=== PATIENT | female | born 1955 | race Caucasian/White ===

== ENCOUNTER → 2020-08-28 13:46 | Outpatient (BNVA) | payer MEDICARE, SELFPAY | PROVIDERS: PCP Internal Medicine; Referring Provider Internal Medicine; Visit Provider Internal Medicine | DX: I35.0 Nonrheumatic aortic (valve) stenosis (principal); I25.10 Atherosclerotic heart disease of native coronary artery without angina pectoris; E11.9 Type 2 diabetes mellitus without complications; E78.5 Hyperlipidemia, unspecified; J44.9 Chronic obstructive pulmonary disease, unspecified; I10 Essential (primary) hypertension; F17.200 Nicotine dependence, unspecified, uncomplicated | CPT/HCPCS: 99214 ==

== ENCOUNTER 2020-09-01 10:14 | Outpatient (REF) | payer MEDICARE, SELFPAY ==
[2020-09-01 14:46] LABS: Glucose Urine UA NEG (NEG); Leukocyte Esterase Urine NEG (NEG); Nitrite Urine NEG (NEG); Urine Blood NEG (NEG); Urine Ketones NEG (NEG); Urine Protein NEG (NEG-TRACE)
[2020-09-01 14:48] LABS: Appearance Urine CLEAR; Color Urine YELLOW
[2020-09-01 14:56] LABS: Mucus Urine 1+ /LPF; RBC Urine 0 /HPF (0); Squamous Epithelial Cell Urine 1+ /LPF; WBC Urine 0 /HPF (0-4)
[2020-09-01 15:07] LABS: T4 Thyroxine 5.8 ug/dL (4.5-12.0); Thyroid Stimulating Hormone 8.55 mIU/mL (0.32-4.0)
== END 2020-09-01 10:15 | disposition home or self-care (01) ==
LOC: HO.HMGCLDS 10:14
PROVIDERS: PCP Internal Medicine; Visit Provider Internal Medicine
DX: J44.9 Chronic obstructive pulmonary disease, unspecified (principal); K22.70 Barrett's esophagus without dysplasia; M50.30 Other cervical disc degeneration, unspecified cervical region; E03.9 Hypothyroidism, unspecified; E78.00 Pure hypercholesterolemia, unspecified; M51.36 Other intervertebral disc degeneration, lumbar region; E66.9 Obesity, unspecified; E11.65 Type 2 diabetes mellitus with hyperglycemia; I35.0 Nonrheumatic aortic (valve) stenosis; I25.10 Atherosclerotic heart disease of native coronary artery without angina pectoris; I10 Essential (primary) hypertension; E55.9 Vitamin D deficiency, unspecified; F41.8 Other specified anxiety disorders; R31.9 Hematuria, unspecified; Z72.0 Tobacco use
CPT/HCPCS: 81001; 84436; 84443; 88112

== ENCOUNTER 2020-11-14 01:35 | Emergency (ER) | payer MEDICARE, SELFPAY ==
[2020-11-14 02:12] VITALS: BP 148/67; PULSE 67; RESP 18; O2SAT 94; BMI 35.4
[2020-11-14 02:30] LABS: Glucose Urine UA 250 MG/DL (NEG); Leukocyte Esterase Urine 2+ (NEG); Nitrite Urine POS (NEG); Specific Gravity - Urine 1.025 (1.005-1.025); Urine Blood 3+ (NEG); Urine Ketones 5 MG/DL (NEG); Urine Protein 3+ MG/DL (NEG-TRACE)
[2020-11-14 02:31] LABS: Appearance Urine CLOUDY; Color Urine ORANGE
[2020-11-14 02:38] LABS: Bacteria Urine 1+ /LPF; RBC Urine TNTC /HPF (0); Squamous Epithelial Cell Urine 3+ /LPF; WBC Urine TNTC /HPF (0-4)
--- NOTE | 2020-11-14 02:45 | ED.FEMALEGU ---
HPI - Female Genitourinary General Chief complaint: Urogenital-Female Stated complaint: ?UTI Time Seen by Provider: 11/14/20 02:45 Source: patient Mode of arrival: ambulatory Limitations: no limitations History of Present Illness HPI Narrative: Patient diabetic with history of frequent UTI complaining of dysuria and frequency for last few hours no nausea no vomiting no fever no chills no flank pain or hematuria no vaginal discharge MD elicited complaint: dysuria and UTI Onset (ago): hour(s) Severity: mild Related Data Home Medications Medication Instructions Recorded Confirmed aspirin 81 mg tablet,delayed 81 mg PO DAILY 08/28/20 11/09/20 release glimepiride 2 mg tablet 2 mg PO DAILY 08/28/20 11/09/20 lisinopril 40 mg tablet 40 mg PO DAILY 08/28/20 11/09/20 metformin 1,000 mg tablet 1,000 mg PO BID 08/28/20 11/09/20 metoprolol tartrate 50 mg tablet mg PO BID tab 08/28/20 11/09/20 omeprazole 40 mg capsule,delayed 40 mg PO BID 08/28/20 11/09/20 release rosuvastatin 5 mg tablet 5 mg PO DAILY 08/28/20 11/09/20 sertraline 50 mg tablet 50 mg PO DAILY 08/28/20 11/09/20 Previous Rx's Medication Instructions Recorded diltiazem HCl 240 mg 240 mg PO QAM #90 cap 08/24/20 capsule,extended release 24 hr blood sugar diagnostic 1 strip MISCELLANEOUS BID 30 Days 09/11/20 #100 strip oxycodone-acetaminophen 5 mg-325 1 tab PO .QD PRN 30 Days #30 tab 10/30/20 mg tablet cefpodoxime 200 mg PO BID #20 tab 11/14/20 phenazopyridine [Pyridium] 200 mg PO TID #6 tab 11/14/20 Allergies Allergy/AdvReac Type Severity Reaction Status Date / Time levofloxacin [From LEVAQUIN] Allergy Mild NAUSEA, Verified 09/07/20 09:04 dizziness,Nausea cyclobenzaprine Allergy Unknown NAUSEA & Verified 09/07/20 09:04 [From FLEXERIL] VOMITING levothyroxine Allergy Unknown Unknown Verified 09/07/20 09:04 simvastatin Allergy Unknown Muscle Pain Verified 09/07/20 09:04 Sulfa (Sulfonamide Allergy Unknown VOMITING Verified 09/07/20 09:04 Antibiotics) [SULFA (SULFONAMIDE ANTIBIOTICS)] atorvastatin [ATORVASTATIN] AdvReac Severe MUSCLE PAIN Verified 09/07/20 09:04 pravastatin AdvReac Unknown Muscle Pain Verified 09/07/20 09:04 Review of Systems Review of Systems: Yes all other systems are reviewed and are negative [facility] Past Medical History Medical History Anxiety and depression Atherosclerotic cardiovascular disease Barretts esophagus COPD (chronic obstructive pulmonary disease) Degenerative disc disease, cervical HTN (hypertension) Hyperlipidemia, unspecified Hypertension Lumbar degenerative disc disease Non-rheumatic aortic stenosis Obesity Osteopenia Restless leg syndrome Thrombocytopenia Tobacco abuse Tubular adenoma of colon Type 2 diabetes mellitus with hyperglycemia Vitamin D deficiency Surgical History History of appendectomy History of cardiac catheterization History of cataract surgery History of cholecystectomy History of discectomy History of hip replacement History of tonsillectomy Family History Family History Father No problems noted. Mother Cardiovascular disease Social History Social History Alcohol intake: never Smoking Status: Current every day smoker Cigarettes Per Day: 10 Smoked in Last 30 Days: No Use of substances other than those prescribed or required for medical reasons: No Advance Directives: No Advance Directives Information Provided: No Physical Exam Vital Signs: Vital Signs: Last Vital Signs Pulse 67 11/14/20 02:12 Resp 18 11/14/20 02:12 BP 148/67 H 11/14/20 02:12 Pulse Ox 94 11/14/20 02:12 Body Mass Index 35.4 Appearance: Alert. Oriented X3. No acute distress. Eyes: Pupils equal, round and reactive to light. ENT: Pharynx normal. Neck: Normal inspection. Neck supple. CVS: Normal heart rate and rhythm. Pulses normal. Respiratory: No respiratory distress. Breath sounds normal. Abdomen: Soft and nontender. Bowel sounds are present, no mass palpable, no CVA tenderness Skin: Skin warm and dry. Normal skin color. Normal skin turgor. Extremities: No lower extremity edema. Neuro: Oriented X 3. No motor deficit. No sensory deficit. Course Course Course Narrative: Patient with the UTI with nitrite positive. Patient is allergic to Levaquin will give her Ceftin no signs/symptoms of pyelonephritis and discharge patient on cefpodoxime MDM - Female Genitourinary Lab Data Labs: Lab Results 11/14/20 Range/Units 02:24 Urine Color ORANGE Urine Appearance CLOUDY Urine pH 5.0 (5.0-8.0) Ur Specific [place] 1.025 (1.005-1.025) Urine Protein 3+ H (NEG-TRACE) MG/DL Urine Glucose (UA) 250 H (NEG) MG/DL Urine Ketones 5 (NEG) MG/DL Urine Blood 3+ H (NEG) Urine Nitrite POS H (NEG) Ur Leukocyte Esterase 2+ H (NEG) Urine RBC TNTC H (0) /HPF Urine WBC TNTC H (0-4) /HPF Ur Squamous Epith Cells 3+ /LPF Urine Bacteria 1+ /LPF Discharge Plan Discharge Clinical Impression: Urinary tract infection Patient Disposition: Home, Self-Care Instructions: Urinary Tract Infection in Women (ED) Additional Instructions: Drink plenty of fluid take antibiotic as advised. Report to the ER/PCP fever/ vomiting/flank pain Prescriptions: New cefpodoxime 200 mg tablet 200 mg PO BID Qty: 20 RF: 0 phenazopyridine [Pyridium] 200 mg tablet 200 mg PO TID Qty: 6 RF: 0 No Action diltiazem HCl 240 mg capsule,extended release 24hr 240 mg PO QAM Qty: 90 RF: 1 blood sugar diagnostic [OneTouch Verio test strips] Strip 1 strip miscellaneous BID 30 Days Qty: 100 RF: 12 oxycodone-acetaminophen [Percocet] 5-325 mg tablet 1 tab PO .QD PRN (Reason: pain) 30 Days Qty: 30 RF: 0 rosuvastatin 5 mg tablet 5 mg PO DAILY RF: 0 lisinopril 40 mg tablet 40 mg PO DAILY RF: 0 metoprolol tartrate 50 mg tablet PO BID RF: 0 glimepiride 2 mg tablet 2 mg PO DAILY RF: 0 omeprazole 40 mg capsule,delayed release(DR/EC) 40 mg PO BID RF: 0 sertraline 50 mg tablet 50 mg PO DAILY RF: 0 metformin 1,000 mg tablet 1,000 mg PO BID RF: 0 aspirin [Adult Low Dose Aspirin] 81 mg tablet,delayed release (DR/EC) 81 mg PO DAILY RF: 0
[2020-11-14] MEDS: Phenazopyridine HCL 200 MG TABLET PO (02:56)
== END 2020-11-14 03:14 | disposition home or self-care (01) ==
PROVIDERS: Emergency Provider Internal Medicine; PCP Internal Medicine
DX: N39.0 Urinary tract infection, site not specified (principal); R30.0 Dysuria; Z79.899 Other long term (current) drug therapy; F17.200 Nicotine dependence, unspecified, uncomplicated; Z71.6 Tobacco abuse counseling
CPT/HCPCS: 81001; 87086; 99283; 99284

== ENCOUNTER 2021-02-08 08:51 | Outpatient (REF) | payer MEDICARE, SELFPAY ==
[2021-02-08 11:12] LABS: MANUAL DIFF FLAG NO
[2021-02-08 11:24] LABS: Basophils Absolute Auto 0.1 X10*3/uL (0.0-0.2); Basophils Percent Auto 0.7 % (0-2); Eosinophils Absolute Auto 0.2 X10*3/uL (0.0-0.4); Eosinophils Percent Auto 2.3 % (0-4); Hematocrit 40.1 % (37-47); Hemoglobin 12.2 g/dl (12.0-16.0); Imm Gran Abs Auto 0.03 X10*3/uL (0.00-0.03); Imm Gran Pct Auto 0.4 % (0.0-0.4); Lymphocytes Absolute Auto 1.3 X10*3/uL (1.2-4.9); Lymphocytes Percent Auto 18.7 % (20-40); Mean Corpuscular HGB Conc 30.4 g/dl (31.0-35.0); Mean Corpuscular Hemoglobin 26.1 pg (27.0-33.0); Mean Corpuscular Volume 85.7 fL (80-98); Mean Platelet Volume 10.6 fL (9.4-12.3); Monocytes Absolute Auto 0.4 X10*3/uL (0.1-1.2); Monocytes Percent Auto 5.8 % (2-11); Neutrophils Percent Auto 72.1 % (45-73); Red Blood Count 4.68 X10*6/uL (4.20-5.50); Red Cell Distribution Width 16.4 % (11.0-16.0); White Blood Count 6.9 X10*3/uL (4.8-10.8)
[2021-02-08 11:26] LABS: Platelet Count 62 X10*3/uL (160-400)
[2021-02-08 11:44] LABS: Estimated Average Glucose 180 mg/dL; Hemoglobin A1c % 7.9 %
[2021-02-08 12:00] LABS: Alanine Aminotransferase 19 U/L (0-31); Albumin Level 3.9 g/dL (3.5-5.0); Alkaline Phosphatase 119 U/L (39-117); Anion Gap 13 (12-20); Aspartate Amino Transferase 34 U/L (5-31); Bilirubin Total 0.6 mg/dL (0.0-1.0); Blood Urea Nitrogen 14 mg/dL (9-16); Calcium 8.8 mg/dL (8.4-10.2); Carbon Dioxide 28 mmol/L (22-29); Chloride 101 mmol/L (96-108); Cholesterol 126 mg/dL; Estimated Glomerular Filt Rate > 60; Glucose Random 146 mg/dL (60-115); HDL Cholesterol 37 mg/dL; LDL Cholesterol Calculated 68 mg/dl; Potassium 4.3 mmol/L (3.3-5.1); Sodium 138 mmol/L (135-145); Total Protein 7.1 g/dL (6.5-8.0); Triglycerides 109 mg/dL
[2021-02-08 12:04] LABS: Free T4 (Free Thyroxine) 0.81 ng/dL (0.71-1.85); Thyroid Stimulating Hormone 10.06 uIU/mL (0.32-4.0); Vitamin D 25-OH Total 11.8 ng/mL (>30)
[2021-02-08 12:19] LABS: Creatinine Urine 100.64 mg/dL; Microalbum/Creatinine Ratio Ur 29.8 ug/mg cr
[2021-02-08 12:53] LABS: Folate 4.5 ng/mL (> or = 4.0); Vitamin B12 272 pg/mL (200-900)
== END 2021-02-08 08:52 | disposition home or self-care (01) ==
LOC: HO.HMGCLDS 08:51
PROVIDERS: PCP Internal Medicine; Visit Provider Internal Medicine
DX: I25.10 Atherosclerotic heart disease of native coronary artery without angina pectoris (principal); E11.65 Type 2 diabetes mellitus with hyperglycemia; E78.00 Pure hypercholesterolemia, unspecified; I10 Essential (primary) hypertension
CPT/HCPCS: 36415; 80053; 80061; 82043; 82306; 82607; 82746; 83036; 84439; 84443; 85025

== ENCOUNTER → 2021-03-29 09:22 | Outpatient (REF) | payer MEDICARE, SELFPAY ==
--- NOTE | 2021-03-29 09:24 | CA_ITS ---
Transthoracic Echocardiogram Patient (Last, First, Middle): Magy Santiago, Gender: Female Date of : 1955 Age: 65 Procedure Date: 03/29/2021 Procedure Type: Transthoracic Echocardiogram Location: OP Height: 160.02 cm Weight: 90.72 kg BSA: 1.93 m2 Heart Rate: bpm BP: 140 / 60 mmHg Mill Platform Supervisor: CHRISTINE Referring MD: Dutch Campbell MD Symptoms: I35.0 - Nonrheumatic aortic (valve) stenosis Study Quality: Technically Difficult ECG Rhythm: Sinus Conclusions: - The left ventricular systolic function is normal. The visually estimated ejection fraction is between 60-65%. - There is moderate to severe aortic valve stenosis. Findings Left Ventricle Normal left ventricular cavity size. There is moderately increased left ventricular wall thickness. The left ventricular systolic function is normal. The visually estimated ejection fraction is between 60-65%. There is no evidence of regional wall motion abnormalities. E/E prime ratio is >15, consistent with elevated filling pressures. Evidence suggests grade II (moderate) diastolic dysfunction. Right Ventricle Normal right ventricular cavity size and systolic function. Atria Both atria are normal in size. Aortic Valve There is severe calcification of the aortic valve. There is moderate to severe aortic valve stenosis. The peak aortic velocity is 3.22 m/s with a calculated peak gradient of 41 mmHg. The mean gradient is 27 mmHg. The aortic valve area is 0.85 cm2. There is no aortic valve regurgitation. Dimensionless index 0.36. Stroke volume index 32 cc. Mitral Valve The mitral valve appears normal. There is mild mitral valve regurgitation. There is no mitral valve stenosis. Pulmonic Valve The pulmonic valve was not well visualized. Tricuspid Valve Normal tricuspid valve structure. There is trace tricuspid valve regurgitation. The pulmonary artery systolic pressure is normal. Great Vessels The aortic annulus, sinuses of valsalva, and asc aorta are normal in size. Venous The inferior vena cava is normal in size and collapses greater than 50% with inspiration. Pericardium/Pleural There is no evidence of pericardial effusion. Prior Study Comparison No significant change compared to prior study dated: 08/21/2020. Measurements M-Mode Liner Measurements Normals - Women/Men AOV Cusps: 1.60 1.5-2.6 cm/m2 2D Linear Measurements IVSd: 1.40 0.6-0.9/0.6-1.0 cm LVIDd: 4.76 3.9-5.3/4.2-5.9 cm LVIDd Index: 2.47 2.4-3.2/2.2-3.1 cm/m2 LVIDs: 3.30 2.0-3.6 cm LVPWd: 1.30 0.7-1.1 cm Ao Root: 2.40 2.1-3.5 cm LA Diam: 4.20 2.7-3.8/3.0-4.0 cm LAIDs Index: 2.18 1.5-2.3 cm/m2 LV Mass: 319.60 67-162/88-224 g LV Mass Index: 165.60 43-95/49-115 g/m2 LVOT Diam: 1.80 3.0+(-)1.3 cm 2D Systolic Function EF 4C: 65.70 >55% EF 2C: 65.20 >55% EF BiP: 66.10 >55% Mitral Valve MV Pk E: 1.05 MV PK A: 1.00 MV Decel Time: 239.00 E/A: 1.10 E'Lateral: 3.65 E'Medial: 3.49 E/E' Med: 30.10 E/E' Lat: 28.80 PHT: 70.00 MVA PHT: 3.14 Decel [place]: 4.40 Aortic Valve AoV Pk Neftali: 3.22 AoV Mn Neftali: 2.42 AoV VTI: 0.74 AoV Pk Grad: 41.00 Aov Mn Grad: 27.00 JERED Cont.VTI: 0.85 LVOT LVOT Pk Neftali: 1.10 LVOT Mn Neftali: 0.84 LVOT VTI: 0.25 LVOT Pk Grad: 5.00 LVOT Mn Grad: 3.00 LVOT Diam: 1.80 LVOT Area: 2.54 Diastolic Function MV Pk E: 1.05 MV Pk A: 1.00 E/A: 1.10 E'Medial: 3.49 E/E' Med: 30.10 E' Laterial: 3.65 E/E' Lat: 28.80 Tricuspid Valve RA Press: 3.00 Great Vessels Aorta Ao Root-2D: 2.40 2.0-3.7 cm Ao Asc: 3.40 2.1-3.4 cm Pulmonary Valve PV Pk Neftali: 1.26 Peak PV Grad: 6.00 Updated in Other Vendor System with Status of Final Dutch Campbell MD electronically signed on 03/31/2021 2:25:56 PM with status of Final
== END ==
LOC: HO.CARD 09:22
PROVIDERS: PCP Internal Medicine; Visit Provider Internal Medicine
DX: I35.0 Nonrheumatic aortic (valve) stenosis (principal)
CPT/HCPCS: 93306

== ENCOUNTER → 2021-04-04 09:18 | Outpatient (BNVA) | payer MEDICARE, SELFPAY | PROVIDERS: PCP Internal Medicine; Referring Provider Internal Medicine; Visit Provider Internal Medicine | DX: I35.0 Nonrheumatic aortic (valve) stenosis (principal); I25.10 Atherosclerotic heart disease of native coronary artery without angina pectoris; E11.8 Type 2 diabetes mellitus with unspecified complications; E78.00 Pure hypercholesterolemia, unspecified; I10 Essential (primary) hypertension; F17.200 Nicotine dependence, unspecified, uncomplicated; J43.9 Emphysema, unspecified | CPT/HCPCS: 93005; 99212 ==

== ENCOUNTER 2021-10-08 10:19 | Outpatient (REF) | payer MEDICARE, SELFPAY ==
[2021-10-08 11:46] LABS: Appearance Urine CLEAR; Color Urine YELLOW; Glucose Urine UA 500 MG/DL (NEG); Leukocyte Esterase Urine NEG (NEG); Nitrite Urine POS (NEG); UACC Culture Trigger YES; Urine Blood NEG (NEG); Urine Ketones NEG (NEG); Urine Protein NEG (NEG-TRACE)
[2021-10-08 12:15] LABS: Mucus Urine 1+ /LPF; RBC Urine 0 /HPF (0); Squamous Epithelial Cell Urine 2+ /LPF; UACC CULT YES
[2021-10-08 12:16] LABS: Bacteria Urine 2+ /LPF
[2021-10-08 12:29] LABS: Free T4 (Free Thyroxine) 0.79 ng/dL (0.71-1.85); Thyroid Stimulating Hormone 7.02 uIU/mL (0.32-4.0)
== END 2021-10-08 10:20 | disposition home or self-care (01) ==
LOC: HO.HMGCLDS 10:19
PROVIDERS: PCP Internal Medicine; Visit Provider Internal Medicine
DX: E11.65 Type 2 diabetes mellitus with hyperglycemia (principal); E03.9 Hypothyroidism, unspecified
CPT/HCPCS: 36415; 81001; 81003; 84439; 84443; 87086; 87088; 87186

== ENCOUNTER 2021-10-10 09:42 | Outpatient (REF) | payer MEDICARE, OTHER, SELFPAY ==
--- NOTE | 2021-10-10 09:57 | EMG_ITS ---
This is a 66-year-old woman with a 1-year history of predominantly right hand pain and numbness with nocturnal symptoms and more recently similar, but much milder symptoms on the left. PHYSICAL EXAMINATION: On examination, she has partial atrophy of the right thenar eminence. Weakness in the abductor pollicis brevis and decreased sensation and median nerve distribution. IMPRESSION: Carpal tunnel syndrome. Nerve conduction EMG study: Severe carpal tunnel syndrome on the right. Moderate carpal tunnel syndrome on the left. EMG of the right C5-T1 innervated muscles show active denervation of the abductor pollicis brevis muscle consistent with severe right median neuropathy. MD VELMA Parra/MAR / [id number]
== END 2021-10-10 09:43 | disposition home or self-care (01) ==
LOC: HO.NEURO 09:42
PROVIDERS: PCP Internal Medicine; Visit Provider Internal Medicine
DX: R20.0 Anesthesia of skin (principal)
CPT/HCPCS: 95885; 95913

== ENCOUNTER 2021-11-13 08:31 | Outpatient (REF) | payer MEDICARE, SELFPAY | END 2021-11-13 08:32 | disposition home or self-care (01) | LOC: HO.HMGCLDS 08:31 | PROVIDERS: PCP Internal Medicine; Visit Provider Internal Medicine | DX: Z20.822 Contact with and (suspected) exposure to COVID-19 (principal) | CPT/HCPCS: C9803; U0003; U0005 ==

== ENCOUNTER 2021-11-15 11:51 | Outpatient (REF) | payer MEDICARE, SELFPAY ==
[2021-11-15 13:48] LABS: Appearance Urine CLEAR; Color Urine YELLOW; Glucose Urine UA 100 MG/DL (NEG); Leukocyte Esterase Urine 1+ (NEG); Nitrite Urine NEG (NEG); Specific Gravity - Urine <= 1.005 (1.005-1.025); UACC Culture Trigger YES; Urine Blood NEG (NEG); Urine Ketones NEG (NEG); Urine Protein NEG (NEG-TRACE)
[2021-11-15 14:04] LABS: RBC Urine 0 /HPF (0); Squamous Epithelial Cell Urine 2+ /LPF
[2021-11-15 14:35] LABS: Free T4 (Free Thyroxine) 0.84 ng/dL (0.71-1.85); Thyroid Stimulating Hormone 5.41 uIU/mL (0.32-4.0)
== END 2021-11-15 11:52 | disposition home or self-care (01) ==
LOC: HO.HMGCLDS 11:51
PROVIDERS: PCP Internal Medicine; Visit Provider Internal Medicine
DX: E03.9 Hypothyroidism, unspecified (principal); R30.0 Dysuria
CPT/HCPCS: 36415; 81001; 84439; 84443; 87086

== ENCOUNTER → 2022-01-07 08:33 | Outpatient (REF) | payer MEDICARE, SELFPAY ==
--- NOTE | 2022-01-07 08:36 | CA_ITS ---
Transthoracic Echocardiogram Patient (Last, First, Middle): Magy Santiago, Gender: Female Date of : 1955 Age: 66 Procedure Date: 01/07/2022 Procedure Type: Transthoracic Echocardiogram Location: OP Height: 160.02 cm Weight: 90.72 kg BSA: 1.93 m2 Heart Rate: bpm BP: 136 / 70 mmHg Die Casting Machine Operator: IRAIS Bhatia MD: Dutch Campbell MD Plastic Block Boiler Reliner: Dariel Yun MD Symptoms: I35.0 - Nonrheumatic aortic (valve) stenosis Study Quality: Fair ECG Rhythm: Sinus Conclusions: - 1. Normal LV systolic function with grade 2 diastolic dysfunction 2. Moderate to severe aortic stenosis 3. Mild left atrial enlargement 4. Normal RV systolic pressure 5. No gross pericardial effusion Findings Left Ventricle Normal left ventricular size, thickness, and systolic function. The visually estimated ejection fraction is between 60-65%. Spectral Doppler is indicative of a pseudonormal filling pattern. E/E prime ratio is >15, consistent with elevated filling pressures. Evidence suggests grade II (moderate) diastolic dysfunction. Right Ventricle Normal right ventricular cavity size and systolic function. Atria The left atrium is mildly dilated. There is lipomatous hypertrophy of the interatrial septum. There is no evidence of interatrial shunt. The right atrium is normal in size. Aortic Valve There is moderate calcification of the aortic valve. There is moderate thickening of the aortic valve. There is moderate to severe aortic valve stenosis. The peak aortic gradient is 53 mmHg.The mean gradient is 31 mmHg. The aortic valve area is 1.07 cm2. There is trace (trivial) aortic valve regurgitation. Mitral Valve There is mild anterior and moderate posterior mitral leaflet thickening. There is mild mitral annular calcification. There is mild mitral valve regurgitation. There is no mitral valve stenosis. Pulmonic Valve The pulmonic valve was not well visualized. Tricuspid Valve Likely normal tricuspid valve structure and function. The right ventricular systolic pressure is normal. Great Vessels All visible segments of the aorta are normal in size. The pulmonary artery was not well visualized. Venous The inferior vena cava is normal in size and collapses greater than 50% with inspiration. Pericardium/Pleural There is no evidence of pericardial effusion. Prior Study Comparison No significant change compared to prior study dated: 03/29/2021. Measurements 2D Linear Measurements IVSd: 1.15 0.6-0.9/0.6-1.0 cm LVIDd: 4.84 3.9-5.3/4.2-5.9 cm LVIDd Index: 2.51 2.4-3.2/2.2-3.1 cm/m2 LVIDs: 3.27 2.0-3.6 cm LVPWd: 1.12 0.7-1.1 cm Ao Root: 2.70 2.1-3.5 cm LV Mass: 255.89 67-162/88-224 g LV Mass Index: 132.58 43-95/49-115 g/m2 LVOT Diam: 2.00 3.0+(-)1.3 cm 2D Systolic Function EF 4C: 56.40 >55% EF 2C: 75.10 >55% EF BiP: 65.60 >55% Mitral Valve MV Pk E: 1.22 MV PK A: 0.80 MV Decel Time: 189.00 E/A: 1.50 E'Lateral: 5.11 E'Medial: 4.57 E/E' Med: 26.70 E/E' Lat: 23.90 PHT: 55.00 MVA PHT: 4.00 Decel [place]: 6.46 Aortic Valve AoV Pk Neftali: 3.65 AoV Mn Neftali: 2.60 AoV VTI: 0.85 AoV Pk Grad: 53.00 Aov Mn Grad: 31.00 JERED Cont.VTI: 1.07 LVOT LVOT Pk Neftali: 1.16 LVOT Mn Neftali: 0.88 LVOT VTI: 0.29 LVOT Pk Grad: 5.00 LVOT Mn Grad: 3.00 LVOT Diam: 2.00 LVOT Area: 3.14 Diastolic Function MV Pk E: 1.22 MV Pk A: 0.80 E/A: 1.50 E'Medial: 4.57 E/E' Med: 26.70 E' Laterial: 5.11 E/E' Lat: 23.90 Right Ventricle TAPSE (mm): 23.00 TVS' Neftali: 12.10 Tricuspid Valve TR Pk Neftali: 1.18 TR Pk Grad: 6.00 RA Press: 3.00 RVSP: 9.00 Great Vessels Aorta Ao Root-2D: 2.70 2.0-3.7 cm Ao Asc: 3.30 2.1-3.4 cm Updated in Other Vendor System with Status of Final Dariel Yun MD electronically signed on 01/07/2022 2:31:10 PM with status of Final
== END ==
LOC: HO.CARD 08:33
PROVIDERS: PCP Internal Medicine; Visit Provider Internal Medicine
DX: I35.0 Nonrheumatic aortic (valve) stenosis (principal)
CPT/HCPCS: 93306

== ENCOUNTER 2022-01-09 13:05 | Outpatient (REF) | payer MEDICARE, SELFPAY ==
[2022-01-09 14:10] LABS: Appearance Urine HAZY; Color Urine YELLOW; Glucose Urine UA NEG (NEG); Leukocyte Esterase Urine 2+ (NEG); Nitrite Urine NEG (NEG); Specific Gravity - Urine 1.015 (1.005-1.025); UACC Culture Trigger YES; Urine Blood TRACE (NEG); Urine Ketones NEG (NEG); Urine Protein NEG (NEG-TRACE)
[2022-01-09 14:33] LABS: WBC Urine TNTC /HPF (0-4)
[2022-01-09 14:34] LABS: Bacteria Urine 1+ /LPF; Squamous Epithelial Cell Urine 2+ /LPF
== END 2022-01-09 13:06 | disposition home or self-care (01) ==
LOC: HO.HMGCLDS 13:05
PROVIDERS: PCP Internal Medicine; Visit Provider Internal Medicine
DX: R30.0 Dysuria (principal)
CPT/HCPCS: 81001; 81003; 87086; 87088; 87186

== ENCOUNTER 2022-01-28 10:22 | Outpatient (REF) | payer MEDICARE, SELFPAY ==
[2022-01-28 11:40] LABS: Basophils Absolute Auto 0.1 X10*3/uL (0.0-0.2); Basophils Percent Auto 0.7 % (0-2); Eosinophils Absolute Auto 0.2 X10*3/uL (0.0-0.4); Eosinophils Percent Auto 2.2 % (0-4); Hematocrit 36.5 % (37.0-47.0); Hemoglobin 11.5 g/dl (12.0-16.0); Imm Gran Abs Auto 0.04 X10*3/uL (0.00-0.03); Imm Gran Pct Auto 0.6 % (0.0-0.4); Lymphocytes Absolute Auto 1.5 X10*3/uL (1.2-4.9); Lymphocytes Percent Auto 21.7 % (20-40); MANUAL DIFF FLAG SCAN; Mean Corpuscular HGB Conc 31.5 g/dl (31.0-35.0); Mean Corpuscular Hemoglobin 26.2 pg (27.0-33.0); Mean Corpuscular Volume 83.1 fL (80.0-98.0); Monocytes Absolute Auto 0.3 X10*3/uL (0.1-1.2); Monocytes Percent Auto 4.9 % (2-11); Neutrophils Absolute Auto 4.7 x10*3/uL (2.0-8.3); Neutrophils Percent Auto 69.9 % (45-73); PLT CLUMP 1; Red Blood Count 4.39 X10*6/uL (4.20-5.50); Red Cell Distribution Width 15.9 % (11.0-16.0); SCAN SMEAR FLAG 1
[2022-01-28 11:41] LABS: White Blood Count 6.8 X10*3/uL (4.8-10.8)
[2022-01-28 11:54] LABS: B Type Natriuretic Peptide 188 pg/mL (<100)
[2022-01-28 12:08] LABS: SLIDE REVIEW VERIFIED
[2022-01-28 12:17] LABS: Alanine Aminotransferase 10 U/L (0-31); Albumin Level 3.7 g/dL (3.5-5.0); Alkaline Phosphatase 99 U/L (39-117); Anion Gap 14 (12-20); Aspartate Amino Transferase 18 U/L (5-31); Bilirubin Total 0.4 mg/dL (0.0-1.0); Blood Urea Nitrogen 12 mg/dL (9-16); Calcium 9.2 mg/dL (8.4-10.2); Carbon Dioxide 24 mmol/L (22-29); Chloride 101 mmol/L (96-108); Cholesterol 121 mg/dL; Estimated Average Glucose 174 mg/dL; Estimated Glomerular Filt Rate 50; Glucose Random 338 mg/dL (60-115); HDL Cholesterol 36 mg/dL; Hemoglobin A1c % 7.7 %; LDL Cholesterol Calculated 59 mg/dl; Potassium 4.4 mmol/L (3.3-5.1); Sodium 135 mmol/L (135-145); Total Protein 6.8 g/dL (6.5-8.0); Triglycerides 131 mg/dL
[2022-01-28 12:25] LABS: Free T4 (Free Thyroxine) 0.89 ng/dL (0.71-1.85); Thyroid Stimulating Hormone 4.44 uIU/mL (0.32-4.0)
[2022-01-28 12:57] LABS: Folate 3.5 ng/mL (> or = 4.0); Vitamin B12 283 pg/mL (200-900)
== END 2022-01-28 10:23 | disposition home or self-care (01) ==
LOC: HO.HMGCLDS 10:22
PROVIDERS: PCP Internal Medicine; Visit Provider Internal Medicine
DX: E78.00 Pure hypercholesterolemia, unspecified (principal); E11.65 Type 2 diabetes mellitus with hyperglycemia; E03.9 Hypothyroidism, unspecified; E78.5 Hyperlipidemia, unspecified; R30.0 Dysuria
CPT/HCPCS: 36415; 80053; 80061; 82306; 82607; 82746; 83036; 83880; 84439; 84443; 85025; 87086

== ENCOUNTER 2022-02-10 16:24 | Emergency (ER) | payer MEDICARE, SELFPAY ==
--- NOTE | ~2022-02-10 | XR_ITS ---
EXAMINATION: XR SHOULDER, RIGHT CLINICAL INFORMATION: Fall. Pain COMPARISON: None TECHNIQUE: AP external rotation, Grashey, scapular Y, and axillary views of the right shoulder. FINDINGS: The bones and soft tissues are normal. No fracture. Glenohumeral and acromioclavicular alignment is anatomic with normal joint space. No abnormal soft tissue calcifications. Orthopedic plate and screw at lower cervical spine. XR/XR shoulder RT min 2V IMPRESSION: Normal right shoulder.
--- NOTE | ~2022-02-10 | XR_ITS ---
EXAMINATION: RIGHT HAND AND WRIST CLINICAL INFORMATION: Fall. Pain COMPARISON: None TECHNIQUE: 4 views FINDINGS: No fracture. No dislocation. Bone and joint are normal. There is no soft tissue abnormality. XR/XR hand wrist RT IMPRESSION: Normal right hand and wrist.
[2022-02-10 17:14] VITALS: BP 135/64; PULSE 58; RESP 18; TEMP 36.4; O2SAT 94; BMI 35.4
--- NOTE | 2022-02-10 18:04 | ED_ITS ---
HPI - Fall General Chief Complaint: Fall Stated Complaint: fell arm,shoulder and hand pain Time Seen by Provider: 02/10/22 17:37 Source: patient Mode of arrival: ambulatory Limitations: no limitations Related Data Home Medications Medication Instructions Recorded Confirmed aspirin 81 mg tablet,delayed 81 mg PO DAILY 08/28/20 07/23/21 release (Adult Low Dose Aspirin) Previous Rx's Medication Instructions Recorded blood sugar diagnostic (OneTouch 1 strip MISCELLANEOUS BID 30 Days 09/11/20 Verio test strips) #100 strip lisinopril 40 mg tablet 40 mg PO DAILY #90 tab 03/19/21 sertraline 50 mg tablet 50 mg PO DAILY #90 tab 03/19/21 metoprolol tartrate 50 mg tablet See Rx Instructions PO BID 90 Days 04/24/21 #270 tab rosuvastatin 5 mg tablet 5 mg PO DAILY #90 tab 04/24/21 valacyclovir 1 gram tablet 1,000 mg PO Q8H 7 Days #21 tab 07/23/21 glimepiride 4 mg tablet 4 mg PO DAILY 90 Days #90 tab 08/03/21 diltiazem HCl 240 mg 240 mg PO QAM #90 cap 09/20/21 capsule,extended release 24 hr metformin 1,000 mg tablet 1,000 mg PO BID #180 tab 12/03/21 omeprazole 40 mg capsule,delayed 40 mg PO BID 90 Days #180 cap 12/03/21 release oxycodone-acetaminophen 5 mg-325 1 tab PO TID PRN #30 tab 01/25/22 mg tablet (Percocet) folic acid 1 mg tablet 1 mg PO DAILY 30 Days #30 tab 01/28/22 levothyroxine 88 mcg tablet 88 mcg PO DAILY 30 Days #30 tab 01/28/22 nitrofurantoin 100 mg PO Q12H 7 Days #14 cap 01/29/22 monohydrate/macrocrystals 100 mg capsule (Macrobid) ondansetron HCl 4 mg tablet 4 mg PO Q8H #30 tab 01/29/22 Allergies Allergy/AdvReac Type Severity Reaction Status Date / Time levofloxacin [From LEVAQUIN] Allergy Mild NAUSEA, Verified 02/10/22 17:13 dizziness,Nausea cyclobenzaprine Allergy Unknown NAUSEA & Verified 02/10/22 17:13 [From FLEXERIL] VOMITING levothyroxine Allergy Unknown Unknown Verified 02/10/22 17:13 simvastatin Allergy Unknown Muscle Pain Verified 02/10/22 17:13 Sulfa (Sulfonamide Allergy Unknown VOMITING Verified 02/10/22 17:13 Antibiotics) [SULFA (SULFONAMIDE ANTIBIOTICS)] atorvastatin [ATORVASTATIN] AdvReac Severe MUSCLE PAIN Verified 02/10/22 17:13 pravastatin AdvReac Unknown Muscle Pain Verified 02/10/22 17:13 [facility] Past Medical History Medical History Anxiety and depression Atherosclerotic cardiovascular disease Barretts esophagus COPD (chronic obstructive pulmonary disease) Degenerative disc disease, cervical Essential hypertension Hyperlipidemia, unspecified Lumbar degenerative disc disease Non-rheumatic aortic stenosis Obesity Osteopenia Restless leg syndrome Thrombocytopenia Tobacco abuse Tubular adenoma of colon Type 2 diabetes mellitus with hyperglycemia Vitamin D deficiency Surgical History History of appendectomy History of cardiac catheterization History of cataract surgery History of cholecystectomy History of discectomy History of hip replacement History of tonsillectomy Family History Family History Father No problems noted. Mother Cardiovascular disease Social History Social History Housing: Apartment Alcohol intake: never Patient Tobacco Use Status: Current everyday Tobacco user Tobacco use type: Cigarette Cigarettes Per Day: 20 e-Cigarette/Vaping Use: Never Used Second Hand Smoke Exposure: No service: No Current occupational status: retired Physical Exam Vital Signs: Vital Signs: Last Vital Signs Temp 97.6 F 02/10/22 17:14 Pulse 58 02/10/22 17:14 Resp 18 02/10/22 17:14 BP 135/64 02/10/22 17:14 Pulse Ox 94 02/10/22 17:14 BMI result Body Mass Index 35.4 Discharge Plan Discharge Prescriptions: No Action blood sugar diagnostic [OneTouch Verio test strips] Strip 1 strip miscellaneous BID 30 Days Qty: 100 12RF sertraline 50 mg tablet 50 mg PO DAILY Qty: 90 2RF lisinopril 40 mg tablet 40 mg PO DAILY Qty: 90 3RF metoprolol tartrate 50 mg tablet See Rx Instructions PO BID 90 Days Qty: 270 3RF Rx Instructions: Takes 2 tabs am and 1 tab pm rosuvastatin 5 mg tablet 5 mg PO DAILY Qty: 90 2RF diltiazem HCl 240 mg capsule,extended release 24hr 240 mg PO QAM Qty: 90 2RF metformin 1,000 mg tablet 1,000 mg PO BID Qty: 180 3RF omeprazole 40 mg capsule,delayed release(DR/EC) 40 mg PO BID 90 Days Qty: 180 1RF oxycodone-acetaminophen [Percocet] 5-325 mg tablet 1 tab PO TID PRN (Reason: pain) Qty: 30 0RF folic acid 1 mg tablet 1 mg PO DAILY 30 Days Qty: 30 2RF levothyroxine 88 mcg tablet 88 mcg PO DAILY 30 Days Qty: 30 3RF ondansetron HCl 4 mg tablet 4 mg PO Q8H Qty: 30 0RF nitrofurantoin monohyd/m-cryst [Macrobid] 100 mg capsule 100 mg PO Q12H 7 Days Qty: 14 0RF Rx Instructions: must administer with a meal/food glimepiride 4 mg tablet 4 mg PO DAILY 90 Days Qty: 90 2RF valacyclovir 1 gram tablet 1,000 mg PO Q8H 7 Days Qty: 21 0RF aspirin [Adult Low Dose Aspirin] 81 mg tablet,delayed release (DR/EC) 81 mg PO DAILY 0RF
--- NOTE | 2022-02-10 18:32 | ED.FALL ---
HPI - Fall General Chief Complaint: Fall Stated Complaint: fell arm,shoulder and hand pain Time Seen by Provider: 02/10/22 17:37 Source: patient Mode of arrival: ambulatory Limitations: no limitations History of Present Illness HPI Narrative: 66 y/o female presents to the ER c/o right shoulder and right hand pain after she tripped and fell in her kitchen this afternoon while carrying a basket full of laundry. She fell down onto the palm of her right hand and then onto the right shoulder. She denies hitting her head or losing consciousness. She is not on anticoagulation. She denies any weakness, numbness or tingling in the right upper extremity. She reports pain in the top of her right shoulder extending to the right side of her neck. No headache or midline neck pain. MD complaint: fall Onset (ago): hour(s) Fall from: standing Fall witnessed: yes, by family Place fall occurred: home Loss of consciousness: none Prolonged down time: no Symptoms prior to fall: none Context: tripped/slipped Location of injury - extremities: right: shoulder and hand Severity: moderate Severity scale (1-10): 5 Quality: aching Associated symptoms (after fall): denies Related Data Home Medications Medication Instructions Recorded Confirmed aspirin 81 mg tablet,delayed 81 mg PO DAILY 08/28/20 07/23/21 release (Adult Low Dose Aspirin) Previous Rx's Medication Instructions Recorded blood sugar diagnostic (OneTouch 1 strip MISCELLANEOUS BID 30 Days 09/11/20 Verio test strips) #100 strip lisinopril 40 mg tablet 40 mg PO DAILY #90 tab 03/19/21 sertraline 50 mg tablet 50 mg PO DAILY #90 tab 03/19/21 metoprolol tartrate 50 mg tablet See Rx Instructions PO BID 90 Days 04/24/21 #270 tab rosuvastatin 5 mg tablet 5 mg PO DAILY #90 tab 04/24/21 valacyclovir 1 gram tablet 1,000 mg PO Q8H 7 Days #21 tab 07/23/21 glimepiride 4 mg tablet 4 mg PO DAILY 90 Days #90 tab 08/03/21 diltiazem HCl 240 mg 240 mg PO QAM #90 cap 09/20/21 capsule,extended release 24 hr metformin 1,000 mg tablet 1,000 mg PO BID #180 tab 12/03/21 omeprazole 40 mg capsule,delayed 40 mg PO BID 90 Days #180 cap 12/03/21 release oxycodone-acetaminophen 5 mg-325 1 tab PO TID PRN #30 tab 01/25/22 mg tablet (Percocet) folic acid 1 mg tablet 1 mg PO DAILY 30 Days #30 tab 01/28/22 levothyroxine 88 mcg tablet 88 mcg PO DAILY 30 Days #30 tab 01/28/22 nitrofurantoin 100 mg PO Q12H 7 Days #14 cap 01/29/22 monohydrate/macrocrystals 100 mg capsule (Macrobid) ondansetron HCl 4 mg tablet 4 mg PO Q8H #30 tab 01/29/22 methocarbamol 500 mg tablet 500 mg PO Q8H PRN #14 tab 02/10/22 naproxen 500 mg tablet 500 mg PO BID PRN #20 tab 02/10/22 Allergies Allergy/AdvReac Type Severity Reaction Status Date / Time levofloxacin [From LEVAQUIN] Allergy Mild NAUSEA, Verified 02/10/22 17:13 dizziness,Nausea cyclobenzaprine Allergy Unknown NAUSEA & Verified 02/10/22 17:13 [From FLEXERIL] VOMITING levothyroxine Allergy Unknown Unknown Verified 02/10/22 17:13 simvastatin Allergy Unknown Muscle Pain Verified 02/10/22 17:13 Sulfa (Sulfonamide Allergy Unknown VOMITING Verified 02/10/22 17:13 Antibiotics) [SULFA (SULFONAMIDE ANTIBIOTICS)] atorvastatin [ATORVASTATIN] AdvReac Severe MUSCLE PAIN Verified 02/10/22 17:13 pravastatin AdvReac Unknown Muscle Pain Verified 02/10/22 17:13 Review of Systems Review of Systems: Constitutional: No Fever, No Chills Cardiovascular: No Chest Pain, No SOB Gastrointestinal: No Nausea, No Vomiting, No abdominal Pain Musculoskeletal: +joint pain, + Myalgias Skin: No Skin Lesions, No rash Neuro: No Weakness, No Numbness, No Dizziness, No Headache Psych: + Anxiety/Panic Heme/Lymph: No Bruising PMFSH Past Medical History Medical History Anxiety and depression Atherosclerotic cardiovascular disease Barretts esophagus COPD (chronic obstructive pulmonary disease) Degenerative disc disease, cervical Essential hypertension Hyperlipidemia, unspecified Lumbar degenerative disc disease Non-rheumatic aortic stenosis Obesity Osteopenia Restless leg syndrome Thrombocytopenia Tobacco abuse Tubular adenoma of colon Type 2 diabetes mellitus with hyperglycemia Vitamin D deficiency Surgical History History of appendectomy History of cardiac catheterization History of cataract surgery History of cholecystectomy History of discectomy History of hip replacement History of tonsillectomy Family History Family History Father No problems noted. Mother Cardiovascular disease Social History Social History Housing: Apartment Alcohol intake: never Patient Tobacco Use Status: Current everyday Tobacco user Tobacco use type: Cigarette Cigarettes Per Day: 20 e-Cigarette/Vaping Use: Never Used Second Hand Smoke Exposure: No Advance Directives: No Advance Directives Information Provided: Yes service: No Current occupational status: retired Physical Exam Vital Signs: Vital Signs: Last Vital Signs Temp 97.6 F 02/10/22 17:14 Pulse 58 02/10/22 17:14 Resp 18 02/10/22 17:14 BP 135/64 02/10/22 17:14 Pulse Ox 94 02/10/22 17:14 BMI result Body Mass Index 35.4 Appearance: Alert. Oriented X3. No acute distress. HEENT: normal inspection Neck: normal inspection, normal ROM. mild soft tissue tenderness and spasm on the lateral aspect of the right side of the neck CVS: Normal heart rate and rhythm. Pulses normal. Respiratory: No respiratory distress. Skin: Skin warm and dry. Normal skin color. Normal skin turgor. No rashes. Extremities: normal inspection of the right upper extremity. normal active and passive ROM of the right shoulder. tenderness of the superior aspect of the shoulder over trapezius muscle with palpable spasm. nontender right elbow with normal ROM. normal right wrist, nontender with normal ROM. right hand with no swelling, tenderness of the thenar eminence. normal palpation of metacarpals. normal ROM of the fingers, thumb. NV intact distally. Neuro: Oriented X 3. No motor deficit. No sensory deficit. Course Course Course Narrative: 66 y/o female presenting with right shoulder and right hand pain s/p mechanical fall earlier today. Exam consistnet with soft tissue injury, doubt acute fracture. Normal ROM of the shoulder and neck. Thenar eminence with some mild tenderness but normal ROM of the thumb, wrist and digits. Xrs are pending. Reevaluation(s) Reevaluation #1: XRs are normal. Will treat for muscle strain. 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 Discharge Plan Discharge Clinical Impression: Contusion of hand, Right shoulder strain Patient Disposition: Home, Self-Care Instructions: Muscle Strain (DC), Contusion in Adults (ED) Additional Instructions: Your x-rays today were normal. Your pain is most likely due to muscle strains and contusions (bruises) Recommend rest and applying ice to affected areas several times per day Take the prescribed medications as needed for pain and muscle spasms Follow up with your doctor this week If you develop new or worsening symptoms call 911 or come back to the ER for further evaluation. Prescriptions: New methocarbamol 500 mg tablet 500 mg PO Q8H PRN (Reason: muscle spasm) Qty: 14 0RF naproxen 500 mg tablet 500 mg PO BID PRN (Reason: pain) Qty: 20 0RF No Action blood sugar diagnostic [OneTouch Verio test strips] Strip 1 strip miscellaneous BID 30 Days Qty: 100 12RF sertraline 50 mg tablet 50 mg PO DAILY Qty: 90 2RF lisinopril 40 mg tablet 40 mg PO DAILY Qty: 90 3RF metoprolol tartrate 50 mg tablet See Rx Instructions PO BID 90 Days Qty: 270 3RF Rx Instructions: Takes 2 tabs am and 1 tab pm rosuvastatin 5 mg tablet 5 mg PO DAILY Qty: 90 2RF diltiazem HCl 240 mg capsule,extended release 24hr 240 mg PO QAM Qty: 90 2RF metformin 1,000 mg tablet 1,000 mg PO BID Qty: 180 3RF omeprazole 40 mg capsule,delayed release(DR/EC) 40 mg PO BID 90 Days Qty: 180 1RF oxycodone-acetaminophen [Percocet] 5-325 mg tablet 1 tab PO TID PRN (Reason: pain) Qty: 30 0RF folic acid 1 mg tablet 1 mg PO DAILY 30 Days Qty: 30 2RF levothyroxine 88 mcg tablet 88 mcg PO DAILY 30 Days Qty: 30 3RF ondansetron HCl 4 mg tablet 4 mg PO Q8H Qty: 30 0RF nitrofurantoin monohyd/m-cryst [Macrobid] 100 mg capsule 100 mg PO Q12H 7 Days Qty: 14 0RF Rx Instructions: must administer with a meal/food glimepiride 4 mg tablet 4 mg PO DAILY 90 Days Qty: 90 2RF valacyclovir 1 gram tablet 1,000 mg PO Q8H 7 Days Qty: 21 0RF aspirin [Adult Low Dose Aspirin] 81 mg tablet,delayed release (DR/EC) 81 mg PO DAILY 0RF Referrals: Po,Marycruz Hurst MD [Primary Care Provider] - 1 week
[2022-02-10] MEDS: HYDROcodone Bit/Acetam 5/325 TABLET 1 TAB PO (18:44)
== END 2022-02-10 18:51 | disposition home or self-care (01) ==
PROVIDERS: Emergency Provider Emergency Medicine; PCP Internal Medicine
DX: S60.221A Contusion of right hand, initial encounter (principal); S46.911A Strain of unspecified muscle, fascia and tendon at shoulder and upper arm level, right arm, initial encounter; M79.601 Pain in right arm; W10.9XXA Fall (on) (from) unspecified stairs and steps, initial encounter; Y93.9 Activity, unspecified; Y92.009 Unspecified place in unspecified non-institutional (private) residence as the place of occurrence of the external cause; Y99.9 Unspecified external cause status; Z79.899 Other long term (current) drug therapy; Z79.82 Long term (current) use of aspirin; F17.210 Nicotine dependence, cigarettes, uncomplicated; Z71.6 Tobacco abuse counseling
CPT/HCPCS: 73030; 73110; 73130; 99283

== ENCOUNTER → 2022-02-25 09:30 | Outpatient (BNVA) | payer MEDICARE, SELFPAY | PROVIDERS: PCP Internal Medicine; Referring Provider Internal Medicine; Visit Provider Internal Medicine | DX: I35.0 Nonrheumatic aortic (valve) stenosis (principal); I25.10 Atherosclerotic heart disease of native coronary artery without angina pectoris; E11.8 Type 2 diabetes mellitus with unspecified complications; E78.00 Pure hypercholesterolemia, unspecified; I10 Essential (primary) hypertension; J43.9 Emphysema, unspecified; F17.210 Nicotine dependence, cigarettes, uncomplicated | CPT/HCPCS: 99212 ==

== ENCOUNTER 2022-03-11 12:02 | Outpatient (REF) | payer MEDICARE, SELFPAY ==
[2022-03-11 13:52] LABS: Appearance Urine CLEAR; Color Urine YELLOW; Glucose Urine UA NEG (NEG); Leukocyte Esterase Urine NEG (NEG); Nitrite Urine NEG (NEG); Urine Blood NEG (NEG); Urine Ketones NEG (NEG); Urine Protein NEG (NEG-TRACE)
== END 2022-03-11 12:03 | disposition home or self-care (01) ==
LOC: HO.HMGCLDS 12:02
PROVIDERS: Visit Provider Internal Medicine
DX: R30.0 Dysuria (principal)
CPT/HCPCS: 81003

== ENCOUNTER 2022-06-18 08:50 | Outpatient (REF) | payer MEDICARE, SELFPAY | END 2022-06-18 08:51 | disposition home or self-care (01) | LOC: HO.HOSX 08:50 | PROVIDERS: Visit Provider Physician Assistant | DX: Z13.89 Encounter for screening for other disorder (principal) ==

== ENCOUNTER 2022-06-20 08:14 | Outpatient (REF) | payer MEDICARE, SELFPAY ==
--- NOTE | ~2022-06-20 | XR_ITS ---
EXAMINATION: XR SHOULDER, RIGHT CLINICAL INFORMATION: Shoulder pain COMPARISON: Radiographs right shoulder 02/10/2022 TECHNIQUE: Right shoulder is imaged in 3 views. FINDINGS: The lesser tuberosity humeral head appears irregular on the axial view, suspicious for fracture. The other 2 views show no fracture or dislocation. The acromioclavicular alignment is normal. There are no visible rotator cuff calcifications. XR/XR shoulder RT min 2V IMPRESSION: Axial view suspicious for fracture lesser tuberosity.
== END 2022-06-20 08:15 | disposition home or self-care (01) ==
LOC: HO.HOSX 08:14
PROVIDERS: Visit Provider Physician Assistant
DX: S42.251A Displaced fracture of greater tuberosity of right humerus, initial encounter for closed fracture (principal)
CPT/HCPCS: 73030; 99202

== ENCOUNTER 2022-07-05 13:42 | Outpatient (REF) | payer MEDICARE, SELFPAY ==
[2022-07-05 16:37] LABS: Appearance Urine HAZY; Color Urine YELLOW; Glucose Urine UA NEG (NEG); Leukocyte Esterase Urine NEG (NEG); Nitrite Urine NEG (NEG); Specific Gravity - Urine <= 1.005 (1.005-1.025); Urine Blood NEG (NEG); Urine Ketones NEG (NEG); Urine Protein NEG (NEG-TRACE)
== END 2022-07-05 13:43 | disposition home or self-care (01) ==
LOC: HO.HMGCLDS 13:42
PROVIDERS: PCP Internal Medicine; Visit Provider Internal Medicine
DX: R30.0 Dysuria (principal); N39.0 Urinary tract infection, site not specified
CPT/HCPCS: 81003

== ENCOUNTER 2022-07-19 13:03 | Outpatient (REF) | payer MEDICARE, SELFPAY ==
--- NOTE | ~2022-07-19 | XR_ITS ---
EXAMINATION: XR SHOULDER, RIGHT CLINICAL INFORMATION: Pain COMPARISON: Previous x-ray 06/20/2022 TECHNIQUE: AP and scapular Y view of the right shoulder. FINDINGS: On the 2 provided x-rays,, is ill-defined lucency in the lateral aspect of the humeral head/tuberosity region. This could be related to the lesser tuberosity fracture suspected on the prior radiograph. There are no axillary view obtained in today's today for direct comparison. Anatomic glenohumeral joint alignment. Mild to moderate acromioclavicular arthritis. XR/XR shoulder RT min 2V IMPRESSION: Prior x-ray demonstrated concern for a lesser tuberosity fracture. The findings seen in the lateral aspect of the humeral head on the provided views, could be related to this. Additional axillary view for further evaluation could be considered, as clinically warranted. Mild to moderate acromioclavicular arthritis
== END 2022-07-19 13:04 | disposition home or self-care (01) ==
LOC: HO.HOSX 13:03
PROVIDERS: Visit Provider Physician Assistant
DX: S42.251A Displaced fracture of greater tuberosity of right humerus, initial encounter for closed fracture (principal)
CPT/HCPCS: 73030; 99212

== ENCOUNTER → 2022-08-07 08:20 | Outpatient (REF) | payer MEDICARE, OTHER, SELFPAY ==
--- NOTE | 2022-08-07 08:22 | CA_ITS ---
Transthoracic Echocardiogram Patient (Last, First, Middle): Magy Santiago, Gender: Female Date of : 1955 Age: 67 Procedure Date: 08/07/2022 Procedure Type: Transthoracic Echocardiogram Location: OP Height: 160.02 cm Weight: 99.79 kg BSA: 2.01 m2 Heart Rate: bpm BP: 118 / 75 mmHg Register Repairer: TO Referring MD: Dutch Campbell MD Senior Merchandiser: Dariel Yun MD Symptoms: I35.0 - Nonrheumatic aortic (valve) stenosis Study Quality: Fair ECG Rhythm: Sinus Conclusions: - 1. Normal LV systolic function with mild LVH with grade 2 diastolic dysfunction next 2. Moderate to severe aortic stenosis 3. Mild mitral regurgitation 4. No gross pericardial effusion 5. Mild left atrial enlargement Findings Left Ventricle Normal left ventricular size and systolic function. There is mildly increased left ventricular wall thickness. The visually estimated ejection fraction is between 65-70%. Spectral Doppler is indicative of a pseudonormal filling pattern. E/E prime ratio is >15, consistent with elevated filling pressures. Evidence suggests grade II (moderate) diastolic dysfunction. Right Ventricle Normal right ventricular cavity size and systolic function. Atria The left atrium is mildly dilated. There is no evidence of interatrial shunt. The right atrium is normal in size. Aortic Valve The aortic valve was not well visualized. There is mild calcification of the aortic valve. There is moderate to severe aortic valve stenosis. The mean gradient is 28 mmHg. The aortic valve area is 0.88 cm2. There is no aortic valve regurgitation. calculated dimensionless index is 0.28, suggesting that this is more moderately severe aortic stenosis. Mitral Valve There is mild anterior and posterior mitral leaflet thickening. There is mild mitral annular calcification. There is mild mitral valve regurgitation. There is no mitral valve stenosis. Pulmonic Valve The pulmonic valve was not well visualized. Tricuspid Valve Likely normal tricuspid valve structure and function. Tricuspid regurgitation envelope is inadequate for calculation of right ventricular systolic pressure. Normal right atrial pressure. Great Vessels All visible segments of the aorta are normal in size. The pulmonary artery was not well visualized. Venous The inferior vena cava is normal in size and collapses greater than 50% with inspiration. Pericardium/Pleural There is no evidence of pericardial effusion. Prior Study Comparison No significant change compared to prior study dated: 01/07/2022. Measurements 2D Linear Measurements IVSd: 1.35 0.6-0.9/0.6-1.0 cm LVIDd: 4.76 3.9-5.3/4.2-5.9 cm LVIDd Index: 2.37 2.4-3.2/2.2-3.1 cm/m2 LVIDs: 2.50 2.0-3.6 cm LVPWd: 1.07 0.7-1.1 cm LA Diam: 5.00 2.7-3.8/3.0-4.0 cm LAIDs Index: 2.49 1.5-2.3 cm/m2 LV Mass: 272.79 67-162/88-224 g LV Mass Index: 135.72 43-95/49-115 g/m2 LVOT Diam: 2.00 3.0+(-)1.3 cm 2D Systolic Function EF 4C: 70.80 >55% EF 2C: 64.10 >55% EF BiP: 67.40 >55% Mitral Valve MV Pk E: 1.26 MV PK A: 0.94 MV Decel Time: 203.00 E/A: 1.30 E'Lateral: 3.81 E'Medial: 4.46 E/E' Med: 28.30 E/E' Lat: 33.10 PHT: 59.00 MVA PHT: 3.73 Decel [place]: 6.19 Aortic Valve AoV Pk Neftali: 3.51 AoV Mn Neftali: 2.49 AoV VTI: 0.83 AoV Pk Grad: 49.00 Aov Mn Grad: 28.00 JERED Cont.VTI: 0.88 LVOT LVOT Pk Neftali: 0.99 LVOT Mn Neftali: 0.66 LVOT VTI: 0.23 LVOT Pk Grad: 4.00 LVOT Mn Grad: 2.00 LVOT Diam: 2.00 LVOT Area: 3.14 Diastolic Function MV Pk E: 1.26 MV Pk A: 0.94 E/A: 1.30 E'Medial: 4.46 E/E' Med: 28.30 E' Laterial: 3.81 E/E' Lat: 33.10 Right Ventricle TAPSE (mm): 22.30 TVS' Neftali: 10.60 Tricuspid Valve RA Press: 3.00 Great Vessels Aorta Sinus of Valsalva: 2.83 2.0-3.5 cm Ao Asc: 3.40 2.1-3.4 cm Updated in Other Vendor System with Status of Final Dariel Yun MD electronically signed on 08/08/2022 12:00:31 PM with status of Final
== END ==
LOC: HO.CARD 08:20
PROVIDERS: PCP Internal Medicine; Visit Provider Internal Medicine
DX: I35.0 Nonrheumatic aortic (valve) stenosis (principal)
CPT/HCPCS: 93306

== ENCOUNTER → 2022-08-26 09:39 | Outpatient (BNVA) | payer MEDICARE, SELFPAY | PROVIDERS: PCP Internal Medicine; Referring Provider Internal Medicine; Visit Provider Internal Medicine | DX: I35.0 Nonrheumatic aortic (valve) stenosis (principal); I25.10 Atherosclerotic heart disease of native coronary artery without angina pectoris; E11.8 Type 2 diabetes mellitus with unspecified complications; E78.00 Pure hypercholesterolemia, unspecified; I10 Essential (primary) hypertension; F17.210 Nicotine dependence, cigarettes, uncomplicated; Z79.82 Long term (current) use of aspirin; Z79.84 Long term (current) use of oral hypoglycemic drugs; Z79.899 Other long term (current) drug therapy | CPT/HCPCS: 93005; 99212 ==

== ENCOUNTER 2022-08-30 | Outpatient (REF) | payer MEDICARE, SELFPAY | END 2022-08-30 00:01 | disposition home or self-care (01) | LOC: HO.HOSX | PROVIDERS: Visit Provider Physician Assistant | DX: Z13.89 Encounter for screening for other disorder (principal) ==

== ENCOUNTER 2023-02-19 16:04 | Outpatient (REF) | payer MEDICARE, OTHER, SELFPAY ==
--- NOTE | ~2023-02-19 | XR_ITS ---
EXAMINATION: XR CHEST CLINICAL INFORMATION: Cough. COMPARISON: None available. TECHNIQUE: PA and lateral views of the chest. XR/XR chest 2V FINDINGS/IMPRESSION: Heart upper normal in size to mildly enlarged. Mildly atherosclerotic aorta. Question mild prominence of the pulmonary veins in the nondependent portions, raising the possibility of mild pulmonary venous hypertension. No acute infiltrate or effusion is seen. No adenopathy is evident. Lower cervical anterior fixation plate and screws.
== END 2023-02-19 16:05 | disposition home or self-care (01) ==
LOC: HO.HMGCX 16:04
PROVIDERS: Visit Provider Internal Medicine
DX: R05.9 Cough, unspecified (principal)
CPT/HCPCS: 71046

== ENCOUNTER → 2023-03-05 10:25 | Outpatient (BNVA) | payer MEDICARE, SELFPAY | PROVIDERS: PCP Internal Medicine; Referring Provider Internal Medicine; Visit Provider Internal Medicine | DX: I35.0 Nonrheumatic aortic (valve) stenosis (principal); I48.91 Unspecified atrial fibrillation; I25.10 Atherosclerotic heart disease of native coronary artery without angina pectoris; I10 Essential (primary) hypertension; E78.00 Pure hypercholesterolemia, unspecified; E11.8 Type 2 diabetes mellitus with unspecified complications; F17.210 Nicotine dependence, cigarettes, uncomplicated; Z79.82 Long term (current) use of aspirin; Z79.84 Long term (current) use of oral hypoglycemic drugs | CPT/HCPCS: 93005; 99212 ==

== ENCOUNTER → 2023-03-17 09:36 | Outpatient (REF) | payer MEDICARE, SELFPAY ==
--- NOTE | 2023-03-17 09:39 | HM_ITS ---
* Total monitoring time 3 days. * Underlying rhythm is atrial fibrillation. Average ventricular rate 71/Min. Range 35 to 150/Min. * About 2% of the time, ventricular rate > 100/Min. * Frequent PVCs. [place]elle of 2.6%. Mostly isolated beats. Some couplets. 2 runs noted. Longest 11 beats. * No significant pauses or AV blocks. * No patient markers or events in diary. MTDD
== END ==
LOC: HO.CARD 09:36
PROVIDERS: PCP Internal Medicine; Visit Provider Internal Medicine
DX: I48.91 Unspecified atrial fibrillation (principal)
CPT/HCPCS: 93242

== ENCOUNTER → 2023-03-18 09:59 | Outpatient (REF) | payer MEDICARE, OTHER, SELFPAY ==
--- NOTE | 2023-03-18 10:02 | CA_ITS ---
Transthoracic Echocardiogram Patient (Last, First, Middle): Magy Santiago, Gender: Female Date of : 1955 Age: 67 Procedure Date: 03/18/2023 Procedure Type: Transthoracic Echocardiogram Location: OP Height: 160.02 cm Weight: 90.72 kg BSA: 1.93 m2 Heart Rate: bpm BP: 136 / 88 mmHg Bottom Finisher: REBEKA Referring MD: Dutch Campbell MD Symptoms: I35.0 - Nonrheumatic aortic (valve) stenosis Study Quality: Fair ECG Rhythm: Atrial Fibrillation Conclusions: - The left ventricular systolic function is normal. The calculated ejection fraction is 66% by biplane method. - There is moderate to severe aortic valve stenosis. - Mild to moderate pulmonary hypertension is present. Findings Left Ventricle Normal left ventricular cavity size. There is mildly increased left ventricular wall thickness. The left ventricular systolic function is normal. The calculated ejection fraction is 66% by biplane method. There is no evidence of regional wall motion abnormalities. Diastolic function is indeterminate on the basis of available data. Right Ventricle Normal right ventricular cavity size. There is mildly decreased right ventricular systolic function. Atria The left atrium is moderately dilated. The right atrium is normal in size. Aortic Valve There is moderate calcification of the aortic valve. There is moderate to severe aortic valve stenosis. The peak aortic velocity is 3.68 m/s with a calculated peak gradient of 54 mmHg. The mean gradient is 31 mmHg. The aortic valve area is 0.76 cm2. There is trace (trivial) aortic valve regurgitation. Dimensionless index 0.29. Mitral Valve There is moderate mitral annular calcification. There is mild mitral valve regurgitation. There is no mitral valve stenosis. Pulmonic Valve The pulmonic valve is likely normal. Tricuspid Valve There is trace tricuspid valve regurgitation. Mild to moderate pulmonary hypertension is present. Great Vessels The asc aorta is normal in size. Venous The inferior vena cava is dilated and collapses less than 50% with inspiration. Pericardium/Pleural There is no evidence of pericardial effusion. Prior Study Comparison No significant change compared to prior study dated: 08/07/2022. Measurements 2D Linear Measurements IVSd: 1.16 0.6-0.9/0.6-1.0 cm LVIDd: 4.66 3.9-5.3/4.2-5.9 cm LVIDd Index: 2.41 2.4-3.2/2.2-3.1 cm/m2 LVIDs: 2.90 2.0-3.6 cm LVPWd: 1.16 0.7-1.1 cm LA Diam: 4.10 2.7-3.8/3.0-4.0 cm LAIDs Index: 2.12 1.5-2.3 cm/m2 LV Mass: 248.43 67-162/88-224 g LV Mass Index: 128.72 43-95/49-115 g/m2 LVOT Diam: 1.90 3.0+(-)1.3 cm 2D Systolic Function EF 4C: 66.50 >55% EF 2C: 68.40 >55% EF BiP: 66.10 >55% Mitral Valve MV Pk E: 1.47 MV Decel Time: 157.00 E'Lateral: 5.85 E'Medial: 4.65 E/E' Med: 31.60 E/E' Lat: 25.10 PHT: 46.00 MVA PHT: 4.78 Decel [place]: 9.44 Aortic Valve AoV Pk Neftali: 3.68 AoV Mn Neftali: 2.61 AoV VTI: 0.85 AoV Pk Grad: 54.00 Aov Mn Grad: 31.00 JERED Cont.VTI: 0.76 LVOT LVOT Pk Neftali: 1.05 LVOT Mn Neftali: 0.74 LVOT VTI: 0.23 LVOT Pk Grad: 4.00 LVOT Mn Grad: 2.00 LVOT Diam: 1.90 LVOT Area: 2.84 Diastolic Function MV Pk E: 1.47 E'Medial: 4.65 E/E' Med: 31.60 E' Laterial: 5.85 E/E' Lat: 25.10 Right Ventricle TAPSE (mm): 15.90 TVS' Neftali: 9.16 Tricuspid Valve TR Pk Neftali: 3.11 TR Pk Grad: 39.00 RA Press: 15.00 RVSP: 54.00 Great Vessels Aorta Sinus of Valsalva: 2.78 2.0-3.5 cm Ao Asc: 3.30 2.1-3.4 cm Updated in Other Vendor System with Status of Final Dutch Campbell MD electronically signed on 03/19/2023 9:55:46 AM with status of Final
== END ==
LOC: HO.CARD 09:59
PROVIDERS: PCP Internal Medicine; Visit Provider Internal Medicine
DX: I35.0 Nonrheumatic aortic (valve) stenosis (principal)
CPT/HCPCS: 93306

== ENCOUNTER 2023-03-24 13:54 | Outpatient (REF) | payer MEDICARE, OTHER, SELFPAY ==
--- NOTE | ~2023-03-24 | US_ITS ---
EXAMINATION: US VENOUS ULTRASOUND WITH DOPPLER LOWER EXTREMITY, RIGHT CLINICAL INFORMATION: Right leg swelling COMPARISON: Previous left lower extremity venous study 09/12/2019 TECHNIQUE: Ultrasound of the deep veins is performed from the hip to the calf with compression sonography and color and pulse Doppler assessment. Spectral analysis with color-flow imaging is performed. FINDINGS: There is normal venous compression and respiratory variation and augmented flow. The visualized common femoral vein, superficial femoral vein, profunda femoral vein, popliteal vein, and the trifurcation region shows no evidence of deep venous thrombosis. There is small Joy's cyst measuring 7.3 x 2.5 x 3.7 cm. If the patient's symptoms persist, followup ultrasound in 5 days 7 days might be of value to exclude proximal propagation from a non-visualized calf vein. US/US venous duplex LE RT IMPRESSION: No DVT demonstrated in the right lower extremity.
[2023-03-24 14:12] LABS: Hematocrit 36.2 % (37.0-47.0); Hemoglobin 11.1 g/dl (12.0-16.0); INTERNATIONAL NORM RATIO 1.1 (0.9-1.1); Mean Corpuscular HGB Conc 30.7 g/dl (31.0-35.0); Mean Corpuscular Hemoglobin 26.4 pg (27.0-33.0); Mean Corpuscular Volume 86.2 fL (80.0-98.0); PLT CLUMP 1; Prothrombin Time 12.1 SEC (10.0-13.1); Red Cell Distribution Width 18.1 % (11.0-16.0)
[2023-03-24 14:13] LABS: White Blood Count 7.9 X10*3/uL (4.8-10.8)
[2023-03-24 14:23] LABS: Anion Gap 15 (12-20); Blood Urea Nitrogen 19 mg/dL (9-16); Calcium 9.5 mg/dL (8.4-10.2); Carbon Dioxide 24 mmol/L (22-29); Chloride 101 mmol/L (96-108); Estimated Glomerular Filt Rate 27; Glucose Random 144 mg/dL (60-115); Potassium 4.1 mmol/L (3.3-5.1); Sodium 136 mmol/L (135-145)
== END 2023-03-24 13:55 | disposition home or self-care (01) ==
LOC: HO.HMGCX 13:54
PROVIDERS: PCP Internal Medicine; Visit Provider Internal Medicine
DX: I48.91 Unspecified atrial fibrillation (principal); R60.0 Localized edema; M79.604 Pain in right leg
CPT/HCPCS: 36415; 80048; 85027; 85610; 93971

== ENCOUNTER 2023-03-25 11:35 | Outpatient (REF) | payer MEDICARE, SELFPAY ==
[2023-03-25 12:01] LABS: MANUAL DIFF FLAG NO
[2023-03-25 12:18] LABS: Basophils Absolute Auto 0.1 X10*3/uL (0.0-0.2); Basophils Percent Auto 0.9 % (0-2); Eosinophils Absolute Auto 0.1 X10*3/uL (0.0-0.4); Eosinophils Percent Auto 1.5 % (0-4); Hematocrit 35.7 % (37.0-47.0); Hemoglobin 11.1 g/dl (12.0-16.0); Imm Gran Abs Auto 0.02 X10*3/uL (0.00-0.03); Imm Gran Pct Auto 0.3 % (0.0-0.4); Lymphocytes Percent Auto 26.2 % (20-40); Mean Corpuscular HGB Conc 31.1 g/dl (31.0-35.0); Mean Corpuscular Hemoglobin 26.5 pg (27.0-33.0); Mean Corpuscular Volume 85.2 fL (80.0-98.0); Mean Platelet Volume 10.1 fL (9.4-12.3); Monocytes Absolute Auto 0.5 X10*3/uL (0.1-1.2); Neutrophils Absolute Auto 4.9 x10*3/uL (2.0-8.3); Neutrophils Percent Auto 65.1 % (45-73); Platelet Count 186 X10*3/uL (160-400); Red Blood Count 4.19 X10*6/uL (4.20-5.50); Red Cell Distribution Width 18.1 % (11.0-16.0); White Blood Count 7.5 X10*3/uL (4.8-10.8)
[2023-03-25 13:07] LABS: Free T4 (Free Thyroxine) 0.85 ng/dL (0.71-1.85); Thyroid Stimulating Hormone 5.95 uIU/mL (0.32-4.0)
== END 2023-03-25 11:36 | disposition home or self-care (01) ==
LOC: HO.LAB 11:35
PROVIDERS: PCP Internal Medicine; Visit Provider Internal Medicine
DX: E03.9 Hypothyroidism, unspecified (principal); I48.91 Unspecified atrial fibrillation; Z79.01 Long term (current) use of anticoagulants
CPT/HCPCS: 36415; 84439; 84443; 85025

== ENCOUNTER → 2023-04-09 14:35 | Outpatient (BNVA) | payer MEDICARE, SELFPAY | PROVIDERS: PCP Internal Medicine; Referring Provider Internal Medicine; Visit Provider Internal Medicine | DX: I25.10 Atherosclerotic heart disease of native coronary artery without angina pectoris (principal); I48.91 Unspecified atrial fibrillation; I11.0 Hypertensive heart disease with heart failure; I50.33 Acute on chronic diastolic (congestive) heart failure; I35.0 Nonrheumatic aortic (valve) stenosis; E78.5 Hyperlipidemia, unspecified; E11.8 Type 2 diabetes mellitus with unspecified complications; F17.210 Nicotine dependence, cigarettes, uncomplicated; Z79.82 Long term (current) use of aspirin; Z79.84 Long term (current) use of oral hypoglycemic drugs; Z79.899 Other long term (current) drug therapy | CPT/HCPCS: 99212 ==

== ENCOUNTER 2023-05-16 12:17 | Day surgery (SDC) | payer MEDICARE, SELFPAY ==
--- NOTE | 2023-05-15 08:31 | HO.ANESPROP2 ---
Documented by User: Willow Michaud NP 05/15/23 08:34 HPI - Anesthesia Eval Consult details Narrative: 68yo F for Cardioversion *Multiple med allergies* PMFSH Active Problems Active Problems: All Active Problems (Updated 05/09/23 @ 15:36 by Marycruz Zapata MD) Atrial fibrillation (Acute) Acute on chronic diastolic congestive heart failure (Acute) Atrial fibrillation with controlled ventricular rate (Acute) Cough (Acute) Recurrent UTI (Acute) Fracture of greater tuberosity of right humerus (Acute) Impacted cerumen of left ear (Acute) Annual physical exam (Acute) Right humeral fracture (Acute) Recurrent falls (Acute) Folic acid deficiency (Acute) Screening for osteoporosis (Acute) Breast cancer screening by mammogram (Acute) Osteopenia (Acute) Carpal tunnel syndrome on both sides (Acute) Finger numbness (Acute) Aortic stenosis (Acute) Rash (Acute) Essential hypertension (Acute) Osteoarthritis of left hip (Acute) Hypothyroid (Acute) Dysuria (Acute) Type 2 diabetes mellitus with hyperglycemia (Acute) Lumbar degenerative disc disease (Acute) Obesity (Acute) Tobacco abuse (Acute) Anxiety and depression (Acute) Barretts esophagus (Acute) COPD (chronic obstructive pulmonary disease) (Acute) Hyperlipidemia, unspecified (Acute) Atherosclerotic cardiovascular disease (Acute) Non-rheumatic aortic stenosis (Acute) Past Medical History Medical History Anxiety and depression Atherosclerotic cardiovascular disease Barretts esophagus COPD (chronic obstructive pulmonary disease) Degenerative disc disease, cervical Essential hypertension Hyperlipidemia, unspecified Lumbar degenerative disc disease Non-rheumatic aortic stenosis Obesity Osteopenia Restless leg syndrome Thrombocytopenia Tobacco abuse Tubular adenoma of colon Type 2 diabetes mellitus with hyperglycemia Vitamin D deficiency Family History Family History (Updated 05/09/23 @ 14:44 by Radha Painting CMA) Father No problems noted. Mother Cardiovascular disease Surgical History Surgical History History of appendectomy History of cardiac catheterization History of carpal tunnel release History of cataract surgery History of cholecystectomy History of discectomy History of hip replacement History of tonsillectomy Social History Social History Housing: Apartment Alcohol intake: never Patient Tobacco Use Status: Current everyday Tobacco user Tobacco use type: Cigarette Cigarettes Per Day: 3 e-Cigarette/Vaping Use: Never Used Second Hand Smoke Exposure: No Use of substances other than those prescribed or required for medical reasons: No Are you DNR?: No Advance Directives: No Advance Directives Information Provided: Yes service: No Current occupational status: retired Cognitive needs: No Hearing needs: No Vision needs: No Meds Allergies Allergy/AdvReac Type Severity Reaction Status Date / Time furosemide Allergy Intermediate Nausea and Verified 05/16/23 12:24 Vomiting levofloxacin [From LEVAQUIN] Allergy Mild NAUSEA, Verified 05/16/23 12:24 dizziness,Nausea cyclobenzaprine Allergy Unknown NAUSEA & Verified 05/16/23 12:24 [From FLEXERIL] VOMITING simvastatin Allergy Unknown Muscle Pain Verified 05/16/23 12:24 Sulfa (Sulfonamide Allergy Unknown VOMITING Verified 05/16/23 12:24 Antibiotics) [SULFA (SULFONAMIDE ANTIBIOTICS)] atorvastatin [ATORVASTATIN] AdvReac Severe MUSCLE PAIN Verified 05/16/23 12:24 azithromycin AdvReac Intermediate Palpitation Verified 05/16/23 12:24 s pravastatin AdvReac Unknown Muscle Pain Verified 05/16/23 12:24 apixaban [From Eliquis] AdvReac Nausea Verified 05/16/23 12:24 Bumex AdvReac Severe Nausea, Uncoded 05/09/23 14:44 dizziness, near syncope Home Medications Medication Instructions Recorded Confirmed Last Taken Type aspirin 81 mg tablet,delayed 81 mg PO DAILY 08/28/20 05/16/23 Unknown History release (Adult Low Dose Aspirin) Oxygen Home Use 05/09/23 05/16/23 Unknown History Exam Exam Date and Time: May 15, 2023 0831 Pertinent Lab Results Pertinent Lab Results: Laboratory Tests 03/24/23 03/25/23 11:05 12:00 WBC 7.5 Hgb 11.1 L Hct 35.7 L Plt Count 186 Sodium 136 Potassium 4.1 Chloride 101 Carbon Dioxide 24 BUN 19 H Creatinine 1.84 H Narrative Narrative: EKG 02/2023 atrial fibrillation at 67/Min; left anterior fascicular block; nonspecific T-wave changes in lateral leads ECHO 02/2023 Conclusions: - The left ventricular systolic function is normal.? The ? calculated ejection fraction is 66% by biplane method. ? - There is moderate to severe aortic valve stenosis. ? - Mild to moderate pulmonary hypertension is present.? ? ? Holter 02/2023 Assessment and Plan Assessment Anesthesia Assessment: Chart Reviewed Documented by User: Darell Chen MD 05/16/23 12:42 [facility] Past Medical History Medical History Anxiety and depression Atherosclerotic cardiovascular disease Barretts esophagus COPD (chronic obstructive pulmonary disease) Degenerative disc disease, cervical Essential hypertension Hyperlipidemia, unspecified Lumbar degenerative disc disease Non-rheumatic aortic stenosis Obesity Osteopenia Restless leg syndrome Thrombocytopenia Tobacco abuse Tubular adenoma of colon Type 2 diabetes mellitus with hyperglycemia Vitamin D deficiency Family History Family History (Updated 05/09/23 @ 14:44 by Radha Painting [facility]) Father No problems noted. Mother Cardiovascular disease Surgical History Surgical History History of appendectomy History of cardiac catheterization History of carpal tunnel release History of cataract surgery History of cholecystectomy History of discectomy History of hip replacement History of tonsillectomy Social History Social History Housing: Apartment Alcohol intake: never Patient Tobacco Use Status: Current everyday Tobacco user Tobacco use type: Cigarette Cigarettes Per Day: 3 e-Cigarette/Vaping Use: Never Used Second Hand Smoke Exposure: No Use of substances other than those prescribed or required for medical reasons: No Are you DNR?: No Advance Directives: No Advance Directives Information Provided: Yes service: No Current occupational status: retired Cognitive needs: No Hearing needs: No Vision needs: No Meds Allergies Allergy/AdvReac Type Severity Reaction Status Date / Time furosemide Allergy Intermediate Nausea and Verified 05/16/23 12:24 Vomiting levofloxacin [From LEVAQUIN] Allergy Mild NAUSEA, Verified 05/16/23 12:24 dizziness,Nausea cyclobenzaprine Allergy Unknown NAUSEA & Verified 05/16/23 12:24 [From FLEXERIL] VOMITING simvastatin Allergy Unknown Muscle Pain Verified 05/16/23 12:24 Sulfa (Sulfonamide Allergy Unknown VOMITING Verified 05/16/23 12:24 Antibiotics) [SULFA (SULFONAMIDE ANTIBIOTICS)] atorvastatin [ATORVASTATIN] AdvReac Severe MUSCLE PAIN Verified 05/16/23 12:24 azithromycin AdvReac Intermediate Palpitation Verified 05/16/23 12:24 s pravastatin AdvReac Unknown Muscle Pain Verified 05/16/23 12:24 apixaban [From Eliquis] AdvReac Nausea Verified 05/16/23 12:24 Bumex AdvReac Severe Nausea, Uncoded 05/09/23 14:44 dizziness, near syncope Home Medications Medication Instructions Recorded Confirmed Last Taken Type aspirin 81 mg tablet,delayed 81 mg PO DAILY 08/28/20 05/16/23 Unknown History release (Adult Low Dose Aspirin) Oxygen Home Use 05/09/23 05/16/23 Unknown History Exam Airway Mallampati Class: II TM Dist: >3cm Neck ROM: Full Denture: Upper and Lower Documented by User: Cheryl Palomares MD 05/16/23 12:51 [facility] Past Medical History Medical History Anxiety and depression Atherosclerotic cardiovascular disease Barretts esophagus COPD (chronic obstructive pulmonary disease) Degenerative disc disease, cervical Essential hypertension Hyperlipidemia, unspecified Lumbar degenerative disc disease Non-rheumatic aortic stenosis Obesity Osteopenia Restless leg syndrome Thrombocytopenia Tobacco abuse Tubular adenoma of colon Type 2 diabetes mellitus with hyperglycemia Vitamin D deficiency Family History Family History (Updated 05/09/23 @ 14:44 by Radha Painting CMA) Father No problems noted. Mother Cardiovascular disease Family history of problems with anesthesia: No Surgical History Surgical History History of appendectomy History of cardiac catheterization History of carpal tunnel release History of cataract surgery History of cholecystectomy History of discectomy History of hip replacement History of tonsillectomy History of Problems with Anesthesia: No Social History Social History Housing: Apartment Alcohol intake: never Patient Tobacco Use Status: Current everyday Tobacco user Tobacco use type: Cigarette Cigarettes Per Day: 3 e-Cigarette/Vaping Use: Never Used Second Hand Smoke Exposure: No Use of substances other than those prescribed or required for medical reasons: No Are you DNR?: No Advance Directives: No Advance Directives Information Provided: Yes service: No Current occupational status: retired Cognitive needs: No Hearing needs: No Vision needs: No Meds Allergies Allergy/AdvReac Type Severity Reaction Status Date / Time furosemide Allergy Intermediate Nausea and Verified 05/16/23 12:24 Vomiting levofloxacin [From LEVAQUIN] Allergy Mild NAUSEA, Verified 05/16/23 12:24 dizziness,Nausea cyclobenzaprine Allergy Unknown NAUSEA & Verified 05/16/23 12:24 [From FLEXERIL] VOMITING simvastatin Allergy Unknown Muscle Pain Verified 05/16/23 12:24 Sulfa (Sulfonamide Allergy Unknown VOMITING Verified 05/16/23 12:24 Antibiotics) [SULFA (SULFONAMIDE ANTIBIOTICS)] atorvastatin [ATORVASTATIN] AdvReac Severe MUSCLE PAIN Verified 05/16/23 12:24 azithromycin AdvReac Intermediate Palpitation Verified 05/16/23 12:24 s pravastatin AdvReac Unknown Muscle Pain Verified 05/16/23 12:24 apixaban [From Eliquis] AdvReac Nausea Verified 05/16/23 12:24 Bumex AdvReac Severe Nausea, Uncoded 05/09/23 14:44 dizziness, near syncope Home Medications Medication Instructions Recorded Confirmed Last Taken Type aspirin 81 mg tablet,delayed 81 mg PO DAILY 08/28/20 05/16/23 Unknown History release (Adult Low Dose Aspirin) Oxygen Home Use 05/09/23 05/16/23 Unknown History Exam Airway Heart: rrr Lungs: expiratory wheeze rt>lft Assessment and Plan Assessment Anesthesia Assessment: Anesthesia Plan Discussed Final Anesthetic Review Family History of Problems with Anesthesia: No History of Problems with Anesthesia: No NPO: Yes ASA Class: III Final Preanesthetic Review: No Changes in Pt Med Stat, Meds/Allgs Chart Reviewed and Consent Obtained/Reviewed Patient Risk: Intermediate Procedure Risk: Intermediate Anesthetic Plan Anesthetic Plan: MAC: Disposition: Standard PACU
[2023-05-16 12:30] VITALS: BMI 42.5
[2023-05-16 12:37] VITALS: BP 176/79; PULSE 114; RESP 20; TEMP 36.2; O2SAT 89
[2023-05-16] MEDS: Albuterol Sulfate (0.083%) 2.5 MG/3 ML VIAL.NEB INHALE (12:54)
[2023-05-16 12:55] VITALS: PULSE 93; RESP 18; O2SAT 89
[2023-05-16] MEDS: Lactated Ringers 1,000 ML 50 ML IVCONT (13:00)
--- NOTE | 2023-05-16 13:13 | MHC.SHP ---
Pre-Procedural Eval Section A Date of Service: 05/16/23 The patient is an INPATIENT: No The History & Physical has been completed within 30 days and I have reviewed it.: No Section B Chief Complaint: afib Details of Present Illness: atrial fibrillation, CHF, aortic stenosis, symptomatic; hence planned for cardioversion Relevant Family History (Specify if Yes): Yes Relevant Social History: Tobacco Use Present Medications: see Short Stay Collaborative assessment Medical History: Significant History (reviewed) History of Previous Operations: No relevant previous surgery Allergies: Allergies Allergy/AdvReac Type Severity Reaction Status Date / Time furosemide Allergy Intermediate Nausea and Verified 05/16/23 12:24 Vomiting levofloxacin [From LEVAQUIN] Allergy Mild NAUSEA, Verified 05/16/23 12:24 dizziness,Nausea cyclobenzaprine Allergy Unknown NAUSEA & Verified 05/16/23 12:24 [From FLEXERIL] VOMITING simvastatin Allergy Unknown Muscle Pain Verified 05/16/23 12:24 Sulfa (Sulfonamide Allergy Unknown VOMITING Verified 05/16/23 12:24 Antibiotics) [SULFA (SULFONAMIDE ANTIBIOTICS)] atorvastatin [ATORVASTATIN] AdvReac Severe MUSCLE PAIN Verified 05/16/23 12:24 azithromycin AdvReac Intermediate Palpitation Verified 05/16/23 12:24 s pravastatin AdvReac Unknown Muscle Pain Verified 05/16/23 12:24 apixaban [From Eliquis] AdvReac Nausea Verified 05/16/23 12:24 Bumex AdvReac Severe Nausea, Uncoded 05/09/23 14:44 dizziness, near syncope Review of Systems Review of Systems Comment: ROS done and no new findings. Exam Exam Comment: General- unremarkable Neck- normal Cardiac- S1S2+; 2/6 JEWEL+, no rub Resp- decreased breath sounds Abd- soft BUSINESS DEVELOPER- intact Ext- unremarkable Skin- normal Plan I have reviewed the history and physical and performed a pertinent physical examination on my patient. No changes have occurred unless specified. Time Spent With Patient Time: Total time managing care of this patient today ____ minutes.
--- NOTE | 2023-05-16 13:16 | HO.CARDIVERS ---
Cardioversion Procedure Note Cardioversion Date of Procedure: 05/16/2023 Ordering Provider: Dr. Campbell Performing Provider: Dr. Campbell Indication for Procedure: Atrial fibrillation with rapid rate, congestive heart failure Pre-Op Diagnosis: Atrial fibrillation rapid rate Post-Op Diagnosis: Sinus rhythm ISABELLE findings (if ISABELLE Performed): Not performed History: See office note Consent: Informed consent obtained. Procedure: After informed consent was obtained, patient was taken to the PACU. The patient was then positioned appropriately. The cardioversion pads were placed in anteroposterior position. Once under anesthesia, 150 joules of synchronized shock was administered. The rhythm converted from atrial fibrillation to sinus rhythm. Patient remained in sinus rhythm after the end of procedure. Complications: None Impression: Successful cardioversion from atrial fibrillation to sinus. Recommendations: Start amiodarone. Follow-up in clinic.
[2023-05-16 13:23] LABS: Glucose, Whole Blood 59 mg/dL (60-115)
--- NOTE | 2023-05-16 13:26 | ECG_ITS ---
Test Reason : post cardioversion Blood Pressure : / mmHG Vent. Rate : 102 BPM Atrial Rate : 102 BPM P-R Int : 234 ms QRS Dur : 084 ms QT Int : 332 ms P-R-T Axes : 074 -51 101 degrees QTc Int : 432 ms Sinus tachycardia with 1st degree A-V block Left anterior fascicular block T wave abnormality, consider lateral ischemia Abnormal ECG When compared with ECG of 10-OCT-2019 17:49, AL interval has increased Referred By: Tania Corcoran Electronically Signed By:TANIA CORCORAN
[2023-05-16] MEDS: Amiodarone HCL 200 MG TABLET 400 MG PO (13:47)
[2023-05-16 13:48] VITALS: BP 169/75; PULSE 103; RESP 20; O2SAT 94
[2023-05-16 13:50] VITALS: BP 168/92; PULSE 102; RESP 14; TEMP 36.4; O2SAT 94
[2023-05-16 14:05] LABS: Glucose, Whole Blood 92 mg/dL (60-115)
== END 2023-05-16 14:30 | disposition home or self-care (01) ==
PROVIDERS: PCP Internal Medicine; Visit Provider Internal Medicine
PROC: 5A2204Z Restoration of Cardiac Rhythm, Single (ICD-10-PCS; principal; 2023-05-16 13:00)
DX: I48.91 Unspecified atrial fibrillation (principal); I11.0 Hypertensive heart disease with heart failure; I50.33 Acute on chronic diastolic (congestive) heart failure; I35.0 Nonrheumatic aortic (valve) stenosis; I25.10 Atherosclerotic heart disease of native coronary artery without angina pectoris; E78.5 Hyperlipidemia, unspecified; E66.9 Obesity, unspecified; Z68.41 Body mass index [BMI] 40.0-44.9, adult; J44.9 Chronic obstructive pulmonary disease, unspecified; E11.9 Type 2 diabetes mellitus without complications; Z79.01 Long term (current) use of anticoagulants; Z79.82 Long term (current) use of aspirin; Z79.84 Long term (current) use of oral hypoglycemic drugs; Z79.899 Other long term (current) drug therapy; Z88.1 Allergy status to other antibiotic agents; Z88.2 Allergy status to sulfonamides; Z88.8 Allergy status to other drugs, medicaments and biological substances; F17.210 Nicotine dependence, cigarettes, uncomplicated
CPT/HCPCS: 82947; 92960; 93005; 94640

== ENCOUNTER → 2023-05-22 10:15 | Outpatient (BNVA) | payer MEDICARE, SELFPAY | PROVIDERS: PCP Internal Medicine; Referring Provider Internal Medicine; Visit Provider Internal Medicine | DX: I48.0 Paroxysmal atrial fibrillation (principal); I11.0 Hypertensive heart disease with heart failure; I50.32 Chronic diastolic (congestive) heart failure; I35.0 Nonrheumatic aortic (valve) stenosis; I25.10 Atherosclerotic heart disease of native coronary artery without angina pectoris; E78.00 Pure hypercholesterolemia, unspecified; F17.210 Nicotine dependence, cigarettes, uncomplicated | CPT/HCPCS: 93005; 99212 ==

== ENCOUNTER 2023-06-30 09:41 | Outpatient (REF) | payer MEDICARE, SELFPAY ==
[2023-06-30 11:55] LABS: Basophils Absolute Auto 0.1 X10*3/uL (0.0-0.2); Basophils Percent Auto 1.1 % (0-2); Eosinophils Absolute Auto 0.2 X10*3/uL (0.0-0.4); Eosinophils Percent Auto 3.1 % (0-4); Hematocrit 39.9 % (37.0-47.0); Hemoglobin 12.3 g/dl (12.0-16.0); Imm Gran Abs Auto 0.02 X10*3/uL (0.00-0.03); Imm Gran Pct Auto 0.4 % (0.0-0.4); Lymphocytes Absolute Auto 0.9 X10*3/uL (1.2-4.9); Lymphocytes Percent Auto 16.5 % (20-40); MANUAL DIFF FLAG SCAN; Mean Corpuscular HGB Conc 30.8 g/dl (31.0-35.0); Mean Corpuscular Hemoglobin 24.8 pg (27.0-33.0); Mean Corpuscular Volume 80.4 fL (80.0-98.0); Monocytes Absolute Auto 0.3 X10*3/uL (0.1-1.2); Monocytes Percent Auto 5.6 % (2-11); Neutrophils Absolute Auto 4.1 x10*3/uL (2.0-8.3); Neutrophils Percent Auto 73.3 % (45-73); PLT CLUMP 1; Red Blood Count 4.96 X10*6/uL (4.20-5.50); Red Cell Distribution Width 17.3 % (11.0-16.0); SCAN SMEAR FLAG 1
[2023-06-30 12:12] LABS: B Type Natriuretic Peptide 134 pg/mL (<100)
[2023-06-30 12:35] LABS: Alanine Aminotransferase 17 U/L (0-31); Albumin Level 3.6 g/dL (3.5-5.0); Alkaline Phosphatase 111 U/L (39-117); Anion Gap 17 (12-20); Aspartate Amino Transferase 19 U/L (5-31); Bilirubin Total 0.3 mg/dL (0.0-1.0); Blood Urea Nitrogen 14 mg/dL (9-16); Calcium 9.3 mg/dL (8.4-10.2); Carbon Dioxide 22 mmol/L (22-29); Chloride 105 mmol/L (96-108); Cholesterol 148 mg/dL; Estimated Glomerular Filt Rate 44; Glucose Random 195 mg/dL (60-115); HDL Cholesterol 47 mg/dL; LDL Cholesterol Calculated 76 mg/dl; Magnesium 1.7 mg/dL (1.6-2.6); Phosphorus 2.8 mg/dL (2.7-4.5); Potassium 4.8 mmol/L (3.3-5.1); Sodium 139 mmol/L (135-145); Total Protein 7.4 g/dL (6.5-8.0); Triglycerides 125 mg/dL
[2023-06-30 12:38] LABS: White Blood Count 5.6 X10*3/uL (4.8-10.8)
[2023-06-30 12:39] LABS: SLIDE REVIEW VERIFIED
[2023-06-30 12:43] LABS: Free T4 (Free Thyroxine) 0.88 ng/dL (0.71-1.85); Thyroid Stimulating Hormone 3.06 uIU/mL (0.32-4.0)
[2023-06-30 12:48] LABS: Folate 3.7 ng/mL (> or = 4.0); Vitamin B12 278 pg/mL (200-900)
== END 2023-06-30 09:42 | disposition home or self-care (01) ==
LOC: HO.HMGCLDS 09:41
PROVIDERS: PCP Internal Medicine; Visit Provider Internal Medicine
DX: E03.9 Hypothyroidism, unspecified (principal); I48.91 Unspecified atrial fibrillation; E78.00 Pure hypercholesterolemia, unspecified; I50.33 Acute on chronic diastolic (congestive) heart failure
CPT/HCPCS: 36415; 80053; 80061; 82607; 82746; 83735; 83880; 84100; 84439; 84443; 85025

== ENCOUNTER 2023-07-12 10:21 | Outpatient (REF) | payer MEDICARE, SELFPAY ==
[2023-07-12 11:44] LABS: Appearance Urine Clear; Color Urine Yellow; Glucose Urine UA Negative (Negative); Leukocyte Esterase Urine Moderate (2+) (Negative); Nitrite Urine Negative (Negative); Specific Gravity - Urine 1.015 (1.005-1.025); UMIC TRIGGER UACC YES; Urine Blood Negative (Negative); Urine Ketones Negative (Negative); Urine Protein 30 (1+) mg/dL (Neg-Trace)
[2023-07-12 11:47] LABS: Bacteria Urine 1+ (None Seen); Hyaline Casts Urine 0-2 /LPF (0-2); Squamous Epithelial Cell Urine >20 /HPF (0-2); UACC Culture Trigger YES; WBC Urine >50 /HPF (0-5)
[2023-07-12 12:22] LABS: Free T4 (Free Thyroxine) 0.96 ng/dL (0.71-1.85)
== END 2023-07-12 10:22 | disposition home or self-care (01) ==
LOC: HO.HMGCLDS 10:21
PROVIDERS: PCP Internal Medicine; Visit Provider Internal Medicine
DX: I48.91 Unspecified atrial fibrillation (principal); R30.0 Dysuria
CPT/HCPCS: 36415; 81001; 84439; 87086; 87088; 87186

== ENCOUNTER 2023-08-12 12:50 | Outpatient (AMB) | payer MEDICARE, SELFPAY ==
[2023-08-12 12:51] VITALS: BP 130/76; PULSE 85; O2SAT 95; BMI 38.3
--- NOTE | 2023-08-12 12:51 | A.OFFPC_ITS ---
Vital Signs 08/12/23 12:51 Height 5 ft 3 in Weight 216 lb BMI 38.3 BP 130/76 Blood Pressure Location Lt brachial Position Sitting Pulse 85 Pulse Source Pulse Oximeter Temp Source Skin Pulse Oximetry (%) 95 Oxygen Delivery Method Room Air Intake Visit Reasons: [facility] cardiac Intake Note: Patient is here for hospital discharge follow up. Patient was discharged from [facility] 07-13-23 for Bradycardia and Hypoglycemia. Operations And Maintenance Technican Required: No Allergies furosemide Allergy (Intermediate, Verified 08/12/23 13:36) Nausea and Vomiting levofloxacin [From LEVAQUIN] Allergy (Mild, Verified 08/12/23 13:36) NAUSEA, dizziness,Nausea cyclobenzaprine [From FLEXERIL] Allergy (Unknown, Verified 08/12/23 13:36) NAUSEA & VOMITING simvastatin Allergy (Unknown, Verified 08/12/23 13:36) Muscle Pain Sulfa (Sulfonamide Antibiotics) [SULFA (SULFONAMIDE ANTIBIOTICS)] Allergy (Unknown, Verified 08/12/23 13:36) VOMITING atorvastatin [ATORVASTATIN] Adverse Reaction (Severe, Verified 08/12/23 13:36) MUSCLE PAIN azithromycin Adverse Reaction (Intermediate, Verified 08/12/23 13:36) Palpitations pravastatin Adverse Reaction (Unknown, Verified 08/12/23 13:36) Muscle Pain apixaban [From Eliquis] Adverse Reaction (Verified 08/12/23 13:36) Nausea Bumex Adverse Reaction (Severe, Uncoded 08/12/23 13:36) Nausea, dizziness, near syncope Medication List - Last Reconciled 08/12/23 by MARY Ribera albuterol sulfate 90 mcg/actuation (Ventolin HFA) 2 puffs inhalation Q6H PRN amlodipine 5 mg PO DAILY aspirin (Adult Low Dose Aspirin) 81 mg PO DAILY blood sugar diagnostic (OneTouch Verio test strips) 1 strip miscellaneous BID 30 days bumetanide 1 mg PO BID folic acid 1 mg PO DAILY [glucometer One touch Verio As directed] levothyroxine (Synthroid) 100 mcg PO DAILY lisinopril 40 mg PO DAILY metformin 1,000 mg PO BID nystatin 1 appl topical TID omeprazole 40 mg PO BID 90 days ondansetron 4 mg PO Q8H PRN oxycodone-acetaminophen 5-325 mg (Percocet) 1 tab PO TID PRN Oxygen Home Use As directed rivaroxaban (Xarelto) 15 mg PO DAILY rosuvastatin 5 mg PO DAILY sertraline 50 mg PO DAILY Tobacco use date assessed: 08/12/23 Fall risk assessment: No Falls in past year Last assessed Fall Risk: 08/12/23 Dental Screening Dental Screen Date: 08/12/23 Did you have a dental visit in the last 12 months?: Yes Did you have a dental problem in the last 6 months where you did not have access to dental care?: No Was dental information given to patient?: Patient has dentist HPI [facility] cardiac HPI Details Patient is a 68-year-old female who presents today to follow-up after [facility] discharge. Admission date 07/13/2023, discharge date 07/15/2023. Discharge diagnosis: Bradycardia, atrial fibrillation, hypothyroidism, hypertension, CKD stage 3, diabetes. Patient with Dr. Zapata. Per discharge summary: Patient with past medical history significant for AFib on Xarelto, severe aortic stenosis, congestive heart failure, CAD, diabetes, hypertension, CKD stage 3, COPD/asthma, presented for evaluation of fitness fall in the afternoon on 07/13/2023. Patient reports that she slipped and fell about 8 steps and landed on her back. Reports that heating the back of her head, denies loss of consciousness. After the fall she developed dizziness and vision problem which resolved. Patient complained of headache and neck pain. CT brain without contrast showed no evidence of intracranial hemorrhage, midline shift or calvarial fracture. Chronic small vessel ischemia and volume loss. CT cervical spine showed no evidence of fracture or subluxation. CT abdomen pelvis without contrast showed no visceral or bony injury to the abdomen or pelvis. Hepatitis cirrhosis, no fractures. Sinus bradycardia: In ED patient was noted to be hypertensive and hyperglycemic and bradycardic. She was initiated on dopamine infusion. She was seen by Cardiology who felt her bradycardia was likely due to use of due to diltiazem, amiodarone and metoprolol outpatient. She was weaned off dopamine infusion and underwent echocardiogram which showed dilated left atrium with concentric hypertrophic left ventricle, normal regional wall motion with ejection fraction 65-70%, moderate to mildly severe aortic stenosis and trace mitral insufficiency. Troponins within normal limits. EKG showed sinus bradycardia with first-degree heart block with occasional Wenckeback, ultimately cardiology recommended discontinuation of all rate-controlling medications including metoprolol, diltiazem and amiodarone. They recommend 7-14 day monitor outpatient by her primary electrical prospecting engineer and reported no indication for pacemaker currently. Patient was also instructed to follow up with PCP. Atrial fibrillation with secondary hypercoagulable state: Follow-up with cardiology as outpatient for Holter monitor/close reinitiation of rate control medications if recommended by her primary electrical prospecting engineer. Continue Xarelto for CVA prophylaxis. Hypothyroidism: TSH was elevated at 6.67, free T4 normal. Continue levothyroxine History of hypertension, presented hypotensive: Amiodarone, diltiazem, and metoprolol were discontinued due to bradycardia. Her lisinopril and Bumex are on hold in the setting of CONOR. This was replaced with amlodipine 5 mg daily and recommended to take if systolic blood pressure is greater than 130. CONOR on CKD: Creatinine on arrival to the ED was noted to be 1.88, her creatini ne up trended to 2.69 on 07/14 which suspected related to significant hypotension and she had day prior with systolic blood pressure in the 80s to 90s. Her creatinine is improving to 2.39 on 07/15. Patient was given IV fluids. Given her current renal function was recommended to hold lisinopril and Bumex at this time. Repeat a BMP in 3 days with results to be forwarded to the patient's PCP. Resuming lisinopril and Bumex outpatient will be deferred to her primary care provider. Diabetes with hyperglycemia: History of diabetes, previously maintained all glimepiride 4 mg twice daily in addition to her metformin. Her most recent A1c from my of this year was 7.7. Upon arrival to the emergency department her POC was noted to be 62. She has had intermittent hypoglycemia. Glimepiride was discontinued and patient was continued with metformin 1000 mg twice daily. Patient is to follow up with PCP. UTI: Patient was treated with IV ceftriaxone, she was discharged home with cefpodoxime for 6 days. Today, patient reports that she has finished antibiotics. Patient did have abdominal CT scan in the hospital that showed liver irregular and nodular contour, likely related to cirrhosis - patient denies history of cirrhosis-will refer to GI specialist for an evaluation. Patient reports that she is compliant with medications. Blood pressure 130/76 today. Patient denies shortness of breath or chest pain. She has an upcoming appointment with [facility] 08/2023. Patient reports that she will be having echocardiogram 08/15/2023. [facility] Medical History Oxygen dependent Essential hypertension Type 2 diabetes mellitus with hyperglycemia Lumbar degenerative disc disease Obesity Restless leg syndrome Vitamin D deficiency Tobacco abuse Thrombocytopenia Degenerative disc disease, cervical Anxiety and depression Osteopenia Barretts esophagus Tubular adenoma of colon COPD (chronic obstructive pulmonary disease) Hyperlipidemia, unspecified Atherosclerotic cardiovascular disease Non-rheumatic aortic stenosis Surgical History History of carpal tunnel release History of discectomy History of cataract surgery History of hip replacement History of tonsillectomy History of appendectomy History of cholecystectomy History of cardiac catheterization Family History Father No problems noted. Mother Cardiovascular disease Social History Housing: Apartment Alcohol intake: never Patient Tobacco Use Status: Current everyday Tobacco user Tobacco use type: Cigarette Cigarettes Per Day: 3 e-Cigarette/Vaping Use: Never Used Second Hand Smoke Exposure: No service: No Current occupational status: retired Cognitive needs: No Hearing needs: No Vision needs: No Questionnaire Thrive Questionnaire Date Thrive assessed: 05/09/23 AUDIT C Alcohol Use Questionnaire (AUDIT-C) 1. How often do you have a drink containing alcohol?: Never 2. How many drinks containing alcohol do you have on a typical day when you are drinking?: 1 or 2 (0) 3. How often do you have six or more drinks on one occasion?: Never Total Score: 0 Score Reviewed/Action Taken: No SAHD-7 AMB Questionnaire SHAD-7 Date SHAD - 7 assessed: 05/09/23 Source: Developed by Drs. Dong Jackson, Yumi Curry, Andrew Ojeda and colleagues, with an educational noble from [employer]. Review of Systems Const Denies body aches, Denies chills, Denies fever(s) and Denies headache(s) ENT Denies dizziness, Denies otalgia, Denies headache(s), Denies nasal discharge, Denies sinus pain and Denies sore throat Card Denies chest pain, Denies edema, Denies lightheadedness and Denies dyspnea Resp Denies cough, Denies dyspnea and Denies wheezing GI Denies abdominal pain Denies dysuria Musc Denies myalgias Skin/Breast Denies rash Neuro Denies dizziness and Denies headache(s) Aller/Immun Denies wheezing Physical exam (Primary Care) Vital Signs: Last Vital Signs Pulse 85 08/12/23 12:51 BP 130/76 08/12/23 12:51 Pulse Ox 95 08/12/23 12:51 Oxygen Delivery Method Room Air 08/12/23 12:51 BMI result Body Mass Index 38.3 Tobacco/Smoking Status: Tobacco use Status Tobacco use date assessed 08/12/23 08/12/23 12:52 Patient Tobacco Use Status Current everyday Tobacco 08/12/23 12:52 Tobacco use type Cigarette 08/12/23 12:52 e-Cigarette/Vaping Use Never Used 08/12/23 12:52 Thrive Assessment: Date of Thrive Assessment Date Thrive assessed 05/09/23 08/12/23 12:52 Const General: cooperative and no acute distress Orientation/consciousness: patient oriented x3 HENMT Head: Yes normocephalic and Yes atraumatic Ears: TM's normal bilaterally Mouth: oropharynx normal and moist mucous membranes Throat: Yes posterior oropharynx normal Eyes General: appearance normal, both eyes and all related structures Neck Neck: Yes normal visual inspection and Yes full ROM Resp Effort & Inspection: normal respiratory effort and able to speak in complete sentences Auscultation: clear to auscultation bilaterally, no crackles, no rales, no rhonchi and no wheezes Cardio Rate: regular rate Rhythm: regular rhythm Heart sounds: S1 normal heart sound present and S2 normal heart sound present GI Auscultation: normal bowel sounds Skin General skin exam: no rashes or lesions noted Neuro General: patient oriented x3 Gait exam (Neuro): Normal gait present Extrem Other: Trace edema to bilateral lower extremity noted General: Yes full ROM Results AMB Hemoglobin A1c AMB Hemoglobin A1c 7.8 % Last Edit by CRORINA Back on 08/12/23 13:24 Results Reviewed Results Reviewed: Laboratory Last Values Hgb A1c (Clinic) 7.8 % (4.0-6.0) H 08/12/23 12:39 Assessment and Plan Assessment & Plan (1) Hepatic cirrhosis: Code(s): K74.60 - Unspecified cirrhosis of liver Plan: GI referral for an evaluation and treatment See HPI for details (2) PAF (paroxysmal atrial fibrillation): Code(s): I48.0 - Paroxysmal atrial fibrillation Plan: Continue Xarelto See HPI for details Continue to follow-up with [facility] Holter monitor ordered (3) Hypothyroid: Code(s): E03.9 - Hypothyroidism, unspecified Plan: Continue levothyroxine 100 mcg daily Will recheck TSH (4) Type 2 diabetes mellitus with hyperglycemia: Code(s): E11.65 - Type 2 diabetes mellitus with hyperglycemia Qualifiers: Diabetes mellitus custodial insulin use: without long filler cigar roller machine use Q ualified Code(s): E11.65 - Type 2 diabetes mellitus with hyperglycemia Plan: A1c 7.8 today Patient is to continue metformin 1000 mg b.i.d. Low-carbohydrate diet (5) Hospital discharge follow-up: Code(s): Z09 - Encounter for follow-up examination after completed treatment for conditions other than malignant neoplasm (6) Acute kidney injury superimposed on CKD: Code(s): N17.9 - Acute kidney failure, unspecified; N18.9 - Chronic kidney disease, unspecified Plan: Creatinine 2.39 07/15/23 Will recheck CMP (7) Essential hypertension: Code(s): I10 - Essential (primary) hypertension Plan: Continue amlodipine 5 mg daily Lisinopril and Bumex on hold until improvement in creatinine (8) Chronic diastolic (congestive) heart failure: Code(s): I50.32 - Chronic diastolic (congestive) heart failure Plan: Same as above Continue to follow-up with [facility] Plan Keep appointment with PCP as scheduled or follow-up sooner as needed Orders: Orders AMB Hemoglobin A1c 08/12/23 E11.65 - Type 2 diabetes mellitus with hyperglycemia TSH reflex Free T4 Today E03.9 - Hypothyroidism, unspecified Comprehensive Met. Panel Today I48.0 - Paroxysmal atrial fibrillation, I50.32 - Chronic diastolic (congestive) heart failure ECG 7 day holter monitor Today I48.0 - Paroxysmal atrial fibrillation Referrals Gastroenterology Referral K74.60 - Unspecified cirrhosis of liver Medications: Refilled rivaroxaban (Xarelto) must administer with evening meal 15 mg PO DAILY 30 tabs 5RF albuterol sulfate 90 mcg/actuation (Ventolin HFA) 2 puffs inhalation Q6H PRN 8.5 grams 0RF shortness of breath or wheezing J43.9 - Emphysema, unspecified sertraline 50 mg PO DAILY 90 tabs 2RF F32.9 - Major depressive disorder, single episode, unspecified, F41.9 - Anxiety disorder, unspecified Coding Level of Care Code Est Pt Level 4 (95441) Diagnoses Hepatic cirrhosis K74.60 PAF (paroxysmal atrial fibrillation) I48.0 Hypothyroid E03.9 Type 2 diabetes mellitus with hyperglycemia, without long-term current use of insulin E11.65 Diabetes mellitus long filler cigar roller machine insulin use: without long filler cigar roller machine use Hospital discharge follow-up Z09 Acute kidney injury superimposed on CKD N17.9; N18.9 Essential hypertension I10 Chronic diastolic (congestive) heart failure I50.32
== END 2023-08-12 14:07 | disposition home or self-care (01) ==
PROVIDERS: PCP Internal Medicine; Visit Provider Nurse Practitioner Family
DX: E11.65 Type 2 diabetes mellitus with hyperglycemia (principal)
CPT/HCPCS: 83036; 99214

== ENCOUNTER → 2023-08-15 14:32 | Outpatient (REF) | payer MEDICARE, SELFPAY | LOC: HO.CARD 14:32 | PROVIDERS: PCP Internal Medicine; Visit Provider Internal Medicine | DX: Z13.89 Encounter for screening for other disorder (principal) ==

== ENCOUNTER → 2023-08-15 14:34 | Outpatient (REF) | payer MEDICARE, OTHER, SELFPAY ==
--- NOTE | 2023-08-15 14:41 | CA_ITS ---
Transthoracic Echocardiogram Patient (Last, First, Middle): Magy Santiago, Gender: Female Date of : 1955 Age: 68 Procedure Date: 08/15/2023 Procedure Type: Transthoracic Echocardiogram Location: OP Height: 160.02 cm Weight: 97.98 kg BSA: 2.00 m2 Heart Rate: 89 bpm BP: 165 / 60 mmHg Keno Writer / Runner: HORACIO Referring MD: Dutch Campbell MD Symptoms: I35.0 - Nonrheumatic aortic (valve) stenosis Study Quality: Fair ECG Rhythm: Sinus Conclusions: - Normal left ventricular cavity size. There is severely increased left ventricular wall thickness. The left ventricular systolic function is hyperdynamic. The visually estimated ejection fraction is >70%. - E/E prime ratio is >15, consistent with elevated filling pressures. - Normal right ventricular cavity size and systolic function. - There is moderate to severe aortic valve stenosis. The peak aortic velocity is 3.54 m/s. The mean gradient is 28 mmHg. The aortic valve area is 0.79 cm2. Dimensionless index 0.26. - There is mild dilatation of the ascending aorta measuring 3.50 cm. Findings Left Ventricle Normal left ventricular cavity size. There is severely increased left ventricular wall thickness. The left ventricular systolic function is hyperdynamic. The visually estimated ejection fraction is >70%. There is no evidence of regional wall motion abnormalities. Abnormal diastolic function is noted. Spectral Doppler is indicative of an impaired relaxation filling pattern. E/E prime ratio is >15, consistent with elevated filling pressures. Right Ventricle Normal right ventricular cavity size and systolic function. Atria The left atrium is mildly dilated. The right atrium is normal in size. Aortic Valve The aortic valve was not well visualized. There is moderate to severe aortic valve stenosis. The peak aortic velocity is 3.54 m/s. The mean gradient is 28 mmHg. The aortic valve area is 0.79 cm2. There is trace (trivial) aortic valve regurgitation. Mitral Valve The mitral valve appears normal. There is trace mitral valve regurgitation. There is no mitral valve stenosis. Pulmonic Valve The pulmonic valve is likely normal. Tricuspid Valve Normal tricuspid valve structure and function. There is trace tricuspid valve regurgitation. Tricuspid regurgitation envelope is inadequate for calculation of right ventricular systolic pressure. Normal right atrial pressure. Great Vessels There is mild dilatation of the ascending aorta measuring 3.50 cm. Venous The inferior vena cava is normal in size and collapses greater than 50% with inspiration. Pericardium/Pleural Prominent epicardial adipose tissue noted. There is no evidence of pericardial effusion. Prior Study Comparison No significant change compared to prior study dated: 03/18/2023. Measurements 2D Linear Measurements IVSd: 1.63 0.6-0.9/0.6-1.0 cm LVIDd: 4.04 3.9-5.3/4.2-5.9 cm LVIDd Index: 2.02 2.4-3.2/2.2-3.1 cm/m2 LVIDs: 2.54 2.0-3.6 cm LVPWd: 1.47 0.7-1.1 cm LA Diam: 3.90 2.7-3.8/3.0-4.0 cm LAIDs Index: 1.95 1.5-2.3 cm/m2 LV Mass: 309.98 67-162/88-224 g LV Mass Index: 154.99 43-95/49-115 g/m2 LVOT Diam: 1.80 3.0+(-)1.3 cm 2D Systolic Function EF 4C: 70.50 >55% EF 2C: 65.50 >55% EF BiP: 68.60 >55% Mitral Valve MV Pk E: 0.91 MV PK A: 1.17 MV Decel Time: 194.00 E/A: 0.80 E'Lateral: 3.59 E'Medial: 3.92 E/E' Med: 23.30 E/E' Lat: 25.40 PHT: 57.00 MVA PHT: 3.86 Decel Willacy: 4.71 Aortic Valve AoV Pk Neftali: 3.54 AoV Mn Neftali: 2.46 AoV VTI: 0.65 AoV Pk Grad: 50.00 Aov Mn Grad: 28.00 JERED Cont.VTI: 0.79 LVOT LVOT Pk Neftali: 0.97 LVOT Mn Neftali: 0.69 LVOT VTI: 0.20 LVOT Pk Grad: 4.00 LVOT Mn Grad: 2.00 LVOT Diam: 1.80 LVOT Area: 2.54 Diastolic Function MV Pk E: 0.91 MV Pk A: 1.17 E/A: 0.80 E'Medial: 3.92 E/E' Med: 23.30 E' Laterial: 3.59 E/E' Lat: 25.40 Right Ventricle TAPSE (mm): 17.90 TVS' Neftali: 14.50 Tricuspid Valve RA Press: 3.00 Great Vessels Aorta Sinus of Valsalva: 3.00 2.0-3.5 cm Ao Asc: 3.50 2.1-3.4 cm Pulmonary Valve PV Pk Neftali: 1.29 Peak PV Grad: 7.00 Updated in Other Vendor System with Status of Final Lance Londono MD electronically signed on 08/17/2023 9:47:52 PM with status of Final
== END ==
LOC: HO.CARD 14:34
PROVIDERS: PCP Internal Medicine; Visit Provider Internal Medicine
DX: I35.0 Nonrheumatic aortic (valve) stenosis (principal)
CPT/HCPCS: 93306

== ENCOUNTER → 2023-08-15 14:41 | Outpatient (BNV) | payer MEDICARE, SELFPAY | PROVIDERS: PCP Internal Medicine; Visit Provider Internal Medicine Cardiovascular Disease | DX: I35.0 Nonrheumatic aortic (valve) stenosis (principal) | CPT/HCPCS: 93306 ==

== ENCOUNTER → 2023-08-19 10:35 | Outpatient (REF) | payer MEDICARE, SELFPAY ==
--- NOTE | ~2023-08-19 | XR_ITS ---
EXAMINATION: XR SHOULDER, RIGHT CLINICAL INFORMATION: Pain in unspecified shoulder COMPARISON: None available. TECHNIQUE: AP external rotation, Grashey, scapular Y views of the right shoulder. FINDINGS: The bones are intact. No fracture. Glenohumeral and acromioclavicular alignment is anatomic with normal glenohumeral joint space. Subchondral cystic changes seen in the glenoid. There is mild degenerative change of the acromioclavicular joint. Small calcific densities adjacent to the humeral head are consistent with calcific tendinitis. Also noted is diffuse increased interstitial markings within the lungs. Plate and screws are seen within the lower cervical spine. XR/XR shoulder RT min 2V IMPRESSION: 1. Calcific tendinitis. 2. Mild degenerative change of the acromioclavicular joint. 3. Diffuse increased interstitial markings within the lungs.
[2023-08-19 11:39] LABS: Appearance Urine Clear; Color Urine Yellow; Glucose Urine UA >=1000 mg/dL (Negative); Leukocyte Esterase Urine Negative (Negative); Nitrite Urine Negative (Negative); PH 5.5 (5.0-9.0); Specific Gravity - Urine >= 1.030 (1.005-1.025); UMIC TRIGGER UACC YES; Urine Blood Negative (Negative); Urine Ketones Negative (Negative); Urine Protein 30 (1+) mg/dL (Neg-Trace)
[2023-08-19 11:44] LABS: Bacteria Urine Trace (None Seen); Hyaline Casts Urine 0-2 /LPF (0-2); RBC Urine 0-2 /HPF (0-2); Squamous Epithelial Cell Urine 0-2 /HPF (0-2); WBC Urine 0-5 /HPF (0-5)
[2023-08-19 13:19] LABS: TSH reflex Free T4 2.17 uIU/mL (0.32-4.0)
[2023-08-19 13:42] LABS: Alanine Aminotransferase 16 U/L (0-31); Alkaline Phosphatase 155 U/L (39-117); Anion Gap 17 (12-20); Aspartate Amino Transferase 19 U/L (5-31); Bilirubin Total 0.3 mg/dL (0.0-1.0); Blood Urea Nitrogen 31 mg/dL (9-16); Calcium 10.4 mg/dL (8.4-10.2); Carbon Dioxide 20 mmol/L (22-29); Chloride 100 mmol/L (96-108); Estimated Glomerular Filt Rate 37; Potassium 4.7 mmol/L (3.3-5.1); Sodium 132 mmol/L (135-145); Total Protein 8.3 g/dL (6.5-8.0)
[2023-08-19 14:00] LABS: Glucose Random 474 mg/dL (60-115)
== END ==
LOC: HO.CARD 10:35
PROVIDERS: Internal Medicine; Absent Provider Physician Assistant; PCP Internal Medicine; Visit Provider Nurse Practitioner Family
DX: I48.0 Paroxysmal atrial fibrillation (principal); I50.33 Acute on chronic diastolic (congestive) heart failure; E03.9 Hypothyroidism, unspecified; M25.511 Pain in right shoulder
CPT/HCPCS: 36415; 73030; 80048; 80053; 81001; 84443; 93242

== ENCOUNTER → 2023-08-19 11:37 | Outpatient (BNV) | payer MEDICARE, SELFPAY | PROVIDERS: Absent Provider Physician Assistant; PCP Internal Medicine; Visit Provider Internal Medicine | DX: I44.1 Atrioventricular block, second degree (principal); I48.0 Paroxysmal atrial fibrillation | CPT/HCPCS: 93244 ==

== ENCOUNTER 2023-08-19 14:38 | Outpatient (AMB) | payer MEDICARE, SELFPAY ==
[2023-08-19 14:39] VITALS: BP 126/64; PULSE 90; O2SAT 95; BMI 38.3
--- NOTE | 2023-08-19 14:39 | A.OFFPC_ITS ---
Vital Signs 08/19/23 14:39 Height 5 ft 3 in Weight 216 lb BMI 38.3 BP 126/64 Blood Pressure Location Lt brachial Position Sitting Pulse 90 Pulse Source Pulse Oximeter Pulse Oximetry (%) 95 Oxygen Delivery Method Room Air Intake Visit Reasons: MRI - Lower back pain/Sciatic Senior Project Controls Specialist: Not Required per policy Accompanied by: Self / Same As Patient Allergies furosemide Allergy (Intermediate, Verified 08/12/23 13:36) Nausea and Vomiting levofloxacin [From LEVAQUIN] Allergy (Mild, Verified 08/12/23 13:36) NAUSEA, dizziness,Nausea cyclobenzaprine [From FLEXERIL] Allergy (Unknown, Verified 08/12/23 13:36) NAUSEA & VOMITING simvastatin Allergy (Unknown, Verified 08/12/23 13:36) Muscle Pain Sulfa (Sulfonamide Antibiotics) [SULFA (SULFONAMIDE ANTIBIOTICS)] Allergy (Unknown, Verified 08/12/23 13:36) VOMITING atorvastatin [ATORVASTATIN] Adverse Reaction (Severe, Verified 08/12/23 13:36) MUSCLE PAIN azithromycin Adverse Reaction (Intermediate, Verified 08/12/23 13:36) Palpitations pravastatin Adverse Reaction (Unknown, Verified 08/12/23 13:36) Muscle Pain apixaban [From Eliquis] Adverse Reaction (Verified 08/12/23 13:36) Nausea Bumex Adverse Reaction (Severe, Uncoded 08/12/23 13:36) Nausea, dizziness, near syncope Medication List - Last Reconciled 08/19/23 by Marycruz Zapata MD albuterol sulfate 90 mcg/actuation (Ventolin HFA) 2 puffs inhalation Q6H PRN amlodipine 5 mg PO DAILY aspirin (Adult Low Dose Aspirin) 81 mg PO DAILY blood sugar diagnostic (OneTouch Verio test strips) 1 strip miscellaneous BID 30 days folic acid 1 mg PO DAILY [glucometer One touch Verio As directed] levothyroxine (Synthroid) 100 mcg PO DAILY metformin 1,000 mg PO BID nystatin 1 appl topical TID omeprazole 40 mg PO BID 90 days ondansetron 4 mg PO Q8H PRN oxycodone-acetaminophen 5-325 mg (Percocet) 1 tab PO TID PRN Oxygen Home Use As directed rivaroxaban (Xarelto) 15 mg PO DAILY rosuvastatin 5 mg PO DAILY semaglutide (Ozempic) 0.25 mg (0.368 mL) subcut QWEEK sertraline 50 mg PO DAILY Tobacco use date assessed: 08/12/23 Fall risk assessment: 1 Fall in past year Last assessed Fall Risk: 08/19/23 Dental Screening Dental Screen Date: 08/19/23 Did you have a dental visit in the last 12 months?: No Did you have a dental problem in the last 6 months where you did not have access to dental care?: No Was dental information given to patient?: Patient has dentist HPI MRI - Lower back pain/Sciatic HPI Details 68-year-old obese female smoker with bill betes mellitus uncontrolled congestive heart failure atrial fibrillation aortic stenosis hypertension hypothyroidism Umaña's esophagus COPD hypercholesterolemia and coronary artery disease last seen in April 2023. Patient complains of low back pain and is here for follow-up. Echocardiogram done July 2023- Normal left ventricular cavity size. There is severely increased left ventricular wall thickness. The left ventricular systolic function is hyperdynamic. The visually estimated ejection fraction is >70%. - E/E prime ratio is >15, consistent wit h elevated filling pressures. - Normal right ventricular cavity size a nd systolic function. - There is moderate to severe aortic abhishek ve stenosis. The peak aortic velocity is 3.54 m/s. The mean gradient is 28 mmHg. The aortic valve area is 0.79 cm2. Dimensionless index 0.26. - There is mild dilatation of the ascend ing aorta measuring 3.50 cm. Patient was also seen by the nurse practitioner in July for [facility] follow-up discharged for bradycardia and hypoglycemia. Review of the notes was in the hospital 07/13/2023 for fall noted to be bradycardiac and hypotension patient had metoprolol 100 in the morning 15 the evening diltiazem 240 and amiodarone 200 mg once a day patient has been told to stop diltiazem but continued to take it. With the bradycardia diltiazem and metoprolol was advised to stop . 2 weeks ago- woke up then had pain on the R sacroiliac area , states fell today, no fevers, BM - controlled , no incontinence . states has not been taking BS med- depressed- cannot stop smoking. [facility] Medical History Oxygen dependent Essential hypertension Type 2 diabetes mellitus with hyperglycemia Lumbar degenerative disc disease Obesity Restless leg syndrome Vitamin D deficiency Tobacco abuse Thrombocytopenia Degenerative disc disease, cervical Anxiety and depression Osteopenia Barretts esophagus Tubular adenoma of colon COPD (chronic obstructive pulmonary disease) Hyperlipidemia, unspecified Atherosclerotic cardiovascular disease Non-rheumatic aortic stenosis Surgical History History of carpal tunnel release History of discectomy History of cataract surgery History of hip replacement History of tonsillectomy History of appendectomy History of cholecystectomy History of cardiac catheterization Family History Father No problems noted. Mother Cardiovascular disease Social History Housing: Apartment Alcohol intake: never Patient Tobacco Use Status: Current everyday Tobacco user Tobacco use type: Cigarette Cigarettes Per Day: 3 e-Cigarette/Vaping Use: Never Used Second Hand Smoke Exposure: No service: No Current occupational status: retired Cognitive needs: No Hearing needs: No Vision needs: No Questionnaire PHQ-9 Over the last 2 weeks, how often have you been bothered by any of the following problems? 1. Little interest or pleasure in doing things: not at all 2. Feeling down, depressed, or hopeless: not at all 3. Trouble falling or staying asleep, or sleeping too much: not at all 4. Feeling tired or having little energy: not at all 5. Poor appetite or overeating: not at all 6. Feeling bad about yourself - or that you are a failure or have let yourself or your family down: not at all 7. Trouble concentrating on things, such as reading the newspaper or watching television: not at all 8. Moving or speaking so slowly that other people could have noticed. Or the opposite - being so fidgety or restless that you have been moving around a lot more than usual: not at all 9. Thoughts that you would be better off or of hurting yourself in some way: not at all Total score: 0 Depression Screening Interpretation: Negative Source: Developed by Drs. Dong Jackson, Yumi Curry, Andrew Ojeda and colleagues, with an educational noble from [employer]. Thrive Questionnaire Date Thrive assessed: 05/09/23 AUDIT C Alcohol Use Questionnaire (AUDIT-C) 1. How often do you have a drink containing alcohol?: Never 2. How many drinks containing alcohol do you have on a typical day when you are drinking?: 1 or 2 (0) 3. How often do you have six or more drinks on one occasion?: Never Total Score: 0 Score Reviewed/Action Taken: No SHAD-7 AMB Questionnaire SHAD-7 Date SHAD - 7 assessed: 05/09/23 Source: Developed by Drs. Dong Jackson, Yumi Curry, Andrew Ojeda and colleagues, with an educational noble from [employer]. Physical exam (Primary Care) Vital Signs: Last Vital Signs Pulse 90 08/19/23 14:39 BP 126/64 08/19/23 14:39 Pulse Ox 95 08/19/23 14:39 Oxygen Delivery Method Room Air 08/19/23 14:39 BMI result Body Mass Index 38.3 Tobacco/Smoking Status: Tobacco use Status Tobacco use date assessed 08/12/23 08/19/23 14:40 Patient Tobacco Use Status Current everyday Tobacco 08/19/23 14:40 Tobacco use type Cigarette 08/19/23 14:40 e-Cigarette/Vaping Use Never Used 08/19/23 14:40 PHQ-9: PHQ-9 Score PHQ-9: Total score 0 08/19/23 14:40 Depression Screening Interpretation: Negative Thrive Assessment: Date of Thrive Assessment Date Thrive assessed 05/09/23 08/19/23 14:40 Const General: alert; No acute distress Eyes Conjunctivae: conjunctivae normal Resp Auscultation: clear to auscultation bilaterally Cardio Rate: regular rate Rhythm: regular rhythm GI Inspection: Yes normal to inspection Extrem General: Yes normal to inspection and No edema Assessment and Plan Assessment & Plan (1) PAF (paroxysmal atrial fibrillation): Code(s): I48.0 - Paroxysmal atrial fibrillation Plan: Patient presently on anticoagulation and amiodarone (2) Aortic stenosis: Comment: 03/2021 0.85 cm 2, January 2022 1.07 cm squared March 13 Code(s): I35.0 - Nonrheumatic aortic (valve) stenosis Plan: Patient being followed up by Cardiology severe aortic stenosis (3) Lumbar degenerative disc disease: Code(s): M51.36 - Other intervertebral disc degeneration, lumbar region (4) Obesity: Code(s): E66.9 - Obesity, unspecified Qualifiers: Obesity type: due to excess calories Obesity classification: adult class 3 (BMI >= 40) Serious obesity comorbidity presence: with serious comorbidity Body mass index: BMI 40.0-44.9 Qualified Code(s): E66.01 - Morbid (severe) obesity due to excess calories; Z68.41 - Body mass index [BMI]40.0- 44.9, adult Plan: Diet and exercise (5) Tobacco abuse: Comment: states 5- 6 cigarettes per day (12/2020) Code(s): Z72.0 - Tobacco use Plan: Patient strongly advised to stop smoking (6) Atherosclerotic cardiovascular disease: Code(s): I25.10 - Atherosclerotic heart disease of [place] coronary artery without angina pectoris Plan: Control the cholesterol, weight, blood pressure, diabetes (7) Low back pain: Code(s): M54.50 - Low back pain, unspecified (8) Hepatic cirrhosis: Code(s): K74.60 - Unspecified cirrhosis of liver Orders: Orders XR lumbar spine 2-3V Today M54.50 - Low back pain, unspecified XR sacroiliac joint min 3V Today M54.50 - Low back pain, unspecified Medications: New semaglutide (Ozempic) for 4 weeks 0.25 mg (0.368 mL) subcut QWEEK 3 mL 1RF E11.65 - Type 2 diabetes mellitus with hyperglycemia Refilled oxycodone-acetaminophen 5-325 mg (Percocet) 1 tab PO TID PRN 30 tabs 0RF pain M51.36 - Other intervertebral disc degeneration, lumbar region Discontinued lisinopril Discontinued Reason: Ancillary Entered New Order 40 mg PO DAILY 90 tabs 3RF Coding Level of Care Code Est Pt Level 4 (55292) Diagnoses PAF (paroxysmal atrial fibrillation) I48.0 Aortic stenosis I35.0 Lumbar degenerative disc disease M51.36 Class 3 severe obesity due to excess calories with serious comorbidity and body mass index (BMI) of 40.0 to 44.9 in adult E66.01; Z68.41 Obesity type: due to excess calories Obesity classification: adult class 3 (BMI >= 40) Serious obesity comorbidity presence: with serious comorbidity Body mass index: BMI 40.0-44.9 Tobacco abuse Z72.0 Atherosclerotic cardiovascular disease I25.10 Low back pain M54.50 Hepatic cirrhosis K74.60 Additional Codes PHQ-9 - 17609 - PHQ-9 Billing: ([id number])
== END 2023-08-19 16:07 | disposition home or self-care (01) ==
PROVIDERS: PCP Internal Medicine; Visit Provider Internal Medicine
DX: M51.36 Other intervertebral disc degeneration, lumbar region (principal); I48.0 Paroxysmal atrial fibrillation; I35.0 Nonrheumatic aortic (valve) stenosis; K74.60 Unspecified cirrhosis of liver
CPT/HCPCS: 99214

== ENCOUNTER 2023-09-10 14:52 | Outpatient (AMB) | payer MEDICARE, SELFPAY ==
--- NOTE | 2023-09-10 14:54 | A.OFFVIS_ITS ---
Intake Vital Signs 09/10/23 14:56 Height 5 ft 3 in Weight 209 lb 7.026 oz BMI 37.1 BP 126/64 Blood Pressure Location Lt brachial Position Sitting Pulse 92 Intake Visit Reasons: follow up after echo Intake Note: follow up Sed Special Education Teacher Required: No Accompanied by: Self / Same As Patient Allergies furosemide Allergy (Intermediate, Verified 09/10/23 14:56) Nausea and Vomiting levofloxacin [From LEVAQUIN] Allergy (Mild, Verified 09/10/23 14:56) NAUSEA, dizziness,Nausea cyclobenzaprine [From FLEXERIL] Allergy (Unknown, Verified 09/10/23 14:56) NAUSEA & VOMITING simvastatin Allergy (Unknown, Verified 09/10/23 14:56) Muscle Pain Sulfa (Sulfonamide Antibiotics) [SULFA (SULFONAMIDE ANTIBIOTICS)] Allergy (Unknown, Verified 09/10/23 14:56) VOMITING atorvastatin [ATORVASTATIN] Adverse Reaction (Severe, Verified 09/10/23 14:56) MUSCLE PAIN azithromycin Adverse Reaction (Intermediate, Verified 09/10/23 14:56) Palpitations pravastatin Adverse Reaction (Unknown, Verified 09/10/23 14:56) Muscle Pain apixaban [From Eliquis] Adverse Reaction (Verified 09/10/23 14:56) Nausea Bumex Adverse Reaction (Severe, Uncoded 09/10/23 14:56) Nausea, dizziness, near syncope Medication List - Last Reconciled 09/10/23 by Dutch Campbell MD albuterol sulfate 90 mcg/actuation (Ventolin HFA) 2 puffs inhalation Q6H PRN amlodipine 5 mg PO DAILY aspirin (Adult Low Dose Aspirin) 81 mg PO DAILY blood sugar diagnostic ([employer] Verio test strips) 1 strip miscellaneous BID 30 days blood sugar diagnostic (OneTouch Ultra Test strips) test once per day blood-glucose meter ([employer] Ultra2 Meter) test once per day [glucometer One touch Verio As directed] lancets ([employer] UltraSoft 2 Lancet) test once per day lancing device with lancets ([employer] Delica Plus Lancing Device kit) As directed check BS once a day levothyroxine (Synthroid) 100 mcg PO DAILY metformin 1,000 mg PO BID nystatin 1 appl topical TID omeprazole 40 mg PO BID 90 days Oxygen Home Use As directed rivaroxaban (Xarelto) 15 mg PO DAILY rosuvastatin 5 mg PO DAILY semaglutide (Ozempic) 0.25 mg (0.368 mL) subcut QWEEK sertraline 50 mg PO DAILY HPI HPI Comments History of Present Illness Details Magy returns for follow-up regarding coronary disease, aortic stenosis as well as atrial fibrillation. Multiple risk factors including diabetes, hypertension, dyslipidemia, obesity, smoking. During last visit, atrial fibrillation was identified. Then anticoagulation was started. She could not tolerate Eliquis and then switched to Xarelto. Subsequently, it seems that she had a heart failure hospitalization to [facility]. Then discharged. Was still having shortness of breath and heart failure type symptoms and hence she came for an elective cardioversion. Post cardioversion, she was on amiodarone. Then it seems that she had another hospitalization to [facility], this time with bradycardia. Per last office note, she was only on amiodarone, but for some reason, she was also taking diltiazem plus metoprolol. Any case, after the bradycardia admission to [facility], they stopped ev erything. It seems she was managed in the ICU with a dopamine drip and eventually discharged. Currently, she is not taking anything for the atrial fibrillation at all. Still feels short of breath with activity. Smoking has been cut back, but not quit completely. [facility] Medical History Oxygen dependent Essential hypertension Type 2 diabetes mellitus with hyperglycemia Lumbar degenerative disc disease Obesity Restless leg syndrome Vitamin D deficiency Tobacco abuse Thrombocytopenia Degenerative disc disease, cervical Anxiety and depression Osteopenia Barretts esophagus Tubular adenoma of colon COPD (chronic obstructive pulmonary disease) Hyperlipidemia, unspecified Atherosclerotic cardiovascular disease Non-rheumatic aortic stenosis Surgical History History of carpal tunnel release History of discectomy History of cataract surgery History of hip replacement History of tonsillectomy History of appendectomy History of cholecystectomy History of cardiac catheterization Family History Father No problems noted. Mother Cardiovascular disease Social History (Updated 09/10/23 @ 14:57 by Mirta Valentino) Housing: Apartment Alcohol intake: never Patient Tobacco Use Status: Current everyday Tobacco user Tobacco use type: Cigarette Cigarettes Per Day: 5 e-Cigarette/Vaping Use: Never Used Second Hand Smoke Exposure: No service: No Current occupational status: retired Cognitive needs: No Hearing needs: No Vision needs: No Review of Systems Const Denies weakness ENT Denies dizziness Card Denies chest pain, Denies chest pain with activity, Denies syncope, Denies rapid heart rate, Denies pedal edema, Denies edema, Denies leg edema, Denies lightheadedness, Denies palpitations, Denies dyspnea, Denies dyspnea on exertion and Denies orthopnea Resp Denies cough, Denies dyspnea and Denies dyspnea on exertion GI Denies hematochezia and Denies change in stool character Musc Denies abnormal gait, Denies muscle cramps, Denies muscle weakness, Denies numbness, Denies radiating pain into limb and Denies tingling Neuro Denies abnormal gait, Denies dizziness, Denies syncope, Denies numbness, Denies tingling and Denies weakness Endo Denies palpitations Physical Exam Vital Signs: Last Vital Signs Pulse 92 09/10/23 14:56 BP 126/64 09/10/23 14:56 BMI result Body Mass Index 37.1 Const General: comfortable and no acute distress Orientation/consciousness: patient oriented x3 HEENT Other: Unremarkable Head: Yes normal to inspection Neck Neck: Yes normal visual inspection Chest Chest palpation & inspection: normal inspection of the chest Resp Auscultation: clear to auscultation bilaterally Cardio Palpation: normal PMI Heart sounds: S1 normal heart sound present, S2 normal heart sound present, no gallops, Murmur heart sound present systolic III/ and at the right sternal border and no rubs GI Palpation (GI): Soft to palpation Back/Spine/Pelvis Other: unremarkable Skin General skin exam: no rashes or lesions noted Neuro General: patient oriented x3 Extrem General: Yes normal to inspection Psych Mental Status: mental status grossly normal Assessment & Plan Assessment & Plan (1) PAF (paroxysmal atrial fibrillation): Code(s): I48.0 - Paroxysmal atrial fibrillation Plan: Cardioversion done 04/2023. After review of the last office note, there is definitely confusion with medications. She was supposed to be only on amiodarone and not on any diltiazem/metoprolol but it seems that she was taking all of them. That led to bradycardia, ICU stay in [facility]. Currently, she is on nothing for atrial fibrillation and hence we need to at least keep on amiodarone as highly likely that she will go back into atrial fibrillation. In the long run, possibly Multaq. Otherwise, continue anticoagulation. I re-emphasized medications to family. (2) Bradycardia: Code(s): R00.1 - Bradycardia, unspecified Plan: As above, recent hospitalization to [facility] with bradycardia in the context of using amiodarone plus metoprolol plus diltiazem. In the Holter, underlying rhythm is sinus with slight MN prolongation; average ventricular rate 78/Min. There is possibly some areas where it is Mobitz type 1 Wenckebach but no high- grade heart block type appearance. If going for TAVR, then there is definitely increased risk of heart block/paced requirement. (3) Non-rheumatic aortic stenosis: Code(s): I35.0 - Nonrheumatic aortic (valve) stenosis Plan: In the recent echocardiogram, moderate to severe aortic stenosis. Mean gradient 28 mm Hg. Calculated valve area of 0.79 sq cm. Dimensionless index 0.26. Her shortness of breath is probably multifactorial. Aortic stenosis is one of the contributing factors but not the only issue. Emphasized this to patient and family. We can start with a diagnostic angiogram. Then evaluation for TAVR. May help her breathing partially. (4) Chronic diastolic (congestive) heart failure: Code(s): I50.32 - Chronic diastolic (congestive) heart failure Plan: No overt volume overload. She does not like to take Lasix as it is apparently making her sick. If necessary, we will use Torsemide or Bumex. (5) Atherosclerotic cardiovascular disease: Code(s): I25.10 - Atherosclerotic heart disease of [place] coronary artery without angina pectoris Plan: In the cardiac catheterization from 2020, there was 60% stenosis in the mid right coronary artery, but otherwise only mild disease. Continue aspirin and statins. Last LDL 59 mg/dL. (6) Smoking: Code(s): F17.200 - Nicotine dependence, unspecified, uncomplicated Plan: Unfortunately, still smokes a few cigarettes. Get PFTs to assess extent of COPD. Plan Discussed with son who came for appointment. Total time spent including review of data, counseling, documentation, coordination of care-55 minutes. Orders: Orders Cardiac Cath LT Diagnostic Today I25.10 - Atherosclerotic heart disease of [place] coronary artery without angina pectoris, I35.0 - Nonrheumatic aortic (valve) stenosis Complete Blood Count no Diff Today I35.0 - Nonrheumatic aortic (valve) stenosis Basic Metabolic Panel Today I35.0 - Nonrheumatic aortic (valve) stenosis Medications: New amiodarone 200 mg PO DAILY 90 tabs 3RF Coding Level of Care Code Est Pt Level 5 (23185) Diagnoses PAF (paroxysmal atrial fibrillation) I48.0 Bradycardia R00.1 Non-rheumatic aortic stenosis I35.0 Chronic diastolic (congestive) heart failure I50.32 Atherosclerotic cardiovascular disease I25.10 Smoking F17.200
[2023-09-10 14:56] VITALS: BP 126/64; PULSE 92; BMI 37.1
== END 2023-09-10 15:41 | disposition home or self-care (01) ==
PROVIDERS: PCP Internal Medicine; Visit Provider Internal Medicine
DX: I48.0 Paroxysmal atrial fibrillation (principal); I50.32 Chronic diastolic (congestive) heart failure; I35.0 Nonrheumatic aortic (valve) stenosis; I25.10 Atherosclerotic heart disease of native coronary artery without angina pectoris; F17.200 Nicotine dependence, unspecified, uncomplicated
CPT/HCPCS: 99215

== ENCOUNTER → 2023-09-10 14:52 | Outpatient (BNVA) | payer MEDICARE, SELFPAY | PROVIDERS: PCP Internal Medicine; Visit Provider Internal Medicine | DX: I48.0 Paroxysmal atrial fibrillation (principal); I35.0 Nonrheumatic aortic (valve) stenosis; I50.32 Chronic diastolic (congestive) heart failure; I25.10 Atherosclerotic heart disease of native coronary artery without angina pectoris; R00.1 Bradycardia, unspecified; F17.210 Nicotine dependence, cigarettes, uncomplicated | CPT/HCPCS: 99212 ==

== ENCOUNTER 2023-09-30 09:29 | Outpatient (REF) | payer MEDICARE, SELFPAY ==
[2023-09-30 09:57] LABS: Hematocrit 39.3 % (37.0-47.0); Hemoglobin 12.7 g/dl (12.0-16.0); Mean Corpuscular HGB Conc 32.3 g/dl (31.0-35.0); Mean Corpuscular Hemoglobin 28.2 pg (27.0-33.0); Mean Corpuscular Volume 87.3 fL (80.0-98.0); Mean Platelet Volume 10.3 fL (9.4-12.3); Platelet Count 156 X10*3/uL (160-400); Red Cell Distribution Width 16.3 % (11.0-16.0); White Blood Count 5.9 X10*3/uL (4.8-10.8)
[2023-09-30 10:04] LABS: INTERNATIONAL NORM RATIO 0.9 (0.9-1.1); Prothrombin Time 11.1 SEC (11.1-13.3)
[2023-09-30 10:34] LABS: Anion Gap 13 (12-20); Blood Urea Nitrogen 15 mg/dL (9-16); Calcium 9.6 mg/dL (8.4-10.2); Carbon Dioxide 26 mmol/L (22-29); Chloride 106 mmol/L (96-108); Estimated Glomerular Filt Rate 43; Glucose Random 217 mg/dL (60-115); Potassium 4.1 mmol/L (3.3-5.1); Sodium 141 mmol/L (135-145)
== END 2023-09-30 09:30 | disposition home or self-care (01) ==
LOC: HO.LAB 09:29
PROVIDERS: PCP Internal Medicine; Visit Provider Internal Medicine
DX: I48.0 Paroxysmal atrial fibrillation (principal); I35.0 Nonrheumatic aortic (valve) stenosis
CPT/HCPCS: 36415; 80048; 85027; 85610

== ENCOUNTER → 2023-10-02 23:59 | Outpatient (BNV) | payer MEDICARE, SELFPAY | PROVIDERS: PCP Internal Medicine; Visit Provider Internal Medicine Cardiovascular Disease | DX: I35.9 Nonrheumatic aortic valve disorder, unspecified (principal) | CPT/HCPCS: 93460; 99152 ==

== ENCOUNTER 2023-10-22 09:58 | Outpatient (AMB) | payer MEDICARE, SELFPAY ==
[2023-10-22 10:07] VITALS: BP 120/60; PULSE 76; BMI 37.7
--- NOTE | 2023-10-22 10:07 | MHC.OFFVIS ---
Intake Vital Signs 10/22/23 10:07 Height 5 ft 3 in Weight 212 lb 11.937 oz BMI 37.7 BP 120/60 Blood Pressure Location Lt brachial Position Sitting Pulse 76 Pulse Source Pulse Oximeter Intake Visit Reasons: Follow up post cardiac cath, discuss TAVR (per HS) Intake Note: follow up poat cardiact cath, patients feel good Motor Analyst Required: No Accompanied by: Self / Same As Patient Allergies furosemide Allergy (Intermediate, Verified 10/22/23 10:10) Nausea and Vomiting levofloxacin [From LEVAQUIN] Allergy (Mild, Verified 10/22/23 10:10) NAUSEA, dizziness,Nausea cyclobenzaprine [From FLEXERIL] Allergy (Unknown, Verified 10/22/23 10:10) NAUSEA & VOMITING simvastatin Allergy (Unknown, Verified 10/22/23 10:10) Muscle Pain Sulfa (Sulfonamide Antibiotics) [SULFA (SULFONAMIDE ANTIBIOTICS)] Allergy (Unknown, Verified 10/22/23 10:10) VOMITING atorvastatin [ATORVASTATIN] Adverse Reaction (Severe, Verified 10/22/23 10:10) MUSCLE PAIN azithromycin Adverse Reaction (Intermediate, Verified 10/22/23 10:10) Palpitations pravastatin Adverse Reaction (Unknown, Verified 10/22/23 10:10) Muscle Pain apixaban [From Eliquis] Adverse Reaction (Verified 10/22/23 10:10) Nausea Bumex Adverse Reaction (Severe, Uncoded 09/10/23 14:56) Nausea, dizziness, near syncope Medication List - Last Reconciled 10/22/23 by Lance Londono MD albuterol sulfate 90 mcg/actuation (Ventolin HFA) 2 puffs inhalation Q6H PRN amiodarone 200 mg PO DAILY amlodipine 5 mg PO DAILY aspirin (Adult Low Dose Aspirin) 81 mg PO DAILY blood sugar diagnostic (OneTouch Verio test strips) 1 strip miscellaneous BID 30 days blood sugar diagnostic (OneTouch Ultra Test strips) test once per day blood-glucose meter (A.[employer] SilkTouch Ultra2 Meter) test once per day glimepiride 4 mg PO DAILY [glucometer One touch Verio As directed] lancets ([employer] UltraSoft 2 Lancet) test once per day lancing device with lancets ([employer] Delica Plus Lancing Device kit) As directed check BS once a day levothyroxine (Synthroid) 100 mcg PO DAILY metformin 1,000 mg PO BID nystatin 1 appl topical TID omeprazole 40 mg PO BID 90 days oxycodone-acetaminophen 5-325 mg (Percocet) 1 tab PO TID PRN Oxygen Home Use As directed rivaroxaban (Xarelto) 15 mg PO DAILY rosuvastatin 5 mg PO DAILY sertraline 50 mg PO DAILY HPI HPI Comments History of Present Illness Details 68-year-old female who is here for severe aortic valve stenosis. She recently underwent cardiac catheterization where we noticed 60 70% RCA stenosis as well as severe aortic valve stenosis was diagnosed with aortic valve area of 0.95 and mean gradient across aortic valve of 37. Cardiac index and cardiac output were normal. She is here to discuss about management of aortic valve stenosis. It appears she was admitted at [facility] with bradycardia and congestive heart failure. At that time she was on amiodarone and diltiazem for atrial fibrillation. Her medications were stopped and bradycardia improved and she did not receive pacemaker. In follow-up with us she had an echocardiogram in July 2023 where hyperdynamic LV function was noted with aortic valve area of 0.79, dye mention lacks index of 0.26, mean aortic valve gradient 28 and peak velocity of 3.54 m/sec. She has been experiencing dyspnea on exertion, chest pains and had episodes where she blacked out. She has had couple of time she started feeling very dizzy and fell she is going to black out. She later found herself passed out on a sofa. She said she had similar episodes previously 2. During cardiac catheterization with noticed that her filling pressures were elevated. It appears she had some nausea and dizziness episodes with Bumex and furosemide in the past. She is currently not on any diuretics. She has peripheral edema, orthopnea and PND. EKG reviewed which showed sinus rhythm 71 beats per minute, first-degree AV block with HI interval 260 milliseconds, left anterior fascicular block, QTC 465 milliseconds. [facility] Medical History Oxygen dependent Essential hypertension Type 2 diabetes mellitus with hyperglycemia Lumbar degenerative disc disease Obesity Restless leg syndrome Vitamin D deficiency Tobacco abuse Thrombocytopenia Degenerative disc disease, cervical Anxiety and depression Osteopenia Barretts esophagus Tubular adenoma of colon COPD (chronic obstructive pulmonary disease) Hyperlipidemia, unspecified Atherosclerotic cardiovascular disease Non-rheumatic aortic stenosis Surgical History History of carpal tunnel release History of discectomy History of cataract surgery History of hip replacement History of tonsillectomy History of appendectomy History of cholecystectomy History of cardiac catheterization Family History Father No problems noted. Mother Cardiovascular disease Social History Housing: Apartment Alcohol intake: never Patient Tobacco Use Status: Current everyday Tobacco user Tobacco use type: Cigarette Cigarettes Per Day: 5 e-Cigarette/Vaping Use: Never Used Second Hand Smoke Exposure: No service: No Current occupational status: retired Cognitive needs: No Hearing needs: No Vision needs: No Review of Systems Const Denies chills, Denies fatigue, Denies fever(s), Denies frequent falls, Denies weakness, Denies weight gain and Denies weight loss ENT Denies dizziness Card Denies chest pain, Denies leg edema, Denies lightheadedness, Denies palpitations, Denies dyspnea, Denies dyspnea on exertion, Denies orthopnea and Denies other (loss of consciousness) Resp Denies cough, Denies dyspnea and Denies dyspnea on exertion GI Denies hematochezia and Denies change in stool character Musc Denies abnormal gait, Denies muscle weakness, Denies numbness, Denies radiating pain into limb and Denies tingling Neuro Denies abnormal gait, Denies dizziness, Denies frequent falls, Denies numbness, Denies tingling and Denies weakness Endo Denies fatigue and Denies palpitations Physical Exam Vital Signs: Last Vital Signs Pulse 76 10/22/23 10:07 BP 120/60 10/22/23 10:07 BMI result Body Mass Index 37.7 GENERAL APPEARANCE: in no acute distress, pleasant. NECK: no carotid bruit, + jugular venous distention. SKIN: no suspicious lesions, warm and dry. HEART: Systolic murmur aortic area with preserved 2nd heart sound, regular rate and rhythm. LUNGS: clear to auscultation bilaterally. ABDOMEN: soft, nontender. EXTREMITIES: Mild edema. PERIPHERAL PULSES: equal. NEUROLOGIC: No gross deficits, AAO X 3 Assessment & Plan Assessment & Plan (1) Non-rheumatic aortic stenosis: Code(s): I35.0 - Nonrheumatic aortic (valve) stenosis (2) Essential hypertension: Code(s): I10 - Essential (primary) hypertension (3) Atrial fibrillation: Code(s): I48.91 - Unspecified atrial fibrillation (4) Chronic diastolic (congestive) heart failure: Code(s): I50.32 - Chronic diastolic (congestive) heart failure Plan 68-year-old female who is here to discuss management of aortic valve stenosis. She by echocardiography had moderate to severe but doing cardiac catheterization we had a mean gradient across the valve of 37 mm Hg and a valve area 0.95. She has a 2nd heart sound on examination but clinically she is quite symptomatic at this point. She is in heart failure and I am going to add torsemide 10 mg once a day. Given the fact that she is getting a lot of symptoms including syncopal episodes I am going to refer her to [facility] for TAVR assessment. We will also get a TAVR protocol CT scan and ask a surgeon to review the case and see her in consult. Periprocedural risk with estimated likelihood include stroke at 2%, permanent pacemaker requirements at 8 to 10%, major bleeding at 2 to 3%, vascular complication at 1 to 2% and at 1 to 2%.? Patient accepts this risk and would like to proceed. She will follow-up with us in 3 months. Thank you for allowing me to participate in the care of your patient. Please feel free to contact me if you have any questions. Medications: New torsemide 10 mg PO DAILY 30 tabs 3RF I50.32 - Chronic diastolic (congestive) heart failure Coding Level of Care Code Est Pt Level 5 (15495) Diagnoses Non-rheumatic aortic stenosis I35.0 Essential hypertension I10 Atrial fibrillation I48.91 Chronic diastolic (congestive) heart failure I50.32
== END 2023-10-22 10:44 | disposition home or self-care (01) ==
PROVIDERS: PCP Internal Medicine; Visit Provider Internal Medicine Cardiovascular Disease
DX: I35.0 Nonrheumatic aortic (valve) stenosis (principal); I10 Essential (primary) hypertension; I48.91 Unspecified atrial fibrillation; I50.32 Chronic diastolic (congestive) heart failure
CPT/HCPCS: 99215

== ENCOUNTER → 2023-10-22 09:58 | Outpatient (BNVA) | payer MEDICARE, SELFPAY | PROVIDERS: PCP Internal Medicine; Visit Provider Internal Medicine Cardiovascular Disease | DX: I35.0 Nonrheumatic aortic (valve) stenosis (principal); I11.0 Hypertensive heart disease with heart failure; I50.32 Chronic diastolic (congestive) heart failure; I48.91 Unspecified atrial fibrillation | CPT/HCPCS: 99212 ==

== ENCOUNTER 2023-11-13 14:39 | Outpatient (AMB) | payer MEDICARE, SELFPAY ==
[2023-11-13 14:44] VITALS: BP 146/74; PULSE 76; O2SAT 97; BMI 37.2
--- NOTE | 2023-11-13 14:44 | MHC.PC.OV ---
Vital Signs 11/13/23 14:44 Height 5 ft 3 in Weight 210 lb BMI 37.2 BP 146/74 H Blood Pressure Location Lt brachial Position Sitting Pulse 76 Pulse Source Pulse Oximeter Pulse Oximetry (%) 97 Oxygen Delivery Method Room Air Intake Visit Reasons: CHF Allergies furosemide Allergy (Intermediate, Verified 10/22/23 10:10) Nausea and Vomiting levofloxacin [From LEVAQUIN] Allergy (Mild, Verified 10/22/23 10:10) NAUSEA, dizziness,Nausea cyclobenzaprine [From FLEXERIL] Allergy (Unknown, Verified 10/22/23 10:10) NAUSEA & VOMITING simvastatin Allergy (Unknown, Verified 10/22/23 10:10) Muscle Pain Sulfa (Sulfonamide Antibiotics) [SULFA (SULFONAMIDE ANTIBIOTICS)] Allergy (Unknown, Verified 10/22/23 10:10) VOMITING atorvastatin [ATORVASTATIN] Adverse Reaction (Severe, Verified 10/22/23 10:10) MUSCLE PAIN azithromycin Adverse Reaction (Intermediate, Verified 10/22/23 10:10) Palpitations pravastatin Adverse Reaction (Unknown, Verified 10/22/23 10:10) Muscle Pain apixaban [From Eliquis] Adverse Reaction (Verified 10/22/23 10:10) Nausea Bumex Adverse Reaction (Severe, Uncoded 09/10/23 14:56) Nausea, dizziness, near syncope Medication List - Last Reconciled 11/13/23 by Marycruz Zapata MD albuterol sulfate 90 mcg/actuation (Ventolin HFA) 2 puffs inhalation Q6H PRN amiodarone 200 mg PO DAILY amlodipine 5 mg PO DAILY aspirin (Adult Low Dose Aspirin) 81 mg PO DAILY blood sugar diagnostic ([employer] Verio test strips) 1 strip miscellaneous BID 30 days blood sugar diagnostic (OneTouch Ultra Test strips) test once per day blood-glucose meter ([employer] ApplicationTouch Ultra2 Meter) test once per day glimepiride 4 mg PO DAILY [glucometer One touch Verio As directed] lancets ([employer] UltraSoft 2 Lancet) test once per day lancing device with lancets ([employer] Delica Plus Lancing Device kit) As directed check BS once a day levothyroxine (Synthroid) 100 mcg PO DAILY metformin 1,000 mg PO BID nystatin 1 appl topical TID omeprazole 40 mg PO BID 90 days oxycodone-acetaminophen 5-325 mg (Percocet) 1 tab PO TID PRN Oxygen Home Use As directed rivaroxaban (Xarelto) 15 mg PO DAILY rosuvastatin 5 mg PO DAILY sertraline 50 mg PO DAILY torsemide 10 mg PO DAILY Tobacco use date assessed: 11/13/23 Fall risk assessment: 1 Fall in past year Last assessed Fall Risk: 11/13/23 Dental Screening Dental Screen Date: 11/13/23 Did you have a dental visit in the last 12 months?: Yes Did you have a dental problem in the last 6 months where you did not have access to dental care?: No Was dental information given to patient?: Patient has dentist HPI CHF HPI Details 68-year-old obese female smoker with multiple medical problems severe aortic stenosis atrial fibrillation atherosclerotic cardiovascular disease lumbar degenerative disc disease hepatic cirrhosis last seen in July 2023. Patient is due for colonoscopy mammogram bone density. CT angio of the abdomen pelvis received October 2023 showing nodular liver suggesting cirrhosis, mild splenomegaly multiple ill-defined hyper attenuating foci within the liver and was advised liver MRI. Patient underwent a cardiac catheterization noticing 67% RCA stenosis as well as the severe aortic stenosis aortic valve area of 0.95 patient was found to have bradycardia and congestive heart failure at that time amiodarone and diltiazem and this bradycardia improved after the medications were held. July 2023 echo this time showed a valve area of 0.79 patient did have syncopal episodes. Cardiology added torsemide 10 mg once a day. had a recent fall- deny syncope state pain on the R shoulder. stubbed foot and R big toe swelling and L 4th toe scab noted patient declined wanting me to see right shoulder but states is been painful. Patient does have narcotic pain medications and this was refilled [facility] Medical History (Updated 11/13/23 @ 15:20 by Marycruz Zapata MD) Atrial fibrillation Atrial fibrillation with controlled ventricular rate Breast cancer screening by mammogram Oxygen dependent Essential hypertension Type 2 diabetes mellitus with hyperglycemia Lumbar degenerative disc disease Obesity Restless leg syndrome Vitamin D deficiency Tobacco abuse Thrombocytopenia Degenerative disc disease, cervical Anxiety and depression Osteopenia Barretts esophagus Tubular adenoma of colon COPD (chronic obstructive pulmonary disease) Hyperlipidemia, unspecified Atherosclerotic cardiovascular disease Non-rheumatic aortic stenosis Surgical History History of carpal tunnel release History of discectomy History of cataract surgery History of hip replacement History of tonsillectomy History of appendectomy History of cholecystectomy History of cardiac catheterization Family History Father No problems noted. Mother Cardiovascular disease Social History Housing: Apartment Alcohol intake: never Patient Tobacco Use Status: Current everyday Tobacco user Tobacco use type: Cigarette Cigarettes Per Day: 5 e-Cigarette/Vaping Use: Never Used Second Hand Smoke Exposure: No service: No Current occupational status: retired Cognitive needs: No Hearing needs: No Vision needs: No Questionnaire Thrive Questionnaire Date Thrive assessed: 05/09/23 AUDIT C Alcohol Use Questionnaire (AUDIT-C) 1. How often do you have a drink containing alcohol?: Never 2. How many drinks containing alcohol do you have on a typical day when you are drinking?: 1 or 2 (0) 3. How often do you have six or more drinks on one occasion?: Never Total Score: 0 Score Reviewed/Action Taken: No SHAD-7 AMB Questionnaire SHAD-7 Date SHAD - 7 assessed: 05/09/23 Source: Developed by Drs. Dong Jackson, Yumi Curry, Andrew Ojeda and colleagues, with an educational noble from [employer]. Physical exam (Primary Care) Vital Signs: Last Vital Signs Pulse 76 11/13/23 14:44 BP 146/74 H 11/13/23 14:44 Pulse Ox 97 11/13/23 14:44 Oxygen Delivery Method Room Air 11/13/23 14:44 BMI result Body Mass Index 37.2 Tobacco/Smoking Status: Tobacco use Status Tobacco use date assessed 11/13/23 11/13/23 14:51 Patient Tobacco Use Status Current everyday Tobacco 11/13/23 14:51 Tobacco use type Cigarette 11/13/23 14:51 e-Cigarette/Vaping Use Never Used 11/13/23 14:51 Thrive Assessment: Date of Thrive Assessment Date Thrive assessed 05/09/23 11/13/23 14:51 Const General: alert; No acute distress Eyes Conjunctivae: conjunctivae normal Resp Auscultation: clear to auscultation bilaterally Cardio Rate: regular rate Rhythm: regular rhythm GI Inspection: Yes normal to inspection Extrem General: Yes normal to inspection and No edema Results AMB Hemoglobin A1c AMB Hemoglobin A1c 6.7 % Last Edit by CORRINA Back on 11/13/23 14:55 Results Reviewed Results Reviewed: Laboratory Last Values Hgb A1c (Clinic) 6.7 % (4.0-6.0) H 11/13/23 13:41 Assessment and Plan Assessment & Plan (1) Tobacco abuse: Comment: states 5- 6 cigarettes per day (12/2020) Code(s): Z72.0 - Tobacco use Plan: Patient is strongly advised to stop! (2) Atherosclerotic cardiovascular disease: Code(s): I25.10 - Atherosclerotic heart disease of [place] coronary artery without angina pectoris Plan: Control the cholesterol, weight, blood pressure, diabetes continue with aspirin 81 mg once a day (3) Non-rheumatic aortic stenosis: Code(s): I35.0 - Nonrheumatic aortic (valve) stenosis Plan: Patient is being considered for TAVR. Had a cardiac catheterization. (4) Hyperlipidemia, unspecified: Code(s): E78.5 - Hyperlipidemia, unspecified Qualifiers: Hyperlipidemia type: pure hypercholesterolemia Qualified Code(s): E78.00 - Pure hypercholesterolemia, unspecified Plan: Avoid fried foods, chicken skin, eggs, butter margarine, pastries and meat. Be it pork or beef they have a lot of cholesterol LDL goal of less than 70. Patient is on rosuvastatin 5 mg once a day (5) COPD (chronic obstructive pulmonary disease): Code(s): J44.9 - Chronic obstructive pulmonary disease, unspecified Qualifiers: COPD type: emphysema Emphysema type: unspecified Qualified Code(s): J43.9 - Emphysema, unspecified Plan: Stop smoking! Continue with inhaler (6) Barretts esophagus: Code(s): K22.70 - Umaña's esophagus without dysplasia Qualifiers: Umaña's esophagus type: without dysplasia Qualified Code(s): K22.70 - Umaña's esophagus without dysplasia Plan: Avoid the foods that causes that usually spicy foods, tomato products, juices, coffee, soda and foods that your sensitive to. After eating do not lie down, allow 3-4 hours before in lie down. And keep the head of bed above 30 degrees to avoid the acid from going up. (7) Obesity: Code(s): E66.9 - Obesity, unspecified Qualifiers: Obesity type: due to excess calories Obesity classification: adult class 3 (BMI >= 40) Serious obesity comorbidity presence: with serious comorbidity Body mass index: BMI 40.0-44.9 Qualified Code(s): E66.01 - Morbid (severe) obesity due to excess calories; Z68.41 - Body mass index [BMI]40.0-44.9, adult Plan: Diet and exercise (8) Type 2 diabetes mellitus with hyperglycemia: Code(s): E11.65 - Type 2 diabetes mellitus with hyperglycemia Qualifiers: Diabetes mellitus care home insulin use: without cleaner housekeeping use Qualified Code(s): E11.65 - Type 2 diabetes mellitus with hyperglycemia Plan: Decrease the amount of carbohydrate intake, pasta, bread, rice and potatoes are all sugar and that is aside from all the sweet stuff, remember that fruits are good but they are Sweet also. Hemoglobin A1c goal of less than 7.0 patient is on glimepiride 4 mg once a day metformin 1000 mg once a day (9) Essential hypertension: Code(s): I10 - Essential (primary) hypertension Plan: Continue with blood pressure medication. Decrease salt intake and exercise patient is on amlodipine 5 mg once a day (10) Acute on chronic diastolic congestive heart failure: Code(s): I50.33 - Acute on chronic diastolic (congestive) heart failure Plan: Placed on diuretic torsemide, weigh daily, avoid salt (11) PAF (paroxysmal atrial fibrillation): Code(s): I48.0 - Paroxysmal atrial fibrillation Plan: Continue with anticoagulation with Xarelto (12) Hypothyroid: Code(s): E03.9 - Hypothyroidism, unspecified Plan: Continue with thyroid Medicaid (13) Liver lesion: Code(s): K76.9 - Liver disease, unspecified Plan: Monitor (14) Infection of great toe: Comment: left Code(s): L08.9 - Local infection of the skin and subcutaneous tissue, unspecified Plan: Antibiotics sent in Orders: Orders AMB Hemoglobin A1c Today E11.65 - Type 2 diabetes mellitus with hyperglycemia Medications: New amoxicillin-pot clavulanate 875-125 mg 1 tab PO BID 14 tabs 0RF L08.9 - Local infection of the skin and subcutaneous tissue, unspecified amlodipine 5 mg PO DAILY 90 tabs 1RF I10 - Essential (primary) hypertension glimepiride 2 mg PO DAILY 30 tabs 0RF Refilled oxycodone-acetaminophen 5-325 mg (Percocet) 1 tab PO TID PRN 30 tabs 0RF pain M51.36 - Other intervertebral disc degeneration, lumbar region torsemide 10 mg PO DAILY 90 tabs 1RF I50.32 - Chronic diastolic (congestive) heart failure rivaroxaban (Xarelto) must administer with evening meal 15 mg PO DAILY 90 tabs 1RF I48.0 - Paroxysmal atrial fibrillation Coding Level of Care Code Est Pt Level 4 (36931) Diagnoses Tobacco abuse Z72.0 Atherosclerotic cardiovascular disease I25.10 Non-rheumatic aortic stenosis I35.0 Pure hypercholesterolemia E78.00 Hyperlipidemia type: pure hypercholesterolemia Pulmonary emphysema, unspecified emphysema type J43.9 COPD type: emphysema Emphysema type: unspecified Umaña's esophagus without dysplasia K22.70 Umaña's esophagus type: without dysplasia Class 3 severe obesity due to excess calories with serious comorbidity and body mass index (BMI) of 40.0 to 44.9 in adult E66.01; Z68.41 Obesity type: due to excess calories Obesity classification: adult class 3 (BMI >= 40) Serious obesity comorbidity presence: with serious comorbidity Body mass index: BMI 40.0-44.9 Type 2 diabetes mellitus with hyperglycemia, without long-term current use of insulin E11.65 Diabetes mellitus care home insulin use: without cleaner housekeeping use Essential hypertension I10 Acute on chronic diastolic congestive heart failure I50.33 PAF (paroxysmal atrial fibrillation) I48.0 Hypothyroid E03.9 Liver lesion K76.9 Infection of great toe L08.9
== END 2023-11-13 15:26 | disposition home or self-care (01) ==
PROVIDERS: PCP Internal Medicine; Visit Provider Internal Medicine
DX: I11.0 Hypertensive heart disease with heart failure (principal); I50.33 Acute on chronic diastolic (congestive) heart failure; E66.01 Morbid (severe) obesity due to excess calories; Z68.41 Body mass index [BMI] 40.0-44.9, adult; E11.65 Type 2 diabetes mellitus with hyperglycemia; I48.0 Paroxysmal atrial fibrillation; I25.10 Atherosclerotic heart disease of native coronary artery without angina pectoris; I35.0 Nonrheumatic aortic (valve) stenosis; E78.00 Pure hypercholesterolemia, unspecified; K22.70 Barrett's esophagus without dysplasia; E03.9 Hypothyroidism, unspecified; K76.9 Liver disease, unspecified
CPT/HCPCS: 83036; 99214

== ENCOUNTER 2023-12-31 14:09 | Outpatient (AMB) | payer MEDICARE, SELFPAY ==
--- NOTE | 2023-12-31 14:10 | A.OFFPC_ITS ---
Intake Visit Reasons: Flu/Covid symptoms [employer] Wafer Required: No Allergies furosemide Allergy (Intermediate, Verified 12/31/23 14:11) Nausea and Vomiting levofloxacin [From LEVAQUIN] Allergy (Mild, Verified 12/31/23 14:11) NAUSEA, dizziness,Nausea cyclobenzaprine [From FLEXERIL] Allergy (Unknown, Verified 12/31/23 14:11) NAUSEA & VOMITING simvastatin Allergy (Unknown, Verified 12/31/23 14:11) Muscle Pain Sulfa (Sulfonamide Antibiotics) [SULFA (SULFONAMIDE ANTIBIOTICS)] Allergy (Unknown, Verified 12/31/23 14:11) VOMITING atorvastatin [ATORVASTATIN] Adverse Reaction (Severe, Verified 12/31/23 14:11) MUSCLE PAIN azithromycin Adverse Reaction (Intermediate, Verified 12/31/23 14:11) Palpitations pravastatin Adverse Reaction (Unknown, Verified 12/31/23 14:11) Muscle Pain apixaban [From Eliquis] Adverse Reaction (Verified 12/31/23 14:11) Nausea Bumex Adverse Reaction (Severe, Uncoded 12/31/23 14:11) Nausea, dizziness, near syncope Medication List - Last Reconciled 12/31/23 by Marycruz Zapata MD albuterol sulfate 90 mcg/actuation (Ventolin HFA) 2 puffs inhalation Q6H PRN amiodarone 200 mg PO DAILY amlodipine 5 mg PO DAILY amoxicillin-pot clavulanate 875-125 mg 1 tab PO BID aspirin (Adult Low Dose Aspirin) 81 mg PO DAILY blood sugar diagnostic (OneTouch Verio test strips) 1 strip miscellaneous BID 30 days blood sugar diagnostic (OneTouch Ultra Test strips) test once per day blood-glucose meter (Centrifyuch Ultra2 Meter) test once per day doxycycline hyclate 100 mg PO BID glimepiride 2 mg PO DAILY [glucometer One touch Verio As directed] lancets ([employer] HoldingsTouch UltraSoft 2 Lancet) test once per day lancing device with lancets ([employer] HoldingsTouch Delica Plus Lancing Device kit) As directed check BS once a day levothyroxine (Synthroid) 100 mcg PO DAILY metformin 1,000 mg PO BID nystatin 1 appl topical TID omeprazole 40 mg PO BID 90 days oxycodone-acetaminophen 5-325 mg (Percocet) 1 tab PO TID PRN Oxygen Home Use As directed rivaroxaban (Xarelto) 15 mg PO DAILY rosuvastatin 5 mg PO DAILY sertraline 50 mg PO DAILY torsemide 10 mg PO DAILY Tobacco use date assessed: 12/31/23 Fall risk assessment: No Falls in past year Last assessed Fall Risk: 12/31/23 Dental Screening Dental Screen Date: 12/31/23 HPI Flu/Covid symptoms HPI Details 68-year-old obese female smoker with cor onary artery disease aortic stenosis hypercholesterolemia COPD Barretts esophagus diabetes mellitus hypertension congestive heart failure atrial fibrillation hypothyroidism coming in for an acute problem through Telehealth. Last seen in October 2023. Review of the notes recent discharge from the hospital for shortness of breath fatigue lightheadedness and repeated episodes of syncope patient had a right transfemoral TAVR with a [address] Purcell Medication upon discharge is albuterol, amiodarone 200 mg once a day amlodipine 5 mg once a day aspirin 81 mg once a day glimepiride 4 mg half a tablet twice a day levothyroxine at 100 mcg once a day metformin a 1000 mg twice a day omeprazole 40 mg twice a day ondansetron oxycodone 3 times a day as needed Xarelto 15 mg once a day rosuvastatin at 5 mg once a day sertraline 50 mg once a day and torsemide 10 mg once a day. covid negative, started last week, fevers, coughing, , no sob, had diarrhea.this is 7 days. [facility] Medical History (Updated 12/31/23 @ 15:50 by Marycruz Zapata MD) Atrial fibrillation Atrial fibrillation with controlled ventricular rate Breast cancer screening by mammogram Oxygen dependent Essential hypertension Type 2 diabetes mellitus with hyperglycemia Lumbar degenerative disc disease Obesity Restless leg syndrome Vitamin D deficiency Tobacco abuse Thrombocytopenia Degenerative disc disease, cervical Anxiety and depression Osteopenia Barretts esophagus Tubular adenoma of colon COPD (chronic obstructive pulmonary disease) Hyperlipidemia, unspecified Atherosclerotic cardiovascular disease Non-rheumatic aortic stenosis Surgical History (Updated 12/31/23 @ 15:45 by Marycruz Zapata MD) History of carpal tunnel release History of discectomy History of cataract surgery History of hip replacement History of tonsillectomy History of appendectomy History of cholecystectomy History of cardiac catheterization Family History Father No problems noted. Mother Cardiovascular disease Social History Housing: Apartment Alcohol intake: never Patient Tobacco Use Status: Current everyday Tobacco user Tobacco use type: Cigarette Cigarettes Per Day: 5 e-Cigarette/Vaping Use: Never Used Second Hand Smoke Exposure: No service: No Current occupational status: retired Cognitive needs: No Hearing needs: No Vision needs: No Questionnaire Thrive Questionnaire Date Thrive assessed: 05/09/23 SHAD-7 AMB Questionnaire SHAD-7 Date SHAD - 7 assessed: 12/31/23 Source: Developed by Drs. Dong Jackson, Yumi Curry, Andrew Ojeda and colleagues, with an educational noble from [employer]. Physical exam (Primary Care) Tobacco/Smoking Status: Tobacco use Status Tobacco use date assessed 12/31/23 12/31/23 14:11 Patient Tobacco Use Status Current everyday Tobacco 12/31/23 14:11 Tobacco use type Cigarette 12/31/23 14:11 e-Cigarette/Vaping Use Never Used 12/31/23 14:11 Thrive Assessment: Date of Thrive Assessment Date Thrive assessed 05/09/23 12/31/23 14:11 Telehealth Telehealth Location of provider rendering services: practice address Location of patient: address on file Patient Identification confirmed using: Name, : Yes Telehealth method: voice only Patient verbally consented to treatment: Yes Patient verbally consented to billing insurance company: Yes Patient informed of any privacy concerns related to visit: Yes Minutes spent on Phone/Video with Pt.: 25 Assessment and Plan Assessment & Plan (1) S/P TAVR (transcatheter aortic valve replacement): Comment: November 2023 Dr. Purcell Code(s): Z95.2 - Presence of prosthetic heart valve Plan: Continue to follow-up with cardiology echocardiogram January 2024 (2) PAF (paroxysmal atrial fibrillation): Code(s): I48.0 - Paroxysmal atrial fibrillation Plan: Continue with anticoagulation and amiodarone (3) Type 2 diabetes mellitus with hyperglycemia: Code(s): E11.65 - Type 2 diabetes mellitus with hyperglycemia Qualifiers: Diabetes mellitus terminal operations supervisor insulin use: without fci use Qualified Code(s): E11.65 - Type 2 diabetes mellitus with hyperglycemia Plan: Decrease the amount of carbohydrate intake, pasta, bread, rice and potatoes are all sugar and that is aside from all the sweet stuff, remember that fruits are good but they are Sweet also. Hemoglobin A1c goal of less than 7.0 patient is on metformin and glimepiride (4) Tobacco abuse: Comment: states 5- 6 cigarettes per day (12/2020) Code(s): Z72.0 - Tobacco use Plan: Patient is strongly advised to stop smoking! (5) Atherosclerotic cardiovascular disease: Code(s): I25.10 - Atherosclerotic heart disease of [place] coronary artery without angina pectoris Plan: Control the cholesterol, weight, blood pressure, diabetes continue with anticoagulation (6) Obesity: Code(s): E66.9 - Obesity, unspecified Qualifiers: Body mass index: BMI 40.0-44.9 Obesity classification: adult class 3 (BMI >= 40) Obesity type: due to excess calories Serious obesity comorbidity presence: with serious comorbidity Qualified Code(s): E66.01 - Morbid (severe) obesity due to excess calories; Z68.41 - Body mass index [BMI]40.0-44.9, adult Plan: Diet and exercise (7) Acute bronchitis: Code(s): J20.9 - Acute bronchitis, unspecified Plan: will send in antibiotic. mucinex for productive cough and delsym for dry cough Medications: New doxycycline hyclate 100 mg PO BID 14 caps 0RF J20.9 - Acute bronchitis, unspe cified Coding Level of Care Code Tele Est Pt Level 4 (23680) Diagnoses S/P TAVR (transcatheter aortic valve replacement) Z95.2 PAF (paroxysmal atrial fibrillation) I48.0 Type 2 diabetes mellitus with hyperglycemia, without long-term current use of insulin E11.65 Diabetes mellitus terminal operations supervisor insulin use: without terminal operations supervisor use Tobacco abuse Z72.0 Atherosclerotic cardiovascular disease I25.10 Class 3 severe obesity due to excess calories with serious comorbidity and body mass index (BMI) of 40.0 to 44.9 in adult E66.01; Z68.41 Body mass index: BMI 40.0-44.9 Obesity classification: adult class 3 (BMI >= 40) Obesity type: due to excess calories Serious obesity comorbidity presence: with serious comorbidity Acute bronchitis J20.9
== END 2023-12-31 16:14 | disposition home or self-care (01) ==
LOC: HO.HMGH 14:09
PROVIDERS: PCP Internal Medicine; Visit Provider Internal Medicine
DX: I48.0 Paroxysmal atrial fibrillation (principal); E11.65 Type 2 diabetes mellitus with hyperglycemia; E66.01 Morbid (severe) obesity due to excess calories; Z68.41 Body mass index [BMI] 40.0-44.9, adult; Z95.2 Presence of prosthetic heart valve; Z72.0 Tobacco use; I25.10 Atherosclerotic heart disease of native coronary artery without angina pectoris; J20.9 Acute bronchitis, unspecified
CPT/HCPCS: G2252

== ENCOUNTER → 2024-02-19 12:53 | Outpatient (REF) | payer MEDICARE, SELFPAY ==
--- NOTE | 2024-02-19 12:58 | CA_ITS ---
Transthoracic Echocardiogram Patient (Last, First, Middle): Magy Santiago, Gender: Female Date of : 1955 Age: 68 Procedure Date: 02/19/2024 Procedure Type: Transthoracic Echocardiogram Location: OP Height: 160.02 cm Weight: 95.26 kg BSA: 1.97 m2 Heart Rate: bpm BP: 152 / 86 mmHg Architectural Engineering Teacher: REBEKA Referring MD: Dutch Campbell MD Loop Sewer: Dariel Yun MD Symptoms: Z95.2 - Presence of prosthetic heart valve Study Quality: Fair ECG Rhythm: Sinus Conclusions: - 1. Normal LV ejection fraction of 60 65% with moderate to severe left ventricular hypertrophy with elevated filling pressures 2. Mildly dilated left atrium 3. Normally functioning bioprosthetic aortic valve with mean gradient of 5 mmHg 4. Upper limits of normal ascending aortic size 5. No gross pericardial effusion Findings Left Ventricle Normal left ventricular size and systolic function. There is moderately increased left ventricular wall thickness. The visually estimated ejection fraction is between 60-65%. Spectral Doppler is indicative of an impaired relaxation filling pattern. Elevated filling pressures. E/E prime ratio is >15, consistent with elevated filling pressures. Peak GLS is -14.8%, which is moderately reduced. Right Ventricle Normal right ventricular cavity size and systolic function. Atria The left atrium is mildly dilated. There is no evidence of interatrial shunt. The right atrium is likely dilated. Aortic Valve A bioprosthetic aortic valve is present. The prosthetic aortic valve appears to be functioning normally. The mean gradient is 5 mmHg. There is no aortic valve regurgitation. Mitral Valve There is mild anterior and posterior mitral leaflet thickening. There is trace mitral valve regurgitation. There is no mitral valve stenosis. Pulmonic Valve The pulmonic valve was not well visualized. Tricuspid Valve Likely normal tricuspid valve structure and function. Tricuspid regurgitation envelope is inadequate for calculation of right ventricular systolic pressure. Normal right atrial pressure. Great Vessels The pulmonary artery was not well visualized. Venous The inferior vena cava is normal in size and collapses greater than 50% with inspiration. Pericardium/Pleural There is no evidence of pericardial effusion. Prior Study Comparison Changes noted compared to prior study dated: 08/15/2023. Normally function bioprosthetic aortic valve is present in place of habematolel severe aortic stenosis Measurements 2D Linear Measurements IVSd: 1.74 0.6-0.9/0.6-1.0 cm LVIDd: 4.01 3.9-5.3/4.2-5.9 cm LVIDd Index: 2.04 2.4-3.2/2.2-3.1 cm/m2 LVIDs: 2.46 2.0-3.6 cm LVPWd: 1.47 0.7-1.1 cm LA Diam: 4.10 2.7-3.8/3.0-4.0 cm LAIDs Index: 2.08 1.5-2.3 cm/m2 LV Mass: 324.36 67-162/88-224 g LV Mass Index: 164.65 43-95/49-115 g/m2 LVOT Diam: 1.90 3.0+(-)1.3 cm 2D Systolic Function EF 4C: 63.50 >55% EF 2C: 61.40 >55% EF BiP: 62.60 >55% Mitral Valve MV Pk E: 0.88 MV PK A: 0.91 MV Decel Time: 279.00 E/A: 1.00 E'Lateral: 3.15 E'Medial: 2.07 E/E' Med: 42.50 E/E' Lat: 27.90 PHT: 82.00 MVA PHT: 2.68 Decel [place]: 3.16 Aortic Valve AoV Pk Neftali: 1.47 AoV Mn Neftali: 1.06 AoV VTI: 0.32 AoV Pk Grad: 9.00 Aov Mn Grad: 5.00 JERED Cont.VTI: 1.78 LVOT LVOT Pk Neftali: 1.05 LVOT Mn Neftali: 0.68 LVOT VTI: 0.20 LVOT Pk Grad: 4.00 LVOT Mn Grad: 2.00 LVOT Diam: 1.90 LVOT Area: 2.84 Diastolic Function MV Pk E: 0.88 MV Pk A: 0.91 E/A: 1.00 E'Medial: 2.07 E/E' Med: 42.50 E' Laterial: 3.15 E/E' Lat: 27.90 Right Ventricle TAPSE (mm): 18.20 TVS' Neftali: 10.30 Tricuspid Valve RA Press: 3.00 Great Vessels Aorta Ao Asc: 3.50 2.1-3.4 cm Updated in Other Vendor System with Status of Final Dariel Court MD electronically signed on 02/20/2024 1:37:23 PM with status of Final
== END ==
LOC: HO.CARD 12:53
PROVIDERS: PCP Internal Medicine; Visit Provider Internal Medicine
DX: Z95.2 Presence of prosthetic heart valve (principal)
CPT/HCPCS: 93306; 93356

== ENCOUNTER → 2024-02-19 12:58 | Outpatient (BNV) | payer MEDICARE, SELFPAY | PROVIDERS: PCP Internal Medicine; Visit Provider Internal Medicine Cardiovascular Disease | DX: Z95.3 Presence of xenogenic heart valve (principal); R93.1 Abnormal findings on diagnostic imaging of heart and coronary circulation | CPT/HCPCS: 93306; 93356 ==

== ENCOUNTER 2024-03-15 16:10 | Outpatient (AMB) | payer MEDICARE, SELFPAY ==
[2024-03-15 16:13] VITALS: BP 142/62; PULSE 65; O2SAT 99; BMI 37.6
--- NOTE | 2024-03-15 16:13 | MHC.PC.OV ---
Vital Signs 03/15/24 16:13 03/15/24 16:45 Height 5 ft 3 in Weight 212 lb BMI 37.6 BP 142/62 H 140/80 H Blood Pressure Location Lt brachial Lt brachial Position Sitting Sitting Pulse 65 Pulse Source Pulse Oximeter Pulse Oximetry (%) 99 Oxygen Delivery Method Room Air Intake Visit Reasons: Annual Physical - see comments Hand Outside Cutter Required: No School Plant Consultant: Not Required per policy Accompanied by: Self / Same As Patient Allergies furosemide Allergy (Intermediate, Verified 03/15/24 16:13) Nausea and Vomiting levofloxacin [From LEVAQUIN] Allergy (Mild, Verified 03/15/24 16:13) NAUSEA, dizziness,Nausea cyclobenzaprine [From FLEXERIL] Allergy (Unknown, Verified 03/15/24 16:13) NAUSEA & VOMITING simvastatin Allergy (Unknown, Verified 03/15/24 16:13) Muscle Pain Sulfa (Sulfonamide Antibiotics) [SULFA (SULFONAMIDE ANTIBIOTICS)] Allergy (Unknown, Verified 03/15/24 16:13) VOMITING atorvastatin [ATORVASTATIN] Adverse Reaction (Severe, Verified 03/15/24 16:13) MUSCLE PAIN azithromycin Adverse Reaction (Intermediate, Verified 03/15/24 16:13) Palpitations pravastatin Adverse Reaction (Unknown, Verified 03/15/24 16:13) Muscle Pain apixaban [From Eliquis] Adverse Reaction (Verified 03/15/24 16:13) Nausea Bumex Adverse Reaction (Severe, Uncoded 03/15/24 16:13) Nausea, dizziness, near syncope Medication List - Last Reconciled 03/15/24 by Marycruz Zapata MD albuterol sulfate 90 mcg/actuation (Ventolin HFA) 2 puffs inhalation Q6H PRN amiodarone 200 mg PO DAILY amlodipine 5 mg PO DAILY aspirin (Adult Low Dose Aspirin) 81 mg PO DAILY blood sugar diagnostic (OneTouch Verio test strips) 1 strip miscellaneous BID 30 days blood sugar diagnostic (OneTouch Ultra Test strips) test once per day blood-glucose meter (OneTouch Ultra2 Meter) test once per day glimepiride 2 mg PO DAILY [glucometer One touch Verio As directed] lancets (Caixin MediaTouch UltraSoft 2 Lancet) test once per day lancing device with lancets (Caixin MediaToSocial Genius Delica Plus Lancing Device kit) As directed check BS once a day levothyroxine (Synthroid) 100 mcg PO DAILY metformin 1,000 mg PO BID nystatin 1 appl topical TID omeprazole 40 mg PO BID 90 days oxycodone-acetaminophen 5-325 mg (Percocet) 1 tab PO TID PRN Oxygen Home Use As directed rivaroxaban (Xarelto) 15 mg PO DAILY rosuvastatin 5 mg PO DAILY sertraline 50 mg PO DAILY torsemide 10 mg PO DAILY Tobacco use date assessed: 12/31/23 Fall risk assessment: 1 Fall in past year Last assessed Fall Risk: 03/15/24 Dental Screening Dental Screen Date: 12/31/23 HPI Annual Physical - see comments HPI Details 68-year-old obese female smoker with multiple medical problems. Status post TAVR atrial fibrillation diabetes mellitus atherosclerotic cardiac disease coming in for follow-up last seen in December 2023. Patient had colonoscopy in 2017, bone density and mammogram are due. Echocardiogram done January 2024 Normal LV ejection fraction of 60 65% with moderate to severe left ventricular hypertrophy with elevated filling pressures 2. Mildly dilated left atrium 3. Normally functioning bioprosthetic aortic valve with mean gradient of 5 mmHg 4. Upper limits of normal ascending aortic size 5. No gross pericardial effusion . Also in December noted to have parotid gland mass. dizziness, occurs [facility] Medical History (Updated 03/15/24 @ 17:05 by Marycruz Zapata MD) Breast cancer screening by mammogram Atrial fibrillation Atrial fibrillation with controlled ventricular rate Oxygen dependent Essential hypertension Type 2 diabetes mellitus with hyperglycemia Lumbar degenerative disc disease Obesity Restless leg syndrome Vitamin D deficiency Tobacco abuse Thrombocytopenia Degenerative disc disease, cervical Anxiety and depression Osteopenia Barretts esophagus Tubular adenoma of colon COPD (chronic obstructive pulmonary disease) Hyperlipidemia, unspecified Atherosclerotic cardiovascular disease Non-rheumatic aortic stenosis Surgical History (Updated 12/31/23 @ 15:45 by Marycruz Zapata MD) History of carpal tunnel release History of discectomy History of cataract surgery History of hip replacement History of tonsillectomy History of appendectomy History of cholecystectomy History of cardiac catheterization Family History (Updated 03/15/24 @ 16:48 by Marycruz Zapata MD) Father Bone cancer Mother Cardiovascular disease Brother Lung cancer Sister Lung cancer Social History (Updated 03/15/24 @ 16:49 by Marycruz Zapata MD) Housing: Apartment Alcohol intake: never Patient Tobacco Use Status: Current everyday Tobacco user Tobacco use type: Cigarette Cigarettes Per Day: 5 Years Smoked: 6 a day e-Cigarette/Vaping Use: Never Used Second Hand Smoke Exposure: No service: No Current occupational status: retired Cognitive needs: No Hearing needs: No Vision needs: Yes (glasses) Questionnaire PHQ-9 Over the last 2 weeks, how often have you been bothered by any of the following problems? 1. Little interest or pleasure in doing things: not at all 2. Feeling down, depressed, or hopeless: not at all 3. Trouble falling or staying asleep, or sleeping too much: not at all 4. Feeling tired or having little energy: not at all 5. Poor appetite or overeating: not at all 6. Feeling bad about yourself - or that you are a failure or have let yourself or your family down: not at all 7. Trouble concentrating on things, such as reading the newspaper or watching television: not at all 8. Moving or speaking so slowly that other people could have noticed. Or the opposite - being so fidgety or restless that you have been moving around a lot more than usual: not at all 9. Thoughts that you would be better off or of hurting yourself in some way: not at all Total score: 0 Depression Screening Interpretation: Negative Depression Screening Done: Yes Source: Developed by Drs. Dong Jackson, Yumi Curry, Andrew Ojeda and colleagues, with an educational noble from [employer]. Thrive Questionnaire Date Thrive assessed: 03/15/24 I am a: Patient What is your living situation today?: I have a steady place to live Within the past 12 months, did the food you bought not last and you didn't have the money to get more?: Never true Within the past 12 months, did you worry whether your food would run out before you got money to buy more?: Never true Do you have trouble paying for medicines?: No Do you have trouble getting transportation to medical appointments?: No Do you have trouble paying your heating and electricity bill?: No Do you have trouble taking care of your child, family member or friend?: No Do you have trouble with day-to-day activities such as bathing, preparing meals, shopping, managing finances, etc.?: No Are you currently unemployed and looking for a job?: No Are you interested in more education?: No Please select the resources that you would like help with: None THRIVE Score: 0 AUDIT C Alcohol Use Questionnaire (AUDIT-C) 1. How often do you have a drink containing alcohol?: Never 2. How many drinks containing alcohol do you have on a typical day when you are drinking?: 1 or 2 (0) 3. How often do you have six or more drinks on one occasion?: Never Total Score: 0 Score Reviewed/Action Taken: No SHAD-7 AMB Questionnaire SHAD-7 Date SHAD - 7 assessed: 12/31/23 Source: Developed by Drs. Dong Jackson, Yumi Curry, Andrew Ojeda and colleagues, with an educational noble from [employer]. Review of Systems Const Denies poor appetite and Denies weakness Eyes Denies no additional complaints ENT Reports Normal hearing present, Denies dizziness, Denies nasal congestion, Denies tinnitus and Denies sore throat Card Denies chest pain, Denies syncope, Denies rapid heart rate and Denies dyspnea Resp Denies cough and Denies dyspnea GI Denies change in stool character, Reports constipation, Denies diarrhea, Denies nausea and Denies vomiting Denies urinary frequency, Denies difficulty voiding and Denies dysuria Neuro Reports Normal hearing present, Denies confusion, Denies dizziness, Denies syncope and Denies weakness Psych Denies confusion Physical exam (Primary Care) Vital Signs: Last Vital Signs Pulse 65 03/15/24 16:13 BP 142/62 H 03/15/24 16:13 Pulse Ox 99 03/15/24 16:13 Oxygen Delivery Method Room Air 03/15/24 16:13 BMI result Body Mass Index 37.6 Tobacco/Smoking Status: Tobacco use Status Tobacco use date assessed 12/31/23 03/15/24 16:14 Patient Tobacco Use Status Current everyday Tobacco 03/15/24 16:14 Tobacco use type Cigarette 03/15/24 16:14 e-Cigarette/Vaping Use Never Used 03/15/24 16:14 PHQ-9: PHQ-9 Score PHQ-9: Total score 0 03/15/24 16:29 Depression Screening Interpretation: Negative Thrive Assessment: Date of Thrive Assessment Date Thrive assessed 03/15/24 03/15/24 16:14 Const Other: impacted cerument bilateral General: No confusion Orientation/consciousness: No confusion [facility] Head: Yes normocephalic Ears: external ears normal Face and sinus: Yes normal facial exam Mouth: moist mucous membranes Throat: Yes tonsils normal Eyes Conjunctivae: conjunctivae normal Pupils: Equal, round and reactive pupils present and Pupil accommodation reflex normal Direct Ophthalmoscopy: normal light reflex Neck Neck: No lymphadenopathy Thyroid: Thyroid normal Chest Chest palpation & inspection: normal inspection of the chest Resp Effort & Inspection: normal respiratory effort and no audible wheezes Auscultation: clear to auscultation bilaterally, no crackles, no wheezes and lung sounds not diminished Cardio Rate: regular rate Rhythm: regular rhythm Peripheral pulses: radial pulses present and dorsalis pedis present GI Other: decline rectal Palpation (GI): no masses Auscultation: normal bowel sounds and normoactive bowel sounds Rectal Exam - Female: deferred Other: pedal pulse weak but palpable , pin prick N Skin General skin exam: no rashes or lesions noted Rashes: no rashes Neuro General: No confusion Cranial nerves: Yes Equal, round and reactive pupils present and Yes Normal hearing present Cognition (Neuro): normal cognition Gait exam (Neuro): Normal gait present Motor exam (neuro): 5/5 motor strength present throughout Deep tendon reflexes (DTR's): Right brachioradialis reflex intensity grade: 2+, Left brachioradialis reflex intensity grade: 2+, Right patellar reflex intensity grade: 2+ and Left patellar reflex intensity grade: 2+ Extrem General: No edema Results AMB Hemoglobin A1c AMB Hemoglobin A1c 7.3 % Last Edit by CORRINA Bailey on 03/15/24 16:30 Results Reviewed Results Reviewed: Laboratory Last Values Hgb A1c (Clinic) 7.3 % (4.0-6.0) H 03/15/24 16:14 Assessment and Plan Assessment & Plan (1) Type 2 diabetes mellitus with hyperglycemia: Comment: Eye and lasik Code(s): E11.65 - Type 2 diabetes mellitus with hyperglycemia Qualifiers: Diabetes mellitus oysterman insulin use: without oysterman use Qualified Code(s): E11.65 - Type 2 diabetes mellitus with hyperglycemia Plan: Decrease the amount of carbohydrate intake, pasta, bread, rice and potatoes are all sugar and that is aside from all the sweet stuff, remember that fruits are good but they are Sweet also. Hemoglobin A1c goal of less than 7.0. Patient on glimepiride 2 mg once a day metformin 1000 mg twice a day deny any hypoglycemic episodes. reminded about eye exam (2) Annual physical exam: Code(s): Z00.00 - Encounter for general adult medical examination without abnormal findings (3) S/P TAVR (transcatheter aortic valve replacement): Comment: November 2023 Dr. Purcell Code(s): Z95.2 - Presence of prosthetic heart valve Plan: Continue to follow-up with cardiology had an echocardiogram well-functioning valve (4) Hepatic cirrhosis: Code(s): K74.60 - Unspecified cirrhosis of liver Plan: Keep well hydrated eat healthy (5) PAF (paroxysmal atrial fibrillation): Code(s): I48.0 - Paroxysmal atrial fibrillation Plan: Continuing with anticoagulation with Xarelto on amiodarone continue to follow up with Cardiology (6) Hypothyroid: Code(s): E03.9 - Hypothyroidism, unspecified Plan: Continue with thyroid medication (7) Obesity: Code(s): E66.9 - Obesity, unspecified Qualifiers: Obesity type: due to excess calories Obesity classification: adult class 3 (BMI >= 40) Serious obesity comorbidity presence: with serious comorbidity Body mass index: BMI 40.0-44.9 Qualified Code(s): E66.01 - Morbid (severe) obesity due to excess calories; Z68.41 - Body mass index [BMI]40.0-44.9, adult Plan: Diet and exercise (8) Tobacco abuse: Comment: states 5- 6 cigarettes per day (12/2020) Code(s): Z72.0 - Tobacco use Plan: Patient is strongly advised to stop smoking (9) Barretts esophagus: Code(s): K22.70 - Umaña's esophagus without dysplasia Qualifiers: Umaña's esophagus type: without dysplasia Qualified Code(s): K22.70 - Umaña's esophagus without dysplasia Plan: Stop smoking! Avoid the foods that causes that usually spicy foods, tomato products, juices, coffee, soda and foods that your sensitive to. After eating do not lie down, allow 3-4 hours before in lie down. And keep the head of bed above 30 degrees to avoid the acid from going up. (10) COPD (chronic obstructive pulmonary disease): Code(s): J44.9 - Chronic obstructive pulmonary disease, unspecified Qualifiers: COPD type: emphysema Emphysema type: unspecified Qualified Code(s): J43.9 - Emphysema, unspecified Plan: Stop smoking! Continue with inhalers (11) Hyperlipidemia, unspecified: Code(s): E78.5 - Hyperlipidemia, unspecified Qualifiers: Hyperlipidemia type: pure hypercholesterolemia Qualified Code(s): E78.00 - Pure hypercholesterolemia, unspecified Plan: Avoid fried foods, chicken skin, eggs, butter margarine, pastries and meat. Be it pork or beef they have a lot of cholesterol LDL goal less than 70 and triglyceride of less than 150 on rosuvastatin 5 mg once a day (12) Atherosclerotic cardiovascular disease: Code(s): I25.10 - Atherosclerotic heart disease of [place] coronary artery without angina pectoris Plan: Control the cholesterol, weight, blood pressure, diabetes presently taking anticoagulation (13) Tubular adenoma of colon: Comment: 2018 Code(s): D12.6 - Benign neoplasm of colon, unspecified Orders: Orders Lipid Panel Today E78.00 - Pure hypercholesterolemia, unspecified, I25.10 - Atherosclerotic heart disease of [place] coronary artery without angina pectoris Thyroid Stimulating Hormone Today I25.10 - Atherosclerotic heart disease of [place] coronary artery without angina pectoris XR DEXA axial skeleton Today M81.0 - Age-related osteoporosis without current pathological fracture, Z13.820 - Encounter for screening for osteoporosis AMB Hemoglobin A1c Today E11.65 - Type 2 diabetes mellitus with hyperglycemia Comprehensive Met. Panel Today I25.10 - Atherosclerotic heart disease of [place] coronary artery without angina pectoris Hemoglobin A1c Today I25.10 - Atherosclerotic heart disease of [place] coronary artery without angina pectoris Complete Blood Count Auto Diff Today I25.10 - Atherosclerotic heart disease of [place] coronary artery without angina pectoris Free T4 (Free Thyroxine) Today I25.10 - Atherosclerotic heart disease of [place] coronary artery without angina pectoris MM tomosynthesis screening BI Today Z12.31 - Encounter for screening mammogram for malignant neoplasm of breast Referrals Gastroenterology Referral D12.6 - Benign neoplasm of colon, unspecified Medications: Changed From metoprolol tartrate Takes 2 tabs am and 1 tab pm 90 days 270 tabs 3RF To metoprolol tartrate orally; Takes 2 tabs am and 1 tab pm 90 days 270 tabs 3RF From glimepiride 2 mg PO DAILY 30 tabs 0RF E11.65 - Type 2 diabetes mellitus with hyperglycemia To glimepiride 4 mg PO DAILY 90 tabs 1RF E11.65 - Type 2 diabetes mellitus with hyperglycemia Refilled ondansetron 4 mg PO Q8H PRN 14 tabs 0RF nausea and vomiting D12.6 - Benign neoplasm of colon, unspecified Coding Level of Care Code Est Pt Prev Care >65y(14884) Diagnoses Type 2 diabetes mellitus with hyperglycemia, without long-term current use of insulin E11.65 Diabetes mellitus long-term insulin use: without long-term use Annual physical exam Z00.00 S/P TAVR (transcatheter aortic valve replacement) Z95.2 Hepatic cirrhosis K74.60 PAF (paroxysmal atrial fibrillation) I48.0 Hypothyroid E03.9 Class 3 severe obesity due to excess calories with serious comorbidity and body mass index (BMI) of 40.0 to 44.9 in adult E66.01; Z68.41 Obesity type: due to excess calories Obesity classification: adult class 3 (BMI >= 40) Serious obesity comorbidity presence: with serious comorbidity Body mass index: BMI 40.0-44.9 Tobacco abuse Z72.0 Umaña's esophagus without dysplasia K22.70 Umaña's esophagus type: without dysplasia Pulmonary emphysema, unspecified emphysema type J43.9 COPD type: emphysema Emphysema type: unspecified Pure hypercholesterolemia E78.00 Hyperlipidemia type: pure hypercholesterolemia Atherosclerotic cardiovascular disease I25.10 Tubular adenoma of colon D12.6 Additional Codes PHQ-9 - 60158 - PHQ-9 Billing: ([id number])
[2024-03-15 16:45] VITALS: BP 140/80
== END 2024-03-15 17:12 | disposition home or self-care (01) ==
PROVIDERS: PCP Internal Medicine; Visit Provider Internal Medicine
DX: E11.65 Type 2 diabetes mellitus with hyperglycemia (principal)
CPT/HCPCS: 83036; 99397

== ENCOUNTER 2024-07-29 15:12 | Outpatient (AMB) | payer MEDICARE, SELFPAY ==
--- NOTE | 2024-07-29 15:12 | A.OFFPC_ITS ---
Intake Visit Reasons: DM , HTN , Hypercholesterol - see comments Clerk Of Court Required: No Allergies furosemide Allergy (Intermediate, Verified 07/29/24 15:12) Nausea and Vomiting levofloxacin [From LEVAQUIN] Allergy (Mild, Verified 07/29/24 15:12) NAUSEA, dizziness,Nausea cyclobenzaprine [From FLEXERIL] Allergy (Unknown, Verified 07/29/24 15:12) NAUSEA & VOMITING simvastatin Allergy (Unknown, Verified 07/29/24 15:12) Muscle Pain Sulfa (Sulfonamide Antibiotics) [SULFA (SULFONAMIDE ANTIBIOTICS)] Allergy (Unknown, Verified 07/29/24 15:12) VOMITING atorvastatin [ATORVASTATIN] Adverse Reaction (Severe, Verified 07/29/24 15:12) MUSCLE PAIN azithromycin Adverse Reaction (Intermediate, Verified 07/29/24 15:12) Palpitations pravastatin Adverse Reaction (Unknown, Verified 07/29/24 15:12) Muscle Pain apixaban [From Eliquis] Adverse Reaction (Verified 07/29/24 15:12) Nausea Bumex Adverse Reaction (Severe, Uncoded 07/29/24 15:12) Nausea, dizziness, near syncope Tobacco use date assessed: 12/31/23 Fall risk assessment: No Falls in past year Last assessed Fall Risk: 07/29/24 Dental Screening Dental Screen Date: 12/31/23 HPI DM , HTN , Hypercholesterol - see comments HPI Details 69-year-old obese female smoker with unc ontrolled diabetes mellitus status post TAVR cirrhosis atrial fibrillation hypothyroidism,COPD hypercholesterolemia and coronary artery disease last seen in 03/13/2023.. Patient has not had blood work has not done the mammogram has not followed up with Gastroenterology. states last night Nausea and diarrhea had fevers, PFSH Medical History (Updated 07/29/24 @ 15:35 by Marycruz Zapata MD) Breast cancer screening by mammogram Atrial fibrillation Atrial fibrillation with controlled ventricular rate Oxygen dependent Essential hypertension Type 2 diabetes mellitus with hyperglycemia Lumbar degenerative disc disease Obesity Restless leg syndrome Vitamin D deficiency Tobacco abuse Thrombocytopenia Degenerative disc disease, cervical Anxiety and depression Osteopenia Barretts esophagus Tubular adenoma of colon COPD (chronic obstructive pulmonary disease) Hyperlipidemia, unspecified Atherosclerotic cardiovascular disease Non-rheumatic aortic stenosis Surgical History (Updated 12/31/23 @ 15:45 by Marycruz Zapata MD) History of carpal tunnel release History of discectomy History of cataract surgery History of hip replacement History of tonsillectomy History of appendectomy History of cholecystectomy History of cardiac catheterization Family History (Updated 03/15/24 @ 16:48 by Marycruz Zapata MD) Father Bone cancer Mother Cardiovascular disease Brother Lung cancer Sister Lung cancer Social History (Updated 03/15/24 @ 16:49 by Marycruz Zapata MD) Housing: Apartment Alcohol intake: never Patient Tobacco Use Status: Current everyday Tobacco user Tobacco use type: Cigarette Cigarettes Per Day: 5 Years Smoked: 6 a day e-Cigarette/Vaping Use: Never Used Second Hand Smoke Exposure: No service: No Current occupational status: retired Cognitive needs: No Hearing needs: No Vision needs: Yes (glasses) Questionnaire Thrive Questionnaire Date Thrive assessed: 03/15/24 SHAD-7 AMB Questionnaire SHAD-7 Date SHAD - 7 assessed: 12/31/23 Source: Developed by Drs. Dong Jackson, Yumi Curry, Andrew Ojeda and colleagues, with an educational noble from [employer]. Physical exam (Primary Care) Tobacco/Smoking Status: Tobacco use Status Tobacco use date assessed 12/31/23 07/29/24 15:14 Patient Tobacco Use Status Current everyday Tobacco 07/29/24 15:14 Tobacco use type Cigarette 07/29/24 15:14 e-Cigarette/Vaping Use Never Used 07/29/24 15:14 Thrive Assessment: Date of Thrive Assessment Date Thrive assessed 03/15/24 07/29/24 15:14 Telehealth Telehealth Telehealth Platform: Telephone (House Phone) Location of provider rendering services: practice address Location of patient: address on file Patient Identification confirmed using: Name, : Yes Telehealth method: voice only Patient verbally consented to treatment: Yes Patient verbally consented to billing insurance company: Yes Patient informed of any privacy concerns related to visit: Yes Minutes spent on Phone/Video with Pt.: 25 Assessment and Plan Assessment & Plan (1) Atherosclerotic cardiovascular disease: Code(s): I25.10 - Atherosclerotic heart disease of z[place] coronary artery without angina pectoris Plan: Control the cholesterol, weight, blood pressure, diabetes on aspirin and Xarelto advised to get blood work (2) Hyperlipidemia, unspecified: Code(s): E78.5 - Hyperlipidemia, unspecified Qualifiers: Hyperlipidemia type: pure hypercholesterolemia Qualified Code(s): E78.00 - Pure hypercholesterolemia, unspecified Plan: Avoid fried foods, chicken skin, eggs, butter margarine, pastries and meat. Be it pork or beef they have a lot of cholesterol on rosuvastatin patient is advised to get blood work (3) COPD (chronic obstructive pulmonary disease): Code(s): J44.9 - Chronic obstructive pulmonary disease, unspecified Qualifiers: COPD type: emphysema Emphysema type: unspecified Qualified Code(s): J43.9 - Emphysema, unspecified Plan: Continue with albuterol inhaler and advised to stop smoking! (4) Tobacco abuse: Comment: states 5- 6 cigarettes per day (12/2020) Code(s): Z72.0 - Tobacco use Plan: Patient is advised to stop smoking! (5) Type 2 diabetes mellitus with hyperglycemia: Comment: Eye and lasik Code(s): E11.65 - Type 2 diabetes mellitus with hyperglycemia Qualifiers: Diabetes mellitus terminal operations supervisor insulin use: without detention use Qualified Code(s): E11.65 - Type 2 diabetes mellitus with hyperglycemia Plan: Decrease the amount of carbohydrate intake, pasta, bread, rice and potatoes are all sugar and that is aside from all the sweet stuff, remember that fruits are good but they are Sweet also. Hemoglobin A1c goal of less than 7.0. On metformin a 1000 mg twice a day glimepiride 4 mg once a day (6) Essential hypertension: Code(s): I10 - Essential (primary) hypertension Plan: Continue with blood pressure medication. Decrease salt intake and exercise takes amlodipine 10 mg once a day metoprolol 50 mg twice a day (7) PAF (paroxysmal atrial fibrillation): Code(s): I48.0 - Paroxysmal atrial fibrillation Plan: Continue with amiodarone and anticoagulation patient is strongly advised to get blood work done. Will request also chest x-ray. (8) S/P TAVR (transcatheter aortic valve replacement): Comment: November 2023 Dr. Purcell Code(s): Z95.2 - Presence of prosthetic heart valve Plan: Continue to follow-up with cardiology (9) Breast cancer screening by mammogram: Code(s): Z12.31 - Encounter for screening mammogram for malignant neoplasm of breast Plan: Reminded about mammogram (10) Tubular adenoma of colon: Comment: 2017 Code(s): D12.6 - Benign neoplasm of colon, unspecified Plan: Reminded about colon cancer screening (11) Gastroenteritis: Code(s): K52.9 - Noninfective gastroenteritis and colitis, unspecified Plan: while diarrhea , hold torsemide, nausea med sent , hydrate, Orders: Orders B Type Natriuretic Peptide Today E11.65 - Type 2 diabetes mellitus with hyperglycemia Creatinine Urine Today E11.65 - Type 2 diabetes mellitus with hyperglycemia Microalbumin, Random (w Creat) Today E11.65 - Type 2 diabetes mellitus with hyperglycemia Vitamin B12 and Folate Today E11.65 - Type 2 diabetes mellitus with hyperglycemia Vitamin D 25-OH Total Today E11.65 - Type 2 diabetes mellitus with hyperglycemia Medications: New ondansetron 4 mg PO Q8H PRN 14 tabs 0RF nausea and vomiting K52.9 - Noninfective gastroenteritis and colitis, unspecified Discontinued ondansetron Discontinued Reason: Duplicate 4 mg PO Q8H PRN 14 tabs 0RF nausea and vomiting D12.6 - Benign neoplasm of colon, unspecified Coding Level of Care Code Tele Est Pt Level 4 (06359) Diagnoses Atherosclerotic cardiovascular disease I25.10 Pure hypercholesterolemia E78.00 Hyperlipidemia type: pure hypercholesterolemia Pulmonary emphysema, unspecified emphysema type J43.9 COPD type: emphysema Emphysema type: unspecified Tobacco abuse Z72.0 Type 2 diabetes mellitus with hyperglycemia, without long-term current use of insulin E11.65 Diabetes mellitus terminal operations supervisor insulin use: without detention use Essential hypertension I10 PAF (paroxysmal atrial fibrillation) I48.0 S/P TAVR (transcatheter aortic valve replacement) Z95.2 Breast cancer screening by mammogram Z12.31 Tubular adenoma of colon D12.6 Gastroenteritis K52.9
== END 2024-07-29 15:55 | disposition home or self-care (01) ==
LOC: HO.HMGH 15:12
PROVIDERS: PCP Internal Medicine; Visit Provider Internal Medicine
DX: I25.10 Atherosclerotic heart disease of native coronary artery without angina pectoris (principal); J43.9 Emphysema, unspecified; E11.65 Type 2 diabetes mellitus with hyperglycemia; I48.0 Paroxysmal atrial fibrillation; E78.00 Pure hypercholesterolemia, unspecified; Z72.0 Tobacco use; I10 Essential (primary) hypertension; Z95.2 Presence of prosthetic heart valve; Z12.31 Encounter for screening mammogram for malignant neoplasm of breast; D12.6 Benign neoplasm of colon, unspecified; K52.9 Noninfective gastroenteritis and colitis, unspecified
CPT/HCPCS: G2252

== ENCOUNTER 2024-09-17 11:27 | Outpatient (REF) | payer MEDICARE, SELFPAY ==
[2024-09-17 13:20] LABS: MANUAL DIFF FLAG NO
[2024-09-17 13:26] LABS: Appearance Urine Clear; Color Urine Yellow; Glucose Urine UA Negative (Negative); Leukocyte Esterase Urine Negative (Negative); Nitrite Urine Negative (Negative); Specific Gravity - Urine 1.025 (1.005-1.025); UMIC TRIGGER UA YES; Urine Blood Negative (Negative); Urine Ketones Negative (Negative); Urine Protein 30 (1+) mg/dL (Neg-Trace)
[2024-09-17 13:36] LABS: Basophils Absolute Auto 0.1 X10*3/uL (0.0-0.2); Basophils Percent Auto 0.9 % (0-2); Eosinophils Absolute Auto 0.1 X10*3/uL (0.0-0.4); Eosinophils Percent Auto 1.8 % (0-4); Hemoglobin 10.9 g/dl (12.0-16.0); Imm Gran Abs Auto 0.03 X10*3/uL (0.00-0.03); Imm Gran Pct Auto 0.4 % (0.0-0.4); Lymphocytes Percent Auto 13.1 % (20-40); Mean Corpuscular HGB Conc 31.1 g/dl (31.0-35.0); Mean Corpuscular Hemoglobin 25.5 pg (27.0-33.0); Mean Corpuscular Volume 81.8 fL (80.0-98.0); Monocytes Absolute Auto 0.5 X10*3/uL (0.1-1.2); Monocytes Percent Auto 6.2 % (2-11); Neutrophils Percent Auto 77.6 % (45-73); Red Blood Count 4.28 X10*6/uL (4.20-5.50); Red Cell Distribution Width 17.2 % (11.0-16.0); White Blood Count 7.7 X10*3/uL (4.8-10.8)
[2024-09-17 13:39] LABS: Bacteria Urine 1+ (None Seen); RBC Urine 0-2 /HPF (0-2)
[2024-09-17 13:41] LABS: Estimated Average Glucose 154 mg/dL; Hemoglobin A1C 143.2021 umol/L; Total Hemoglobin (HGBA1C) 2678.0091 umol/L
[2024-09-17 13:58] LABS: Mean Platelet Volume 9.5 fL (9.4-12.3); Platelet Count 235 X10*3/uL (160-400)
[2024-09-17 14:10] LABS: Vitamin B12 276 pg/mL (200-900)
[2024-09-17 14:14] LABS: Creatinine Urine 340.58 mg/dL; Microalbum/Creatinine Ratio Ur 42.8 ug/mg cr (<30)
[2024-09-17 14:16] LABS: Alanine Aminotransferase 18 U/L (0-31); Alkaline Phosphatase 114 U/L (39-117); Aspartate Amino Transferase 37 U/L (5-31); Bilirubin Total 0.4 mg/dL (0.0-1.0); Blood Urea Nitrogen 19 mg/dL (9-16); Calcium 10.1 mg/dL (8.4-10.2); Cholesterol 166 mg/dL (<200); Estimated Glomerular Filt Rate 31; Free T4 (Free Thyroxine) 1.01 ng/dL (0.71-1.85); Glucose Random 172 mg/dL (60-115); HDL Cholesterol 42 mg/dL (>40); LDL Cholesterol Calculated 91 mg/dL (<100); Thyroid Stimulating Hormone 5.94 uIU/mL (0.32-4.0); Total Protein 7.8 g/dL (6.5-8.0); Triglycerides 168 mg/dL (<150); Vitamin D 25-OH Total 18.7 ng/mL (>30)
[2024-09-17 14:23] LABS: B Type Natriuretic Peptide 68 pg/mL (<100)
[2024-09-17 14:36] LABS: Anion Gap 12 (12-20); Carbon Dioxide 27 mmol/L (22-29); Chloride 104 mmol/L (96-108); Potassium 4.7 mmol/L (3.3-5.1); Sodium 138 mmol/L (135-145)
== END 2024-09-17 11:28 | disposition home or self-care (01) ==
LOC: HO.HMGCLDS 11:27
PROVIDERS: PCP Internal Medicine; Visit Provider Internal Medicine
DX: E78.00 Pure hypercholesterolemia, unspecified (principal); I25.10 Atherosclerotic heart disease of native coronary artery without angina pectoris; E11.65 Type 2 diabetes mellitus with hyperglycemia; E03.9 Hypothyroidism, unspecified
CPT/HCPCS: 36415; 80053; 80061; 81001; 82043; 82306; 82570; 82607; 82746; 83036; 83880; 84439; 84443; 85025

== ENCOUNTER 2024-10-10 14:27 | Emergency (ER) | payer MEDICARE, SELFPAY ==
--- NOTE | ~2024-10-10 | CT_ITS ---
EXAMINATION: CT ABDOMEN AND PELVIS WITHOUT CONTRAST CLINICAL INFORMATION: Diffuse abdominal pain. Diarrhea. COMPARISON: Multiple priors, most recent CT abdomen/pelvis dated 03/27/2019. TECHNIQUE: Multidetector volumetric imaging was performed from the superior aspect of the liver through the pubic symphysis. Sagittal and coronal reformatted images were obtained on the technologist's workstation. This CT examination was performed using dose optimization techniques as appropriate, variously including the following: *Automated exposure control *Adjustment of mA and/or kV according to patient size (this includes techniques or standardized protocols for targeted exams where dose is matched to indication/reason for exam; i.e. extremities or head) *Use of iterative reconstruction technique DLP: 806 mGy-cm FINDINGS: LUNG BASES: The visualized lung bases are unremarkable. LIVER, GALLBLADDER, AND BILIARY TREE: The liver is normal in size and attenuation. There is slightly nodular hepatic contour, increased when compared to the prior examination. Within the periphery of the right hepatic lobe there is a focal hypodensity measuring up to 2.8 x 3.0 cm, not well visualized on the prior examination. No biliary ductal dilatation is present. Gallbladder not identified. PANCREAS: Atrophic. SPLEEN: Unremarkable. ADRENAL GLANDS: Unremarkable. KIDNEYS AND URETERS: The kidneys are normal in size, shape, and attenuation. No hydronephrosis, hydroureter, or calculi seen. No perinephric stranding. BLADDER: Unremarkable. GASTROINTESTINAL TRACT: No small or large bowel obstruction. No bowel wall thickening or inflammatory change. Appendix not identified; however, no right lower quadrant inflammatory change to suggest acute appendicitis. Sigmoid diverticulosis without evidence of acute diverticulitis. Fatty infiltration of the cecal wall, which could represent sequela of a remote infectious or inflammatory process. PERITONEAL CAVITY: No intra-abdominal free air or free fluid. ABDOMINAL WALL: No significant hernia is appreciated. LYMPH NODES: Mildly prominent lymph nodes within the retroperitoneum and yumiko hepatis, with the largest measuring up to 1.1 x 1.5 cm anterior to the IVC. VASCULAR: No abdominal aortic dilatation. Atherosclerotic calcifications. PELVIC VISCERA: Status post hysterectomy. OSSEOUS STRUCTURES: Unremarkable. CT/CT abdomen pelvis wo IV con IMPRESSION: 1. No small or large bowel obstruction. No bowel wall thickening or inflammatory change. Sigmoid diverticulosis without evidence of acute diverticulitis. Appendix not identified; however, no right lower quadrant inflammatory change to suggest acute appendicitis. 2. Slightly nodular hepatic contour, increased when compared to the prior examination. Findings likely represent early cirrhosis. Within the periphery of the right hepatic lobe there is a focal hypodensity measuring up to 3.0 cm, not well visualized on the prior examination. Findings are nonspecific and could represent a neoplastic lesion. Further evaluation could be considered with dedicated hepatic MRI without and with contrast. No intrahepatic or extrahepatic biliary ductal dilatation. 3. Mildly prominent retroperitoneal and yumiko hepatis lymph nodes, new when compared to the prior examination. Fleischner guidelines were followed. Electronically signed by: Titus Cole MD 10/10/2024 04:09 PM [facility]
[2024-10-10 14:32] VITALS: BP 164/93; PULSE 58; O2SAT 98
[2024-10-10 14:39] VITALS: BP 136/57; PULSE 55; RESP 16; TEMP 36.5; O2SAT 97; BMI 41.5
[2024-10-10 14:47] VITALS: BP 136/57; PULSE 55; RESP 16; TEMP 36.5; O2SAT 97
--- NOTE | 2024-10-10 14:51 | ED_ITS ---
HPI - Nausea/Vomiting/Diarrhea General Chief complaint: Nausea/Vomiting/Diarrhea Stated complaint: DIARRHEA/DIZZINESS/DIXON/ABD PAIN PER EMS Time Seen by Provider: 10/10/24 14:29 Source: patient and EMS Mode of arrival: EMS Limitations: no limitations History of Present Illness ED Provider: LIZ CHAN PA-C HPI Narrative: 69-year-old female with past medical history significant for AFib on Xarelto, hypertension, type 2 diabetes, obesity, COPD, GERD, Umaña's esophagus, anxiety, depression presents to the ED today via EMS from home for evaluation of abdominal pain and diarrhea which woke her from her sleep at 2:00 a.m. today. Reports abdominal pain is diffuse and does not radiate. Reports multiple episodes of loose stool today, can not quantify. Denies hx of similar. Reports taking Pepto-Bismol few hours ago to help slow her bowels. She has not had a bowel movement since. States her last normal bowel movement was a few days prior. States it is normal for her to go a few days without passing a bowel movement. She is not on a bowel regimen. She did not trial any motrin or tylenol for pain. Denies eating anything unusual. Denies recent travel outside the [place] Denies recent antibiotics. Denies fever, chills, chest pain, flank pain, nausea vomiting, constipation, dysuria, hematuria. Related Data Home Medications ?Medication ?Instructions ?Recorded ?Confirmed aspirin 81 mg tablet,delayed 81 mg PO DAILY 08/28/20 03/15/24 release (Adult Low Dose Aspirin) Oxygen Home Use 05/09/23 03/15/24 Previous Rx's ?Medication ?Instructions ?Recorded blood sugar diagnostic (OneTouch 1 strip miscellaneous BID for 09/11/20 Verio test strips) diabetes mellitus 30 days #100 strips nystatin 100,000 unit/gram topical 1 appl topical TID #30 grams 01/09/23 powder glucometer One touch Verio #1 ea 07/31/23 blood-glucose meter (OneTouch #1 ea 08/21/23 Ultra2 Meter) lancets 30 gauge (OneTouch #100 ea 09/09/23 UltraSoft 2 Lancet) lancing device with lancets kit #100 ea 09/09/23 (OneTouch Delica Plus Lancing Device kit) albuterol sulfate 90 mcg/actuation 2 puff inhalation Q6H PRN 09/13/23 aerosol inhaler (Ventolin HFA) shortness of breath or wheezing #8.5 grams rivaroxaban 15 mg tablet (Xarelto) 15 mg PO DAILY #90 tabs 11/13/23 metoprolol tartrate 50 mg tablet 50 mg PO BID 90 days #180 tabs 04/20/24 omeprazole 40 mg capsule,delayed 40 mg PO BID 90 days #180 caps 05/04/24 release metformin 1,000 mg tablet 1,000 mg PO BID #180 tabs 05/05/24 blood sugar diagnostic (QualtricsTouch #100 ea 05/12/24 Ultra Test strips) rosuvastatin 5 mg tablet 5 mg PO DAILY #90 tabs 06/18/24 amlodipine 10 mg tablet 10 mg PO DAILY #90 tabs 07/23/24 glimepiride 4 mg tablet 4 mg PO DAILY #90 tabs 07/26/24 levothyroxine 100 mcg tablet 100 mcg PO DAILY #90 tabs 07/26/24 ondansetron 4 mg disintegrating 4 mg PO Q8H PRN nausea and 07/29/24 tablet vomiting #14 tabs torsemide 10 mg tablet 10 mg PO DAILY #90 tabs 08/31/24 oxycodone-acetaminophen 5 mg-325 1 tab PO TID PRN pain #30 tabs 09/09/24 mg tablet (Percocet) amiodarone 200 mg tablet 200 mg PO DAILY #90 tabs 09/17/24 sertraline 50 mg tablet 50 mg PO DAILY #90 tabs 09/22/24 dicyclomine 20 mg tablet 20 mg PO BID PRN abdominal pain #7 10/10/24 tabs ondansetron 4 mg disintegrating 4 mg PO Q8H PRN nausea and 10/10/24 tablet vomiting #9 tabs Allergies Allergy/AdvReac Type Severity Reaction Status Date / Time furosemide Allergy Intermediate Nausea and Verified 10/10/24 14:46 Vomiting levofloxacin [From LEVAQUIN] Allergy Mild NAUSEA, Verified 10/10/24 14:46 dizziness,Nausea cyclobenzaprine Allergy Unknown NAUSEA & Verified 10/10/24 14:46 [From FLEXERIL] VOMITING simvastatin Allergy Unknown Muscle Pain Verified 10/10/24 14:46 Sulfa (Sulfonamide Allergy Unknown VOMITING Verified 10/10/24 14:46 Antibiotics) [SULFA (SULFONAMIDE ANTIBIOTICS)] atorvastatin [ATORVASTATIN] AdvReac Severe MUSCLE PAIN Verified 10/10/24 14:46 azithromycin AdvReac Intermediate Palpitation Verified 10/10/24 14:46 s pravastatin AdvReac Unknown Muscle Pain Verified 10/10/24 14:46 apixaban [From Eliquis] AdvReac Nausea Verified 10/10/24 14:46 Bumex AdvReac Severe Nausea, Uncoded 10/10/24 14:46 dizziness, near syncope Review of Systems 2 Review of Systems: Constitutional: No fever, chills, fatigue, night sweats, weight changes ENT/Mouth: No ear pain, hearing loss, nasal congestion, sinus pain, rhinorrhea, sore throat Eyes: No eye pain, swelling, redness, vision changes, discharge Cardio: No chest pain, palpitations, TOBIN, orthopnea, peripheral edema Pulm: No SOB, cough, sputum, wheezing, dyspnea, hemoptysis GI: No nausea, vomiting, hematemesis, constipation, hematochezia, melena, +abdominal pain, +diarrhea : No irregular bleeding, dysuria, frequency, urgency, hesitancy, hematuria, flank pain, urinary flow changes, urinary incontinence or retention MSK: No back pain, neck pain, joint pain, myalgias Skin: No lesions, rashes Neuro: No weakness, numbness, paresthesias, LOC, dizziness, headache Psych: No anxiety/panic, depression, SI/HI, AH/VH All other systems reviewed and are negative. [facility] Past Medical History Attestation statement: The following information was validated with the patient. Source: old records reviewed and nursing notes reviewed Medical History Breast cancer screening by mammogram Atrial fibrillation Atrial fibrillation with controlled ventricular rate Oxygen dependent Essential hypertension Type 2 diabetes mellitus with hyperglycemia Lumbar degenerative disc disease Obesity Restless leg syndrome Vitamin D deficiency Tobacco abuse Thrombocytopenia Degenerative disc disease, cervical Anxiety and depression Osteopenia Barretts esophagus Tubular adenoma of colon COPD (chronic obstructive pulmonary disease) Hyperlipidemia, unspecified Atherosclerotic cardiovascular disease Non-rheumatic aortic stenosis Surgical History History of carpal tunnel release History of discectomy History of cataract surgery History of hip replacement History of tonsillectomy History of appendectomy History of cholecystectomy History of cardiac catheterization Family History Family History Father Bone cancer Mother Cardiovascular disease Brother Lung cancer Sister Lung cancer Social History Social History Housing: Apartment Alcohol intake: never Patient Tobacco Use Status: Current everyday Tobacco user Tobacco use type: Cigarette Cigarettes Per Day: 5 Years Smoked: 6 a day Smoked in Last 30 Days: Yes e-Cigarette/Vaping Use: Never Used Second Hand Smoke Exposure: No Use of substances other than those prescribed or required for medical reasons: No Advance Directives: No Advance Directives Information Provided: No Do you have a plan to hurt others: No Plan service: No Current occupational status: retired Cognitive needs: No Hearing needs: No Vision needs: Yes (glasses) Physical Exam 2 Vital Signs: Vital Signs: Last Vital Signs Temp 97.7 F 10/10/24 17:53 Pulse 55 10/10/24 17:53 Resp 16 10/10/24 17:53 BP 136/57 L 10/10/24 17:53 Pulse Ox 97 10/10/24 17:53 O2 Del Method Room Air 10/10/24 17:53 BMI result Body Mass Index 41.5 vital signs stable General: Well appearing, in no acute distress. Skin: Warm, dry, intact. No rashes or lesions. Head: Normocephalic, atraumatic. EENT: Hearing is intact b/l. Conjunctiva clear. PERRLA. EOM intact. Moist mucous membranes.? Neck: Supple without LAD Cardiac: Chest wall symmetric. RRR Lungs: Normal respiratory effort without accessory muscle use. CTA bilaterally. No rales, rhonchi, or wheezes.? Abdomen: Obese abdomen, soft, nondistended, diffusely tender to palpation without rebound tenderness or guarding. No CVAT bilaterally. Normoactive bowel sounds x4. Back: No midline spinous or paraspinal tenderness. No step off deformity. Ext: Upper and lower extremities atraumatic, without tenderness, deformity, swelling or erythema. Full ROM throughout. Neuro: AOx3. Normal speech. Ambulating with steady gait. Psych: Appropriate mood and affect. Responds appropriately to questions. Course Course Course Narrative: 6780 -- CBC without leukocytosis or left shift. Normocytic anemia, appears to be around baseline when compared to priors. H&H above transfusion threshold. Chemistry without acute electrolyte abnormality requiring intervention. BUN and creatinine slightly elevated, likely secondary to multiple episodes of diarrhea. 1L of IV fluids ordered. Random glucose 176. Lipase WNL. > UA, viral swabs, CT abdomen/pelvis pending > patient medicated with Tylenol 1600 -- Patient stable at the end of my shift. sign out given to Yumiko VIDES pending viral swabs, UA, and disposition. Reevaluation(s) Reevaluation #1: I Mary Henson PA-C have accepted care of the patient and signed out pending imaging and labs patient here With abdominal pain and acute onset diarrhea I have independently reviewed the following tests: Labs: Viral panel negative CT abdomen and pelvis: CT/CT abdomen pelvis wo IV con IMPRESSION: 1. No small or large bowel obstruction. No bowel wall thickening or inflammatory change. Sigmoid diverticulosis without evidence of acute diverticulitis. Appendix not identified; however, no right lower quadrant inflammatory change to suggest acute appendicitis. 2. Slightly nodular hepatic contour, increased when compared to the prior examination. Findings likely represent early cirrhosis. Within the periphery of the right hepatic lobe there is a focal hypodensity measuring up to 3.0 cm, not well visualized on the prior examination. Findings are nonspecific and could represent a neoplastic lesion. Further evaluation could be considered with dedicated hepatic MRI without and with contrast. No intrahepatic or extrahepatic biliary ductal dilatation. 3. Mildly prominent retroperitoneal and yumiko hepatis lymph nodes, new when compared to the prior examination. Fleischner guidelines were followed. Electronically signed by: Titus Cole MD 10/10/2024 04:09 PM [facility] Time: 16:31 Medications Administered Discontinued Medications Generic Name Dose Route Start Last Admin Trade Name Freq PRN Reason Stop Dose Admin Acetaminophen 975 mg 10/10/24 14:58 10/10/24 15:15 Acetaminophen 325 Mg Tablet PO 10/10/24 14:59 975 mg ONCE ONE Administration Sodium Chloride 1,000 mls @ 999 mls/hr 10/10/24 16:00 10/10/24 15:53 Ns IV 10/10/24 17:00 999 mls/hr .Q1H1M CHLOE Administration Medical Decision Making Medical Decision Making MDM Narrative: 69-year-old female with past medical history significant for AFib on Xarelto, hypertension, type 2 diabetes, obesity, COPD, GERD, Umaña's esophagus, anxiety, depression presents to the ED today via EMS from home for evaluation of abdominal pain and diarrhea which woke her from her sleep at 2:00 a.m. today. Vital signs stable. Afebrile. She is nontoxic appearing in no acute distress. On exam, obese abdomen, soft, nondistended, diffusely tender to palpation without rebound tenderness or guarding. Normoactive bowel sounds x4. No CVAT bilaterally. Moist mucous membranes. Skin warm, dry, intact. Differential diagnosis includes gastroenteritis, diverticulosis, diverticulitis. Abdominal exam without peritoneal signs. No evidence of acute abdomen at this time. Well appearing. Moderate suspicion for acute hepatobiliary disease (including acute cholecystitis). Less likely to represent acute pancreatitis, PUD (including perforation), acute infectious processes (pneumonia, hepatitis, pyelonephritis), atypical appendicitis, vascular catastrophe, bowel obstruction or viscus perforation. Presentation not consistent with other acute, emergent causes of abdominal pain at this time. Plan for labs, viral swabs, UA, CT abdomen/pelvis, pain control, re-evaluation Differential Diagnosis Differential Diagnoses: The differential diagnosis associated with the presentation includes As above Admission/Observation Consideration of admission/observation: Escalation of care including admission/observation considered Admission considered on presentation Lab Data [facility] Lab Attestation statement: I reviewed the patient's lab results. As above 10/10/24 15:07 10/10/24 15:07 Labs: Lab Results 10/10/24 10/10/24 10/10/24 Range/Units 15:07 15:34 15:36 WBC 8.2 (4.8-10.8) X10*3/uL RBC 4.16 L (4.20-5.50) X10*6/uL Hgb 10.6 L (12.0-16.0) g/dl Hct 33.4 L (37.0-47.0) % MCV 80.3 (80.0-98.0) fL MCH 25.5 L (27.0-33.0) pg MCHC 31.7 (31.0-35.0) g/dl RDW 16.2 H (11.0-16.0) % Plt Count 198 (160-400) X10*3/uL MPV 10.3 (9.4-12.3) fL Immature Gran % (Auto) 0.6 H (0.0-0.4) % Neut % (Auto) 74.8 H (45-73) % Lymph % (Auto) 14.8 L (20-40) % [place] % (Auto) 6.3 (2-11) % Eos % (Auto) 2.9 (0-4) % Baso % (Auto) 0.6 (0-2) % Lymph # (Auto) 1.2 (1.2-4.9) X10*3/uL [place] # (Auto) 0.5 (0.1-1.2) X10*3/uL Eos # (Auto) 0.2 (0.0-0.4) X10*3/uL Baso # (Auto) 0.1 (0.0-0.2) X10*3/uL Abs Immat Gran (auto) 0.05 H (0.00-0.03) X10*3/uL Absolute Neuts (auto) 6.1 (2.0-8.3) x10*3/uL Absolute Nucleated RBC 0.000 (0.0-0.012) X10*3/uL Nucleated RBC % (auto) 0.0 (0.0-0.2) /100WBC Sodium 135 (135-145) mmol/L Potassium 4.4 (3.3-5.1) mmol/L Chloride 103 (96-108) mmol/L Carbon Dioxide 23 (22-29) mmol/L Anion Gap 13 (12-20) BUN 18 H (9-16) mg/dL Creatinine 1.59 H (0.5-1.4) mg/dL Estim Creat Clear Calc 37.9 Estimated GFR 32 Random Glucose 176 H (60-115) mg/dL Calcium 9.7 (8.4-10.2) mg/dL Magnesium 1.9 (1.6-2.6) mg/dL Total Bilirubin 0.3 (0.0-1.0) mg/dL AST 38 H (5-31) U/L ALT 25 (0-31) U/L Alkaline Phosphatase 143 H (39-117) U/L Total Protein 7.3 (6.5-8.0) g/dL Albumin 3.7 (3.5-5.0) g/dL Lipase 31 (8-78) U/L Urine Color Yellow Urine Appearance Clear Urine pH 5.5 (5.0-9.0) Ur Specific [place] <= 1.005 (1.005-1.025) Urine Protein Negative (Neg-Trace) mg/dL Urine Glucose (UA) Negative (Negative) mg/dL Urine Ketones Negative (Negative) mg/dL Urine Blood Negative (Negative) Urine Nitrite Negative (Negative) Ur Leukocyte Esterase Negative (Negative) Influenza Type A (PCR) NEGATIVE (Negative) Influenza Type B (PCR) NEGATIVE (Negative) RSV RNA Qual (PCR) NEGATIVE (Negative) SARS-CoV-2 RNA (RT-PCR) NEGATIVE (Negative) Independent Interpretation I performed an independent interpretation of an: CT Scan Independent Historian Clinical information obtained from an independent historian. History obtained from or confirmed by: EMS External Record Review External record reviewed: Inpatient record Prescription Management I considered prescription management with: Pain Medication Chronic Conditions Patient?s care impacted by: Diabetes Social Determinants Patient?s care significantly limited by Social Determinants of Health including: Other Social Determinant of Health Critical Care Time Critical Care Time Critical Care Time: No Discharge Plan Discharge Clinical Impression: Abdominal pain, Diarrhea Patient Disposition: Home, Self-Care Instructions: Acute Diarrhea (ED) Additional Instructions: All of your labs including a viral panel were normal. You were screened for influenza RSV and COVID. There were no acute findings on your CT scan. The acute onset of your diarrhea is likely viral. See home care instructions. Uses Zofran as needed for nausea, use the dicyclomine as needed for abdominal cramping and diarrhea. Be sure to follow up with your primary care provider this week. Prescriptions: New dicyclomine 20 mg tablet 20 mg PO BID PRN (Reason: abdominal pain) Qty: 7 0RF ondansetron 4 mg tablet,disintegrating 4 mg PO Q8H PRN (Reason: nausea and vomiting) Qty: 9 0RF No Action blood sugar diagnostic [OneTouch Verio test strips] Strip 1 strip miscellaneous BID 30 Days Qty: 100 12RF (DME) glucometer One touch Verio See Rx Instructions .Route .MEDSUPPLY Qty: 1 0RF Rx Instructions: As directed ([facility] blood-glucose meter [OneTouch Ultra2 Meter] Misc See Rx Instructions .Route Qty: 1 0RF Rx Instructions: test once per day (DME) lancets [QualtricsTouch UltraSoft 2 Lancet] 30 gauge misc See Rx Instructions .Route Qty: 100 4RF Rx Instructions: test once per day ([facility] lancing device with lancets [QualtricsTouch Delica Plus Lanc Dev] Kit See Rx Instructions .Route Qty: 100 3RF Rx Instructions: As directed check BS once a day albuterol sulfate [Ventolin HFA] 90 mcg/actuation HFA aerosol inhaler 2 puff inhalation Q6H PRN (Reason: shortness of breath or wheezing) Qty: 8.5 0RF metoprolol tartrate 50 mg tablet 50 mg PO BID 90 Days Qty: 180 3RF omeprazole 40 mg capsule,delayed release(DR/EC) 40 mg PO BID 90 Days Qty: 180 1RF metformin 1,000 mg tablet 1,000 mg PO BID Qty: 180 3RF (DME) OneTouch Ultra Test Strip See Rx Instructions .Route Qty: 100 4RF Rx Instructions: test once per day rosuvastatin 5 mg tablet 5 mg PO DAILY Qty: 90 2RF amlodipine 10 mg tablet 10 mg PO DAILY Qty: 90 1RF levothyroxine 100 mcg tablet 100 mcg PO DAILY Qty: 90 1RF glimepiride 4 mg tablet 4 mg PO DAILY Qty: 90 1RF torsemide 10 mg tablet 10 mg PO DAILY Qty: 90 1RF oxycodone-acetaminophen [Percocet] 5-325 mg tablet 1 tab PO TID PRN (Reason: pain) Qty: 30 0RF amiodarone 200 mg tablet 200 mg PO DAILY Qty: 90 3RF sertraline 50 mg tablet 50 mg PO DAILY Qty: 90 2RF nystatin 100,000 unit/gram powder 1 appl topical TID Qty: 30 0RF (DME) Oxygen Home Use Kit See Rx Instructions .Route Rx Instructions: As directed Xarelto 15 mg tablet 15 mg PO DAILY Qty: 90 1RF Rx Instructions: must administer with evening meal ondansetron 4 mg tablet,disintegrating 4 mg PO Q8H PRN (Reason: nausea and vomiting) Qty: 14 0RF aspirin [Adult Low Dose Aspirin] 81 mg tablet,delayed release (DR/EC) 81 mg PO DAILY Interventions: ED Discharge Assessment Last Done: 10/10/24 17:53 Discharge Date/Time: 10/10/24 17:54 Print Language: Syriac
[2024-10-10 15:13] LABS: MANUAL DIFF FLAG NO
[2024-10-10 15:15] LABS: Basophils Absolute Auto 0.1 X10*3/uL (0.0-0.2); Basophils Percent Auto 0.6 % (0-2); Eosinophils Absolute Auto 0.2 X10*3/uL (0.0-0.4); Eosinophils Percent Auto 2.9 % (0-4); Hematocrit 33.4 % (37.0-47.0); Hemoglobin 10.6 g/dl (12.0-16.0); Imm Gran Abs Auto 0.05 X10*3/uL (0.00-0.03); Imm Gran Pct Auto 0.6 % (0.0-0.4); Lymphocytes Absolute Auto 1.2 X10*3/uL (1.2-4.9); Lymphocytes Percent Auto 14.8 % (20-40); Mean Corpuscular HGB Conc 31.7 g/dl (31.0-35.0); Mean Corpuscular Hemoglobin 25.5 pg (27.0-33.0); Mean Corpuscular Volume 80.3 fL (80.0-98.0); Mean Platelet Volume 10.3 fL (9.4-12.3); Monocytes Absolute Auto 0.5 X10*3/uL (0.1-1.2); Monocytes Percent Auto 6.3 % (2-11); Neutrophils Absolute Auto 6.1 x10*3/uL (2.0-8.3); Neutrophils Percent Auto 74.8 % (45-73); Platelet Count 198 X10*3/uL (160-400); Red Blood Count 4.16 X10*6/uL (4.20-5.50); Red Cell Distribution Width 16.2 % (11.0-16.0); White Blood Count 8.2 X10*3/uL (4.8-10.8)
[2024-10-10] MEDS: Acetaminophen 325 MG TABLET 975 MG PO (15:15)
[2024-10-10 15:39] LABS: Alanine Aminotransferase 25 U/L (0-31); Albumin Level 3.7 g/dL (3.5-5.0); Anion Gap 13 (12-20); Aspartate Amino Transferase 38 U/L (5-31); Bilirubin Total 0.3 mg/dL (0.0-1.0); Blood Urea Nitrogen 18 mg/dL (9-16); Calcium 9.7 mg/dL (8.4-10.2); Carbon Dioxide 23 mmol/L (22-29); Chloride 103 mmol/L (96-108); Creatinine Clr Calc Pharmacy 37.9; Estimated Glomerular Filt Rate 32; Glucose Random 176 mg/dL (60-115); Lipase 31 U/L (8-78); Magnesium 1.9 mg/dL (1.6-2.6); Potassium 4.4 mmol/L (3.3-5.1); Sodium 135 mmol/L (135-145); Total Protein 7.3 g/dL (6.5-8.0)
[2024-10-10 15:47] LABS: Alkaline Phosphatase 143 U/L (39-117)
[2024-10-10 15:50] LABS: Appearance Urine Clear; Color Urine Yellow; Glucose Urine UA Negative (Negative); Leukocyte Esterase Urine Negative (Negative); Nitrite Urine Negative (Negative); PH 5.5 (5.0-9.0); Specific Gravity - Urine <= 1.005 (1.005-1.025); Urine Blood Negative (Negative); Urine Ketones Negative (Negative); Urine Protein Negative (Neg-Trace)
[2024-10-10] MEDS: 0.9 % Sodium Chloride 1,000 ML 999 ML IV (15:53)
[2024-10-10 16:39] LABS: Influenza A PCR NEGATIVE (Negative); Influenza B PCR NEGATIVE (Negative); Resp Syncy Virus RNA Qual PCR NEGATIVE (Negative); SARS COV2 PCR INHOUSE NEGATIVE (Negative)
--- NOTE | 2024-10-10 17:37 | MHC.EDTECH ---
pt asssited to bathroom with help from this tech and PRISCA Trotter, tolerated well
[2024-10-10 17:53] VITALS: BP 136/57; PULSE 55; RESP 16; TEMP 36.5; O2SAT 97
== END 2024-10-10 17:54 | disposition home or self-care (01) ==
PROVIDERS: Physician Assistant Medical; Emergency Provider Emergency Medicine; PCP Internal Medicine
DX: R11.2 Nausea with vomiting, unspecified (principal); R42 Dizziness and giddiness; R10.2 Pelvic and perineal pain; I48.91 Unspecified atrial fibrillation; Z79.01 Long term (current) use of anticoagulants; Z79.899 Other long term (current) drug therapy; Z03.818 Encounter for observation for suspected exposure to other biological agents ruled out
CPT/HCPCS: 0241U; 74176; 80053; 81003; 83690; 83735; 85025; 96360; 99284; 99285

== ENCOUNTER 2024-11-10 14:29 | Outpatient (AMB) | payer MEDICARE, SELFPAY ==
--- OUTSIDE RECORDS SUMMARY | 2024-11-10 14:33 | XMS_ITS | Clinical Summary ---
Author Organization [facility] Address [address] [place] [address] Phone Care Team Providers Care Dial Equipment Engineer Name Role Phone [facility] Unavailable Unavailable Reason for Visit and Chief Complaint Established Patient Plan of Treatment No Plan of Treatment Recorded Assessments Includes: Assessments from this encounter No Assessments Recorded Medical Equipment - Implanted Devices Includes: Current Devices No Medical Equipment Recorded Medications Administered Includes: Administered Medications from this encounter No Administered Medications Recorded Results Includes: Results discussed during this encounter No Results Recorded For Specified Dates History of Present Illness Includes: History of Present Illness from this encounter No History of Present Illness Recorded Social History No Social History Recorded - Smoking Status Unknown Medical History Includes: Medical History addressed during this encounter No Medical History Recorded Family History Includes: Family History addressed during this encounter No Family History Recorded Review of Systems Includes: Review of Systems from this encounter No Review of Systems Recorded Mental Status Includes: Mental Status from this encounter No Mental Status Recorded Functional Status Includes: Functional Status from this encounter No Functional Status Recorded Physical Exam Includes: Physical Exam from this encounter No Physical Exam Recorded Insurance Includes: Active Insurance Policies Plan Name Member ID Group # Subscriber Relationship Effect patrick Dates 1 - [facility] [id number] SAHIL CAMPOS Self Clinical Notes Includes: Clinical Notes from this encounter No Clinical Notes Recorded
--- OUTSIDE RECORDS SUMMARY | 2024-11-10 14:33 | XMS_ITS ---
Author Organization [facility] Address [address] [place] [address] Phone Care Team Providers Care Pm Head Cook Name Role Phone [facility] Unavailable [phone] Plan of Treatment No Plan of Treatment Recorded Assessments Includes: Assessments for all patient encounters No Assessments Recorded Medical Equipment - Implanted Devices Includes: Current and historical Devices No Medical Equipment Recorded Medications Administered Includes: Administered Medications in patient's chart No Administered Medications Recorded Results Includes: Results from 11/10/2023 through 11/10/2024 No Results Recorded For Specified Dates History of Present Illness History of Present Illness not supported for this document type No History of Present Illness Recorded Social History No Social History Recorded - Smoking Status Unknown Medical History Includes: Medical History in patient's chart No Medical History Recorded Family History Includes: Family History in patient's chart No Family History Recorded Review of Systems Review of Systems not supported for this document type No Review of Systems Recorded Mental Status No Mental Status Recorded Functional Status No Functional Status Recorded Physical Exam Physical Exam not supported for this document type No Physical Exam Recorded Insurance Includes: Active Insurance Policies Plan Name Member ID Group # Subscriber Relationship Effect patrick Dates 1 - [facility] [id number] SAHIL CAMPOS Self Clinical Notes Includes: Signed Clinical Notes starting from 11/03/2022 No Clinical Notes Recorded
--- OUTSIDE RECORDS SUMMARY | 2024-11-10 14:33 | XMS_ITS | Clinical Summary ---
Author Organization [facility] Address [address] [place] [address] Phone Care Team Providers Care Automotive Lot Attendant Name Role Phone [facility] Unavailable [phone] Reason for Visit and Chief Complaint New Patient Plan of Treatment Pending Tests Order Diagnosis Results Due Ordering P eduardo Follow Up - Appointment 2 Weeks Disp fx of greater tuberosity of right humerus, init 06/13/22 Don Lowe PA-C Last Documented On 2 11:01AM ; [facility] In House X-Rays - X-Rays Shoulder, right, min of 2 views ([id number]) Disp fx of greater tuberosity of right humerus, init 06/15/22 Don Lowe PA-C Last Documented On 2 11:01AM ; [facility] Assessments Includes: Assessments from this encounter No Assessments Recorded Medical Equipment - Implanted Devices Includes: Current Devices No Medical Equipment Recorded Medications Administered Includes: Administered Medications from this encounter No Administered Medications Recorded Vital Signs Includes: Vital Signs from this encounter Vital Name 06/13/2022 10:34A Blood Pressure Sitting (mmHg) 152/81 Pulse Rate-Sitting (bpm) 71 Temp-Temporal 97.2 Height (in) 63 Weight (lb) 200 Body Mass Index (kg/m2) 35.4 Body Surface Area (m2) 1.9 Oxygen Saturation (%) 98 Last Documented: On 06/13/2022 10:35A M ; [facility] Results Includes: Results discussed during this encounter [...] Exam Includes: Physical Exam from this encounter Encounters Encounter Provider Location Date Check-In Time Check-Out Time Diagnosis New Patient [facility] 2 10:00AM 10:56AM Insurance Includes: Active Insurance Policies Plan Name Member ID Group # Subscriber Relationship Effect patrick Dates 1 - [facility] [id number] SAHIL CAMPOS Self Clinical Notes Includes: Clinical Notes from this encounter No Clinical Notes Recorded
--- OUTSIDE RECORDS SUMMARY | 2024-11-10 14:33 | XMS_ITS ---
Care Plan - [facility] Created on: November 10, 2024 SAHIL CAMPOS : 1955 Sex: Female Author Organization [facility] Address [address] [place] [address] Phone Care Team Providers Care Visitor Services Associate Name Role Phone [facility] Unavailable Unavailable
[2024-11-10 14:42] VITALS: BP 120/52; PULSE 61; BMI 40.6
--- NOTE | 2024-11-10 14:42 | MHC.PC.OV ---
Vital Signs 11/10/24 14:42 Height 5 ft 3 in Weight 229 lb 4 oz BMI 40.6 BP 120/52 L Blood Pressure Location Lt brachial Position Sitting Pulse 61 Pulse Source Pulse Oximeter Oxygen Delivery Method Room Air Intake Visit Reasons: Emiliana 11/08 leg pain and sciatica Supervisor Record Press Required: No Accompanied by: Self / Same As Patient Allergies furosemide Allergy (Intermediate, Verified 11/10/24 14:43) Nausea and Vomiting levofloxacin [From LEVAQUIN] Allergy (Mild, Verified 11/10/24 14:43) NAUSEA, dizziness,Nausea cyclobenzaprine [From FLEXERIL] Allergy (Unknown, Verified 11/10/24 14:43) NAUSEA & VOMITING simvastatin Allergy (Unknown, Verified 11/10/24 14:43) Muscle Pain Sulfa (Sulfonamide Antibiotics) [SULFA (SULFONAMIDE ANTIBIOTICS)] Allergy (Unknown, Verified 11/10/24 14:43) VOMITING atorvastatin [ATORVASTATIN] Adverse Reaction (Severe, Verified 11/10/24 14:43) MUSCLE PAIN azithromycin Adverse Reaction (Intermediate, Verified 11/10/24 14:43) Palpitations pravastatin Adverse Reaction (Unknown, Verified 11/10/24 14:43) Muscle Pain apixaban [From Eliquis] Adverse Reaction (Verified 11/10/24 14:43) Nausea Bumex Adverse Reaction (Severe, Uncoded 11/10/24 14:43) Nausea, dizziness, near syncope Medication List - Last Reconciled 11/10/24 by Deisi Fung PA-C albuterol sulfate 90 mcg/actuation (Ventolin HFA) 2 puffs inhalation Q6H PRN amiodarone 200 mg PO DAILY amlodipine 10 mg PO DAILY aspirin (Adult Low Dose Aspirin) 81 mg PO DAILY blood sugar diagnostic (The Thomas Sur[employer]renant Makeup AcademyTouch Verio test strips) 1 strip miscellaneous BID 30 days blood sugar diagnostic (OneTouch Ultra Test strips) test once per day blood-glucose meter (The [employer] Sur[employer]renant Makeup AcademyTouch Ultra2 Meter) test once per day dicyclomine 20 mg PO BID PRN glimepiride 4 mg PO DAILY [glucometer One touch Verio As directed] lancets ([employer]uch UltraSoft 2 Lancet) test once per day lancing device with lancets (Think Gaming Delica Plus Lancing Device kit) As directed check BS once a day levothyroxine 100 mcg PO DAILY metformin 1,000 mg PO BID metoprolol tartrate 50 mg PO BID 90 days nystatin 1 appl topical TID omeprazole 40 mg PO BID 90 days ondansetron 4 mg PO Q8H PRN ondansetron 4 mg PO Q8H PRN oxycodone-acetaminophen 5-325 mg (Percocet) 1 tab PO TID PRN Oxygen Home Use As directed rivaroxaban (Xarelto) 15 mg PO QPM rosuvastatin 5 mg PO DAILY sertraline 50 mg PO DAILY torsemide 10 mg PO DAILY Tobacco use date assessed: 11/10/24 Fall risk assessment: No Falls in past year Last assessed Fall Risk: 11/10/24 Dental Screening Dental Screen Date: 11/10/24 Did you have a dental visit in the last 12 months?: Yes Did you have a dental problem in the last 6 months where you did not have access to dental care?: No Was dental information given to patient?: Patient has dentist HPI [facility] 11/08 leg pain and sciatica HPI Details 69-year-old obese female smoker with uncontrolled diabetes mellitus status post TAVR cirrhosis atrial fibrillation hypothyroidism,COPD hypercholesterolemia and coronary artery disease last seen? by Dr. Zapata July 2024 coming in for hospital follow up.? Patient was seen in [facility] ER for low back that radiates down the left leg. She has calf and thigh tenderness and DVT was ruled out while in the ER. She states the knee will occasionally give out on her followed by pain and burning sensation in the left leg that has been going on for several weeks. Pain is typically throughout the day but we will worsen after the leg gives out. When she sits or lays down for several minutes the pain will typically improve and episodes will last around 10-15 minutes. She will have 2-3 events per day and denies any inciting events. She does have a history of degenerative disc disease. [facility] Medical History Breast cancer screening by mammogram Atrial fibrillation Atrial fibrillation with controlled ventricular rate Oxygen dependent Essential hypertension Type 2 diabetes mellitus with hyperglycemia Lumbar degenerative disc disease Obesity Restless leg syndrome Vitamin D deficiency Tobacco abuse Thrombocytopenia Degenerative disc disease, cervical Anxiety and depression Osteopenia Barretts esophagus Tubular adenoma of colon COPD (chronic obstructive pulmonary disease) Hyperlipidemia, unspecified Atherosclerotic cardiovascular disease Non-rheumatic aortic stenosis Surgical History History of carpal tunnel release History of discectomy History of cataract surgery History of hip replacement History of tonsillectomy History of appendectomy History of cholecystectomy History of cardiac catheterization Family History Father Bone cancer Mother Cardiovascular disease Brother Lung cancer Sister Lung cancer Social History Housing: Apartment Alcohol intake: never Patient Tobacco Use Status: Current everyday Tobacco user Tobacco use type: Cigarette Cigarettes Per Day: 5 Years Smoked: 6 a day e-Cigarette/Vaping Use: Never Used Second Hand Smoke Exposure: No service: No Current occupational status: retired Cognitive needs: No Hearing needs: No Vision needs: Yes (glasses) Questionnaire PHQ-9 Over the last 2 weeks, how often have you been bothered by any of the following problems? 1. Little interest or pleasure in doing things: not at all 2. Feeling down, depressed, or hopeless: not at all 3. Trouble falling or staying asleep, or sleeping too much: not at all 4. Feeling tired or having little energy: not at all 5. Poor appetite or overeating: not at all 6. Feeling bad about yourself - or that you are a failure or have let yourself or your family down: not at all 7. Trouble concentrating on things, such as reading the newspaper or watching television: not at all 8. Moving or speaking so slowly that other people could have noticed. Or the opposite - being so fidgety or restless that you have been moving around a lot more than usual: not at all 9. Thoughts that you would be better off or of hurting yourself in some way: not at all Total score: 0 Depression Screening Interpretation: Negative Depression Screening Done: Yes Source: Developed by Drs. Dong Jackson, Yumi Curry, Andrew Ojeda and colleagues, with an educational noble from [employer]. Thrive Questionnaire Date Thrive assessed: 11/10/24 I am a: Patient What is your living situation today?: I have a steady place to live Within the past 12 months, did the food you bought not last and you didn't have the money to get more?: Never true Within the past 12 months, did you worry whether your food would run out before you got money to buy more?: Never true Do you have trouble paying for medicines?: No Do you have trouble getting transportation to medical appointments?: No Do you have trouble paying your heating and electricity bill?: No Do you have trouble taking care of your child, family member or friend?: No Do you have trouble with day-to-day activities such as bathing, preparing meals, shopping, managing finances, etc.?: No Are you currently unemployed and looking for a job?: No Are you interested in more education?: No Please select the resources that you would like help with: None Currently or been in a relationship where the following occur: No concerns reported THRIVE Score: 0 AUDIT C Alcohol Use Questionnaire (AUDIT-C) 1. How often do you have a drink containing alcohol?: Never 2. How many drinks containing alcohol do you have on a typical day when you are drinking?: 1 or 2 (0) 3. How often do you have six or more drinks on one occasion?: Never Total Score: 0 Score Reviewed/Action Taken: No SHAD-7 AMB Questionnaire SHAD-7 Date SHAD - 7 assessed: 11/10/24 Feeling nervous, anxious, or on edge: 0 = Not at all Not being able to stop or control worryin = Not at all Worrying too much about different things: 0 = Not at all Trouble relaxin = Not at all Being so restless that it is hard to sit still: 0 = Not at all Becoming easily annoyed or irritable: 0 = Not at all Feeling afraid as if something awful might happen: 0 = Not at all Total SHAD-7 score (0-4 normal; 5-9 mild; 10-14 moderate; 15-21 severe): 0 Source: Developed by Drs. Dong Jackson, Yumi Curry, Andrew Ojeda and colleagues, with an educational noble from [employer]. Review of Systems Const Denies body aches, Denies chills, Denies fever(s), Denies headache(s) and Denies poor appetite Eyes Reports no additional complaints ENT Denies dizziness and Denies headache(s) Card Denies chest pain, Denies syncope, Denies edema, Denies irregular heart rhythm, Denies lightheadedness and Denies dyspnea Resp Denies cough and Denies dyspnea GI Reports no additional complaints Reports no additional complaints Musc Reports as per HPI, Reports abnormal gait and Reports back pain Skin/Breast Reports system reviewed and no additional complaints, except as documented Neuro Reports abnormal gait, Denies dizziness, Denies syncope and Denies headache(s) Psych Reports no additional complaints Physical exam (Primary Care) Vital Signs: Oxygen Delivery Method Room Air 11/10/24 14:42 Tobacco/Smoking Status: Tobacco use Status Tobacco use date assessed 12/31/23 10/11/24 11:11 Patient Tobacco Use Status Current everyday Tobacco 10/11/24 11:11 Tobacco use type Cigarette 10/11/24 11:11 e-Cigarette/Vaping Use Never Used 10/11/24 11:11 Depression Screening Interpretation: Negative Thrive Assessment: Date of Thrive Assessment Date Thrive assessed 03/15/24 10/11/24 11:11 Currently or been in a relationship where the following occur: No concerns reported Const General: cooperative, healthy appearing, comfortable and no acute distress Orientation/consciousness: patient oriented x3 HENMT Head: Yes normocephalic Ears: hearing grossly normal bilaterally General nose exam: Normal external nose present Eyes General: appearance normal, both eyes and all related structures Conjunctivae: conjunctivae normal Neck Neck: Yes full ROM and Yes no lymphadenopathy Resp Effort & Inspection: normal respiratory effort Auscultation: clear to auscultation bilaterally, no crackles, no rales, no rhonchi and no wheezes Cardio Rate: regular rate Rhythm: regular rhythm Back/Spine/Pelvis Other: Tenderness to palpation of the lumbar spine and left hip Skin General skin exam: no rashes or lesions noted Neuro General: patient oriented x3 Gait exam (Neuro): Normal gait present Extrem Other: Significant tenderness to palpation over left calf without any redness, swelling or warmth. Pulses, sensation intact in bilateral lower extremities. Does have decreased strength with extension and flexion of the left knee. General: Yes normal to inspection, Yes full ROM and No edema Psych Affect: normal affect Attitude: cooperative Insight: Good insight present (Psych) Judgement: Good judgement present (Psych) Coding Level of Care Code Est Pt Level 4 (82067) Diagnoses Essential hypertension I10 Low back pain M54.50 Left hip pain M25.552 Left leg numbness R20.0 Assessment & Plan Assessment & Plan (1) Essential hypertension: Code(s): I10 - Essential (primary) hypertension Category: Medical Plan: Continue on current blood pressure medication. Avoid salt intake and encourage healthy diet and regular exercise. (2) Low back pain: Code(s): M54.50 - Low back pain, unspecified Category: Medical Plan: Patient complaining of low back pain that radiates down the left leg. Ordered for lumbar spine x-ray and patient was recently given prescription for Percocet for pain management. May also use topical lidocaine for pain. Can consider physical therapy or [place] [facility] referral pending x-ray results. (3) Left hip pain: Code(s): M25.552 - Pain in left hip Category: Medical Plan: Patient complaining of left hip pain that will radiate down the left leg. Ordered for left hip x-ray and may use Percocet as needed for pain. (4) Left leg numbness: Code(s): R20.0 - Anesthesia of skin Category: Medical Plan: Patient complaining of left leg numbness and tingling. Low suspicion for DVT as it was ruled out 2 days ago and does not have typical presentation of swelling, redness and warmth. Ordered for left lower extremity EMG for further evaluation. Plan This note was constructed using voice recognition software. While every effort has been made to ensure accuracy and cigar brander, still areas may have been included sometimes these areas may affect the content or meeting of the given symptoms. Total time spent caring for the patient today was 20 minutes. This includes time spent before the visit reviewing the chart, time spent during the visit, and time spent after the visit and documentation. Orders: Orders XR hip LT min 2V Today M25.552 - Pain in left hip NE electromyogram (EMG) Today M25.552 - Pain in left hip, R20.0 - Anesthesia of skin XR lumbar spine 2-3V Today M54.50 - Low back pain, unspecified
== END 2024-11-10 15:13 | disposition home or self-care (01) ==
PROVIDERS: PCP Internal Medicine
DX: I10 Essential (primary) hypertension (principal); M54.50 Low back pain, unspecified; M25.552 Pain in left hip; R20.0 Anesthesia of skin

== ENCOUNTER → 2024-11-10 14:29 | Outpatient (BNVA) | payer MEDICARE, SELFPAY | PROVIDERS: PCP Internal Medicine | DX: I10 Essential (primary) hypertension (principal); M54.50 Low back pain, unspecified; M25.552 Pain in left hip; R20.0 Anesthesia of skin | CPT/HCPCS: 96127; 99212 ==

== ENCOUNTER → 2024-12-03 15:08 | Outpatient (BNV) | payer MEDICARE, SELFPAY | PROVIDERS: PCP Internal Medicine; Visit Provider Internal Medicine | DX: I42.2 Other hypertrophic cardiomyopathy (principal); I51.89 Other ill-defined heart diseases; Z95.3 Presence of xenogenic heart valve; I34.0 Nonrheumatic mitral (valve) insufficiency | CPT/HCPCS: 93306 ==

== ENCOUNTER → 2024-12-03 15:18 | Outpatient (REF) | payer MEDICARE, SELFPAY ==
--- NOTE | 2024-12-03 15:08 | CA_ITS ---
Transthoracic Echocardiogram Patient (Last, First, Middle): Magy Santiago, Gender: Female Date of : 1955 Age: 69 Procedure Date: 12/03/2024 Procedure Type: Transthoracic Echocardiogram Location: OP Height: 160.02 cm Weight: 99.79 kg BSA: 2.01 m2 Heart Rate: bpm BP: 130 / 80 mmHg Mailroom Manager: Referring MD: Jyoti Campos MD Symptoms: S/P TAVR Study Quality: Fair ECG Rhythm: Sinus Conclusions: - The left ventricular systolic function is normal. The calculated ejection fraction is 63% by biplane method. - A bioprosthetic aortic valve is present. The prosthetic aortic valve appears to be functioning normally. Findings Left Ventricle Normal left ventricular cavity size. The left ventricular systolic function is normal. The calculated ejection fraction is 63% by biplane method. There is no evidence of regional wall motion abnormalities. Evidence suggests grade II (moderate) diastolic dysfunction. Moderate to severe concentric left ventricular hypertrophy. Right Ventricle Normal right ventricular cavity size and systolic function. Atria The left atrium is moderately dilated. The right atrium is normal in size. Aortic Valve A bioprosthetic aortic valve is present. The prosthetic aortic valve appears to be functioning normally. There is no aortic valve regurgitation. Mitral Valve There is mild mitral annular calcification. There is mild mitral valve regurgitation. There is no mitral valve stenosis. Pulmonic Valve The pulmonic valve is likely normal. Tricuspid Valve There is trace tricuspid valve regurgitation. There is no evidence of pulmonary hypertension. Great Vessels The asc aorta is normal in size. Venous The inferior vena cava is normal in size and collapses greater than 50% with inspiration. Pericardium/Pleural There is no evidence of pericardial effusion. Prior Study Comparison No significant change compared to prior study dated: 02/19/2024. Measurements 2D Linear Measurements IVSd: 1.48 0.6-0.9/0.6-1.0 cm LVIDd: 4.19 3.9-5.3/4.2-5.9 cm LVIDd Index: 2.08 2.4-3.2/2.2-3.1 cm/m2 LVIDs: 2.79 2.0-3.6 cm LVPWd: 1.52 0.7-1.1 cm Ao Root: 2.70 2.1-3.5 cm LA Diam: 5.30 2.7-3.8/3.0-4.0 cm LAIDs Index: 2.64 1.5-2.3 cm/m2 LV Mass: 310.06 67-162/88-224 g LV Mass Index: 154.26 43-95/49-115 g/m2 LVOT Diam: 1.70 3.0+(-)1.3 cm 2D Systolic Function EF 4C: 56.10 >55% EF 2C: 67.00 >55% EF BiP: 62.60 >55% Mitral Valve MV Pk E: 1.18 MV PK A: 0.92 MV Decel Time: 297.00 E/A: 1.30 E'Lateral: 4.57 E'Medial: 4.13 E/E' Med: 28.60 E/E' Lat: 25.80 PHT: 87.00 MVA PHT: 2.53 Decel [place]: 3.98 Aortic Valve AoV Pk Neftali: 1.80 AoV Mn Neftali: 1.08 AoV VTI: 0.45 AoV Pk Grad: 13.00 Aov Mn Grad: 6.00 JERED Cont.VTI: 1.35 LVOT LVOT Pk Neftali: 1.12 LVOT Mn Neftali: 0.71 LVOT VTI: 0.27 LVOT Pk Grad: 5.00 LVOT Mn Grad: 3.00 LVOT Diam: 1.70 LVOT Area: 2.27 Diastolic Function MV Pk E: 1.18 MV Pk A: 0.92 E/A: 1.30 E'Medial: 4.13 E/E' Med: 28.60 E' Laterial: 4.57 E/E' Lat: 25.80 Tricuspid Valve TR Pk Neftali: 2.09 TR Pk Grad: 17.00 RA Press: 3.00 RVSP: 20.00 Great Vessels Aorta Ao Root-2D: 2.70 2.0-3.7 cm Ao Asc: 2.70 2.1-3.4 cm Pulmonary Valve PV Pk Neftali: 1.28 Peak PV Grad: 7.00 Updated in Other Vendor System with Status of Final Dutch Campbell MD electronically signed on 12/05/2024 11:14:19 AM with status of Final
== END ==
LOC: HO.CARD 15:18
PROVIDERS: PCP Internal Medicine; Visit Provider Internal Medicine Cardiovascular Disease
DX: Z94.5 Skin transplant status (principal)
CPT/HCPCS: 93306

== ENCOUNTER 2025-01-20 15:18 | Outpatient (AMB) | payer MEDICARE, SELFPAY ==
--- NOTE | 2025-01-20 15:38 | MHC.PC.OV ---
Vital Signs 01/20/25 15:40 Height 5 ft 3 in Weight 223 lb BMI 39.5 BP 120/70 Blood Pressure Location Lt brachial Position Sitting Pulse 75 Pulse Source Pulse Oximeter Temp 97.5 F Temp Source Temporal Artery Scan Pulse Oximetry (%) 96 Oxygen Delivery Method Room Air Intake Visit Reasons: [facility] 01/05 bad breathing and hearth rate Intake Note: Patient is here for hospital discharge follow up. Patient was discharged from [facility] on 01/05/25. Records Management Analyst Required: No Watch Mechanic: Present Accompanied by: Son Allergies furosemide Allergy (Intermediate, Verified 01/20/25 15:46) Nausea and Vomiting hydralazine Allergy (Intermediate, Verified 01/20/25 15:46) Diarrhea levofloxacin [From LEVAQUIN] Allergy (Mild, Verified 01/20/25 15:46) NAUSEA, dizziness,Nausea cyclobenzaprine [From FLEXERIL] Allergy (Unknown, Verified 01/20/25 15:46) NAUSEA & VOMITING simvastatin Allergy (Unknown, Verified 01/20/25 15:46) Muscle Pain Sulfa (Sulfonamide Antibiotics) [SULFA (SULFONAMIDE ANTIBIOTICS)] Allergy (Unknown, Verified 01/20/25 15:46) VOMITING atorvastatin [ATORVASTATIN] Adverse Reaction (Severe, Verified 01/20/25 15:46) MUSCLE PAIN azithromycin Adverse Reaction (Intermediate, Verified 01/20/25 15:46) Palpitations pravastatin Adverse Reaction (Unknown, Verified 01/20/25 15:46) Muscle Pain apixaban [From Eliquis] Adverse Reaction (Verified 01/20/25 15:46) Nausea Bumex Adverse Reaction (Severe, Uncoded 01/20/25 15:39) Nausea, dizziness, near syncope Medication List - Last Reconciled 01/20/25 by Deisi Fung PA-C albuterol sulfate 90 mcg/actuation (Ventolin HFA) 2 puffs inhalation Q6H PRN amiodarone 200 mg PO DAILY amlodipine 10 mg PO DAILY aspirin (Adult Low Dose Aspirin) 81 mg PO DAILY blood sugar diagnostic (OneTouch Verio test strips) 1 strip miscellaneous BID 30 days blood sugar diagnostic (OneTouch Ultra Test strips) test once per day blood-glucose meter (OneTouch Ultra2 Meter) test once per day dicyclomine 20 mg PO BID PRN glimepiride 4 mg PO DAILY [glucometer One touch Verio As directed] lancets (FilmTrackTouch UltraSoft 2 Lancet) test once per day lancing device with lancets (FilmTrackTouch Delica Plus Lancing Device kit) As directed check BS once a day levothyroxine 100 mcg PO DAILY metformin 1,000 mg PO BID metoprolol tartrate 50 mg PO BID 90 days nystatin 1 appl topical TID omeprazole 40 mg PO BID 90 days ondansetron 4 mg PO Q8H PRN oxycodone-acetaminophen 5-325 mg (Percocet) 1 tab PO TID PRN Oxygen Home Use As directed rivaroxaban (Xarelto) 15 mg PO QPM rosuvastatin 5 mg PO DAILY sertraline 50 mg PO DAILY tiotropium bromide inhalation DAILY torsemide 10 mg PO DAILY Tobacco use date assessed: 01/20/25 Fall risk assessment: 1 Fall in past year Last assessed Fall Risk: 01/20/25 Dental Screening Dental Screen Date: 01/20/25 Did you have a dental visit in the last 12 months?: No Did you have a dental problem in the last 6 months where you did not have access to dental care?: No Was dental information given to patient?: No HPI [facility] 01/05 bad breathing and hearth rate HPI Details 69-year-old female with past medical history uncontrolled diabetes, tobacco abuse, history of TAVR, cirrhosis, atrial fibrillation, hypothyroidism, COPD, hypercholesterolemia and coronary artery disease last seen 10/2024 coming in for follow up.?In review of the notes, patient was seen in [facility] ED to 12/2024 for shortness of breath and productive cough treated for COPD exacerbation and hydralazine was added 25 mg t.i.d. for management of blood pressure. Presenting for follow up on COPD exacerbation. She experienced exacerbated symptoms including shortness of breath and chest pain, leading to a December hospitalization. Diagnosed with COPD exacerbation during hospitalization, which contributed to significant management challenges. Hyperglycemia occurred due to prednisone use; was attempting to control through insulin administration but with difficulty. After returning to her home regimen of metformin and glimepiride, glycemic control was achieved. Persistent symptoms of cough and dyspnea are noted, with reliance on an albuterol inhaler and oxygen supplementation as needed. Brief fall was noted with minor injuries, not requiring immediate imaging as no bone impacted the ground. Patient continues to smoke cigarettes and is not interested in quitting. [facility] Medical History Breast cancer screening by mammogram Atrial fibrillation Atrial fibrillation with controlled ventricular rate Oxygen dependent Essential hypertension Type 2 diabetes mellitus with hyperglycemia Lumbar degenerative disc disease Obesity Restless leg syndrome Vitamin D deficiency Tobacco abuse Thrombocytopenia Degenerative disc disease, cervical Anxiety and depression Osteopenia Barretts esophagus Tubular adenoma of colon COPD (chronic obstructive pulmonary disease) Hyperlipidemia, unspecified Atherosclerotic cardiovascular disease Non-rheumatic aortic stenosis Surgical History History of carpal tunnel release History of discectomy History of cataract surgery History of hip replacement History of tonsillectomy History of appendectomy History of cholecystectomy History of cardiac catheterization Family History Father Bone cancer Mother Cardiovascular disease Brother Lung cancer Sister Lung cancer Social History Housing: Apartment Alcohol intake: never Patient Tobacco Use Status: Current everyday Tobacco user Tobacco use type: Cigarette Cigarette Packs Per Day: 0.5 Cigarettes Per Day: 4 Years Smoked: 6 a day e-Cigarette/Vaping Use: Never Used Second Hand Smoke Exposure: Yes service: No Current occupational status: retired Cognitive needs: No Hearing needs: No Vision needs: Yes (glasses) Questionnaire PHQ-9 Over the last 2 weeks, how often have you been bothered by any of the following problems? 1. Little interest or pleasure in doing things: not at all 2. Feeling down, depressed, or hopeless: not at all 3. Trouble falling or staying asleep, or sleeping too much: not at all 4. Feeling tired or having little energy: not at all 5. Poor appetite or overeating: not at all 6. Feeling bad about yourself - or that you are a failure or have let yourself or your family down: not at all 7. Trouble concentrating on things, such as reading the newspaper or watching television: not at all 8. Moving or speaking so slowly that other people could have noticed. Or the opposite - being so fidgety or restless that you have been moving around a lot more than usual: not at all 9. Thoughts that you would be better off or of hurting yourself in some way: not at all Total score: 0 Depression Screening Interpretation: Negative Depression Screening Done: Yes Source: Developed by Drs. Dong Jackson, Yumi Curry, Andrew Ojeda and colleagues, with an educational noble from [employer]. Thrive Questionnaire Date Thrive assessed: 01/20/25 I am a: Patient What is your living situation today?: I have a steady place to live Within the past 12 months, did the food you bought not last and you didn't have the money to get more?: Never true Within the past 12 months, did you worry whether your food would run out before you got money to buy more?: Never true Do you have trouble paying for medicines?: No Do you have trouble getting transportation to medical appointments?: No Do you have trouble paying your heating and electricity bill?: No Do you have trouble taking care of your child, family member or friend?: No Do you have trouble with day-to-day activities such as bathing, preparing meals, shopping, managing finances, etc.?: No Are you currently unemployed and looking for a job?: No Are you interested in more education?: No Please select the resources that you would like help with: None Currently or been in a relationship where the following occur: No concerns reported THRIVE Score: 0 AUDIT C Alcohol Use Questionnaire (AUDIT-C) 1. How often do you have a drink containing alcohol?: Never Total Score: 0 SHAD-7 AMB Questionnaire SHAD-7 Date SHAD - 7 assessed: 01/20/25 Feeling nervous, anxious, or on edge: 0 = Not at all Not being able to stop or control worryin = Not at all Worrying too much about different things: 0 = Not at all Trouble relaxin = Not at all Being so restless that it is hard to sit still: 0 = Not at all Becoming easily annoyed or irritable: 0 = Not at all Feeling afraid as if something awful might happen: 0 = Not at all Total SHAD-7 score (0-4 normal; 5-9 mild; 10-14 moderate; 15-21 severe): 0 Source: Developed by Yumi Markham Kurt Kroenke and colleagues, with an educational noble from [employer]. Review of Systems Const Denies body aches, Denies chills, Denies fever(s), Denies headache(s) and Denies poor appetite Eyes Reports no additional complaints ENT Denies dysphagia, Denies dizziness, Denies headache(s) and Denies odynophagia Card Denies chest pain, Denies syncope, Denies edema, Denies irregular heart rhythm, Denies lightheadedness, Denies dyspnea and Reports dyspnea on exertion Resp Reports cough, Denies hemoptysis, Denies excessive phlegm production, Denies dyspnea and Reports dyspnea on exertion GI Denies abdominal pain, Denies constipation, Denies dysphagia, Denies diarrhea, Denies nausea, Denies odynophagia and Denies vomiting Reports no additional complaints Musc Reports no additional complaints and Denies abnormal gait Skin/Breast Reports system reviewed and no additional complaints, except as documented Neuro Denies abnormal gait, Denies dizziness, Denies syncope and Denies headache(s) Psych Reports no additional complaints Physical exam (Primary Care) Vital Signs: Last Vital Signs Temp 97.5 F 01/20/25 15:40 Pulse 75 01/20/25 15:40 BP 120/70 01/20/25 15:40 Pulse Ox 96 01/20/25 15:40 Oxygen Delivery Method Room Air 01/20/25 15:40 BMI result Body Mass Index 39.5 Tobacco/Smoking Status: Tobacco use Status Tobacco use date assessed 01/20/25 01/20/25 15:49 Patient Tobacco Use Status Current everyday Tobacco 01/20/25 15:48 Tobacco use type Cigarette 01/20/25 15:48 e-Cigarette/Vaping Use Never Used 01/20/25 15:48 PHQ-9: PHQ-9 Score PHQ-9: Total score 0 01/20/25 15:49 Depression Screening Interpretation: Negative Thrive Assessment: Date of Thrive Assessment Date Thrive assessed 01/20/25 01/20/25 15:49 Currently or been in a relationship where the following occur: No concerns reported Const General: cooperative, healthy appearing, comfortable and no acute distress Orientation/consciousness: patient oriented x3 HENMT Head: Yes normocephalic Ears: hearing grossly normal bilaterally General nose exam: Normal external nose present Eyes General: appearance normal, both eyes and all related structures Conjunctivae: conjunctivae normal Neck Neck: Yes full ROM and Yes no lymphadenopathy Resp Effort & Inspection: normal respiratory effort Auscultation: clear to auscultation bilaterally, no crackles, no rales, no rhonchi and no wheezes Cardio Rate: regular rate Rhythm: regular rhythm Skin General skin exam: no rashes or lesions noted Neuro General: patient oriented x3 Gait exam (Neuro): Normal gait present Extrem General: Yes normal to inspection, Yes full ROM and No edema Psych Affect: normal affect Attitude: cooperative Insight: Good insight present (Psych) Judgement: Good judgement present (Psych) Coding Level of Care Code Est Pt Level 4 (55951) Diagnoses Pure hypercholesterolemia E78.00 Hyperlipidemia type: pure hypercholesterolemia Pulmonary emphysema, unspecified emphysema type J43.9 COPD type: emphysema Emphysema type: unspecified Tobacco abuse Z72.0 Class 3 severe obesity due to excess calories with serious comorbidity and body mass index (BMI) of 40.0 to 44.9 in adult E66.01; Z68.41 Body mass index: BMI 40.0-44.9 Obesity classification: adult class 3 (BMI >= 40) Obesity type: due to excess calories Serious obesity comorbidity presence: with serious comorbidity Type 2 diabetes mellitus with hyperglycemia, without long-term current use of insulin E11.65 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 Triglyceride goal of less than 150 and LDL goal of less than 70 (2) COPD (chronic obstructive pulmonary disease): Code(s): J44.9 - Chronic obstructive pulmonary disease, unspecified Category: Medical Qualifiers: COPD type: emphysema Emphysema type: unspecified Qualified Code(s): J43.9 - Emphysema, unspecified Plan: Recently treated for COPD exacerbation. Continue on inhalers and supplemental oxygen. Patient has been using albuterol inhaler multiple times per week for several months. Sent a prescription for maintenance inhaler to be taken daily and continue with albuterol as needed. Plan to follow up at next visit. Reviewed with patient red flag symptoms and when to present for re-evaluation. Further pulmonary care will involve consultation with a anchor tacker for ongoing management. (3) Tobacco abuse: Comment: states 5- 6 cigarettes per day (12/2020) Code(s): Z72.0 - Tobacco use Category: Medical Plan: Smoking cigarettes and the use of tobacco can be harmful. We discussed the importance of stopping and options to aid in smoking cessation. Not interested in nicotine replacement therapy at this time (4) Obesity: Code(s): E66.9 - Obesity, unspecified Category: Medical Qualifiers: Body mass index: BMI 40.0-44.9 Obesity classification: adult class 3 (BMI >= 40) Obesity type: due to excess calories Serious obesity comorbidity presence: with serious comorbidity Qualified Code(s): E66.01 - Morbid (severe) obesity due to excess calories; Z68.41 - Body mass index [BMI]40.0-44.9, adult Plan: Healthy diet and regular exercise is encouraged. 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 Although fruits are generally healthy they should be eaten in moderation as they are still high in sugar. Hemoglobin A1c goal of less than 7% (6) Essential hypertension: Code(s): I10 - Essential (primary) hypertension Category: Medical Plan: Continue on current blood pressure medication. Avoid salt intake and encourage healthy diet and regular exercise. Plan Patient was informed and verbally consented to the use of an ambient scribe for clinic note documentation during this visit. This note was constructed using voice recognition software. While every effort has been made to ensure accuracy and sap fico business analyst, still areas may have been included sometimes these areas may affect the content or meeting of the given symptoms. Total time spent caring for the patient today was 20 minutes. This includes time spent before the visit reviewing the chart, time spent during the visit, and time spent after the visit and documentation. Orders: Referrals Pulmonology Referral J43.9 - Emphysema, unspecified Medications: New tiotropium bromide 1 cap inhalation DAILY 30 inhalations 2RF
[2025-01-20 15:40] VITALS: BP 120/70; PULSE 75; TEMP 36.4; O2SAT 96; BMI 39.5
--- OUTSIDE RECORDS SUMMARY | 2025-01-20 18:38 | XMS_ITS | Patient Health Record ---
Author Organization [facility] Address [address] [facility] [place] [address] Care Team Providers Care Living Supervisor Name Role Phone Marycruz Zapata Primary Care Provider UnavailShantelle Akbar Unavailable [phone] Sherice Early Unavailable [phone] Allergies No Known Allergies Reason For Referral No Information Medications Medication SIG (Take, Route, Frequency, Duration) Notes Start Date End Date Status Metoprolol Tartrate 50 MG 1 tablet with food Orally Twice a day for 30 day(s) Active Sertraline HCl 50 MG 1 tablet Orally Onc e a day for 30 day(s) Active Rosuvastatin Calcium 5 MG 1 tablet Orall y Once a day for 30 day(s) Active Lisinopril 40 MG 1 tablet Orally Once a day for 30 day(s) Active Aspirin 81 MG 1 tablet Orally Once a day for 30 day(s) Active Omeprazole 40 MG 1 capsule 30 minutes before morning meal Orally Once a day for 30 day(s) Active dilTIAZem HCl ER 240 MG 1 capsule Orally Once a day for 30 day(s) Active Levothyroxine Sodium 88 MCG 1 tablet in the morning on an empty stomach Orally Once a day for 30 day(s) Active Glimepiride 4 MG 1 tablet with breakf ast or the first main meal of the day Orally Once a day for 30 day(s) Active Extra Depth Orthopedic Shoes (1 Pair) with Customized Heat Molded Multidensity Innersoles (3 Pair) as directed Dx: NIDDM/Polyneuropathy (E11.42), Hammertoe Foot Deformity (M20.41,M20.42), Preulcerative Skin Lesion(s) (L85.1 03/04/2022 Active metFORMIN HCl 1000 MG 1 tablet with a me al Orally Once a day for 30 day(s) Active Social History Tobacco Use: Social History Observation Description Date Details (start date - stop date) Current Smoker 11/24/2001 - NA Tobacco Use/Smoking Question Answer Notes Are you a: current smoker When did you start smoking? 11/24/2001 Additional Findings: Tobacco User Moderate cigar ette smoker (10-19 cigs/day) Alcohol Screen Question Answer Notes Did you have a drink containing alcohol in the p ast year? No Points 0 Interpretation Negative Tobacco use other than smoking: Question Answer Notes Are you an other tobacco user? No Problems Problem Type SNOMED Code ICD Code Onset Dates Problem Status W/U Status Risk Notes Problem Acquired hammer toe of right foot ([id number] ) Other hammer toe(s) (acquired), right foot (M20.41) Active confirmed Problem Acquired hammer toe of left foot ([id number] ) Other hammer toe(s) (acquired), left foot (M20.42) Active confirmed Problem Polyneuropathy due to type 2 diabetes mellitus (121372644) Type 2 diabetes mellitus with diabetic polyneuropathy (E11.42) Active confirmed Encounters Encounter Location Date Provider Diagnosis [facility] [place] [address] 01/28/2024 Sherice Early Plan Of Treatment Pending Test Test Name Order Date [id number] NAIL, 1-5 03/04/2022 [id number] SKIN LESIONS, OVER 4 03/04/20 22 [id number] DYSTROPHIC NAILS ANY # Insurance Providers Payer Name Payer Address Payer Phone Subscriber Number Group Number Insured Name Patient Relationship to Insured Coverage Start Date Coverage End Date [facility] [address] [address] [place] [address] [id number] Magy Santiago Self - patient is the insured Medical (General) History Medical History History ICD Code asthma Back,Hip,and Knee pain Cataracts Diabetes mellitus High blood pressure Numbness thyroid Mumps Joint implants/screws Surgical History Surgery Date(Month/Year) neck surgery 2016
--- OUTSIDE RECORDS SUMMARY | 2025-01-20 18:39 | XMS_ITS | Encounter Summary ---
Author Organization [facility] Address [address] [place] [address] Care Team Providers Care Alum Mixer Name Role Phone Marycruz Zapata MD Primary Care Provider [phone] Reason for Visit * Reason Comments Cough Shortness of Breath Nasal Congestion Increased use of oxy gen at night. Patient with cough,congestion and shortness of breath. Recent sick contacts, History of COPD * Auth/Cert Specialty Diagnoses / Procedures Referred By Contac t Referred To Contact Diagnoses Acute hypoxic respiratory failure (CMS/HCC) Procedures [facility] IP/OBS CARE INITIAL MODERATE LEVEL PER DAY Yissel Frey MD [address] [place] [phone] Phone: tel: fax: [facility] Emergency [address] [place] [phone] Phone: tel: Referral ID Status Reason Start Date Expiration Date Visits Re quested Visits Authorized [id number] 1 1 Encounter Details Date Type Department Care Team (Late st Contact Info) Description 01/03/2025 3:18 PM EST - 01/05/2025 12:09 PM EST Hospital Encounter [facility] Medical Surgical Unit [address] [place] [address] Garry Lee MD [address] [place] [id number] Yissel Frey MD [address] [place] [id number] Radhames Laureano MD [address] [place] [address] Phoenix Riley MD [address] [place] [place] [id number] COPD exacerbation (CMS/HCC) (Primary Dx); Pneumonia due to infectious organism, unspecified laterality, unspecified part of lung Discharge Disposition: Home or Self Care Social History Tobacco Use Types Packs/Day Years Used Date Smoking Tobacco: Every Day Smokeless Tobacco: Never Alcohol Use Standard Drinks/Week Comments Never 0 (1 standard drink = 0.6 oz pur e alcohol) Interpersonal Safety Answer Date Record ed Physical Abuse 01/03/2025 Verbal Abuse 01/03/2025 Comments Unknown Sex and Gender Information Value Date Recorded Sex Assigned at Female 11/08/2024 7:59 PM EST Legal Sex Female 5:15 AM EST Gender Identity Female 11/08/2024 7:59 PM EST Sexual Orientation Straight 11/08/2024 7: 59 PM EST documented as of this encounter Last Filed Vital Signs Vital Sign Reading Time Taken Comments Blood Pressure 157/73 01/05/2025 7:48 AM EST Pulse 74 01/05/2025 7:48 AM EST Temperature 36 ??C (96.8 ??F) 01/05/2025 7:48 AM EST Respiratory Rate 16 01/05/2025 7:48 AM EST Oxygen Saturation 100% 01/05/2025 7:48 AM EST Inhaled Oxygen Concentration - - Weight 99.8 kg (220 lb) 01/03/2025 2:54 PM EST Height 160 cm (5' 3 ) 01/03/2025 2:54 PM EST Body Mass Index 38.97 01/03/2025 2:54 PM EST documented in this encounter Discharge Summaries * Phoenix Riley MD - 01/05/2025 9:01 AM EST Images from the original note were not included. HOSPITAL MEDICINE DISCHARGE SUMMARY Patient Information Magy Santiago : 1955 [69 y.o.] Admitting Provider Yissel Frey MD Discharge Provider Phoenix Riley MD Primary Care Physician Marycruz Zapata MD Admission Date 01/03/2025 Discharge Date 01/05/2025 Summary of Hospital Problems Primary Discharge Diagnosis: Acute hypoxic respiratory failure ([facility]) Secondary Discharge Diagnosis: Hyperglycemia COPD exacerbation HTN Discharge Disposition Home or Self Care Code Status at Discharge: Full Code - Confirmed Hospital Course Summary Presenting Problem/History of Present Illness COPD exacerbation ([facility]) [J44.1] Pneumonia due to infectious organism, unspecified laterality, unspecified part of lung [J18.9] Acute hypoxic respiratory failure ([facility]) [J96.01] Chief Complaint Patient presents with ??? Cough ??? Shortness of Breath ??? Nasal Congestion Increased use of oxygen at night. Patient with cough,congestion and shortness of breath. Recent sick contacts, History of COPD HPI 69 y.o. female past medical history significant for COPD on 2 L nasal cannula as needed aortic stenosis s/p TAVR on Xarelto, A-fib, hypertension, hyperlipidemia, hypothyroidism, diabetes, CKD stage III, depression tobacco use, and further history below presents for evaluation of worsening shortnessof breath. Patient reports having shortness of breath with minimal exertion and increased cough with thick sputum. Reports her diagnosed with COVID-19 2 weeks ago. Reports subjective fever, chills, diarrhea. Denies chest pain, palpitations, nausea, vomiting, abdominal pain. Denies worseninglower extremity edema. Denies focal numbness or weakness. Today patient was Beta-Maira to the bathroom and has been using oxygen 24/7 without much relief. She uses albuterol. Arrival to ED, blood pressure 130/73, heart rate 87, respiratory 20, O2 sat 92% on 2.5 L nasal cannula, afebrile. Labs revealed no leukocytosis 7, anemia H&H 10.9/34.8, electrolytes WNL, creatinine elevated 1.77 magnesium low 1.8 high-sensitivity troponin 23, CRP elevated 2.42. Influenza, COVID-19, RSV came back negative. EKG shows sinus rhythm with first- degree AV block. CT chest without contrast showed Terminal bronchiolitis in both lung bases with predominance in theright middle lobe. Hepatic cirrhosis. Received albuterol, azithromycin, ceftriaxone, IV Solu-Medrol and admitted hospital for further workup and treatment. Hospital Course Magy Santiago is a 69 y.o. female who has PMH of COPD on 2 L home oxygen, aortic stenosis s/p TAVR, A-fib, HTN, hyperlipidemia, hypothyroidism, diabetes, CKD stage III, active tobacco user. Patient presented to ED with complaints of shortness of breath and productive cough. 1. COPD with exacerbation Patient endorsed cough with increased sputum production and shortness of breath. Currently not having any significant wheezing. Patient is started prednisone to complete 5-day course along with doxycycline, albuterol, Spiriva. No evidence of pneumonia on chest x-ray and CT, CT reported terminal bronchiolitis in both lung bases. She was instructed to quit smoking. She needs pulmonology follow-up appointment. 2. Acute on chronic respiratory failure Patient was at her baseline oxygen of 2 L by nasal cannula. 3. Chronic smoker Patient actively smoking half PPD. She is reluctant to take nicotine patches. Smoke cessation counseling provided. 4. Hyperglycemia secondary to diabetes mellitus Hyperglycemia likely due to corticosteroid. A1c is 8.2%. While in hospital patient received Lantus 15 units and lispro sliding scale. Upon discharge metformin discontinued due to low GFR of 26. Januvia 25 mg daily was added. Continue with glimepiride 4 mg daily. 5. HTN Patient hypertensive with SBP in the 170s. I will continue with amlodipine 10 mg daily, torsemide 10 mg daily. Also added hydralazine 25 mg 3 times daily. Operative Procedures Performed: None Consults: none LABS/IMAGING CT Chest wo Contrast Result Date: 01/03/2025 INDICATION: COPD exacerbation CT chest without contrast Comparison: None Findings: The heart size is normal. Status post TAVR. The visualized thyroid and mediastinum are unremarkable. Tree-in-bud nodules in both lung bases with predominance in the right middle lobe. Nodular contour of the liver consistent with hepatic cirrhosis. The bones are intact. Terminal bronchiolitis in both lung bases with predominance in the right middle lobe. Hepatic cirrhosis. This document has been electronically signed by: Caio Austin MD on 01/03/2025 20:33:06 XR Chest 2 Views Result Date: 01/03/2025 XR CHEST 2 VIEWS INDICATION: chest pain TECHNIQUE: XR CHEST 2 VIEWS COMPARISON: No priors available. FINDINGS/IMPRESSION: NO ACUTE FINDINGS. Borderline heart size and pulmonary vascularity. TAVR. Lungs are clear and costophrenic angles are sharp. No acute osseous abnormality. Cervical fusion hardware. Degenerative changes of the shoulders. -------- FINAL REPORT -------- Dictated By: Antwan Mckee Dictated Date: 01/03/2025 16:45 ET Assigned Physician: Antwan Mckee Reviewed and Electronically Signed By: Antwan Mckee Signed Date: 01/03/2025 16:46 ET Workstation ID: [id number] Transcribed By: Self Edit Transcribed Date: 01/03/2025 16:45 ET No results found for: INR , PROTIME Lab Results Component Value Date NA 130 (L) 01/05/2025 K 4.0 01/05/2025 CL 96 01/05/2025 CO2 29 01/05/2025 GLUCOSE 290 (H) 01/05/2025 BUN 32 (H) 01/05/2025 CREATININE 2.00 (H) 01/05/2025 CALCIUM 9.5 01/05/2025 MG 1.8 (L) 01/03/2025 EGFR 26 (L) 01/05/2025 Lab Results Component Value Date WBC 6.5 01/04/2025 HGB 10.4 (L) 01/04/2025 HCT 34.0 (L) 01/04/2025 MCV 80.0 01/04/2025 PLT 01/04/2025 Comment: Not measured. Platelets appear adequate but clumped Discharge Medications Your medication list START taking these medications Instructions Last Dose Given Next Dose Due doxycycline 100 mg capsule Commonly known as: MONODOX Take 1 capsule (100 mg total) by mouth every 12 (twelve) hours for 5 days. Take with at least 8 ounces (large glass) of water, do not lie down for 30 minutes after. Administer 2 hours before or aftermultivitamins, antacids, or other products containing polyvalent cations (i.e., calcium, iron, magnesium, selenium, zinc). guaiFENesin 600 mg 12 hr tablet Commonly known as: MUCINEX Take 1 tablet (600 mg total) by mouth every 12 (twelve) hours for 7 days. Do not crush, chew, or split. hydrALAZINE 25 mg tablet Commonly known as: APRESOLINE Take 1 tablet (25 mg total) by mouth 3 (three) times a day. nicotine 14 mg/24 hr Commonly known as: NICODERM CQ Start taking on: January 06, 2025 Place 1 patch on the skin 1 (one) time each day. predniSONE 20 mg tablet Commonly known as: DELTASONE Start taking on: January 06, 2025 Take 2 tablets (40 mg total) by mouth 1 (one) time each day for 3 doses. SITagliptin phosphate 25 mg tablet Commonly known as: JANUVIA Take 1 tablet (25 mg total) by mouth 1 (one) time each day. tiotropium 18 mcg per inhalation capsule Commonly known as: SPIRIVA Place 1 capsule (18 mcg total) into inhaler and inhale 1 (one) time each day. CONTINUE taking these medications Instructions Last Dose Given Next Dose Due albuterol HFA 90 mcg/actuation inhaler Commonly known as: PROAIR HFA ; PROVENTIL HFA ; VENTOLIN HFA Inhale 2 puffs by mouth every 6 (six) hours if needed for shortness of breath or wheezing. amiodarone 200 mg tablet Commonly known as: PACERONE Take 1 tablet (200 mg total) by mouth 1 (one) time each day. amLODIPine 10 mg tablet Commonly known as: NORVASC Take 1 tablet (10 mg total) by mouth 1 (one) time each day. glimepiride 4 mg tablet Commonly known as: AMARYL Take 1 tablet (4 mg total) by mouth 1 (one) time each day. levothyroxine 100 mcg tablet Commonly known as: SYNTHROID, LEVOTHROID Take 1 tablet (100 mcg total) by mouth 1 (one) time each day. omeprazole [address] capsule Commonly known as: PriLOSEC Take 1 capsule (40 mg total) by mouth 2 (two) times a day. oxyCODONE-acetaminophen 5-325 mg per tablet Commonly known as: PERCOCET Take 1 tablet by mouth every 8 (eight) hours if needed for moderate pain. Max Daily Amount: 3 tablets rosuvastatin 5 mg tablet Commonly known as: CRESTOR Take 1 tablet (5 mg total) by mouth 1 (one) time each day. sertraline 50 mg tablet Commonly known as: ZOLOFT Take 1 tablet (50 mg total) by mouth 1 (one) time each day. torsemide 10 mg tablet Commonly known as: DEMADEX Take 1 tablet (10 mg total) by mouth 1 (one) time each day. Xarelto 15 mg tablet Generic drug: rivaroxaban Take 1 tablet (15 mg total) by mouth 1 (one) time each day in the evening. STOP taking these medications metFORMIN 1,000 mg tablet Commonly known as: GLUCOPHAGE Where to Get Your Medications These medications were sent to [facility]/pharmacy #[id number] - [place], [place] - [address] [place] [address] doxycycline 100 mg capsule guaiFENesin 600 mg 12 hr tablet hydrALAZINE 25 mg tablet nicotine 14 mg/24 hr predniSONE 20 mg tablet SITagliptin phosphate 25 mg tablet tiotropium 18 mcg per inhalation capsule Follow-Up Instructions and Recommendations No follow-up provider specified. No discharge procedures on file. There are no outpatient Patient Instructions on file for this admission. Outpatient Follow-Up No future appointments. Test Results Pending at Discharge Pending Labs Order Current Status Extra Tubes In process Lavender tube In process Physical Exam at time of Discharge Vitals Visit Vitals BP (!) 157/73 Pulse 74 Temp 36 ??C (96.8 ??F) Resp 16 Temp (24hrs), Av.1 ??C (96.9 ??F), Min:35.9 ??C (96.7 ??F), Max:36.2 ??C (97.1 ??F) Body mass index is 38.97 kg/m??. No results found for: PTWT , PTHT Physical Exam Vitals and nursing note reviewed. Constitutional: Appearance: She is obese. HENT: Head: Normocephalic and atraumatic. Nose: Nose normal. Mouth/Throat: Mouth: Mucous membranes are moist. Eyes: Extraocular Movements: Extraocular movements intact. Pupils: Pupils are equal, round, and reactive to light. Cardiovascular: Rate and Rhythm: Normal rate and regular rhythm. Pulmonary: Effort: Pulmonary effort is normal. No respiratory distress. Breath sounds: No wheezing or rales. Abdominal: General: There is no distension. Palpations: Abdomen is soft. Tenderness: There is no abdominal tenderness. There is no guarding. Musculoskeletal: General: No swelling. Normal range of motion. Skin: General: Skin is warm and dry. Neurological: General: No focal deficit present. Mental Status: She is alert. Mental status is at baseline. I spoke with the patient regarding the discharge plan. The discharge plan was discussed with case management and nursing staff. Patient verbalized understanding and was agreeable with the discharge plan. Total Time Spent on Discharge Process: Greater than 30 minutes. Time was spent educating patient, making a comprehensive discharge plan, discussion with staff regarding the discharge plan, medication reconciliation and discharge summary. Phoenix Riley MD 01/05/2025 9:02 AM EST documented in this encounter Discharge Instructions * Discharge Instructions* Phoenix Riley MD - 01/05/2025 8:59 AM EST Make follow-up appointment to see your primary care provider. Stop taking metformin due to impairedkidney function. Abstain from cigarette use. * Attachments The following attachments cannot be sent through Care Everywhere. * COPD (Ethiopian) * Asthma or COPD: Using a Dry Powder Inhaler (Ethiopian) * COPD Exacerbation Plan (Ethiopian) documented in this encounter Medications at Time of Discharge albuterol HFA (PROAIR HFA ; PROVENTIL HFA ; VENTOLIN HFA) 90 mcg/actuation inhaler Inhale 2 puffs by mouth every 6 (six) hours if needed for shortness of breath or wheezing. 12/30/2024 amiodarone (PACERONE) 200 mg tablet Take 1 tablet (200 mg total) by mouth 1 (one) time each day. 12/18/2024 amLODIPine (NORVASC) 10 mg tablet Take 1 tablet (10 mg total) by mouth 1 (one) time each day. 10/23/2024 hydrALAZINE (APRESOLINE) 25 mg tablet Take 1 tablet (25 mg total) by mouth 3 (three) times a day. 90 each 11 01/05/2025 6 levothyroxine (SYNTHROID, LEVOTHROID) 100 mcg tablet Take 1 tablet (100 mcg total) by mouth 1 (one) time each day. 06/18/2024 nicotine (NICODERM CQ) 14 mg/[address] 1 patch on the skin 1 (one) time each day. 30 each 01/06/2025 5 glimepiride (AMARYL) 4 mg tablet Take 1 tablet (4 mg total) by mouth 1 (one) time each day. omeprazole (PriLOSEC) [address] capsule Take 1 capsule (40 mg total) by mouth 2 (two) times a day. oxyCODONE-acetam inophen (PERCOCET) 5-325 mg per tablet Take 1 tablet by mouth every 8 (eight) hours if needed for moderate pain. Max Daily Amount: 3 tablets rosuvastatin (CRESTOR) 5 mg tablet Take 1 tablet (5 mg total) by mouth 1 (one) time each day. sertraline (ZOLOFT) 50 mg tablet Take 1 tablet (50 mg total) by mouth 1 (one) time each day. SITagliptin phosphate (JANUVIA) 25 mg tablet Take 1 tablet (25 mg total) by mouth 1 (one) time each day. 30 tablet 1 01/05/2025 5 tiotropium (SPIRIVA) 18 mcg per inhalation capsule Place 1 capsule (18 mcg total) into inhaler and inhale 1 (one) time each day. 1 each 12 01/05/2025 5 torsemide (DEMADEX) 10 mg tablet Take 1 tablet (10 mg total) by mouth 1 (one) time each day. Xarelto 15 mg tablet Take 1 tablet (15 mg total) by mouth 1 (one) time each day in the evening. doxycycline (MONODOX) 100 mg capsule Take 1 capsule (100 mg total) by mouth every 12 (twelve) hours for 5 days. Take with at least 8 ounces (large glass) of water, do not lie down for 30 minutes after. Administer 2 hours before or after multivitamins, antacids, or other products containing polyvalent cations (i.e., calcium, iron, magnesium, selenium, zinc). 10 each 01/05/2025 5 guaiFENesin (MUCINEX) 600 mg 12 hr tablet Take 1 tablet (600 mg total) by mouth every 12 (twelve) hours for 7 days. Do not crush, chew, or split. 14 each 01/05/2025 5 predniSONE (DELTASONE) 20 mg tablet Take 2 tablets (40 mg total) by mouth 1 (one) time each day for 3 doses. 6 each 01/06/2025 5 documented as of this encounter Ordered Prescriptions Prescription Sig Dispense Quantity Refills Last Filled Start Date End Date tiotropium (SPIRIVA) 18 mcg per inhalation capsule Place 1 capsule (18 mcg total) into inhaler and inhale 1 (one) time each day. 1 each 12 01/05/2025 5 SITagliptin phosphate (JANUVIA) 25 mg tablet Take 1 tablet (25 mg total) by mouth 1 (one) time each day. 30 tablet 1 01/05/2025 5 nicotine (NICODERM CQ) 14 mg/[address] 1 patch on the skin 1 (one) time each day. 30 each 01/06/2025 5 hydrALAZINE (APRESOLINE) 25 mg tablet Take 1 tablet (25 mg total) by mouth 3 (three) times a day. 90 each 01/05/2025 6 predniSONE (DELTASONE) 20 mg tablet Take 2 tablets (40 mg total) by mouth 1 (one) time each day for 3 doses. 6 each 01/06/2025 5 guaiFENesin (MUCINEX) 600 mg 12 hr tablet Take 1 tablet (600 mg total) by mouth every 12 (twelve) hours for 7 days. Do not crush, chew, or split. 14 each 01/05/2025 5 doxycycline (MONODOX) 100 mg capsule Take 1 capsule (100 mg total) by mouth every 12 (twelve) hours for 5 days. Take with at least 8 ounces (large glass) of water, do not lie down for 30 minutes after. Administer 2 hours before or after multivitamins, antacids, or other products containing polyvalent cations (i.e., calcium, iron, magnesium, selenium, zinc). 10 each 01/05/2025 5 documented in this encounter Discharge Disposition Disposition Code Departure Means Destination Home or Self Care documented in this encounter Progress Notes * Rose Marie Marmolejo RN - 01/05/2025 11:47 AM EST Patient being d/c home self care. All medications sent to patient preferred pharmacy. Educated patient on name, dose, frequency, indication and side effects. Educated patient to complete course of antibiotics even if feeling better. All discharge instructions reviewed - verbalized understanding. All questions answered. IV removed. W/C requested. Family at bedside to transport home * Cynthia Capellan RN - 01/05/2025 9:41 AM EST 01/05/25 0941 Transportation What day is the transport expected? 01/05/25 Final Discharge Disposition Home or Self Care Pt d/c home self care. Family to transport home. * Laura Petit RN - 01/05/2025 1:00 AM EST Problem: Cognitive: Acute Pain Goal: Expressions of feelings of enhanced comfort will increase Outcome: Progressing Goals: Identify possible barriers to meeting goals/advancing plan of care: O2 weaning trial Stability of the patient: Moderately Unstable - Medium risk of patient condition declining or worsening End of Shift Summary: * Lyssa Moss RN - 01/04/2025 2:56 PM EST 01/04/25 1456 Initial Transition Plan Initial Transition Plan Home Discharge Planning Living Arrangements Spouse/significant other;Children Type of Residence Private residence Assistive Devices Dentures lower;Dentures upper;Walker Support Systems Children;Spouse/significant other Medication Coverage Has Med Coverage Under Insurance Plan Yes Medication Affordability No concerns related to payment for meds Anticipated Discharge Needs Discipline following for SNF placement [employer]ing [employer] Informed Choice Informed Choice Given? Yes Active with [employer] for home O2. Patient states she wears it as needed * Phoenix Riley MD - 01/04/2025 2:18 PM EST Images from the original note were not included. ALEXANDRU PROGRESS NOTE Date: 01/04/2025 Author: Phoenix Riley MD Patient ID: Magy Santiago is a 69 y.o. female : 1955 MR#: [id number] ASSESSMENT & PLAN Assessment/Plan Principal Problem: Acute hypoxic respiratory failure ([facility]) Magy Santiago is a 69 y.o. female who has PMH of COPD on 2 L home oxygen, aortic stenosis s/p TAVR, A-fib, HTN, hyperlipidemia, hypothyroidism, diabetes, CKD stage III, active tobacco user. Patient presented to ED with complaints of shortness of breath and productive cough. 1. COPD with exacerbation Patient endorsed cough with increased sputum production and shortness of breath. Currently not having any significant wheezing. Will continue prednisone 40 mg x 5 days, DuoNebs, doxycycline. No evidence of pneumonia on chest x-ray and CT, CT reported terminal bronchiolitis in both lung bases. 2. Acute on chronic respiratory failure At baseline patient was on 2 L oxygen as needed. Currently on 4 L oxygen via nasal cannula. Will continue to do daily weaning trial. 3. Chronic smoker Patient actively smoking half PPD. She is reluctant to take nicotine patches. Smoke cessation counseling provided. 4. Hyperglycemia secondary to diabetes mellitus Hyperglycemia likely due to corticosteroid. A1c is 8.2%. I have added Lantus 15 units, lispro sliding scale. I will add Premeal Humalog 5 units. 5. HTN Patient hypertensive with SBP in the 170s. I will continue with amlodipine 10 mg daily, torsemide 10 mg daily. I will add hydralazine 25 mg 3 times daily. SUBJECTIVE Subjective No events overnight. Patient complained of cough with yellow sputum. She was asking if she could gohome. She denied chest pain, nausea, vomit, fever, chills. Allergies Patient has no known allergies. Current Medications: amiodarone, 200 mg, oral, Daily amLODIPine, 10 mg, oral, Daily atorvastatin, 20 mg, oral, Nightly doxycycline, 100 mg, oral, q12h CHLOE guaiFENesin, 600 mg, oral, q12h CHLOE insulin glargine, 15 Units, subcutaneous, q AM insulin lispro, 1-6 Units, subcutaneous, Before meals & nightly ipratropium-albuteroL, 3 mL, nebulization, 4x daily levothyroxine, 100 mcg, oral, Daily nicotine, 1 patch, transdermal, Daily pantoprazole, 40 mg, oral, BID AC predniSONE, 40 mg, oral, Daily rivaroxaban, 15 mg, oral, q PM sertraline, 50 mg, oral, Daily torsemide, 10 mg, oral, Daily PRN medications: acetaminophen, dextrose 50%, dextrose 50%, dextrose, dextrose, glucagon injection,oxyCODONE-acetaminophen OBJECTIVE Vitals: 01/04/25 0408 01/04/25 0640 01/04/25 0802 01/04/25 0825 BP: (!) 165/91 (!) 153/81 (!) 173/90 BP Location: Left arm Left arm Patient Position: Lying Lying Pulse: 77 73 77 Resp: 16 20 Temp: 36.1 ??C (97 ??F) 36.6 ??C (97.8 ??F) TempSrc: Temporal Temporal SpO2: 96% 95% 93% Weight: Height: Physical Exam LABS HEMATOLOGY Lab Results Component Value Date WBC 6.5 01/04/2025 HGB 10.4 (L) 01/04/2025 HCT 34.0 (L) 01/04/2025 MCV 80.0 01/04/2025 PLT 01/04/2025 Comment: Not measured. Platelets appear adequate but clumped CHEMISTRY Lab Results Component Value Date GLUCOSE 548 (HH) 01/04/2025 NA 132 (L) 01/04/2025 K 4.3 01/04/2025 CO2 25 01/04/2025 CL 98 01/04/2025 BUN 18 01/04/2025 CREATININE 1.89 (H) 01/04/2025 EGFR 28 (L) 01/04/2025 CALCIUM 9.3 01/04/2025 MG 1.8 (L) 01/03/2025 ANIONGAP 9 01/04/2025 Recent Results (from the past week) [id number], RSV, Influenza A and B qualitative RT-PCR Collection Time: 01/03/25 2:58 PM Specimen: Naris, Left; Swab Result Value Ref Range Influenza A PCR Not Detected Not Detected Influenza B PCR Not Detected Not Detected RSV PCR Not Detected Not Detected SARS COV-2 Not Detected Not Detected Imaging: CT Chest wo Contrast Narrative: INDICATION: COPD exacerbation CT chest without contrast Comparison: None Findings: The heart size is normal. Status post TAVR. The visualized thyroid and mediastinum are unremarkable. Tree-in-bud nodules in both lung bases with predominance in the right middle lobe. Nodular contour of the liver consistent with hepatic cirrhosis. The bones are intact. Impression: Terminal bronchiolitis in both lung bases with predominance in the right middle lobe. Hepatic cirrhosis. This document has been electronically signed by: Caio Austin MD on 01/03/2025 20:33:06 XR Chest 2 Views Narrative: XR CHEST 2 VIEWS INDICATION: chest pain TECHNIQUE: XR CHEST 2 VIEWS COMPARISON: No priors available. Impression: FINDINGS/IMPRESSION: NO ACUTE FINDINGS. Borderline heart size and pulmonary vascularity. TAVR. Lungs are clear and costophrenic angles are sharp. No acute osseous abnormality. Cervical fusion hardware. Degenerative changes of the shoulders. -------- FINAL REPORT -------- Dictated By: Antwan Mckee Dictated Date: 01/03/2025 16:45 ET Assigned Physician: Antwan Mckee Reviewed and Electronically Signed By: Antwan Mckee Signed Date: 01/03/2025 16:46 ET Workstation ID: [id number] Transcribed By: Self Edit Transcribed Date: 01/03/2025 16:45 ET DAILY CARE CHECKLIST Length of Stay: 18h 27m VTE Prophylaxis: Rivaroxaban Resuscitation: Full Code - Confirmed IV Access: Peripheral Tubes, Catheters, Devices: None PCP: Marycruz Zapata MD Disposition: Likely discharge home within 24 hours once blood sugars improved Phoenix Riley MD 01/04/25 2:18 PM EST * Dora Meléndez RN - 01/03/2025 2:52 PM EST Pt c/o feeling sick for 1.5weeks +cough/fever/mucous/nasal congestion Feels weak and dizzy x1.5 weeks Oxygen 2lnc all day- pt presents without oxygen * Garry Lee MD - 01/03/2025 2:49 PM EST Emergency Medicine Note Patient Name: Magy Santiago Initial Evaluation: 01/03/2025 : 1955 Patient's PCP: Marycruz Zapata MD Emergency Physician: Garry Lee MD History of Present Illness Chief Complaint: Chief Complaint Patient presents with ??? Cough ??? Shortness of Breath ??? Nasal Congestion Increased use of oxygen at night. Patient with cough,congestion and shortness of breath. Recent sick contacts, History of COPD HPI: Is a 69-year-old female history of diabetes type 2 hypertension COPD usually uses oxygen as needed or at night now for the past 2 weeks she has had lower respiratory infectious type symptoms with productive thick sputum. Requiring oxygen 16/06. Has not been able to see her doctor. She states she is finally presenting today because she can barely walk to the bathroom without getting out of breath. She used her inhaler without relief. Does take diuretics but no change in leg swelling. Fever at 101 at home. ROS: I have performed a ROS with the pertinent positives and negatives documented in the history ofpresent illness. Previous History Past Medical History: Diagnosis Date ??? Diabetes mellitus type 2, controlled, with complications (CMS/HCC) DX:Diabetes mellitus type 2, controlled, with complications ([facility]) ??? Essential hypertension DX:Essential hypertension ??? High cholesterol DX:High cholesterol ??? Thyroid activity decreased DX:Thyroid activity decreased Past Surgical History: Procedure Laterality Date ??? CARPAL TUNNEL RELEASE Right 03/28/2022 PROCEDURE: [place] NEUROPLASTY &/TRANSPOS MEDIAN NRV CARPAL TUNNE; COMMENT: Dr. Mccullough Social History Tobacco Use ??? Smoking status: Every Day ??? Smokeless tobacco: Never Substance Use Topics ??? Alcohol use: Never ??? Drug use: Never No family history on file. has No Known Allergies. No current facility-administered medications on file prior to encounter. No current outpatient medications on file prior to encounter. Physical Exam ED Triage Vitals [01/03/25 1454] Temp Heart Rate Resp BP 36.3 ??C (97.3 ??F) 87 20 130/73 SpO2 Temp Source Heart Rate Source Patient Position 92 % Oral -- Sitting BP Location FiO2 (%) -- -- General: Ill-appearing with mild to moderate respiratory distress HEENT: PERRL, EOMI, external ears and nose appear unremarkable, airway is patent Neck: Supple, full range of motion, no meningismus, no JVD Chest: Bilateral expiratory wheezes, increased work of breathing at rest, left basilar rales. . Circulatory: The rate and rhythm , no murmurs rubs or gallops Abdomen: Non-distended, Non-Tender Extremities: Normal ROM,traece edema lower extremities bilaterally, ranging all extremities withoutdifficulty Skin: Warm and dry, well-perfused , no rashes Neuro: Alert and oriented x 3. no motor or sensory deficits Psyche: Normal affect Results Labs Reviewed [id number], RSV, FLU A AND B QUALITATIVE RT-PCR, INTERNAL LAB - Normal Result Value Influenza A PCR Not Detected Influenza B PCR Not Detected RSV PCR Not Detected SARS COV-2 Not Detected Narrative: Disclaimer: Testing was performed using the [employer] GeneXpert Xpress SARS-CoV-2 _Flu_RSV PLUS PCR assay. The manner in which this information is used to guide patient care is the responsibility of the healthcare provider. Results should be correlated with the clinical history, epidemiological data,and other data available to the clinician evaluating the patient. Negative results do not preclude infection. This test has been authorized by the FDA under an Emergency Use Authorization (EUA). Thistest is only authorized for the duration of time the declaration that circumstances exist justifying the authorization of the emergency use of in vitro diagnostic tests for detection of SARS-CoV-2 virus and/or diagnosis of COVID-19 infection under section 564 (b) (1) of the Act, 21 U.S.C 360bbb-3 (b) (1), unless the authorization is terminated or revoked sooner. Reference Range: Not Detected Fact sheet for Healthcare providers can be found at https://www.fda.gov/media/586565/download. Fact sheet for Healthcare patients can be found at https://www.fda.gov/media/228347/download. CBC AND DIFFERENTIAL Narrative: The following orders were created for panel order CBC and differential. Procedure Abnormality Status --------- ------ CBC auto differential[[id number]] Please view results for these tests on the individual orders. BASIC METABOLIC PANEL MAGNESIUM TROPONIN I HIGH SENSITIVITY TROPONIN I HIGH SENSITIVITY CBC WITH AUTO DIFFERENTIAL POCT GLUCOSE, BLOOD Abnormal Labs Reviewed - No abnormal labs to display XR Chest 2 Views (Results Pending) I have discussed the incidental/abnormal imaging and/or lab abnormalities with the patient and haveinstructed them the need for further evaluation and workup with their primary care doctor. I have provided the patient with a paper copy of the abnormality. The laboratory results, imaging results and other diagnostic exam results were reviewed in the EMR. EKG Interpretation Critical Care Time None Medical Decision Making Medications - No data to display ED Course as of 01/03/251945 Mon Jan 03, [id number] Mild renal insufficiency, mild anemia at 10.9 and mild hypomagnesemia [JL] 1753 Patient [JL] 1815 Chest x-ray is clear no white count but given her symptoms of productive sputum and obvious Rales in the left base I suspect clinical pneumonia will obtain a CT scan. She still carefully with atrest and requiring increased oxygen and oxygen. Admit for COPD exacerbation rule out pneumonia willobtain a CT [JL] 1816 So has a progression of her left bundle branch block. Her troponin is negative she may benefitfrom a cardiology consult. [JL] 1943 Patient's oxygen dropped to 87% with a good pleth, despite increasing her nasal cannula to 6 L. We are about to start high flow as her oxygen was not increasing however it is suddenly improved spontaneously but she remains on 6 L which is above her baseline. [JL] ED Course User Index [JL] Garry Lee MD Clinical Impressions as of 01/03/251945 COPD exacerbation ([facility]) Pneumonia due to infectious organism, unspecified laterality, unspecified part of lung Procedures Procedures Diagnosis No diagnosis found. Disposition Data Unavailable ED Prescriptions None Physician Attestation Garry Lee MD 01/03/251625 Garry Lee MD 01/03/251945 Garry Lee MD 01/03/251945 documented in this encounter H&P Notes * MAHOGANY Ward - 01/03/2025 9:22 PM EST Images from the original note were not included. [facility] Please contact author [MAHOGANY Ward] via [email or web address] Patient: Magy Santiago Admission Date/Time: 01/03/2025 3:18 PM : 1955 [69 y.o.] Patient's PCP: Marycruz Zapata MD Attending Provider: Radhames Laureano MD CHIEF COMPLAINT SOB HISTORY OF PRESENT ILLNESS Magy Santiago is a 69 y.o. female past medical history significant for COPD on 2 L nasal cannula as needed aortic stenosis s/p TAVR on Xarelto, A-fib, hypertension, hyperlipidemia, hypothyroidism, diabetes, CKD stage III, depression tobacco use, and further history below presents for evaluation of worsening shortness of breath. Patient reports having shortness of breath with minimal exertion andincreased cough with thick sputum. Reports her diagnosed with COVID-19 2 weeks ago. Reportssubjective fever, chills, diarrhea. Denies chest pain, palpitations, nausea, vomiting, abdominal pain. Denies worsening lower extremity edema. Denies focal numbness or weakness. Today patient was Beta-Maira to the bathroom and has been using oxygen 24/ without much relief. She uses albuterol. Arrival to ED, blood pressure 130/73, heart rate 87, respiratory 20, O2 sat 92% on 2.5 L nasal cannula, afebrile. Labs revealed no leukocytosis 7, anemia H&H 10.9/34.8, electrolytes WNL, creatinine elevated 1.77 magnesium low 1.8 high-sensitivity troponin 23, CRP elevated 2.42. Influenza, COVID-19, RSV came back negative. EKG shows sinus rhythm with first- degree AV block. CT chest without contrast showed Terminal bronchiolitis in both lung bases with predominance in theright middle lobe. Hepatic cirrhosis. Received albuterol, azithromycin, ceftriaxone, IV Solu-Medrol and admitted hospital for further workup and treatment. Review of Systems All points in 12 point review of systems are negative or as per above MEDICAL HISTORY Past Medical History Past Medical History: Diagnosis Date ??? Diabetes mellitus type 2, controlled, with complications (CMS/HCC) DX:Diabetes mellitus type 2, controlled, with complications (HCC) ??? Essential hypertension DX:Essential hypertension ??? High cholesterol DX:High cholesterol ??? Thyroid activity decreased DX:Thyroid activity decreased Past Surgical History Past Surgical History: Procedure Laterality Date ??? CARPAL TUNNEL RELEASE Right 03/28/2022 PROCEDURE: [place] NEUROPLASTY &/TRANSPOS MEDIAN NRV CARPAL TUNNE; COMMENT: Dr. Mccullough Social History reports that she has been smoking. She has never used smokeless tobacco. She reports that she does not drink alcohol and does not use drugs. Reports smoking 10 cigarettes daily Denies alcohol illicit drug use Lives at home with her family Ambulates with a walker Family History family history is not on file. Allergies has No Known Allergies. Home Medications Current Outpatient Medications Medication Instructions ??? albuterol HFA (PROAIR HFA ; PROVENTIL HFA ; VENTOLIN HFA) 90 mcg/actuation inhaler 2 puffs, Every 6 hours PRN ??? amiodarone (PACERONE) 200 mg, Daily ??? amLODIPine (NORVASC) 10 mg, Daily ??? glimepiride (AMARYL) 4 mg, oral, Daily ??? levothyroxine (SYNTHROID, LEVOTHROID) 100 mcg, Daily ??? metFORMIN (GLUCOPHAGE) 1,000 mg, oral, 2 times daily ??? omeprazole (PRILOSEC) 40 mg, oral, 2 times daily ??? oxyCODONE-acetaminophen (PERCOCET) 5-325 mg per tablet 1 tablet, oral, Every 8 hours PRN ??? rosuvastatin (CRESTOR) 5 mg, oral, Daily ??? sertraline (ZOLOFT) 50 mg, oral, Daily ??? torsemide (DEMADEX) 10 mg, oral, Daily ??? Xarelto 15 mg, oral, Every evening OBJECTIVE Vitals Visit Vitals BP (!) 170/76 (BP Location: Left arm) Pulse 85 Temp 36.7 ??C (98 ??F) Resp 24 Temp (24hrs), Av.6 ??C (97.8 ??F), Min:36.3 ??C (97.3 ??F), Max:36.7 ??C (98 ??F) Body mass index is 38.97 kg/m??. No results found for: PTWT , PTHT Physical Examination General: Age appropriate, pleasant. No acute distress. Laying comfortably on exam stretcher. Skin: Warm, dry, intact, no diaphoresis. HEENT: Atraumatic, normocephalic head, Patient is handling secretions without trismus or drooling. Speaking in full sentences. Neck: Soft/supple, full range of motion. No cervical spine tenderness noted. Cardiology: Regular rate and rhythm, no rubs or gallops, S1 and S2 auscultated. Respiratory: Wheezes to auscultation upper lobes bilaterally rales in lower lobes no accessory muscle use, retractions or tripoding; Abdominal/GI: Abdomen is not distended, Normal bowel sounds, abdomen soft and non-tender. No CVA tenderness. Peripheral Vascular: Non pitting edema on lower legs. Radial pulse 2 + and Dorsalis Pedis 1+ bilaterally. Neurological: No focal deficit. CN II-XII grossly intact. Musculoskeletal: No calf tenderness or asymmetry. Moving all extremities at the major joint spaces without difficulty. Psychiatric: Cooperative, appropriate mood & affect. ECG: Was ECG Performed? Yes . Sinus Rhythm? Yes. Signs of acute ischemia? No Further Interpretation: NSR LBBB LAB RESULTS (most recent) HEMATOLOGY Lab Results Component Value Date WBC 7.0 01/03/2025 HGB 10.9 (L) 01/03/2025 HCT 34.8 (L) 01/03/2025 MCV 79.6 01/03/2025 PLT 01/03/2025 Comment: Not measured. Platelets appear adequate but clumped CHEMISTRY Lab Results Component Value Date GLUCOSE 359 (H) 01/03/2025 NA 133 01/03/2025 K 3.5 01/03/2025 CO2 28 01/03/2025 CL 99 01/03/2025 BUN 13 01/03/2025 CREATININE 1.77 (H) 01/03/2025 EGFR 30 (L) 01/03/2025 CALCIUM 9.0 01/03/2025 MG 1.8 (L) 01/03/2025 ANIONGAP 6 01/03/[address] Chest wo Contrast Final Result Terminal bronchiolitis in both lung bases with predominance in the right middle lobe. Hepatic cirrhosis. This document has been electronically signed by: Caio Austin MD on 01/03/2025 20:33:06 XR Chest 2 Views Final Result FINDINGS/IMPRESSION: NO ACUTE FINDINGS. Borderline heart size and pulmonary vascularity. TAVR. Lungs are clear and costophrenic angles are sharp. No acute osseous abnormality. Cervical fusion hardware. Degenerative changes of the shoulders. -------- FINAL REPORT -------- Dictated By: Antwan Mckee Dictated Date: 01/03/2025 16:45 ET Assigned Physician: Antwan Mckee Reviewed and Electronically Signed By: Antwan Mckee Signed Date: 01/03/2025 16:46 ET Workstation ID: [id number] Transcribed By: Self Edit Transcribed Date: 01/03/2025 16:45 ET ASSESSMENT & PLAN COPD exacerbation This is a 69 y.o. female past medical history significant for COPD on 2 L nasal cannula as needed aortic stenosis s/p TAVR on Xarelto, A-fib, hypertension, hyperlipidemia, hypothyroidism, diabetes, CKD stage III, depression tobacco use, and further history below presents for evaluation of worseningshortness of breath. RSV, influenza, COVID-19 came back negative. No leukocytosis. CRP elevated 2.42. CT chest without contrast showed terminal bronchiolitis in both lungs bases though in the right middle lobe. In ED patient received IV ceftriaxone, azithromycin, IV Solu-Medrol and admitted hospital for further workup and treatment Continue Albuterol prn, Duoneb Q6H Continue IV ceftriaxone, azithromycin Continue IV Solu-Medrol 40mg Q8 hours Continue Chest physiotherapy cough and deep breathing Continue Mucinex 600mg BID Continue Flutter Valve TID Supplemental oxygen as needed. A-fib/severe aortic stenosis status post TAVR Secondary hypercoagulable state Continue home med amiodarone 200 mg daily and Xarelto 15 mg daily CHF Echocardiogram from June 2023 showed EF 65 to 70% Continue home med torsemide Hyperglycemia secondary to diabetes Arrival, random blood glucose 272, Hold home med metformin Continue insulin sliding scale POC ACHS Carbs diet Anemia H&H 10.9/34.8. MCV 79.6. Appears to be chronic Anemia workup ordered-pending CKD stage III Creatinine level 1.77 Avoid nephrotoxins Monitor kidney function closely Hypertension Continue home med amlodipine Hypothyroidism Continue home med levothyroxine 137 mcg daily Hyperlipidemia Continue home med statin Depression Continue home med sertraline Tobacco use Counseled on smoking cessation for greater than 5 minutes with multiple cessation techniques offered. Patient offered nicotine patch DVT Prophylaxis: On Xarelto Pneumoboots Code Status: Full code-confirmed with the patient HCP: Son Duy [phone] Laureano 75 minutes or greater was spent on performing a medically appropriate history and physical examination, review of laboratory and radiology data requiring a high level of medical decision making. Cosigned by Radhames Laureano MD at 01/04/2025 10:21 AM EST Associated attestation - Radhames Laureano MD - 01/04/2025 10:21 AM EST This is a split/shared visit with MAHOGANY Ward. I personally performed the medical decision making (MDM) for the care of this patient on 01/03/2025 as documented below 69 year-old female with history of hypoxemic respiratory failure on 2 L/min O2 secondary to COPD, aortic stenosis status post TAVR placement, atrial fibrillation on rivaroxaban anticoagulation, type 2 diabetes mellitus, hypertension, hyperlipidemia, hypothyroidism, chronic kidney disease stage III, depression, and tobacco dependence presents with acute on chronic hypoxemic respiratory failure secondary to exacerbation of COPD. After discussion with ER provider, the patient be admitted to the hospital. The patient has increased work of breathing and is requiring 4 L supplemental O2. Influenza/RSV/COVID-19 PCR is negative. The patient does not have a leukocytosis. We will treat the patient with ceftriaxone azithromycin pending a procalcitonin level. She received methylprednisolone, mucolytic therapy, and nebulizer treatments for her COPD. Pulmonary toileting via an Acapella valve and incentive spirometry will be encouraged. We will wean oxygen as tolerated. Management of chronic medical problems as below. Radhames Laureano MD 01/04/25 10:17 AM EST documented in this encounter Plan of Treatment Not on file documented as of this encounter Procedures Procedure Name Priority Date/Time Associated Diagnosis Comments ECG ANNOTATED 01/06/2025 POCT GLUCOSE BLOOD Routine 01/05/2025 7: 46 AM EST EXTRA TUBES Routine 01/05/2025 6:06 AM EST LAVENDER - EDTA Routine 01/05/2025 6:06 AM EST BASIC METABOLIC PANEL Routine 01/05/2025 6:06 AM EST POCT GLUCOSE BLOOD Routine 01/04/2025 7: 39 PM EST POCT GLUCOSE BLOOD Routine 01/04/2025 3: 51 PM EST POCT GLUCOSE BLOOD Routine 01/04/2025 2: 08 PM EST POCT GLUCOSE BLOOD Routine 01/04/2025 12 :45 PM EST POCT GLUCOSE BLOOD Routine 01/04/2025 11 :06 AM EST POCT GLUCOSE BLOOD Routine 01/04/2025 8: 07 AM EST OXYGEN THERAPY, ADULT Routine 01/04/2025 8:02 AM EST COMPLETE BLOOD COUNT Routine 01/04/2025 6:19 AM EST HEMOGLOBIN A1C Add-On 01/04/2025 6:19 AM EST BASIC METABOLIC PANEL Routine 01/04/2025 6:19 AM EST PEP THERAPY Routine 01/04/2025 6:01 AM EST OXYGEN THERAPY, ADULT Routine 01/04/2025 4:55 AM EST OXYGEN THERAPY, ADULT Routine 01/04/2025 4:55 AM EST OXYGEN THERAPY, ADULT Routine 01/04/2025 4:55 AM EST POCT GLUCOSE BLOOD Routine 01/03/2025 9: 14 PM EST TROPONIN I HIGH SENSITIVITY STAT 01/03/2025 8:[address] CHEST WO CONTRAST STAT 01/03/2025 7:13 PM EST OXYGEN THERAPY, ADULT Routine 01/03/2025 6:24 PM EST OXYGEN THERAPY, ADULT Routine 01/03/2025 6:24 PM EST XR CHEST 2 VIEWS STAT 01/03/2025 4:11 PM EST ECG 12-LEAD STAT 01/03/2025 3:44 PM EST TROPONIN I HIGH SENSITIVITY STAT 01/03/2025 3:38 PM EST PROCALCITONIN STAT Add-on 01/03/2025 3:38 PM EST CBC WITH AUTO DIFFERENTIAL STAT 01/03/2025 3:38 PM EST CBC AND DIFFERENTIAL STAT 01/03/2025 3:38 PM EST C-REACTIVE PROTEIN Add-On 01/03/2025 3: 38 PM EST MAGNESIUM STAT 01/03/2025 3:38 PM EST BASIC METABOLIC PANEL STAT 01/03/2025 3:38 PM EST [id number], RSV, FLU A AND B QUALITATIVE RT-PCR, INTERNAL LAB STAT 01/03/2025 2:58 PM EST documented in this encounter Results * ECG-Annotated (01/06/2025) us Provider Onbase ECG ORDERABLES Final Result * (ABNORMAL) POCT Glucose, blood (01/05/2025 7:46 AM EST) [facility] Signature Glucose POCT 290(H) 70 - 100 mg/dL 01/05/2025 7:47 AM EST [facility] Blood Capillary blood specimen / Unknown 01/05/2025 7:46 AM EST 01/05/2025 7:48 AM EST Phoenix Riley MD LAB POINT OF CARE TE ST DOCKED DEVICE UNSOLICITED RESULTS Final Result [facility] [address] [place] [address], [place] [phone] * Lavender tube (01/05/2025 6:06 AM EST) Pathologist [facility] Extra Tube Hold for add-ons. 01/05/2025 10:[address] [facility] Comment:Auto resulted. Blood Venous blood specimen / Unknown Venipuncture / Unknown 01/05/2025 6:06 AM EST 01/05/2025 8:08 AM EST us Phoenix Riley MD LAB BLOOD ORDERABLES Final Re sult [facility] [address] [place] [address], * (ABNORMAL) Basic metabolic panel (01/05/2025 6:06 AM EST) [facility] Sodium 130(L) 133 - 145 mmol/L LAB CHEMISTRY METHOD 01/05/2025 8:[address] [facility] Potassium 4.0 3.5 - 5.5 mmol/L LAB CHEMISTRY METHOD 01/05/2025 8:[address] [facility] Chloride 96 96 - 110 mmol/L LAB CHEMISTRY METHOD 01/05/2025 8:[address] [facility] CO2 29 21 - 32 mmol/L LAB CHEMISTRY METHOD 01/05/2025 8:[address] [facility] Anion Gap 5 3 - 11 LAB CHEMISTRY METHOD 01/05/2025 8:[address] [facility] Glucose 312(H) 70 - 100 mg/dL LAB CHEMISTRY METHOD 01/05/2025 8:[address] [facility] BUN 32(H) 5 - 25 mg/dL LAB CHEMISTRY METHOD 01/05/2025 8:[address] [facility] Comment:Results verified by repeat testing Creatinine 2.00(H) 0.50 - 1.10 mg/dL LAB CHEMISTRY METHOD 01/05/2025 8:[address] [facility] eGFR 26(L) >=60 mL/min/1. 73m2 LAB CHEMISTRY METHOD 01/05/2025 8:16 AM EST [facility] Comment:Calculation based on the??Chronic Kidney Disease Epidemiology Collaboration (CKD-EPI) equation refit??without adjustment for race. BUN/Creatinine Ratio 16.0 LAB CHEMISTRY METHOD 01/05/2025 8:16 AM EST [facility] Calcium 9.5 8.5 - 10.5 mg/dL LAB CHEMISTRY METHOD 01/05/2025 8:16 AM EST [facility] Blood Venous blood specimen / Unknown Venipuncture / Unknown 01/05/2025 6:06 AM EST 01/05/2025 7:24 AM EST us Phoenix Riley MD LAB BLOOD ORDERABLES Final Re sult Performing Organization Address City/[facility]/ZIP Co de Phone Number [facility] [address] [place] [address], [place] [phone] * (ABNORMAL) POCT Glucose, blood (01/04/2025 7:39 PM EST) [facility] Glucose POCT 517(HH) 70 - 100 mg/dL 01/04/2025 7:40 PM EST [facility] POCT Comment RN Notified 01/04/2025 7:40 PM EST [facility] Blood Capillary blood specimen / Unknown 01/04/2025 7:39 PM EST 01/04/2025 7:41 PM EST us Phoenix Riley MD LAB POINT OF CARE TE ST DOCKED DEVICE UNSOLICITED RESULTS Final Result Performing Organization Address City/[facility]/ZIP Co de Phone Number [facility] [address] [place] [address], [place] [phone] * (ABNORMAL) POCT Glucose, blood (01/04/2025 3:51 PM EST) Glucose POCT 493(HH) 70 - 100 mg/dL 01/04/2025 3:51 PM EST [facility] POCT Comment RN Notified 01/04/2025 3:51 PM EST [facility] Blood Capillary blood specimen / Unknown 01/04/2025 3:51 PM EST 01/04/2025 3:52 PM EST us Phoenix Riley MD LAB POINT OF CARE TE ST DOCKED DEVICE UNSOLICITED RESULTS Final Result [facility] [address] [place] [address], [place] [phone] * (ABNORMAL) POCT Glucose, blood (01/04/2025 2:08 PM EST) Glucose POCT 548(HH) 70 - 100 mg/dL 01/04/2025 2:09 PM EST [facility] POCT Comment RN Notified 01/04/2025 2:09 PM EST [facility] Blood Capillary blood specimen / Unknown 01/04/2025 2:08 PM EST 01/04/2025 2:10 PM EST us Phoenix Riley MD LAB POINT OF CARE TE ST DOCKED DEVICE UNSOLICITED RESULTS Final Result [facility] [address] [place] [address], [place] [phone] * (ABNORMAL) POCT Glucose, blood (01/04/2025 12:45 PM EST) Glucose POCT 577(HH) 70 - 100 mg/dL 01/04/2025 12:47 PM EST [facility] Blood Capillary blood specimen / Unknown 01/04/2025 12:45 PM EST 01/04/2025 12:48 PM EST us Phoenix Riley MD LAB POINT OF CARE TE ST DOCKED DEVICE UNSOLICITED RESULTS Final Result [facility] [address] [place] [address], [place] [phone] * (ABNORMAL) POCT Glucose, blood (01/04/2025 11:06 AM EST) Glucose POCT 526(HH) 70 - 100 mg/dL 01/04/2025 11:07 AM EST [facility] POCT Comment RN Notified 01/04/2025 11:07 AM EST [facility] Blood Capillary blood specimen / Unknown 01/04/2025 11:06 AM EST 01/04/2025 11:08 AM EST us Phoenix Riley MD LAB POINT OF CARE TE ST DOCKED DEVICE UNSOLICITED RESULTS Final Result Performing Organization Address [facility]/ZIP Co de Phone Number [facility] [address] [place] [address], [place] [phone] * (ABNORMAL) POCT Glucose, blood (01/04/2025 8:07 AM EST) Glucose POCT 412(HH) 70 - 100 mg/dL 01/04/2025 8:08 AM EST [facility] POCT Comment RN Notified 01/04/2025 8:08 AM EST [facility] Blood Capillary blood specimen / Unknown 01/04/2025 8:07 AM EST 01/04/2025 8:09 AM EST us Phoenix Riley MD LAB POINT OF CARE TE ST DOCKED DEVICE UNSOLICITED RESULTS Final Result [facility] [address] [place] [address], [place] [phone] * (ABNORMAL) Hemoglobin A1c (01/04/2025 6:19 AM EST) Pathologist [facility] Hemoglobin A1C 8.2(H) <6.5 % LAB CHEMISTRY METHOD 01/04/2025 1:13 PM EST [facility] Mean Bld Glu Estim. 189 mg/dL LAB CHEMISTRY METHOD 01/04/2025 1:[address] [facility] Blood Venous blood specimen / Unknown Venipuncture / Unknown 01/04/2025 6:19 AM EST 01/04/2025 7:22 AM EST Phoenix Riley MD LAB BLOOD ORDERABLES Final Re sult [facility] [address] [place] [address], * (ABNORMAL) Complete blood count (01/04/2025 6:19 AM EST) [facility] WBC 6.5 4.8 - 10.8 K/mcL LAB HEMETOLOGY METHOD 01/04/2025 8:[address] [facility] RBC 4.30 3.80 - 4.80 M/mcL LAB HEMETOLOGY METHOD 01/04/2025 8:[address] [facility] Hemoglobin 10.4(L) 11.5 - 16.0 g/dL LAB HEMETOLOGY METHOD 01/04/2025 8:[address] [facility] Hematocrit 34.0(L) 35.0 - 47.0 % LAB HEMETOLOGY METHOD 01/04/2025 8:[address] [facility] MCV 80.0 79.0 - 98.0 FL LAB HEMETOLOGY METHOD 01/04/2025 8:[address] [facility] MCH 24.5(L) 27.0 - 32.0 pcg LAB HEMETOLOGY METHOD 01/04/2025 8:14 AM EST [facility] MCHC 30.6(L) 32.0 - 37.0 g/dL LAB HEMETOLOGY METHOD 01/04/2025 8:[address] [facility] RDW 16.9(H) 11.0 - 15.0 % LAB HEMETOLOGY METHOD 01/04/2025 8:[address] [facility] Platelets 01/04/2025 8:[address] [facility] Comment:Not measured. Platel ets appear adequate but clumped MPV 10.2 7.0 - 11.0 FL LAB HEMETOLOGY METHOD 01/04/2025 8:[address] [facility] NRBC 0.0 <1.0 % LAB HEMETOLOGY METHOD 01/04/2025 8:[address] [facility] NRBC Absolute 0.00 <0.10 K/mcL LAB HEMETOLOGY METHOD 01/04/2025 8:[address] [facility] Blood Venous blood specimen / Unknown Venipuncture / Unknown 01/04/2025 6:19 AM EST 01/04/2025 7:22 AM EST us Yissel Frey MD LAB BLOOD ORDERABLES Final Res ult [facility] [address] [place] [address], * (ABNORMAL) Basic metabolic panel (01/04/2025 6:19 AM EST) Sodium 132(L) 133 - 145 mmol/L LAB CHEMISTRY METHOD 01/04/2025 8:[address] [facility] Potassium 4.3 3.5 - 5.5 mmol/L LAB CHEMISTRY METHOD 01/04/2025 8:[address] [facility] Chloride 98 96 - 110 mmol/L LAB CHEMISTRY METHOD 01/04/2025 8:[address] [facility] CO2 25 21 - 32 mmol/L LAB CHEMISTRY METHOD 01/04/2025 8:[address] [facility] Anion Gap 9 3 - 11 LAB CHEMISTRY METHOD 01/04/2025 8:[address] [facility] Glucose 453(HH) 70 - 100 mg/dL LAB CHEMISTRY METHOD 01/04/2025 8:[address] [facility] BUN 18 5 - 25 mg/dL LAB CHEMISTRY METHOD 01/04/2025 8:[address] [facility] Creatinine 1.89(H) 0.50 - 1.10 mg/dL LAB CHEMISTRY METHOD 01/04/2025 8:[address] [facility] eGFR 28(L) >=60 mL/min/1. 73m2 LAB CHEMISTRY METHOD 01/04/2025 8:[address] [facility] Comment:Calculation based on the??Chronic Kidney Disease Epidemiology Collaboration (CKD-EPI) equation refit??without adjustment for race. BUN/Creatinine Ratio 9.5 LAB CHEMISTRY METHOD 01/04/2025 8:[address] [facility] Calcium 9.3 8.5 - 10.5 mg/dL LAB CHEMISTRY METHOD 01/04/2025 8:[address] [facility] Blood Venous blood specimen / Unknown Venipuncture / Unknown 01/04/2025 6:19 AM EST 01/04/2025 7:24 AM EST us Yissel Frey MD LAB BLOOD ORDERABLES Final Res ult [facility] [address] [place] [address], * (ABNORMAL) POCT Glucose, blood (01/03/2025 9:14 PM EST) Glucose POCT 359(H) 70 - 100 mg/dL 01/03/2025 9:15 PM EST [facility] Blood Capillary blood specimen / Unknown 01/03/2025 9:14 PM EST 01/03/2025 9:16 PM EST Radhames Laureano MD LAB POINT OF CARE T EST DOCKED DEVICE UNSOLICITED RESULTS Final Result Performing Organization Address [facility] Co de Phone Number [facility] [address] [place] [address], * Troponin I high sensitivity (01/03/2025 8:12 PM EST) High Sensitivity Troponin I 19 <=54 ng/L LAB CHEMISTRY METHOD 01/03/2025 9:47 PM EST [facility] Blood Venous blood specimen / Unknown Venipuncture / Unknown 01/03/2025 8:12 PM EST 01/03/2025 9:19 PM EST Narrative [facility] - 01/03/2025 9:47 PM EST High levels of biotin in samples may falsely decrease hsTroponin values. ??Use caution when interpreting hsTroponin results in patients taking biotin who exhibit renal impairment (eGFR <60) or in patients taking more than 20 mg/day of biotin. Yissel Frey MD LAB BLOOD ORDERABLES Final Res ult Performing Organization Address [facility] Co de Phone Number [facility] [address] [place] [address], [place] [phone] * CT Chest wo Contrast (01/03/2025 7:13 PM EST) Anatomical Region Laterality Modality Body Computed Tomogra phy 01/03/2025 8:33 PM EST Impressions 01/03/2025 8:33 PM EST Terminal bronchiolitis in both lung bases with predominance in the right middle lobe. Hepatic cirrhosis. This document has been electronically signed by: Caio Austin MD on 01/03/2025 20:33:06 Narrative 01/03/2025 8:33 PM EST INDICATION: COPD exacerbation CT chest without contrast Comparison: None Findings: The heart size is normal. Status post TAVR. The visualized thyroid and mediastinum are unremarkable. Tree-in-bud nodules in both lung bases with predominance in the right middle lobe. Nodular contour of the liver consistent with hepatic cirrhosis. The bones are intact. Procedure Note Caio Austin MD - 01/03/2025 INDICATION: COPD exacerbation CT chest without contrast Comparison: None Findings: The heart size is normal. Status post TAVR. The visualized thyroid and mediastinum are unremarkable. Tree-in-bud nodules in both lung bases with predominance in the right middle lobe. Nodular contour of the liver consistent with hepatic cirrhosis. The bones are intact. IMPRESSION: Terminal bronchiolitis in both lung bases with predominance in the right middle lobe. Hepatic cirrhosis. This document has been electronically signed by: Caio Austin MD on 01/03/2025 20:33:06 Yissel Frey MD IMG CT PROCEDURES Final Result * XR Chest 2 Views (01/03/2025 4:11 PM EST) Anatomical Region Laterality Modality Body Radiographic Anaid ging 01/03/2025 4:45 PM EST Impressions 01/03/2025 4:46 PM EST FINDINGS/IMPRESSION: NO ACUTE FINDINGS. Borderline heart size and pulmonary vascularity. ??TAVR. Lungs are clear and costophrenic angles are sharp. ??No acute osseous abnormality. ??Cervical fusion hardware. ??Degenerative changes of the shoulders. -------- FINAL REPORT -------- Dictated By: Antwan Mckee Dictated Date: 01/03/2025 16:45 ET Assigned Physician: Antwan Mckee Reviewed and Electronically Signed By: Antwan Mckee Signed Date: 01/03/2025 16:46 ET Workstation ID: [id number] Transcribed By: Self Edit Transcribed Date: 01/03/2025 16:45 ET Narrative 01/03/2025 4:46 PM EST XR CHEST 2 VIEWS INDICATION: chest pain TECHNIQUE: XR CHEST 2 VIEWS COMPARISON: No priors available. Procedure Note Antwan Mckee MD - 01/03/2025 XR CHEST 2 VIEWS INDICATION: chest pain TECHNIQUE: XR CHEST 2 VIEWS COMPARISON: No priors available. IMPRESSION: FINDINGS/IMPRESSION: NO ACUTE FINDINGS. Borderline heart size and pulmonary vascularity. TAVR. Lungs are clearand costophrenic angles are sharp. No acute osseous abnormality.Cervical fusion hardware. Degenerative changes of the shoulders. -------- FINAL REPORT -------- Dictated By: Antwan Mckee Dictated Date: 01/03/2025 16:45 ET Assigned Physician: Antwan Mckee Reviewed and Electronically Signed By: Antwan Mckee Signed Date: 01/03/2025 16:46 ET Workstation ID: [id number] Transcribed By: Self Edit Transcribed Date: 01/03/2025 16:45 ET us Nayan Thornton MD IMG XR PROCEDURES Final R esult * ECG 12 lead (01/03/2025 3:44 PM EST) Ventricular Rate ECG 83 BPM GEMUSE Atrial Rate 83 BPM GEMUSE P-R Interval 248 ms GEMUSE QRS Duration 162 ms GEMUSE Q-T Interval 458 ms GEMUSE QTc 538 ms GEMUSE P Wave Canmer 78 degrees GEMUSE R Canmer -46 degrees GEMUSE T Canmer 114 degrees GEMUSE ECG Interpretation Sinus rhythm with 1st degree A-V block Left bundle branch block Abnormal ECG When compared with ECG of 14-JUL-2023 08:33, Left bundle branch block is now Present Confirmed by Anshu LEAL JAMES ([id number]) on 01/03/2025 6:39:41 PM GEMUSE 01/03/2025 3:44 PM EST 01/03/2025 6:39 PM EST us Nayan Thornton MD ECG ORDERABLES Final Res ult GEMUSE * (ABNORMAL) C-reactive protein (01/03/2025 3:38 PM EST) C-Reactive Protein 2.42(H) <=0.50 mg/dL LAB CHEMISTRY METHOD 01/03/2025 9:05 PM EST [facility] Blood Venous blood specimen / Unknown Venipuncture / Unknown 01/03/2025 3:38 PM EST 01/03/2025 4:38 PM EST us Radhames Laureano MD LAB BLOOD ORDERABLES Final Result [facility] [address] [place] [address], [place] [phone] * Procalcitonin (01/03/2025 3:38 PM EST) Procalcitonin 0.14 <=0.16 ng/mL LAB CHEMISTRY METHOD 01/04/2025 9:07 AM EST [facility] Blood Venous blood specimen / Unknown Venipuncture / Unknown 01/03/2025 3:38 PM EST 01/03/2025 4:38 PM EST Narrative [facility] - 01/04/2025 9:07 AM EST Procalcitonin > 2.00 ng/ml: Procalcitonin Levels above 2.00 ng/ml, on the first day of ICU admission represent a high risk for progression to severe sepsis and/or septic shock. Procalcitonin < 0.50 ng/ml: Procalcitonin levels below 0.50 ng/ml on the first day of ICU admission represent a low risk for progression to severe sepsis and/or septic shock. Concentrations <0.5 ng/mL do not exclude an infection, on account of local ized infections (without systemic signs) which can be associated with such low concentrations, or a systemic infection in its initial stages (<6 hours). Furthermore, increased procalcitonin can occur without infection. PCT concentrations between 0.5 and 2.0 ng/mL should be interpreted taking into account the patient's history. It is recommended to retest PCT within 6-24 hours if any concentrations <2.0 ng/mL are obtained. us Yissel Frey MD LAB BLOOD ORDERABLES Final Res ult [facility] [address] [place] [address], * (ABNORMAL) CBC auto differential (01/03/2025 3:38 PM EST) WBC 7.0 4.8 - 10.8 K/mcL LAB HEMETOLOGY METHOD 01/03/2025 5:11 PM EST [facility] RBC 4.40 3.80 - 4.80 M/[facility] HEMETOLOGY METHOD 01/03/2025 5:[address] [facility] Hemoglobin 10.9(L) 11.5 - 16.0 g/dL LAB HEMETOLOGY METHOD 01/03/2025 5:[address] [facility] Hematocrit 34.8(L) 35.0 - 47.0 % LAB HEMETOLOGY METHOD 01/03/2025 5:11 PM EST [facility] MCV 79.6 79.0 - 98.0 FL LAB HEMETOLOGY METHOD 01/03/2025 5:[address] [facility] MCH 24.9(L) 27.0 - 32.0 pcg LAB HEMETOLOGY METHOD 01/03/2025 5:[address] [facility] MCHC 31.3(L) 32.0 - 37.0 g/dL LAB HEMETOLOGY METHOD 01/03/2025 5:[address] [facility] RDW 17.2(H) 11.0 - 15.0 % LAB HEMETOLOGY METHOD 01/03/2025 5:[address] [facility] Platelets 01/03/2025 5:[address] [facility] Comment:Not measured. Platel ets appear adequate but clumped MPV 10.3 7.0 - 11.0 FL LAB HEMETOLOGY METHOD 01/03/2025 5:[address] [facility] NRBC 0.0 <1.0 % LAB HEMETOLOGY METHOD 01/03/2025 5:[address] [facility] NRBC Absolute 0.00 <0.10 K/mcL LAB HEMETOLOGY METHOD 01/03/2025 5:[address] [facility] Neutrophils Relative 68.0 % LAB HEMETOLOGY METHOD 01/03/2025 5:[address] [facility] Lymphocytes Relative 21.7 % LAB HEMETOLOGY METHOD 01/03/2025 5:[address] [facility] Monocytes Relative 7.1 % LAB HEMETOLOGY METHOD 01/03/2025 5:[address] [facility] Eosinophils Relative 1.9 % LAB HEMETOLOGY METHOD 01/03/2025 5:[address] [facility] Basophils Relative 0.6 % LAB HEMETOLOGY METHOD 01/03/2025 5:[address] [facility] Immature Granulocytes Relative 0.7 % LAB HEMETOLOGY METHOD 01/03/2025 5:[address] [facility] Neutrophils Absolute 4.76 1.50 - 7.00 K/mcL LAB HEMETOLOGY METHOD 01/03/2025 5:[address] [facility] Lymphocytes Absolute 1.52 1.00 - 5.00 K/mcL LAB HEMETOLOGY METHOD 01/03/2025 5:[address] [facility] Monocytes Absolute 0.50 0.20 - 1.00 K/mcL LAB HEMETOLOGY METHOD 01/03/2025 5:[address] [facility] Eosinophils Absolute 0.13 0.00 - 0.50 K/mcL LAB HEMETOLOGY METHOD 01/03/2025 5:[address] [facility] Basophils Absolute 0.04 0.00 - 0.20 K/mcL LAB HEMETOLOGY METHOD 01/03/2025 5:11 PM EST [facility] Immature Granulocytes Absolute 0.05(H) 0.00 - 0.03 K/mcL LAB HEMETOLOGY METHOD 01/03/2025 5:11 PM EST [facility] Blood Venous blood specimen / Unknown Venipuncture / Unknown 01/03/2025 3:38 PM EST 01/03/2025 4:38 PM EST Nayan Thornton MD LAB BLOOD ORDERABLES Anabela l Result Performing Organization Address [facility]/ZIP Co de Phone Number [facility] [address] [place] [address], * Troponin I high sensitivity (01/03/2025 3:38 PM EST) [facility] High Sensitivity Troponin I 23 <=54 ng/L LAB CHEMISTRY METHOD 01/03/2025 5:05 PM EST [facility] Blood Venous blood specimen / Unknown Venipuncture / Unknown 01/03/2025 3:38 PM EST 01/03/2025 4:38 PM EST Narrative [facility] - 01/03/2025 5:05 PM EST High levels of biotin in samples may falsely decrease hsTroponin values. ??Use caution when interpreting hsTroponin results in patients taking biotin who exhibit renal impairment (eGFR <60) or in patients taking more than 20 mg/day of biotin. Yissel Frey MD LAB BLOOD ORDERABLES Final Res ult Performing Organization Address [facility]/ZIP Co de Phone Number [facility] [address] [place] [address], * (ABNORMAL) Magnesium (01/03/2025 3:38 PM EST) [facility] Magnesium 1.8(L) 1.9 - 2.6 mg/dL LAB CHEMISTRY METHOD 01/03/2025 5:23 PM EST [facility] Blood Venous blood specimen / Unknown Venipuncture / Unknown 01/03/2025 3:38 PM EST 01/03/2025 4:38 PM EST us Nayan Thornton MD LAB BLOOD ORDERABLES Anabela l Result [facility] [address] [place] [address], [place] [phone] * (ABNORMAL) Basic metabolic panel (01/03/2025 3:38 PM EST) Sodium 133 133 - 145 mmol/L LAB CHEMISTRY METHOD 01/03/2025 5:[address] [facility] Potassium 3.5 3.5 - 5.5 mmol/L LAB CHEMISTRY METHOD 01/03/2025 5:[address] [facility] Chloride 99 96 - 110 mmol/L LAB CHEMISTRY METHOD 01/03/2025 5:[address] [facility] CO2 28 21 - 32 mmol/L LAB CHEMISTRY METHOD 01/03/2025 5:[address] [facility] Anion Gap 6 3 - 11 LAB CHEMISTRY METHOD 01/03/2025 5:[address] [facility] Glucose 272(H) 70 - 100 mg/dL LAB CHEMISTRY METHOD 01/03/2025 5:[address] [facility] BUN 13 5 - 25 mg/dL LAB CHEMISTRY METHOD 01/03/2025 5:[address] [facility] Creatinine 1.77(H) 0.50 - 1.10 mg/dL LAB CHEMISTRY METHOD 01/03/2025 5:[address] [facility] eGFR 30(L) >=60 mL/min/1. 73m2 LAB CHEMISTRY METHOD 01/03/2025 5:[address] [facility] Comment:Calculation based on the??Chronic Kidney Disease Epidemiology Collaboration (CKD-EPI) equation refit??without adjustment for race. BUN/Creatinine Ratio 7.3 LAB CHEMISTRY METHOD 01/03/2025 5:23 PM EST [facility] Calcium 9.0 8.5 - 10.5 mg/dL LAB CHEMISTRY METHOD 01/03/2025 5:23 PM EST [facility] Blood Venous blood specimen / Unknown Venipuncture / Unknown 01/03/2025 3:38 PM EST 01/03/2025 4:38 PM EST us Nayan Thornton MD LAB BLOOD ORDERABLES Anabela l Result [facility] [address] [place] [address], [place] [phone] * [id number], RSV, Influenza A and B qualitative RT-PCR (01/03/2025 2:58 PM EST) Influenza A PCR Not Detected Not Detected LAB MICROBIOLOGY METHOD 01/03/2025 4:13 PM EST [facility] Influenza B PCR Not Detected Not Detected LAB MICROBIOLOGY METHOD 01/03/2025 4:13 PM EST [facility] RSV PCR Not Detected Not Detected LAB MICROBIOLOGY METHOD 01/03/2025 4:13 PM EST [facility] SARS COV-2 Not Detected Not Detected LAB MICROBIOLOGY METHOD 01/03/2025 4:13 PM EST [facility] Swab Structure of left anterior naris / Unknown Non-blood Collection / Unknown 01/03/2025 2:58 PM EST 01/03/2025 3:09 PM EST Narrative [facility] - 01/03/2025 4:13 PM EST Disclaimer: ??Testing was performed using the [employer] GeneXpert Xpress SARS-CoV-2 _Flu_RSV PLUS PCR assay. ??The manner in which this information is used to guide patient care is the responsibility of the healthcare provider. ??Results should be correlated with the clinical history, epidemiological data, and other data available to the clinician evaluating the patient. ??Negative results do not preclude infection. ??This test has been authorized by the FDA under an Emergency Use Authorization (EUA). ??This test is only authorized for the duration of time the declaration that circumstances exist justifying the authorization of the emergency use of in vitro diagnostic tests for detection of SARS-CoV-2 virus and/or diagnosis of COVID-19 infection under section 564 (b) (1) of the Act, 21 U.S.C 360bbb-3 (b) (1), unless the authorization is terminated or revoked sooner. ?? Reference Range: Not Detected Fact sheet for Healthcare providers can be found at https://www.fda.gov/media/141319/download. ?? Fact sheet for Healthcare patients can be found at https://www.fda.gov/media/365749/download. Nayan Thornton MD LAB MICROBIOLOGY - GENERA L ORDERABLES Final Result [facility] ([facility] [address] [place] [address], documented in this encounter Visit Diagnoses Diagnosis Acute hypoxic respiratory failure (CMS/HCC)- Primary COPD exacerbation ([facility]/HCC) Obstructive chronic bronchitis with exacerbation Pneumonia due to infectious organism, unspecified laterality, unspecified part of lung COPD exacerbation ([facility]/HCC) Obstructive chronic bronchitis with exacerbation Hyperglycemia due to diabetes mellitus ([facility]) documented in this encounter Admitting Diagnoses Diagnosis Acute hypoxic respiratory failure ([facility]/HCC) COPD exacerbation ([facility]/HCC) Obstructive chronic bronchitis with exacerbation documented in this encounter Administered Medications Inactive Administered Medications - up to 3 most recent administrations Medication Order MAR Action Action Date Dose Rate Site acetaminophen (TYLENOL) tablet 650 mg 650 mg, oral, Every 6 hours PRN, mild pain, headaches, Starting on Fri01/04/25 at 0034 albuterol 2.5 mg /3 mL (0.083 %) nebulizer solution 5 mg 5 mg, nebulization, Once, On Fri01/03/25 at 1628, For 1 dose Given 01/03/2025 4:47 PM EST 5 mg amiodarone (PACERONE) tablet 200 mg 200 mg, oral, Daily, First dose on Fri01/04/25 at 0900 Given 01/05/2025 8:43 AM EST 200 mg Given 01/04/2025 8:28 AM EST 200 mg amLODIPine (NORVASC) tablet 10 mg 10 mg, oral, Daily, First dose on Fri01/04/25 at 0900 Given 01/05/2025 8:43 AM EST 10 mg Given 01/04/2025 8:28 AM EST 10 mg atorvastatin (LIPITOR) tablet 20 mg 20 mg, oral, Nightly, First dose on Fri01/03/25 at 2100 Given 01/04/2025 9:23 PM EST 20 mg Given 01/03/2025 11:54 PM EST 20 mg azithromycin (ZITHROMAX) 500 mg in sodium chloride 0.9 % 250 mL IVPB 500 mg, intravenous, at 250 mL/hr, Administer over 60 Minutes, Once, On Fri01/03/25 at 1628, For 1 dose, Indication: Pneumonia, Community Acquired New Bag 01/03/2025 4:53 PM EST 500 mg 250 mL/hr cefTRIAXone (ROCEPHIN) 1 g in sterile water 10 mL IV syringe 1 g, intravenous, at 200 mL/hr, Administer over 3 Minutes, Once, On Fri01/03/25 at 1628, For 1 dose, Do not administer simultaneously with any calcium containing solutions via a Y-site in any patient., Indication: Pneumonia, Community Acquired Given 01/03/2025 4:48 PM EST 1 g 200 mL/hr doxycycline (MONODOX) capsule 100 mg 100 mg, oral, Every 12 hours scheduled, First dose on Fri01/04/25 at 0900, For 7 days, Take with at least 8 ounces (large glass) of water, do not lie down for 30 minutes after. Administer 2 hours before or after multivitamins, antacids, or other products containing polyvalent cations (i.e., calcium, iron, magnesium, selenium, zinc)., Indication: Other, Specify: copd Given 01/05/2025 8:43 AM EST 100 mg Given 01/04/2025 9:23 PM EST 100 mg Given 01/04/2025 9:37 AM EST 100 mg guaiFENesin (MUCINEX) 12 hr tablet 600 mg 600 mg, oral, Every 12 hours scheduled, First dose on Fri01/03/25 at 2315, Administer with plenty of fluids to ensure proper action. Do not crush, chew, or split. Given 01/05/2025 8:43 AM EST 600 mg Given 01/04/2025 9:23 PM EST 600 mg Given 01/04/2025 8:28 AM EST 600 mg hydrALAZINE (APRESOLINE) tablet 25 mg 25 mg, oral, 3 times daily, First dose on Fri01/04/25 at 1445 Given 01/05/2025 8:43 AM EST 25 mg Given 01/04/2025 9:23 PM EST 25 mg Given 01/04/2025 3:31 PM EST 25 mg insulin glargine (LANTUS) injection 15 Units 15 Units, subcutaneous, Every morning, First dose on Fri01/04/25 at 0900, Notify provider: -If patient is currently or will become NPO -If TPN was or will be interrupted or discontinued -For approval to hold long acting insulin Given 01/05/2025 8:41 AM EST 15 Units Left Upper Arm (Back ) Given 01/04/2025 10:35 AM EST 15 Units L eft Lower Abdomen insulin lispro injection 1-6 Units 1-6 Units, subcutaneous, 4 times daily before meals and nightly, First dose on Fri01/03/25 at 2100, Indication: Total Daily Dose (TDD) LESS than 40 units Correction Scale: Low Dose Administer with meal and/or mealtime dose of insulin to correct high blood glucose If mealtime insulin dose not given (e.g. patient NPO or not eating), still administer correction factor for high blood glucose Given 01/05/2025 8:41 AM EST 3 Units Left Upper Arm (Back ) Given 01/04/2025 4:44 PM EST 6 Units Le ft Upper Arm (Back) Given 01/04/2025 11:44 AM EST 6 Units R ight Upper Arm (Back) insulin lispro injection 10 Units 10 Units, subcutaneous, Once, On Fri01/04/25 at 1345, For 1 dose Given 01/04/2025 1:36 PM EST 10 Units Left Upper Arm (Back ) insulin lispro injection 10 Units 10 Units, subcutaneous, Once, On Fri01/04/25 at 2130, For 1 dose Given 01/04/2025 9:24 PM EST 10 Units Left Lower Abdomen insulin lispro injection 5 Units 5 Units, subcutaneous, Once, On Fri01/04/25 at 0900, For 1 dose Given 01/04/2025 9:37 AM EST 5 Units Left Upper Arm (Back ) insulin lispro injection 5 Units 5 Units, subcutaneous, 3 times daily with meals, First dose on Fri01/04/25 at 1700, Mealtime Insulin - Administer with meal ------ -Do NOT give if patient NPO or expected to eat LESS than 50% of meal -If pre-meal glucose LESS than OR equal to 70 mg/dL- treat hypoglycemia and notify provider Given 01/05/2025 8:44 AM EST 5 Units Left Upper Arm (Back ) Given 01/04/2025 4:43 PM EST 5 Units Le ft Upper Arm (Back) ipratropium-albuteroL (DUONEB) 0.5-2.5 mg/3 mL nebulizer solution 3 mL 3 mL, nebulization, 4 times daily, First dose on Fri01/03/25 at 2100 Given 01/05/2025 9:30 AM EST 3 mL Given 01/04/2025 8:22 PM EST 3 mL Given 01/04/2025 3:46 PM EST 3 mL levothyroxine (SYNTHROID, LEVOTHROID) tablet 100 mcg 100 mcg, oral, Daily, First dose on Fri01/04/25 at 0900, ORAL ROUTE: take on an empty stomach and separate from other medications. ENTERAL TUBE ROUTE: If newly initiated enteral nutrition duration is over 5 days, hold enteral nutrition 1 hour before and after drug administration, per ASPEN guidelines. Given 01/05/2025 8:42 AM EST 100 mcg Given 01/04/2025 8:28 AM EST 100 mcg methylPREDNISolone sodium succ (SOLU-Medrol) injection 125 mg 125 mg, intravenous, Once, On Fri01/03/25 at 1628, For 1 dose, Reconstitute each 125 mg vial with 2 mL sterile water for injection to a concentration of 62.5 mg/mL. Given 01/03/2025 4:49 PM EST 125 mg nicotine (NICODERM CQ) 14 mg/24 hr patch 1 patch 1 patch, transdermal, Administer over 24 Hours, Daily, First dose on Fri01/04/25 at 0900 pantoprazole (PROTONIX) EC tablet 40 mg 40 mg, oral, 2 times daily before meals, First dose on Fri01/04/25 at 0730, Do not crush, chew, or split. Given 01/05/2025 8:43 AM EST 40 mg Given 01/04/2025 3:32 PM EST 40 mg Given 01/04/2025 6:41 AM EST 40 mg predniSONE (DELTASONE) tablet 40 mg 40 mg, oral, Daily, First dose on Fri01/04/25 at 0900, For 5 doses Given 01/05/2025 8:43 AM EST 40 mg Given 01/04/2025 8:28 AM EST 40 mg rivaroxaban (XARELTO) tablet 15 mg 15 mg, oral, Every evening, First dose on Fri01/03/25 at 2100, Best administered with food or immediately before tube feedings. If ordered via NG or G-tube route, crush and mix with 50 mL water; give within 4 hours of mixing., Indication: Atrial Fibrillation Given 01/04/2025 6:03 PM EST 15 mg Given 01/03/2025 11:56 PM EST 15 mg sertraline (ZOLOFT) tablet 50 mg 50 mg, oral, Daily, First dose on Fri01/04/25 at 0900 Given 01/05/2025 8:43 AM EST 50 mg Given 01/04/2025 8:28 AM EST 50 mg torsemide (DEMADEX) tablet 10 mg 10 mg, oral, Daily, First dose on Fri01/04/25 at 0900 Given 01/05/2025 8:42 AM EST 10 mg Given 01/04/2025 8:28 AM EST 10 mg documented in this encounter Discontinued Medications Medication Sig Discontinue Reason Start Date End Da te metFORMIN (GLUCOPHAGE) 1,000 mg tablet Take 1 tablet (1,000 mg total) by mouth 2 (two) times a day. Stop Taking at Discharge 01/05/2025 documented as of this encounter Historical Medications * This list may reflect changes made after this encounter. torsemide (DEMADEX) 10 mg tablet Take 1 tablet (10 mg total) by mouth 1 (one) time each day. sertraline (ZOLOFT) 50 mg tablet Take 1 tablet (50 mg total) by mouth 1 (one) time each day. rosuvastatin (CRESTOR) 5 mg tablet Take 1 tablet (5 mg total) by mouth 1 (one) time each day. Xarelto 15 mg tablet Take 1 tablet (15 mg total) by mouth 1 (one) time each day in the evening. oxyCODONE-acetam inophen (PERCOCET) 5-325 mg per tablet Take 1 tablet by mouth every 8 (eight) hours if needed for moderate pain. Max Daily Amount: 3 tablets omeprazole (PriLOSEC) [address] capsule Take 1 capsule (40 mg total) by mouth 2 (two) times a day. levothyroxine (SYNTHROID, LEVOTHROID) 100 mcg tablet Take 1 tablet (100 mcg total) by mouth 1 (one) time each day. 06/18/2024 glimepiride (AMARYL) 4 mg tablet Take 1 tablet (4 mg total) by mouth 1 (one) time each day. amLODIPine (NORVASC) 10 mg tablet Take 1 tablet (10 mg total) by mouth 1 (one) time each day. 10/23/2024 amiodarone (PACERONE) 200 mg tablet Take 1 tablet (200 mg total) by mouth 1 (one) time each day. 12/18/2024 albuterol HFA (PROAIR HFA ; PROVENTIL HFA ; VENTOLIN HFA) 90 mcg/actuation inhaler Inhale 2 puffs by mouth every 6 (six) hours if needed for shortness of breath or wheezing. 12/30/2024 metFORMIN (GLUCOPHAGE) 1,000 mg tablet Take 1 tablet (1,000 mg total) by mouth 2 (two) times a day. added in this encounter Active and Recently Administered Medications Times are shown in EST. Scheduled Medication Order 01/03/2025 01/04/2025 01/05/2025 albuterol 2.5 mg /3 mL (0.083 %) nebulizer solution 5 mg (COMPLETED) 5 mg, nebulization, Once, On Fri01/03/25 at 1628, For 1 dose 1647 (Given - Provider: Major Puckett RN) amiodarone (PACERONE) tablet 200 mg 200 mg, oral, Daily, First dose on Fri01/04/25 at 0900 0828 (Given - Provider: Key Nagy RN) 0843 (Given - Provider: Key Nagy RN) amLODIPine (NORVASC) tablet 10 mg 10 mg, oral, Daily, First dose on Fri01/04/25 at 0900 0828 (Given - Provider: Key Nagy RN) 0843 (Given - Provider: Key Nagy RN) atorvastatin (LIPITOR) tablet 20 mg 20 mg, oral, Nightly, First dose on Fri01/03/25 at 2100 2354 (Given - Provider: Lenore Robertson, PRISCA) 2123 (Given - Provider: Laura Petit RN) azithromycin (ZITHROMAX) 500 mg in sodium chloride 0.9 % 250 mL IVPB (COMPLETED) 500 mg, intravenous, at 250 mL/hr, Administer over 60 Minutes, Once, On Fri01/03/25 at 1628, For 1 dose, Indication: Pneumonia, Community Acquired 1652 (New Bag - Provider: Major Puckett RN)175 (Stopped - Provider: Sherice Vargas RN) cefTRIAXone (ROCEPHIN) 1 g in sterile water 10 mL IV syringe (COMPLETED) 1 g, intravenous, at 200 mL/hr, Administer over 3 Minutes, Once, On Fri01/03/25 at 1628, For 1 dose, Do not administer simultaneously with any calcium containing solutions via a Y-site in any patient., Indication: Pneumonia, Community Acquired 1647 (Given - Provider: Major Puckett, PRISCA) doxycycline (MONODOX) capsule 100 mg 100 mg, oral, Every 12 hours scheduled, First dose on Fri01/04/25 at 0900, For 7 days, Take with at least 8 ounces (large glass) of water, do not lie down for 30 minutes after. Administer 2 hours before or after multivitamins, antacids, or other products containing polyvalent cations (i.e., calcium, iron, magnesium, selenium, zinc)., Indication: Other, Specify: copd 0937 (Given - Provider: Gina Jaramillo RN)2122 (Given - Provider: aLura Petit RN) 0843 (Given - Provider: Key Nagy RN) guaiFENesin (MUCINEX) 12 hr tablet 600 mg 600 mg, oral, Every 12 hours scheduled, First dose on Fri01/03/25 at 2315, Administer with plenty of fluids to ensure proper action. Do not crush, chew, or split. 2351 (Given - Provider: Lenore Robertson RN) 08 (Given - Provider: Key Nagy RN)2122 (Given - Provider: Laura Petit RN) 0843 (Given - Provider: Key Nagy RN) hydrALAZINE (APRESOLINE) tablet 25 mg 25 mg, oral, 3 times daily, First dose on Fri01/04/25 at 1445 1531 (Given - Provider: Key Nagy RN)2122 (Given - Provider: Laura Petit RN) 0843 (Given - Provider: Key Nagy RN)1400 (Canceled Entry - Provider: Automatic Discharge Provider - Comment: Automatically canceled at discontinue of medication order) insulin glargine (LANTUS) injection 15 Units 15 Units, subcutaneous, Every morning, First dose on Fri01/04/25 at 0900, Notify provider: -If patient is currently or will become NPO -If TPN was or will be interrupted or discontinued -For approval to hold long acting insulin 1035 (Given - Provider: Key Nagy RN) 0841 (Given - Provider: Key Nagy RN) insulin lispro injection 1-6 Units 1-6 Units, subcutaneous, 4 times daily before meals and nightly, First dose on Fri01/03/25 at 2100, Indication: Total Daily Dose (TDD) LESS than 40 units Correction Scale: Low Dose Administer with meal and/or mealtime dose of insulin to correct high blood glucose If mealtime insulin dose not given (e.g. patient NPO or not eating), still administer correction factor for high blood glucose 235 (Given - Provider: Lenore Yesu, RN) 0828 (Given - Provider: Key Nagy RN)1144 (Given - Provider: Key Nagy RN)1644 (Given - Provider: Key Nagy RN)2124 (Not Given - Provider: Laura Petit RN - Reason: See Provider Order) 0841 (Given - Provider: Key Nagy RN)1130 (Canceled Entry - Provider: Automatic Discharge Provider - Comment: Automatically canceled at discontinue of medication order) insulin lispro injection 10 Units (COMPLETED) 10 Units, subcutaneous, Once, On Fri01/04/25 at 1345, For 1 dose 1336 (Given - Provider: Kye Nagy RN) insulin lispro injection 10 Units (COMPLETED) 10 Units, subcutaneous, Once, On Fri01/04/25 at 2130, For 1 dose 2123 (Given - Provider: Laura Petit RN) insulin lispro injection 5 Units (COMPLETED) 5 Units, subcutaneous, Once, On Fri01/04/25 at 0900, For 1 dose 0937 (Given - Provider: Gina Jaramillo RN) insulin lispro injection 5 Units 5 Units, subcutaneous, 3 times daily with meals, First dose on Fri01/04/25 at 1700, Mealtime Insulin - Administer with meal -Do NOT give if patient NPO or expected to eat LESS than 50% of meal -If pre-meal glucose LESS than OR equal to 70 mg/dL- treat hypoglycemia and notify provider 1643 (Given - Provider: Key Nagy RN) 0844 (Given - Provider: Key Nagy RN)1200 (Canceled Entry - Provider: Automatic Discharge Provider - Comment: Automatically canceled at discontinue of medication order) ipratropium-albuteroL (DUONEB) 0.5-2.5 mg/3 mL nebulizer solution 3 mL 3 mL, nebulization, 4 times daily, First dose on Fri01/03/25 at 2100 2127 (Not Given - Provider: Brooklyn Alonso - Reason: Other) 0818 (Given - Provider: Irma Almaguer)1121 (Given - Provider: Irma Almaguer)1546 (Given - Provider: Frederick Watkins)202 (Given - Provider: Iva Brown) 0930 (Given - Provider: Lyssa Bentley)1200 (Canceled Entry - Provider: Automatic Discharge Provider - Comment: Automatically canceled at discontinue of medication order) levothyroxine (SYNTHROID, LEVOTHROID) tablet 100 mcg 100 mcg, oral, Daily, First dose on Fri01/04/25 at 0900, ORAL ROUTE: take on an empty stomach and separate from other medications. ENTERAL TUBE ROUTE: If newly initiated enteral nutrition duration is over 5 days, hold enteral nutrition 1 hour before and after drug administration, per ASPEN guidelines. 0828 (Given - Provider: Key Nagy RN) 0842 (Given - Provider: Key Nagy RN) methylPREDNISolone sodium succ (SOLU-Medrol) injection 125 mg (COMPLETED) 125 mg, intravenous, Once, On Fri01/03/25 at 1628, For 1 dose, Reconstitute each 125 mg vial with 2 mL sterile water for injection to a concentration of 62.5 mg/mL. 1649 (Given - Provider: Major Puckett RN) nicotine (NICODERM CQ) 14 mg/24 hr patch 1 patch 1 patch, transdermal, Administer over 24 Hours, Daily, First dose on Fri01/04/25 at 0900 0824 (Not Given - Provider: Key Nagy RN - Reason: Patient/Resident/Ag ent refused - education provided ) 0845 (Not Given - Provider: Key Nagy RN - Reason: Patient/Resident/Agent refused - education provided ) pantoprazole (PROTONIX) EC tablet 40 mg 40 mg, oral, 2 times daily before meals, First dose on Fri01/04/25 at 0730, Do not crush, chew, or split. 0641 (Given - Provider: Lenore Robertson RN)1532 (Given - Provider: Key Nagy RN) 0843 (Given - Provider: Key Nagy RN) predniSONE (DELTASONE) tablet 40 mg 40 mg, oral, Daily, First dose on Fri01/04/25 at 0900, For 5 doses 0828 (Given - Provider: Key Nagy RN) 0843 (Given - Provider: Key Nagy RN) rivaroxaban (XARELTO) tablet 15 mg 15 mg, oral, Every evening, First dose on Fri01/03/25 at 2100, Best administered with food or immediately before tube feedings. If ordered via NG or G-tube route, crush and mix with 50 mL water; give within 4 hours of mixing., Indication: Atrial Fibrillation 2356 (Given - Provider: Lenore Robertson RN) 1803 (Given - Provider: Key Nagy RN) sertraline (ZOLOFT) tablet 50 mg 50 mg, oral, Daily, First dose on Fri01/04/25 at 0900 0828 (Given - Provider: Key Nagy RN) 0843 (Given - Provider: Key Nagy RN) torsemide (DEMADEX) tablet 10 mg 10 mg, oral, Daily, First dose on Fri01/04/25 at 0900 0828 (Given - Provider: Key Nagy RN) 0842 (Given - Provider: Key Nagy RN) PRN Medication Order 01/03/2025 01/04/2025 01/05/2025 acetaminophen (TYLENOL) tablet 650 mg 650 mg, oral, Every 6 hours PRN, mild pain, headaches, Starting on Fri01/04/25 at 0034 dextrose (D50W) 50% injection 12.5 g 12.5 g, intravenous, Every 15 min PRN, low blood sugar, moderate hypoglycemia *Patient is Unconscious, NPO, unable to swallow: BG 54 - 69 mg/dl*, Starting on Fri01/03/25 at 2036 dextrose (D50W) 50% injection 25 g 25 g, intravenous, Every 15 min PRN, low blood sugar, severe hypoglycemia *Patient is Unconscious, NPO, unable to swallow: BG LESS than 54 mg/dL*, Starting on Fri01/03/25 at 2036 dextrose 15 gram/60 mL oral solution 15 g 15 g, oral, Every 15 min PRN, low blood sugar, hypoglycemia *Patient conscious AND able to drink and swallow safely*, Starting on Fri01/03/25 at 2036 dextrose 15 gram/60 mL oral solution 30 g 30 g, oral, Every 15 min PRN, low blood sugar, hypoglycemia *Patient conscious AND able to drink and swallow safely*, Starting on Fri01/03/25 at 2036 Glucagon HCl (rDNA) injection 1 mg 1 mg, intramuscular, Once as needed, low blood sugar, severe hypoglycemia, Starting on Fri01/03/25 at 2036, For 1 dose oxyCODONE-acetaminophen (PERCOCET) 5-325 mg per tablet 1 tablet 1 tablet, oral, Every 8 hours PRN, moderate pain, Starting on Fri01/03/25 at 2035 documented in this encounter Orders Medications Ordered That Gurmeet ht Not Have Been Administered Count Last Ordered Date First Ordered Date acetaminophen (TYLENOL) tablet 650 mg 1 09/2025 azithromycin (ZITHROMAX) 500 mg in sodium chloride 0.9 % 250 mL IVPB 1 01/03/2025 cefTRIAXone (ROCEPHIN) 1 g i n sterile water 10 mL IV syringe 1 01/03/2025 dextrose (D50W) 50% injection 12.5 g 1 12/25 dextrose (D50W) 50% injection 25 g 1 2024 dextrose 15 gram/60 mL oral solution 15 g 1 01/03/2025 dextrose 15 gram/60 mL oral solution 30 g 1 01/03/2025 Glucagon HCl (rDNA) injection 1 mg 1 2024 nicotine (NICODERM CQ) 14 mg /24 hr patch 1 patch 1 01/03/2025 oxyCODONE-acetaminophen (PER COCET) 5-325 mg per tablet 1 tablet 1 01/03/2025 Lab Orders Without Results Count Last Ordered D ate First Ordered Date POCT GLUCOSE, BLOOD 7 01/05/2025 01/03/20 Nursing Count Last Ordered Date First Orde red Date VITAL SIGNS 1 01/03/2025 Consult Count Last Ordered Date First Orde red Date POST ACUTE HOME HEALTH CARE REQUEST 1 01/05 Respiratory Care Count Last Ordered Date First Ordered Date OXYGEN THERAPY, ADULT 6 01/04/20252024 PEP THERAPY 1 01/04/2025 Admission Count Last Ordered Date First Orde red Date ADMIT TO INPATIENT 1 01/03/2025 Discharge Count Last Ordered Date First Orde red Date DISCHARGE PATIENT 1 01/05/2025 documented in this encounter Additional Health Concerns Infection Onset Date Last Indicated Resolved Time Respiratory Rule-Out 01/03/2025 01/03/2025 025 4:13 PM EST COVID-19 Rule-Out 01/03/2025 01/03/2025 01/03/2025 4:13 PM EST documented as of this encounter Care Teams Alum Mixer Relationship Specialty Start Date End Date Marycruz Zapata MD [address] [place] [address] Dr [address] [facility] [place] [address] PCP - General Internal Medicine 11/02/21 documented as of this encounter
--- OUTSIDE RECORDS SUMMARY | 2025-01-20 18:39 | XMS_ITS | Clinical Summary ---
Author Organization [facility] Address [address] [place] [address] Care Team Providers Care Transportation Equipment Painter Name Role Phone Marycruz Zapata MD Primary Care Provider [phone] Social History Tobacco Use Types Packs/Day Years Used Date Smoking Tobacco: Never Assessed Sex and Gender Information Value Date Recorded Sex Assigned at Not on file Gender Identity Not on file Sexual Orientation Not on file Job Start Date Occupation Industry Not on file Not on file Not on file Plan of Treatment Health Maintenance Due Date Last Done Comments Hepatitis C Screening 1955 COVID-19 Vaccine (#1) 1953 Depression Screening 1965 Preventative Health Evaluation 1971 DTap / Tdap / Td (1 - Tdap) 1972 Colon Cancer Screening (Colonoscopy) 1998 Breast Cancer Screening (Mammogram) 2003 Shingrix-Zoster Vaccine (1 of 2) 2003 Fall Risk Assessment 2018 Osteoporosis Screening (DEXA Scan) 2018 Pneumococcal Vaccine (1 of 1 - PCV) 2018 Influenza Vaccine (#1) 2024 RSV Adult > 60+ Yrs or Pregn ant (1 - 1-dose 75+ series) 2028 Hepatitis B Vaccines Aged Out No long er eligible based on patient's age to complete this topic RSV Ped < 20 months Aged Out No longe r eligible based on patient's age to complete this topic Care Teams Transportation Equipment Painter Relationship Specialty Start Date End Date Marycruz Zapata MD [address] [place] [address] [address] [facility] [place] [address] PCP - General Internal Medicine 02/17/18
--- OUTSIDE RECORDS SUMMARY | 2025-01-20 18:39 | XMS_ITS | Continuity of Care Document ---
Author Organization [facility] Address [address] [place] [phone] Care Team Providers Care Plate Straightener Name Role Phone Po Marycruz DRIVER Primary Care Physician Encounter [facility] Date(s): 11/19/24 - 01/16/25 [facility] [address] [place] [id number] Encounter Diagnosis S/P TAVR (transcatheter aortic valve replacement)(Discharge Diagnosis) - 12/16/24 HTN (hypertension)(Discharge Diagnosis) - 12/16/24 HLD (hyperlipidemia)(Discharge Diagnosis) - 12/16/24 Attending Physician: Beth DRIVER, Ashequl Admitting Physician: Beth DRIVER, Ashequl Referring Physician: Court DRIVER, Dariel R Encounter Type: Pre-OutPatient One Time Allergies, Adverse Reactions, Alerts Substance Criticality Severity Reaction Reaction Severity Status furosemide 1 Active azithromycin 2 Activ e pravastatin 3 Active simvastatin 4 Active atorvastatin 5 Activ e apixaban 6 Active levoFLOXacin 7 Activ e cyclobenzaprine 8 Ac tive Bumex 9 Active sulfa drugs 10 Activ e 1nausea/ vomiting 2palpitations 3muscle pain 4muscle pain 5muscle pain 6nausea 7nausea, dizziness 8nausea and vomiting 9near syncope, 10vomiting Medications acetaminophen-oxyCODONE 325 mg-5 mg oral tablet TAKE 1 TABLET BY MOUTH 3 TIMES A DAY NEEDED FOR PAIN Start Date: 10/02/23 Status: Ordered Repeat number: 1 Albuterol (Eqv-ProAir HFA) 90 mcg/inh inhalation aerosol INHALE 2 PUFFS EVERY 6 HOURS NEEDED FOR SHORTNESS OF BREATH OR WHEEZING Start Date: 10/02/23 Status: Ordered Repeat number: 1 amiodarone 200 mg oral tablet TAKE 1 TABLET BY MOUTH EVERY DAY Start Date: 10/02/23 Status: Ordered Repeat number: 1 amLODIPine 10 mg oral tablet = 5 mg, By Mouth, TAKE 1 TABLET BY MOUTH DAILY Start Date: 10/02/23 Status: Ordered Repeat number: 1 aspirin 81 mg oral tablet 1 tablet = 81 mg, By Mouth, Daily, # 90 tablet, 0 Refills, Maintenance, 10/02/23 7:33:00 AM EST, Tablet, Partial fill upon patient request if the prescription is for a schedule II opioid drug. Start Date: 10/02/23 Status: Ordered Quantity: 90.0 Unit: tablet Repeat number: 1 CBC, BMP CBC, BMP, See Instructions, # 1 each, Refills 0, Tot. Refills 0, Maintenance, 1 Week post discharge, 12/19/23 12:57:00 PM EST, Supply Start Date: 12/19/23 Status: Ordered Quantity: 1.0 Unit: each Repeat number: 1 glimepiride 4 mg oral tablet 0.5 tablet = 2 mg, TAKE 1 TABLET BY MOUTH TWICE DAILY Start Date: 10/02/23 Status: Ordered Repeat number: 1 levothyroxine 100 mcg (0.1 mg) oral capsule 1 capsule = 100 mcg, By Mouth, Daily, # 30 capsule, 0 Refills, Maintenance, 10/02/23 8:32:00 AM EST,Capsule, Partial fill upon patient request if the prescription is for a schedule II opioid drug. Start Date: 10/02/23 Stop Date: 11/01/23 Status: Ordered Quantity: 30.0 Unit: capsule Repeat number: 1 metFORMIN 1000 mg oral tablet TAKE 1 TABLET ( 1000MG ) BY MOUTH 2 TIMES A DAY. Start Date: 10/02/23 Status: Ordered Repeat number: 1 omeprazole 40 mg oral enteric coated capsule TAKE 1 CAP (40 MG) ORALLY 2 TIMES A DAY FOR 90 DAYS Start Date: 10/02/23 Status: Ordered Repeat number: 1 ondansetron 4 mg oral tablet, disintegrating DISSOLVE 1 TABLET BY MOUTH EVERY 8 HOURS EEDED FOR NAUSEA AND VOMITING. Start Date: 10/02/23 Status: Ordered Repeat number: 1 ONETOUCH ULTRASOFT2 30G LANCET ONETOUCH ULTRASOFT2 30G LANCET, TEST ONCE PER DAY Start Date: 10/02/23 Status: Ordered Repeat number: 1 rosuvastatin 5 mg oral tablet TAKE 1 TABLET BY MOUTH EVERY DAY Start Date: 10/02/23 Status: Ordered Repeat number: 1 sertraline 50 mg oral tablet 1 tablet = 50 mg, By Mouth, Daily, # 90 tablet, 0 Refills, Maintenance, 10/02/23 7:15:00 AM EST, Tablet, Partial fill upon patient request if the prescription is for a schedule II opioid drug. Start Date: 10/02/23 Status: Ordered Quantity: 90.0 Unit: tablet Repeat number: 1 torsemide 10 mg oral tablet 1 tablet = 10 mg, By Mouth, 0 Refills, Maintenance, 12/05/23 12:17:00 PM EST, Partial fill upon patient request if the prescription is for a schedule II opioid drug. Start Date: 12/05/23 Status: Ordered Repeat number: 1 Xarelto 15 mg oral tablet TAKE 1 TABLET BY MOUTH DAILY WITH AN EVENING MEAL Start Date: 10/02/23 Status: Ordered Repeat number: 1 Problem List Condition Confirmation Course Effective Dates Status Health St atus Informant Degenerative disc disease Confirmed Active Severe obesity (BMI 35.0-39.9) with comorbidity Confirmed Active Diagnosis Diagnosis Type Effective Dates Health Status Cl inical Service Informant S/P TAVR (transcatheter aortic valve replacement) Discharge Diagnosis 12/16/24 HTN (hypertension) Discharge Diagnosis 12/16/24 HLD (hyperlipidemia) Discharge Diagnosis 12/16/24 Social History Social History Type Response Smoking Status 5-9 cigarettes (betw een 1/4 to 1/2 pack)/day in last 30 days entered on: 10/31/23 Sex Sex Representation Female (finding) Patient Care team information Care Team Personnel Name: Dalila Rivera RN Position: [facility] CHOWDHURY RN Member Role: Primary Care Nurse Name: Rayne Hall RN Position: [facility] RN Member Role: Primary Care Nurse Name: Marycruz Zapata MD Position: Reference Physician Member Role: PCP Address: [address] [place] [address] Telecom: Care Team Related Persons Name: THERESE CAMPOS Name: ZAKI CAMPOS Insurance Providers Guarantor name: SAHIL CAMPOS Health Plan Information #: 1 Payer: MEDICARE PART B OUTPT Member Number: [id number] Policy Number: NA Group Number: NA Health Plan Information #: 2 Payer: A[employer] [facility] Member Number: [id number] Policy Number: NA Group Number: [id number]
--- OUTSIDE RECORDS SUMMARY | 2025-01-20 18:39 | XMS_ITS ---
Author Organization [facility] Address [address] [place] [address] Phone Care Team Providers Care Roofing Laborer Name Role Phone [facility] Unavailable [phone] Plan of Treatment No Plan of Treatment Recorded Assessments Includes: Assessments for all patient encounters No Assessments Recorded Medical Equipment - Implanted Devices Includes: Current and historical Devices No Medical Equipment Recorded Medications Administered Includes: Administered Medications in patient's chart No Administered Medications Recorded Results Includes: Results from 01/20/2024 through 01/20/2025 No Results Recorded For Specified Dates History [...] Subscriber Relationship Effect patrick Dates 1 - [facility] [id number] SAHIL CAMPOS Self Clinical Notes Includes: Signed Clinical Notes starting from 11/03/2022 No Clinical Notes Recorded
--- OUTSIDE RECORDS SUMMARY | 2025-01-20 18:39 | XMS_ITS ---
Author Organization [facility] Address [address] [facility] [place] [address] Care Team Providers Care Director Instrumentation Name Role Phone Marycruz Zapata Primary Care Provider Unavailcaden e Shantelle Beavers Unavailable [phone] Sherice Early [phone] Encounters Encounter Location Date Provider Diagnosis [facility] [address] [place] [address] 01/28/2024 Sherice Early Plan Of Treatment No Information Progress Notes * Magy SANTIAGO MDOB: [birth year] (69 yo F)Acc No.[id number]:01/28/2024 Progress Note Patient:?Magy SANTIAGO Provider:?Sherice Early DPM :1955???Age:68 Y???Sex:Female D ate:01/28/2024 Address:[address] [place] [address], [address], [id number] Pcp:Marycruz Zapata Subjective: * Chief Complaints: * ??? * Medical History:? Objective: * Vitals:? Assessment: Plan: * Treatment: * Images: * The named appointment provid er may or may not be the originator of this progress note, and it is not deemed complete until electronically signed by the appointment provider. Sign off status: Pending * Provider:?Sherice Early DPM Date:?04/2024 Generated for Salvador lewis/Rashaun/eTransmitting on:?01/20/2025 06:39 PM EST
--- OUTSIDE RECORDS SUMMARY | 2025-01-20 18:39 | XMS_ITS | Clinical Summary ---
Author Organization [facility] Address [address] [place] [address] Phone Care Team Providers Care Fish Hatchery Manager Name Role Phone Formerly named [facility] Unavailable [phone] Reason for Visit and Chief Complaint New Patient Plan of Treatment Pending Tests Order Diagnosis Results Due Ordering P eduardo Follow Up - Appointment 2 Weeks Disp fx of greater tuberosity of right humerus, init 06/13/22 Don Lowe PA-C Last Documented On 2 11:01AM ; [facility] In House X-Rays - X-Rays Shoulder, right, min of 2 views ([id number]) Disp fx of greater tuberosity of right humerus, init 06/15/22 Don Lowe PA-C Last Documented On 2 11:01AM ; [facility] Assessments Includes: Assessments from this encounter No [...] Last Documented: On 06/13/2022 10:35A M ; [facility] Results Includes: Results discussed during this encounter [...] Time Diagnosis New Patient [facility] 2 10:00AM 10:56AM Insurance Includes: Active Insurance Policies Plan Name Member ID Group # Subscriber Relationship Effect patrick Dates 1 - [facility] [id number] SAHIL CAMPOS Self Clinical Notes Includes: Clinical Notes from this encounter No Clinical Notes Recorded
--- OUTSIDE RECORDS SUMMARY | 2025-01-20 18:39 | XMS_ITS ---
Care Plan - [facility] Created on: January 20, 2025 SAHIL CAMPOS : 1955 Sex: Female Author Organization [facility] MANDI Watson Address [address] [place] [address] Phone Care Team Providers Care Retread Builder Name Role Phone [facility] Dial Unavailable Unavailable
--- OUTSIDE RECORDS SUMMARY | 2025-01-20 18:39 | XMS_ITS | Clinical Summary ---
Author Organization [facility] Address [address] [place] [address] Phone Care Team Providers Care Research Biostatistician Name Role Phone Marycruz Zapata MD Primary Care Provider [phone] Allergies No known active allergies Medications albuterol HFA (PROAIR HFA ; PROVENTIL HFA ; VENTOLIN HFA) 90 mcg/actuation inhaler Inhale 2 puffs by mouth every 6 (six) hours if needed for shortness of breath or wheezing. 5 Active amiodarone (PACERONE) 200 mg tablet Take 1 tablet (200 mg total) by mouth 1 (one) time each day. 5 Active amLODIPine (NORVASC) 10 mg tablet Take 1 tablet (10 mg total) by mouth 1 (one) time each day. 4 Active glimepiride (AMARYL) 4 mg tablet Take 1 tablet (4 mg total) by mouth 1 (one) time each day. Active levothyroxine (SYNTHROID, LEVOTHROID) 100 mcg tablet Take 1 tablet (100 mcg total) by mouth 1 (one) time each day. 4 Active omeprazole (PriLOSEC) [address] capsule Take 1 capsule (40 mg total) by mouth 2 (two) times a day. Active oxyCODONE-acet aminophen (PERCOCET) 5-325 mg per tablet Take 1 tablet by mouth every 8 (eight) hours if needed for moderate pain. Max Daily Amount: 3 tablets Active Xarelto 15 mg tablet Take 1 tablet (15 mg total) by mouth 1 (one) time each day in the evening. Active rosuvastatin (CRESTOR) 5 mg tablet Take 1 tablet (5 mg total) by mouth 1 (one) time each day. Active sertraline (ZOLOFT) 50 mg tablet Take 1 tablet (50 mg total) by mouth 1 (one) time each day. Active torsemide (DEMADEX) 10 mg tablet Take 1 tablet (10 mg total) by mouth 1 (one) time each day. Active hydrALAZINE (APRESOLINE) 25 mg tablet Take 1 tablet (25 mg total) by mouth 3 (three) times a day. 90 each 11 5 01/05/20 26 Active nicotine (NICODERM CQ) 14 mg/[address] 1 patch on the skin 1 (one) time each day. 30 each 5 02/06/20 25 Active SITagliptin phosphate (JANUVIA) 25 mg tablet Take 1 tablet (25 mg total) by mouth 1 (one) time each day. 30 tablet 1 5 03/06/20 25 Active tiotropium (SPIRIVA) 18 mcg per inhalation capsule Place 1 capsule (18 mcg total) into inhaler and inhale 1 (one) time each day. 1 each 5 07/04/20 25 Active metFORMIN (GLUCOPHAGE) 1,000 mg tablet Take 1 tablet (1,000 mg total) by mouth 2 (two) times a day. 01/05/20 25 Discontinu ed(Stop Taking at Discharge) doxycycline (MONODOX) 100 mg capsule Take 1 capsule (100 mg total) by mouth every 12 (twelve) hours for 5 days. Take with at least 8 ounces (large glass) of water, do not lie down for 30 minutes after. Administer 2 hours before or after multivitamins, antacids, or other products containing polyvalent cations (i.e., calcium, iron, magnesium, selenium, zinc). 10 each 5 01/10/20 25 guaiFENesin (MUCINEX) 600 mg 12 hr tablet Take 1 tablet (600 mg total) by mouth every 12 (twelve) hours for 7 days. Do not crush, chew, or split. 14 each 5 01/12/20 25 predniSONE (DELTASONE) 20 mg tablet Take 2 tablets (40 mg total) by mouth 1 (one) time each day for 3 doses. 6 each 5 01/09/20 25 Active Problems Problem Noted Date Diagnosed Date Hyperglycemia due to diabetes mellitus Resolved Problems Problem Noted Date Diagnosed Date Resolved Date COPD exacerbation 01/05/2025 01/05/2025 Acute hypoxic respiratory failure 01/03/2025 01/05/2025 Encounters Date Type Department Care Team Description 01/03/2025 3:18 PM EST - 01/05/2025 12:09 PM EST Hospital Encounter [facility] [address] [place] [id number] Garry Lee MD Bukalo, Nermina, MD Jones, Christopher, MD Bell, Alistair A, MD COPD exacerbation ([facility]) (Primary Dx); Pneumonia due to infectious organism, unspecified laterality, unspecified part of lung Discharge Disposition: Home or Self Care 11/08/2024 6:38 PM EST - 11/08/2024 9:40 PM EST Emergency [facility] Emergency [address] [place] [phone] Patrick Hawk MD Left leg pain (Primary Dx); Low back pain with neuralgia of left sciatic nerve Discharge Disposition: Home or Self Care from Last 3 Months Surgical History Surgery Date Site/Laterality Comments CARPAL TUNNEL RELEASE 03/28/2022 Right PROCEDURE: [place] NEUROPLASTY &/TRANSPOS MEDIAN NRV CARPAL TUNNE; COMMENT: Dr. Mccullough Medical History Medical History Date Comments Essential hypertension DX:Essent ial hypertension Diabetes mellitus type 2, co ntrolled, with complications ([facility]) DX:Diabetes mellitus type 2, controlled, with complications ([facility]) High cholesterol DX:High cholest surinder Thyroid activity decreased DX:Th yroid activity decreased Social History Tobacco Use Types Packs/Day Years [...] Orientation Straight 11/08/2024 7: 59 PM EST Obstetrics History Last Filed Vital Signs Vital Sign Reading [...] Mass Index 38.97 01/03/2025 2:54 PM EST Plan of Treatment Health Maintenance Due Date Last Done Comments Breast Cancer Screening 1955 Diabetes: Annual Foot Exam 1963 Diabetes: Annual Retina Eye Exam 1963 DTaP,Tdap,and Td Vaccines (1 - Tdap) 1972 Zoster Vaccines (1 of 2) 2003 RSV Immunization Patients 60+ Years Old (1 - Risk 60-74 years 1-dose series) 2013 Cholesterol Screening (Lipid Panel) 10/27/2022 Colorectal Cancer Screening: Colonoscopy 10/27/2022 Depression Screening 10/27/2022 Hepatitis C Screening 10/27/2022 Medicare Annual Wellness Visit 10/27/2022 Osteoporosis Screening (Bone Density Screening) 10/27/2022 Social Influencers of Health Screening 10/27/2022 COVID-19 Vaccine ( season) 2024 Influenza Vaccine (#1) 2024 10/03/2022 Diabetes: Annual Urine Albumin-Creatinine Ratio (uACR) 01/05/2025 Diabetes: Blood Sugar Control Test (HGBA1C) 07/04/2025 01/04/2025 Diabetes: Annual GFR (Glomerular Filtration Rate) 01/05/2026 01/05/2025, 01/04/2025, 01/03/2025, Additional history exists Falls Risk Assessment 01/05/2026 01/05/2025 Hypertension/CHF/CAD Annual BMP Blood Test 01/05/2026 01/05/2025, 01/04/2025, 01/03/2025, Additional history exists Pneumococcal Vaccine: 50+ Years Completed 10/03/2022, 03/21/2017 HIB Vaccines Aged Out No longer eligi ble based on patient's age to complete this topic HPV Vaccines Aged Out No longer eligi ble based on patient's age to complete this topic Hepatitis A Vaccines Aged Out No long er eligible based on patient's age to complete this topic Hepatitis B Vaccines Aged Out No long er eligible based on patient's age to complete this topic IPV Vaccines Aged Out No longer eligi ble based on patient's age to complete this topic MMR Vaccines Aged Out No longer eligi ble based on patient's age to complete this topic Meningococcal ACWY Vaccine Aged Out N o longer eligible based on patient's age to complete this topic Meningococcal B Vacine Aged Out No lo nger eligible based on patient's age to complete this topic RSV Immunization Patients Under 20 months Aged Out No longer eligible based on patient's age to complete this topic Varicella Vaccines Aged Out No longer eligible based on patient's age to complete this topic Procedures Procedure Name Priority Date/Time Associated Diagnosis Comments ECG ANNOTATED 01/06/2025 POCT GLUCOSE BLOOD Routine 01/05/2025 7: 46 AM EST LAVENDER - EDTA Routine 01/05/2025 6:06 AM EST EXTRA TUBES Routine 01/05/2025 6:06 AM EST BASIC METABOLIC [...] THERAPY, ADULT Routine 01/04/2025 8:02 AM EST HEMOGLOBIN A1C Add-On 01/04/2025 6:19 AM EST COMPLETE BLOOD COUNT Routine 01/04/2025 6:19 AM EST BASIC METABOLIC PANEL [...] ECG 12-LEAD STAT 01/03/2025 3:44 PM EST C-REACTIVE PROTEIN Add-On 01/03/2025 3: 38 PM EST PROCALCITONIN STAT Add-on 01/03/2025 3:38 PM EST CBC WITH AUTO DIFFERENTIAL STAT 01/03/2025 3:38 PM EST TROPONIN I HIGH SENSITIVITY STAT 01/03/2025 3:38 PM EST MAGNESIUM STAT 01/03/2025 3:38 PM EST BASIC METABOLIC PANEL STAT 01/03/2025 3:38 PM EST CBC AND DIFFERENTIAL STAT 01/03/2025 3:38 PM EST [id number], RSV, FLU A AND B QUALITATIVE RT-PCR, INTERNAL LAB STAT 01/03/2025 2:58 PM EST VAS US DUPLEX LOWER EXT VENOUS LEFT STAT 11/08/2024 8:16 PM EST Left leg pain CBC WITH AUTO DIFFERENTIAL STAT 11/08/2024 3:46 PM EST BASIC METABOLIC PANEL STAT 11/08/2024 3:46 PM EST CBC AND DIFFERENTIAL STAT 11/08/2024 3:46 PM EST from Last 3 Months Results * ECG-Annotated (01/06/2025) us Provider Onbase MD ECG ORDERABLES Final Result * (ABNORMAL) POCT Glucose, blood (01/05/2025 7:46 AM EST) Only the most recent of8 resultswithin the time period is included. [facility] Glucose POCT 290(H) 70 - 100 mg/dL 01/05/2025 7:47 AM EST [facility] Blood Capillary blood specimen / Unknown 01/05/2025 7:46 AM EST 01/05/2025 7:48 AM EST Phoenix Riley MD LAB POINT OF CARE TE ST DOCKED DEVICE UNSOLICITED RESULTS Final Result [facility]) [facility] [address] [place] [address], [place] [phone] * Lavender tube (01/05/2025 6:06 AM EST) [facility] Extra Tube Hold for add-ons. 01/05/2025 10:01 AM EST [facility] Comment:Auto resulted. Blood Venous blood specimen / Unknown Venipuncture / Unknown 01/05/2025 6:06 AM EST 01/05/2025 8:08 AM EST us Phoenix Riley MD LAB BLOOD ORDERABLES Final Re sult [facility] [address] [place] [address], [place] [phone] * (ABNORMAL) Basic metabolic panel (01/05/2025 6:06 AM EST) Only the most recent of4 resultswithin the time period is included. Sodium 130(L) 133 - 145 mmol/L LAB CHEMISTRY METHOD 01/05/2025 8:16 AM [facility] Potassium 4.0 3.5 - 5.5 mmol/L LAB CHEMISTRY METHOD 01/05/2025 8:16 AM [facility] Chloride 96 96 - 110 mmol/L LAB CHEMISTRY METHOD 01/05/2025 8:16 AM [facility] CO2 29 21 - 32 mmol/L LAB CHEMISTRY METHOD 01/05/2025 8:16 AM [facility] Anion Gap 5 3 - 11 LAB CHEMISTRY METHOD 01/05/2025 8:16 AM [facility] Glucose 312(H) 70 - 100 mg/dL LAB CHEMISTRY METHOD 01/05/2025 8:16 AM [facility] BUN 32(H) 5 - 25 mg/dL LAB CHEMISTRY METHOD 01/05/2025 8:16 AM [facility] Comment:Results verified by repeat testing Creatinine 2.00(H) 0.50 - 1.10 mg/dL LAB CHEMISTRY METHOD 01/05/2025 8:16 AM [facility] eGFR 26(L) >=60 mL/min/1. 73m2 LAB CHEMISTRY METHOD 01/05/2025 8:16 AM EST [facility] Comment:Calculation based on the??Chronic Kidney Disease Epidemiology Collaboration (CKD-EPI) equation refit??without adjustment for race. BUN/Creatinine Ratio 16.0 LAB CHEMISTRY METHOD 01/05/2025 8:16 AM [facility] Calcium 9.5 8.5 - 10.5 mg/dL LAB CHEMISTRY METHOD 01/05/2025 8:16 AM [facility] Blood Venous blood specimen / Unknown Venipuncture / Unknown 01/05/2025 6:06 AM EST 01/05/2025 7:24 AM EST us Phoenix Riley MD LAB BLOOD ORDERABLES Final Re sult [facility] [address] [place] [address], * (ABNORMAL) Complete blood count (01/04/2025 6:19 AM EST) WBC 6.5 4.8 - 10.8 K/mcL LAB HEMETOLOGY METHOD 01/04/2025 8:14 AM [facility] RBC 4.30 3.80 - 4.80 M/mcL LAB HEMETOLOGY METHOD 01/04/2025 8:14 AM [facility] Hemoglobin 10.4(L) 11.5 - 16.0 g/dL LAB HEMETOLOGY METHOD 01/04/2025 8:14 AM [facility] Hematocrit 34.0(L) 35.0 - 47.0 % LAB HEMETOLOGY METHOD 01/04/2025 8:14 AM [facility] MCV 80.0 79.0 - 98.0 FL LAB HEMETOLOGY METHOD 01/04/2025 8:14 AM [facility] MCH 24.5(L) 27.0 - 32.0 pcg LAB HEMETOLOGY METHOD 01/04/2025 8:14 AM EST [facility] MCHC 30.6(L) 32.0 - 37.0 g/dL LAB HEMETOLOGY METHOD 01/04/2025 8:14 AM [facility] RDW 16.9(H) 11.0 - 15.0 % LAB HEMETOLOGY METHOD 01/04/2025 8:14 AM [facility] Platelets 01/04/2025 8:14 AM [facility] Comment:Not measured. Platel ets appear adequate but clumped MPV 10.2 7.0 - 11.0 FL LAB HEMETOLOGY METHOD 01/04/2025 8:14 AM [facility] NRBC 0.0 <1.0 % LAB HEMETOLOGY METHOD 01/04/2025 8:14 AM [facility] NRBC Absolute 0.00 <0.10 K/mcL LAB HEMETOLOGY METHOD 01/04/2025 8:14 AM [facility] Blood Venous blood specimen / Unknown Venipuncture / Unknown 01/04/2025 6:19 AM EST 01/04/2025 7:22 AM EST us Yissel Frey MD LAB BLOOD ORDERABLES Final Res ult [facility] [address] [place] [address], * (ABNORMAL) Hemoglobin A1c (01/04/2025 6:19 AM EST) Hemoglobin A1C 8.2(H) <6.5 % LAB CHEMISTRY METHOD 01/04/2025 1:13 PM EST [facility] Mean Bld Glu Estim. 189 mg/dL LAB CHEMISTRY METHOD 01/04/2025 1:13 PM [facility] Blood Venous blood specimen / Unknown Venipuncture / Unknown 01/04/2025 6:19 AM EST 01/04/2025 7:22 AM EST us Phoenix Riley MD LAB BLOOD ORDERABLES Final Re sult Performing Organization Address [facility]/ZIP Co de Phone Number [facility] [address] [place] [address], [place] [phone] * Troponin I high sensitivity (01/03/2025 8:12 PM EST) Only the most recent of2 resultswithin the time period is included. [facility] High Sensitivity Troponin I 19 <=54 ng/L LAB CHEMISTRY METHOD 01/03/2025 9:47 PM EST [facility] Blood Venous blood specimen / Unknown Venipuncture / Unknown 01/03/2025 8:12 PM EST 01/03/2025 9:19 PM EST Narrative [facility] - 01/03/2025 9:47 PM EST High levels of biotin in samples may falsely decrease hsTroponin values. ??Use caution when interpreting hsTroponin results in patients taking biotin who exhibit renal impairment (eGFR <60) or in patients taking more than 20 mg/day of biotin. Yissel Frey MD LAB BLOOD ORDERABLES Final Res ult Performing Organization Address [facility]/ZIP Co de Phone Number [facility] [address] [place] [address], [place] [phone] * CT Chest wo Contrast (01/03/2025 7:13 [...] Signed Date: 01/03/2025 16:46 ET Workstation ID: [id number] Transcribed By: Self Edit Transcribed Date: 01/03/2025 [...] Signed Date: 01/03/2025 16:46 ET Workstation ID: [id number] Transcribed By: Self Edit Transcribed Date: 01/03/2025 16:45 ET us Nayan Thornton MD IMG XR PROCEDURES Final R esult * ECG 12 lead (01/03/2025 3:44 PM EST) Ventricular Rate ECG 83 BPM GEMUSE Atrial Rate 83 BPM GEMUSE P-R Interval 248 ms GEMUSE QRS Duration 162 ms GEMUSE Q-T Interval 458 ms GEMUSE QTc 538 ms GEMUSE P Wave [place] 78 degrees GEMUSE R [place] -46 degrees GEMUSE T [place] 114 degrees GEMUSE ECG Interpretation Sinus rhythm with 1st degree A-V block Left bundle branch block Abnormal ECG When compared with ECG of 14-JUL-2023 08:33, Left bundle branch block is now Present Confirmed by Anshu LEAL JAMES ([id number]) on 01/03/2025 6:39:41 PM GEMUSE 01/03/2025 3:44 PM EST 01/03/2025 6:39 PM EST us Nayan Thornton MD ECG ORDERABLES Final Res ult GEMUSE * Procalcitonin (01/03/2025 3:38 PM EST) Procalcitonin 0.14 <=0.16 ng/mL LAB CHEMISTRY METHOD 01/04/2025 9:07 AM EST [facility] Blood Venous blood specimen / Unknown Venipuncture / Unknown 01/03/2025 3:38 PM EST 01/03/2025 4:38 PM EST Narrative [facility] - 01/04/2025 9:07 AM EST Procalcitonin [...] MD LAB BLOOD ORDERABLES Final Res ult [facility] [address] [place] [address], * (ABNORMAL) CBC auto differential (01/03/2025 3:38 PM EST) Only the most recent of2 resultswithin the time period is included. WBC 7.0 4.8 - 10.8 K/mcL LAB HEMETOLOGY METHOD 01/03/2025 5:11 PM EST [facility] RBC 4.40 3.80 - 4.80 M/mcL LAB HEMETOLOGY METHOD 01/03/2025 5:11 PM EST [facility] Hemoglobin 10.9(L) 11.5 - 16.0 g/dL LAB HEMETOLOGY METHOD 01/03/2025 5:11 PM [facility] Hematocrit 34.8(L) 35.0 - 47.0 % LAB HEMETOLOGY METHOD 01/03/2025 5:11 PM [facility] MCV 79.6 79.0 - 98.0 FL LAB HEMETOLOGY METHOD 01/03/2025 5:11 PM [facility] MCH 24.9(L) 27.0 - 32.0 pcg LAB HEMETOLOGY METHOD 01/03/2025 5:11 PM [facility] MCHC 31.3(L) 32.0 - 37.0 g/dL LAB HEMETOLOGY METHOD 01/03/2025 5:11 PM [facility] RDW 17.2(H) 11.0 - 15.0 % LAB HEMETOLOGY METHOD 01/03/2025 5:11 PM [facility] Platelets 01/03/2025 5:11 PM [facility] Comment:Not measured. Platel ets appear adequate but clumped MPV 10.3 7.0 - 11.0 FL LAB HEMETOLOGY METHOD 01/03/2025 5:11 PM [facility] NRBC 0.0 <1.0 % LAB HEMETOLOGY METHOD 01/03/2025 5:11 PM [facility] NRBC Absolute 0.00 <0.10 K/mcL LAB HEMETOLOGY METHOD 01/03/2025 5:11 PM [facility] Neutrophils Relative 68.0 % LAB HEMETOLOGY METHOD 01/03/2025 5:11 PM [facility] Lymphocytes Relative 21.7 % LAB HEMETOLOGY METHOD 01/03/2025 5:11 PM [facility] Monocytes Relative 7.1 % LAB HEMETOLOGY METHOD 01/03/2025 5:11 PM EST [facility] Eosinophils Relative 1.9 % LAB HEMETOLOGY METHOD 01/03/2025 5:11 PM [facility] Basophils Relative 0.6 % LAB HEMETOLOGY METHOD 01/03/2025 5:11 PM [facility] Immature Granulocytes Relative 0.7 % LAB HEMETOLOGY METHOD 01/03/2025 5:11 PM [facility] Neutrophils Absolute 4.76 1.50 - 7.00 K/mcL LAB HEMETOLOGY METHOD 01/03/2025 5:11 PM [facility] Lymphocytes Absolute 1.52 1.00 - 5.00 K/mcL LAB HEMETOLOGY METHOD 01/03/2025 5:11 PM [facility] Monocytes Absolute 0.50 0.20 - 1.00 K/mcL LAB HEMETOLOGY METHOD 01/03/2025 5:11 PM [facility] Eosinophils Absolute 0.13 0.00 - 0.50 K/mcL LAB HEMETOLOGY METHOD 01/03/2025 5:11 PM [facility] Basophils Absolute 0.04 0.00 - 0.20 K/mcL LAB HEMETOLOGY METHOD 01/03/2025 5:11 PM [facility] Immature Granulocytes Absolute 0.05(H) 0.00 - 0.03 K/mcL LAB HEMETOLOGY METHOD 01/03/2025 5:11 PM [facility] Blood Venous blood specimen / Unknown Venipuncture / Unknown 01/03/2025 3:38 PM EST 01/03/2025 4:38 PM EST us Nayan Thornton MD LAB BLOOD ORDERABLES Anabela garzon Result [facility] [address] [place] [address], * (ABNORMAL) C-reactive protein (01/03/2025 3:38 PM EST) [facility] C-Reactive Protein 2.42(H) <=0.50 mg/dL LAB CHEMISTRY METHOD 01/03/2025 9:05 PM [facility] Blood Venous blood specimen / Unknown Venipuncture / Unknown 01/03/2025 3:38 PM EST 01/03/2025 4:38 PM EST Radhames Laureano MD LAB BLOOD ORDERABLES Final Result Performing Organization Address [facility]/ZIP Co de Phone Number [facility] [address] [place] [address], [place] [phone] * (ABNORMAL) Magnesium (01/03/2025 3:38 PM EST) [facility] Magnesium 1.8(L) 1.9 - 2.6 mg/dL LAB CHEMISTRY METHOD 01/03/2025 5:23 PM [facility] Blood Venous blood specimen / Unknown Venipuncture / Unknown 01/03/2025 3:38 PM EST 01/03/2025 4:38 PM EST Nayan Thornton MD LAB BLOOD ORDERABLES Anabela l Result Performing Organization Address [facility]/ZIP Co de Phone Number [facility] [address] [place] [address], [place] [phone] * [id number], RSV, Influenza A and B qualitative RT-PCR (01/03/2025 2:58 PM EST) [facility] Influenza A PCR Not Detected Not Detected LAB MICROBIOLOGY METHOD 01/03/2025 4:13 PM EST [facility] Influenza B PCR Not Detected Not Detected LAB MICROBIOLOGY METHOD 01/03/2025 4:13 PM [facility] RSV PCR Not Detected Not Detected LAB MICROBIOLOGY METHOD 01/03/2025 4:13 PM [facility] SARS COV-2 Not Detected Not Detected LAB MICROBIOLOGY METHOD 01/03/2025 4:13 PM EST [facility] Swab Structure of left anterior naris / Unknown Non-blood Collection / Unknown 01/03/2025 2:58 PM EST 01/03/2025 3:09 PM EST Narrative [facility] ([facility]) [facility] - 01/03/2025 4:13 PM EST Disclaimer: ??Testing was performed using the [employer] GeneXpert Xpress SARS-CoV-2 _Flu_RSV PLUS PCR assay. [...] for Healthcare providers can be found at https://www.fda.gov/media/183901/download. ?? Fact sheet for Healthcare patients can be found at https://www.fda.gov/media/129058/download. us Nayan Thornton MD LAB MICROBIOLOGY - GENERA L ORDERABLES Final Result [facility] ([facility]) [facility] [address] [place] [address], * Vascular US Duplex Lower Extremity Venous Left (11/08/2024 8:16 PM EST) Anatomical Region Laterality Modality Vascular, Abdomen Ultrasound 11/09/2024 3:41 AM EST Impressions 11/09/2024 3:43 AM EST No deep vein thrombosis identified in the left lower extremity veins -------- FINAL REPORT -------- Dictated By: Herlinda Jacobson Dictated Date: 11/09/2024 03:41 ET Assigned Physician: Herlinda Jacobson Reviewed and Electronically Signed By: Herlinda Jacobson Signed Date: 11/09/2024 03:43 ET Workstation ID: [id number] Transcribed By: Self Edit Transcribed Date: 11/09/2024 03:41 ET Narrative 11/09/2024 3:43 AM EST INDICATION: pain in extremities left lower extremity COMPARISON: March 2023 TECHNIQUE: Ultrasound of the ??left lower extremity veins is performed using color-flow Doppler, graded compression with B mode Doppler with spectral analysis FINDINGS: The common femoral, superficial femoral and popliteal veins compress normally throughout their length. Normal response to distal augmentation is seen with calf compression. Included calf vessels are patent on color Doppler. ??A complex 2.7 x 0.9 x 1.8 cm lesion is seen in the left popliteal fossa in keeping with a popliteal cyst. Procedure Note Herlinda Jacobson MD - 11/09/2024 INDICATION: pain in extremities left lower extremity COMPARISON: March 2023 TECHNIQUE: Ultrasound of the left lower extremity veins is performedusing color- flow Doppler, graded compression with B mode Doppler withspectral analysis FINDINGS: The common femoral, superficial femoral and popliteal veinscompress normally throughout their length. Normal response to distalaugmentation is seen with calf compression. Included calf vessels arepatent on color Doppler. A complex 2.7 x 0.9 x 1.8 cm lesion is seen inthe left popliteal fossa in keeping with a popliteal cyst. IMPRESSION: No deep vein thrombosis identified in the left lower extremity veins -------- FINAL REPORT -------- Dictated By: Herlinda Jacobson Dictated Date: 11/09/2024 03:41 ET Assigned Physician: Herlinda Jacobson Reviewed and Electronically Signed By: Herlinda Jacobson Signed Date: 11/09/2024 03:43 ET Workstation ID: [id number] Transcribed By: Self Edit Transcribed Date: 11/09/2024 03:41 ET Cheryl VIDES CV VASCULAR PROCEDURES Fin al Result from Last 3 Months Insurance [employer] MEDICARE Advance Directives * Full Code - Confirmed (Latest Code Status on File) Date Activated Date Inactivated Comments 01/03/2025 10:54 PM 01/05/2025 2:09 PM This code s tatus was ascertained in the following way: Code status discussion: discussion with patient To update the patient's code status, place a code status order. Do not modify or discontinue any currently active code status orders. * Full Code - Default Date Activated Date Inactivated Comments 01/03/2025 6:39 PM 01/03/2025 10:54 PM This is ord er is used when code status has not been discussed with the patient, or code status is otherwise unknown/unconfirmed To update the patient's code status, place a code status order. Do not modify or discontinue any currently active code status orders. Care Teams Research Biostatistician Relationship Specialty Start Date End Date Marycruz Zapata MD [address] [place] [address] Dr [address] [facility] [place] [address] PCP - General Internal Medicine 11/02/21
--- OUTSIDE RECORDS SUMMARY | 2025-01-20 18:39 | XMS_ITS ---
Author Organization [facility] Address [address] [place] [address] Care Team Providers Care Railroad Repairer Name Role Phone Marycruz Zapata Primary Care Provider Unavailcaden e Sohan Beaversmie Unavailable [phone] Sherice Early Unavailable [phone] REASON FOR VISIT no show Encounters Encounter Location Date Provider Diagnosis [facility] [address] [place] [address] 01/28/2024 Sherice Early Plan Of Treatment No Information Progress Notes * Magy SANTIAGO MDOB: [birth year] (68 yo F)Acc No.[id number]:01/28/2024 Patient:?Magy Santiago :1955???Age:68 Y???Sex:Female Address:[address] [place] [address], [address], [place], [address] * true * Date:? Generated for Printi joshua/Rashuan/eTransmitting on:?01/20/2025 06:39 PM EST
--- OUTSIDE RECORDS SUMMARY | 2025-01-20 18:39 | XMS_ITS | Clinical Summary ---
Author Organization [facility] Address [address] [place] [address] Phone Care Team Providers Care Power Equipment Mechanics Instructor Name Role Phone [facility] Unavailable Unavailable Reason for Visit and [...] Subscriber Relationship Effect patrick Dates 1 - [facility] [id number] SAHIL CAMPOS Self Clinical Notes Includes: Clinical Notes from this encounter No Clinical Notes Recorded
--- OUTSIDE RECORDS SUMMARY | 2025-01-20 18:39 | XMS_ITS | Continuity of Care Document ---
Author Organization [facility] Address [address] [place] [address]- Care Team Providers Care Installation And Service Technician Name Role Phone Po Marycruz DRIVER Primary Care Physician Encounter [facility] [place] Date(s): 12/17/24 - 01/16/25 [facility] [address] [place] [address]- Attending Physician: Myron Fitzgerald Admitting Physician: AdmtrMyron Referring Physician: AdmtrMyron Encounter Type: Triage Allergies, Adverse Reactions, Alerts Substance Criticality Severity Reaction Reaction Severity Status furosemide 1 Active azithromycin 2 Activ e pravastatin 3 Active atorvastatin 4 Activ e apixaban 5 Active levoFLOXacin 6 Activ e simvastatin 7 Active cyclobenzaprine 8 Ac tive Bumex 9 Active sulfa drugs 10 Activ e 1nausea/ vomiting 2palpitations 3muscle pain 4muscle pain 5nausea 6nausea, dizziness 7muscle pain 8nausea and vomiting 9near syncope, 10vomiting Medications [...] obesity (BMI 35.0-39.9) with comorbidity Confirmed Active Social History Social History Type Response Smoking Status 5-9 cigarettes (betw een 1/4 to 1/2 pack)/day in last 30 days entered on: 10/31/23 Sex Sex Representation Female (finding) Cardiology * Event Display: Cardiology Office Note, Non-BH Authored Date: * Event Display: EKG Non BH Authored Date: * Event Display: Non Cardiovascular Results Authored Date: Laboratory * Event Display: Non BH Lab Results Authored Date: * Event Display: Non BH Lab Results Authored Date: Radiology * Event Display: Ultrasound Lower Extremity, Non-BH Authored Date: Patient Care team information Care Team Personnel Name: Dalila Rivera RN Position: [facility] RN Member Role: Primary Care Nurse Name: Rafael COPE, Rayne Position: [facility] RN Member Role: Primary Care Nurse Name: Marycruz Zapata MD Position: Reference Physician Member Role: PCP Address: [address] [place] [address] Telecom: Care Team Related Persons Name: THERESE CAMPOS Name: ZAKI CAMPSO Insurance Providers Guarantor name: SAHIL HERNANDEZELL Health Plan Information #: 1 Payer: MEDICARE PART B OUTPT Member Number: NA Policy Number: NA Group Number: NA
--- OUTSIDE RECORDS SUMMARY | 2025-01-20 18:39 | XMS_ITS ---
Author Organization [facility] Address [address] [place] [address] Care Team Providers Care Officer Captain Name Role Phone Marycruz Zapata Primary Care Provider Unavailcaden e Shantelle Beavers Unavailable [phone] Sherice Early [phone] Encounters Encounter Location Date Provider Diagnosis [facility] [address] [facility] [place] [address] 01/28/2024 Sherice Early Plan Of Treatment No Information Progress Notes * Magy SANTIAGO MDOB: [birth year] (69 yo F)Acc No.[id number]:01/28/2024 Progress Note Patient:?Magy SANTIAGO Provider:?Sherice Early DPM :1955???Age:68 Y???Sex:Female D ate:01/28/2024 Address:[address] [place] [address], [address], [id number] Pcp:Marycruz Zapata Subjective: * Chief Complaints: * [...]
== END 2025-01-20 16:14 | disposition home or self-care (01) ==
PROVIDERS: PCP Internal Medicine
DX: J43.9 Emphysema, unspecified (principal); E66.01 Morbid (severe) obesity due to excess calories; Z68.41 Body mass index [BMI] 40.0-44.9, adult; E11.65 Type 2 diabetes mellitus with hyperglycemia; E78.00 Pure hypercholesterolemia, unspecified; Z72.0 Tobacco use; I10 Essential (primary) hypertension

== ENCOUNTER → 2025-01-20 15:18 | Outpatient (BNVA) | payer MEDICARE, SELFPAY | PROVIDERS: PCP Internal Medicine | DX: E78.00 Pure hypercholesterolemia, unspecified (principal); J43.9 Emphysema, unspecified; E66.01 Morbid (severe) obesity due to excess calories; Z68.41 Body mass index [BMI] 40.0-44.9, adult; E11.65 Type 2 diabetes mellitus with hyperglycemia; I10 Essential (primary) hypertension; Z71.3 Dietary counseling and surveillance; Z72.0 Tobacco use | CPT/HCPCS: 99212 ==

== ENCOUNTER 2025-03-17 14:47 | Outpatient (AMB) | payer MEDICARE, SELFPAY ==
[2025-03-17 15:18] VITALS: BP 144/78; PULSE 92; TEMP 36.3; O2SAT 94; BMI 38.7
--- NOTE | 2025-03-17 15:18 | A.OFFPC_ITS ---
Vital Signs 03/17/25 15:18 03/17/25 15:40 Height 5 ft 3 in Weight 218 lb 8 oz BMI 38.7 BP 144/78 H 130/80 Blood Pressure Location Lt brachial Lt brachial Position Sitting Sitting Pulse 92 Pulse Source Pulse Oximeter Temp 97.3 F Temp Source Temporal Artery Scan Pulse Oximetry (%) 94 Oxygen Delivery Method Room Air Intake Visit Reasons: annual exam Cardiothoracic Surgeon Required: No Accompanied by: Self / Same As Patient Allergies furosemide Allergy (Intermediate, Verified 03/17/25 15:19) Nausea and Vomiting hydralazine Allergy (Intermediate, Verified 03/17/25 15:19) Diarrhea levofloxacin [From LEVAQUIN] Allergy (Mild, Verified 03/17/25 15:19) NAUSEA, dizziness,Nausea cyclobenzaprine [From FLEXERIL] Allergy (Unknown, Verified 03/17/25 15:19) NAUSEA & VOMITING simvastatin Allergy (Unknown, Verified 03/17/25 15:19) Muscle Pain Sulfa (Sulfonamide Antibiotics) [SULFA (SULFONAMIDE ANTIBIOTICS)] Allergy (Unknown, Verified 03/17/25 15:19) VOMITING atorvastatin [ATORVASTATIN] Adverse Reaction (Severe, Verified 03/17/25 15:19) MUSCLE PAIN azithromycin Adverse Reaction (Intermediate, Verified 03/17/25 15:19) Palpitations pravastatin Adverse Reaction (Unknown, Verified 03/17/25 15:19) Muscle Pain apixaban [From Eliquis] Adverse Reaction (Verified 03/17/25 15:19) Nausea Bumex Adverse Reaction (Severe, Uncoded 01/20/25 15:39) Nausea, dizziness, near syncope Medication List - Last Reconciled 03/17/25 by Marycruz Zapata MD albuterol sulfate 90 mcg/actuation (Ventolin HFA) 2 puffs inhalation Q6H PRN amiodarone 200 mg PO DAILY amlodipine 10 mg PO DAILY aspirin (Adult Low Dose Aspirin) 81 mg PO DAILY blood sugar diagnostic (OneTouch Verio test strips) 1 strip miscellaneous BID 30 days blood sugar diagnostic (OneTouch Ultra Test strips) test once per day blood-glucose meter (OzmosisTouch Ultra2 Meter) test once per day dicyclomine 20 mg PO BID PRN glimepiride 4 mg PO DAILY [glucometer One touch Verio As directed] lancets (OzmosisTouch UltraSoft 2 Lancet) test once per day lancing device with lancets (ImagineOptix Delica Plus Lancing Device kit) As directed check BS once a day levothyroxine 100 mcg PO DAILY metformin 1,000 mg PO BID metoprolol tartrate 50 mg PO BID 90 days nystatin 1 appl topical TID omeprazole 40 mg PO BID 90 days ondansetron 4 mg PO Q8H PRN oxycodone-acetaminophen 5-325 mg (Percocet) 1 tab PO TID PRN Oxygen Home Use As directed rivaroxaban (Xarelto) 15 mg PO QPM rosuvastatin 5 mg PO DAILY sertraline 50 mg PO DAILY torsemide 10 mg PO DAILY Tobacco use date assessed: 01/20/25 Dental Screening Dental Screen Date: 01/20/25 [facility] Medical History (Updated 03/17/25 @ 15:48 by Marycruz Zapata MD) Non-rheumatic aortic stenosis Aortic stenosis Breast cancer screening by mammogram Atrial fibrillation Atrial fibrillation with controlled ventricular rate Oxygen dependent Essential hypertension Type 2 diabetes mellitus with hyperglycemia Lumbar degenerative disc disease Obesity Restless leg syndrome Vitamin D deficiency Tobacco abuse Thrombocytopenia Degenerative disc disease, cervical Anxiety and depression Osteopenia Barretts esophagus Tubular adenoma of colon COPD (chronic obstructive pulmonary disease) Hyperlipidemia, unspecified Atherosclerotic cardiovascular disease Surgical History History of carpal tunnel release History of discectomy History of cataract surgery History of hip replacement History of tonsillectomy History of appendectomy History of cholecystectomy History of cardiac catheterization Family History Father Bone cancer Mother Cardiovascular disease Brother Lung cancer Sister Lung cancer Social History (Updated 03/17/25 @ 15:47 by Marycruz Zapata MD) Housing: Apartment Alcohol intake: never Patient Tobacco Use Status: Current everyday Tobacco user Tobacco use type: Cigarette Cigarette Packs Per Day: 0.5 Cigarettes Per Day: 4 Years Smoked: 4-5 a day (02/2025) e-Cigarette/Vaping Use: Never Used Second Hand Smoke Exposure: Yes service: No Current occupational status: retired Cognitive needs: No Hearing needs: No Vision needs: Yes (glasses) Questionnaire PHQ-9 Over the last 2 weeks, how often have you been bothered by any of the following problems? 1. Little interest or pleasure in doing things: more than half the days 2. Feeling down, depressed, or hopeless: nearly every day 3. Trouble falling or staying asleep, or sleeping too much: nearly every day 4. Feeling tired or having little energy: several days 5. Poor appetite or overeating: not at all 6. Feeling bad about yourself - or that you are a failure or have let yourself or your family down: not at all 7. Trouble concentrating on things, such as reading the newspaper or watching television: not at all 8. Moving or speaking so slowly that other people could have noticed. Or the opposite - being so fidgety or restless that you have been moving around a lot more than usual: not at all 9. Thoughts that you would be better off or of hurting yourself in some way: not at all Total score: 9 30677 - PHQ-9 Billing: Yes Source: Developed by Drs. Dong Jackson, Yumi Curry, Andrew Ojeda and colleagues, with an educational noble from [employer]. Thrive Questionnaire Date Thrive assessed: 03/17/25 I am a: Patient What is your living situation today?: I have a steady place to live Within the past 12 months, did the food you bought not last and you didn't have the money to get more?: Never true Within the past 12 months, did you worry whether your food would run out before you got money to buy more?: Often true Do you have trouble paying for medicines?: No Do you have trouble getting transportation to medical appointments?: No Do you have trouble paying your heating and electricity bill?: No Do you have trouble taking care of your child, family member or friend?: Yes Do you have trouble with day-to-day activities such as bathing, preparing meals, shopping, managing finances, etc.?: No Are you currently unemployed and looking for a job?: Yes Are you interested in more education?: No Please select the resources that you would like help with: None Currently or been in a relationship where the following occur: No concerns reported THRIVE Score: 1 AUDIT C Alcohol Use Questionnaire (AUDIT-C) 1. How often do you have a drink containing alcohol?: Never Total Score: 0 SHAD-7 AMB Questionnaire SHAD-7 Date SHAD - 7 assessed: 01/20/25 Feeling nervous, anxious, or on edge: 1 = Several days Not being able to stop or control worryin = Several days Worrying too much about different things: 3 = Nearly every day Trouble relaxin = Nearly every day Being so restless that it is hard to sit still: 1 = Several days Becoming easily annoyed or irritable: 3 = Nearly every day Feeling afraid as if something awful might happen: 3 = Nearly every day Total SHAD-7 score (0-4 normal; 5-9 mild; 10-14 moderate; 15-21 severe): 15 Source: Developed by Drs. Dong Jackson, Yumi Curry, Andrew Ojeda and colleagues, with an educational noble from [employer]. Review of Systems Const Denies poor appetite and Denies weakness Eyes Denies no additional complaints ENT Reports Normal hearing present, Denies dizziness, Denies nasal congestion, Denies tinnitus and Denies sore throat Card Denies chest pain, Denies syncope, Denies rapid heart rate and Denies dyspnea Resp Denies cough and Denies dyspnea GI Denies change in stool character, Reports constipation, Denies diarrhea, Denies nausea and Denies vomiting Denies urinary frequency, Denies difficulty voiding and Denies dysuria Neuro Reports Normal hearing present, Denies confusion, Denies dizziness, Denies syncope and Denies weakness Psych Denies confusion Physical exam (Primary Care) Vital Signs: Last Vital Signs Temp 97.3 F 03/17/25 15:18 Pulse 92 03/17/25 15:18 BP 130/80 03/17/25 15:40 Pulse Ox 94 03/17/25 15:18 Oxygen Delivery Method Room Air 03/17/25 15:18 BMI result Body Mass Index 38.7 Tobacco/Smoking Status: Tobacco use Status Tobacco use date assessed 01/20/25 03/17/25 15:20 Patient Tobacco Use Status Current everyday Tobacco 03/17/25 15:47 Tobacco use type Cigarette 03/17/25 15:47 e-Cigarette/Vaping Use Never Used 03/17/25 15:47 PHQ-9: PHQ-9 Score PHQ-9: Total score 9 03/17/25 15:38 Thrive Assessment: Date of Thrive Assessment Date Thrive assessed 03/17/25 03/17/25 15:20 Currently or been in a relationship where the following occur: No concerns reported Const General: No confusion Orientation/consciousness: No confusion HENMT Head: Yes normocephalic Ears: external ears normal and TM's normal bilaterally Face and sinus: Yes normal facial exam Mouth: moist mucous membranes Throat: Yes tonsils normal Eyes Conjunctivae: conjunctivae normal Pupils: Equal, round and reactive pupils present and Pupil accommodation reflex normal Direct Ophthalmoscopy: normal light reflex Neck Neck: No lymphadenopathy Thyroid: Thyroid normal Chest Chest palpation & inspection: normal inspection of the chest Resp Effort & Inspection: normal respiratory effort and no audible wheezes Auscultation: clear to auscultation bilaterally, no crackles, no wheezes and lung sounds not diminished Cardio Rate: regular rate Rhythm: regular rhythm Peripheral pulses: radial pulses present and dorsalis pedis present GI Palpation (GI): no masses Auscultation: normal bowel sounds and normoactive bowel sounds Rectal Exam - Female: deferred Skin General skin exam: no rashes or lesions noted Rashes: no rashes Neuro General: No confusion Cranial nerves: Yes Equal, round and reactive pupils present and Yes Normal hearing present Cognition (Neuro): normal cognition Gait exam (Neuro): Normal gait present Motor exam (neuro): 5/5 motor strength present throughout Deep tendon reflexes (DTR's): Right brachioradialis reflex intensity grade: 2+, Left brachioradialis reflex intensity grade: 2+, Right patellar reflex intensity grade: 2+ and Left patellar reflex intensity grade: 2+ Extrem General: No edema Results AMB Hemoglobin A1c AMB Hemoglobin A1c 7.5 % Last Edit by NOLVIA Ahn on 03/17/25 16:10 Coding Level of Care Code Est Pt Prev Care >65y(16148) Diagnoses Annual physical exam Z00.00 S/P TAVR (transcatheter aortic valve replacement) Z95.2 Tubular adenoma of colon D12.6 PAF (paroxysmal atrial fibrillation) I48.0 Chronic diastolic (congestive) heart failure I50.32 Hypothyroid E03.9 Type 2 diabetes mellitus with hyperglycemia, without long-term current use of insulin E11.65 Diabetes mellitus terminal operations manager insulin use: without terminal operations manager use Tobacco abuse Z72.0 Umaña's esophagus without dysplasia K22.70 Umaña's esophagus type: without dysplasia Pulmonary emphysema, unspecified emphysema type J43.9 COPD type: emphysema Emphysema type: unspecified Pure hypercholesterolemia E78.00 Hyperlipidemia type: pure hypercholesterolemia Atherosclerotic cardiovascular disease I25.10 Essential hypertension I10 Hearing deficit H91.90 Additional Codes PHQ-9 - 68338 - PHQ-9 Billing: Yes ([id number]) Assessment & Plan Assessment & Plan (1) Annual physical exam: Code(s): Z00.00 - Encounter for general adult medical examination without abnormal findings Category: Medical Plan: Patient is advised to eat healthy, keep well hydrated, keep active and have adequate sleep. (2) S/P TAVR (transcatheter aortic valve replacement): Comment: November 2023 Dr. Purcell Code(s): Z95.2 - Presence of prosthetic heart valve Category: Surgical Plan: Echocardiogram in November functioning normally (3) Tubular adenoma of colon: Comment: 2017 Code(s): D12.6 - Benign neoplasm of colon, unspecified Category: Medical Plan: Patient is reminded about colonoscopy (4) PAF (paroxysmal atrial fibrillation): Code(s): I48.0 - Paroxysmal atrial fibrillation Category: Medical Plan: Continue with amiodarone and on Xarelto (5) Chronic diastolic (congestive) heart failure: Code(s): I50.32 - Chronic diastolic (congestive) heart failure Category: Medical Plan: Keep well hydrated continue with torsemide hydralazine (6) Hypothyroid: Code(s): E03.9 - Hypothyroidism, unspecified Category: Medical Plan: Continue with thyroid medication (7) Type 2 diabetes mellitus with hyperglycemia: Comment: Eye and lasik Code(s): E11.65 - Type 2 diabetes mellitus with hyperglycemia Category: Medical Qualifiers: Diabetes mellitus halfway insulin use: without terminal operations manager use Qualified Code(s): E11.65 - Type 2 diabetes mellitus with hyperglycemia Plan: Decrease the amount of carbohydrate intake, pasta, bread, rice and potatoes are all sugar and that is aside from all the sweet stuff, remember that fruits are good but they are Sweet also. Hemoglobin A1c goal of less than 7.0 patient is on metformin a 1000 mg twice a day glimepiride 4 mg once a day (8) Tobacco abuse: Comment: states 5- 6 cigarettes per day (12/2020) Code(s): Z72.0 - Tobacco use Category: Medical Plan: Patient is strongly advised to stop smoking! (9) Barretts esophagus: Code(s): K22.70 - Umaña's esophagus without dysplasia Category: Medical Qualifiers: Umaña's esophagus type: without dysplasia Qualified Code(s): K22.70 - Umaña's esophagus without dysplasia Plan: Stop smoking! Avoid the foods that causes that usually spicy foods, tomato products, juices, coffee, soda and foods that your sensitive to. After eating do not lie down, allow 3-4 hours before in lie down. And keep the head of bed above 30 degrees to avoid the acid from going up. (10) COPD (chronic obstructive pulmonary disease): Code(s): J44.9 - Chronic obstructive pulmonary disease, unspecified Category: Medical Qualifiers: COPD type: emphysema Emphysema type: unspecified Qualified Code(s): J43.9 - Emphysema, unspecified Plan: Patient is advised strongly to stop smoking! Continue with albuterol inhaler as needed continue with tiotropium (11) Hyperlipidemia, unspecified: Code(s): E78.5 - Hyperlipidemia, unspecified Category: Medical Qualifiers: Hyperlipidemia type: pure hypercholesterolemia Qualified Code(s): E78.00 - Pure hypercholesterolemia, unspecified Plan: Avoid fried foods, chicken skin, eggs, butter margarine, pastries and meat. Be it pork or beef they have a lot of cholesterol on rosuvastatin 5 mg once a day (12) Atherosclerotic cardiovascular disease: Code(s): I25.10 - Atherosclerotic heart disease of [place] coronary artery without angina pectoris Category: Medical Plan: Control the cholesterol, weight, blood pressure, diabetes continue with anticoagulation and aspirin (13) Essential hypertension: Code(s): I10 - Essential (primary) hypertension Category: Medical Plan: Continue with blood pressure medication. Decrease salt intake and exercise on amlodipine 10 mg once a day hydralazine 25 mg 3 times a day metoprolol 50 mg twice a day (14) Hearing deficit: Code(s): H91.90 - Unspecified hearing loss, unspecified ear Category: Medical Plan History of Present Illness The patient is a 69-year-old female presenting with a history of multiple chronic conditions for an annual physical examination. She has obesity, aortic stenosis, atherosclerotic heart disease, hypercholesterolemia, and Chronic Obstructive Pulmonary Disease (COPD). She has a diagnosis of Umaña's esophagus and is a current smoker. Her history of lumbar degenerative disc disease requires narcotic pain management. The patient has diabetes mellitus, with a recently measured hemoglobin A1c of 7.0% in August 2024, and hypertension treated with multiple antihypertensive medications. She has congestive heart failure and atrial fibrillation and is status post transcatheter aortic valve replacement (TAVR) in November 2023. An echocardiogram last performed in November 2024 showed a normal left ventricular ejection fraction of 63%, with a normally functioning bioprosthetic valve. She experienced hypoxic respiratory failure due to a COPD exacerbation in December 2024 and was hospitalized. Recent blood work in September 2024 revealed anemia with a hemoglobin level of 10.6 g/dL and a creatinine of 1.59 mg/dL indicating reduced renal function. The patient reports episodes of dizziness and has expressed concern about episodes of chest pain and shortness of breath on exertion. There have been complaints of left leg pain attributed to sciatic nerve issues. In addition, the patient has a history of hypothyroidism, with thyrotropin (TSH) levels at 5.94 in August 2024, and she reports not having received her thyroid medication for an unspecified duration. The patient is also treated for depression and has expressed recent worsening of symptoms, requesting an increase in her sertraline dosage. She smokes 4 to 5 cigarettes per day, down from previous levels but has been strongly advised to quit smoking due to her multiple health issues. Her last colonoscopy was in 2017, at which time a polyp was found, and she was advised to repeat the procedure in five years. She has not had a mammogram or bone density scan recently, both of which are due. She does not consume alcohol and reports peeing frequently at night, approximately four to five times, affecting her sleep. Health Maintenance - Colonoscopy due as last performed in 2017 with polyp found - Mammogram is due - Bone density scan is due - Annual echocardiogram showed normal functioning bioprosthetic valve in November 2024 - Influenza and pneumonia vaccinations status checked - Encouragement to quit smoking for COPD and overall health - Control blood glucose levels to lower Hemoglobin A1c <7.0% - Ongoing management of hyperlipidemia with Rosuvastatin - Blood pressure control through multiple antihypertensive agents Social History - Current smoker, 4-5 cigarettes per day - Reports no alcohol use - Family history includes details that may impact health, e.g., the patient has caregivers in the family assisting with health appointments Review of Systems - Cardiovascular: Reports intermittent chest pains and shortness of breath on exertion - Respiratory: Reports infrequent use of albuterol; no recent use of Spiriva. - Gastrointestinal: Reports occasional heartburn; denies nausea and vomiting - Neurological: Reports episodes of dizziness - Musculoskeletal: Complains of left leg pain - Genitourinary: Reports nocturia, waking 4-5 times per night - Ophthalmic: Reports prior bleeding in eyes due to diabetes - Endocrine: Denies recent intake of thyroid medication - Skin: No reported skin issues - Psychiatric: Reports worsening depression Physical Exam General: Cooperative, obese, healthy appearing, comfortable, no acute distress and well developed Orientation: Patient oriented x3 Limitations: No limitations Head: Normal to inspection Ears: Hearing grossly normal bilaterally Nose: Normal external nose present Face and sinus: Normal facial exam Eyes: Appearance normal, both eyes and all related structures Neck: Normal visual inspection and Yes full ROM Respiratory: Normal respiratory effort and able to speak in complete sentences. Clear to auscultation bilaterally Cardiovascular: Regular rate and rhythm. Normal S1 and S2 GI: Normal to inspection. Soft to palpation and nontender Skin: Rash noted Neuro: Patient oriented x3 Extremities: Normal to inspection, but patient complains of left leg pain. Results - Labs: Hemoglobin 10.6 g/dL, Creatinine 1.59 mg/dL (September 2024) - A1c: 7.0% (August 2024) - TSH: 5.94 (August 2024) - Echocardiogram: Normal EF of 63%, normally functioning bioprosthetic valve (November 2024) Plan 1. 0%. Amiodarone warrants annual thyroid and chest X-ray assessments. Smoking cessation is critical for COPD. The patient will be sent for a mammogram, colonoscopy, and bone density scan. Referrals for GI and endocrine follow-up are placed. We will re-evaluate her current hypothyroid status with bloodwork and begin levothyroxine in titration following confirmation. The patient will continue with current medications, including mental health management with increased sertraline. A plan for assessing ocular bleeding status by ophthalmology alongside persistent engagements in diabetic control will further health maintenance goals.: Patient was informed and verbally consented to the use of an ambient scribe for clinic note documentation during this visit. Discussion Notes I discussed with the patient the importance of smoking cessation, emphasizing reducing exacerbations of COPD and promoting cardiovascular benefits. The risks and benefits of current medication regimens were outlined. In particular, I c larified the monitoring requirements for amiodarone and the need to address hypothyroidism before re-prescribing levothyroxine. Mammogram and colonoscopy were emphasized as due evaluations, with the patient consenting to scheduling. The implications of anemia and her renal function status from the prior lab results were considered, necessitating further monitoring. An agreement was reached on the incremental adjustment of sertraline for depression under vigilant watch over her psychological symptoms. Finally, impact evaluations from the persistent eye hemorrhaging have been established as crucial due to her diabetic retinopathies. Follow-up care mandates fasting laboratory assessments for hemoglobin, renal function, and diabetes institutionally arranged with the patient, alongside reconciliation of furosemide diuretic use optimizing nocturia. Patient Instructions - Continue taking amiodarone, Xarelto, and all current medications as prescribed. - Schedule and attend mammogram, colonoscopy, and bone density tests. - Efforts to further reduce cigarette smoking are strongly advised. - Monitor and report any changes in dizziness or balance issues. - Maintain adherence to diabetes medications Metformin and Glimepiride. - Schedule fasting lab tests, including thyroid evaluation, at the earliest opportunity. - Ensure optimal hydration. - Attend referred appointments for gastrointestinal evaluation and eye examination. - Discuss observed eye changes with your wrap knitting machine operator and monitor vision regularly. - Report any new or worsening symptoms immediately. Orders: Orders B Type Natriuretic Peptide Today E11.65 - Type 2 diabetes mellitus with hyperglycemia Free T4 (Free Thyroxine) Today E11.65 - Type 2 diabetes mellitus with hyperglycemia Creatinine Urine 3 Months E11.65 - Type 2 diabetes mellitus with hyperglycemia Lipid Panel Today E11.65 - Type 2 diabetes mellitus with hyperglycemia, E78.00 - Pure hypercholesterolemia, unspecified Reticulocyte Count Today E11.65 - Type 2 diabetes mellitus with hyperglycemia Vitamin B12 and Folate Today E11.65 - Type 2 diabetes mellitus with hyperglycemia Vitamin D 25-OH Total Today E11.65 - Type 2 diabetes mellitus with hyperglycemia XR DEXA axial skeleton Today M81.0 - Age-related osteoporosis without current pathological fracture, M85.80 - Other specified disorders of bone density and structure, unspecified site AMB Hemoglobin A1c Today E11.65 - Type 2 diabetes mellitus with hyperglycemia Complete Blood Count Auto Diff Today E11.65 - Type 2 diabetes mellitus with hyperglycemia Comprehensive Met. Panel Today E11.65 - Type 2 diabetes mellitus with hyperglycemia Microalbumin, Random (w Creat) Today E11.65 - Type 2 diabetes mellitus with hyperglycemia Thyroid Stimulating Hormone 3 Months E11.65 - Type 2 diabetes mellitus with hyperglycemia Magnesium Today E11.65 - Type 2 diabetes mellitus with hyperglycemia MM tomosynthesis screening BI Today Z12.31 - Encounter for screening mammogram for malignant neoplasm of breast Referrals Speech and Hearing Referral H91.90 - Unspecified hearing loss, unspecified ear Gastroenterology Referral D12.6 - Benign neoplasm of colon, unspecified, K22.70 - Umaña's esophagus without dysplasia Medications: New empagliflozin (Jardiance) 10 mg PO DAILY 30 tabs 4RF E11.65 - Type 2 diabetes mellitus with hyperglycemia fluticasone propion-salmeterol 250-50 mcg/dose (Advair Diskus) 1 inh inhalation BID 60 ea 12RF J43.9 - Emphysema, unspecified Refilled ondansetron 4 mg PO Q8H PRN 20 tabs 0RF nausea and vomiting J43.9 - Emphysema, unspecified
[2025-03-17 15:40] VITALS: BP 130/80
--- OUTSIDE RECORDS SUMMARY | 2025-03-17 17:31 | XMS_ITS | Clinical Summary ---
Author Organization [facility] Address [address] [place] [address] Care Team Providers Care Engineering Group Leader Name Role Phone Marycruz Zapata MD Primary Care Provider [phone] Social History Tobacco Use Types Packs/Day Years [...] age to complete this topic Care Teams Engineering Group Leader Relationship Specialty Start Date End Date Marycruz Zapata MD [address] [place] [address] [address] [facility] [place] [address] PCP - General Internal Medicine 02/17/18
--- OUTSIDE RECORDS SUMMARY | 2025-03-17 17:31 | XMS_ITS | Clinical Summary ---
Author Organization [facility] Address [address] [place] [address] Phone Care Team Providers Care It Manager Name Role Phone [facility] Unavailable [phone] Reason for Visit and Chief Complaint New Patient Plan of Treatment Pending Tests Order Diagnosis Results Due Ordering P eduardo Follow Up - Appointment 2 Weeks Disp fx of greater tuberosity of right humerus, init 06/13/22 Don Lowe PA-C Last Documented On 2 11:01AM ; [facility] In House X-Rays - X-Rays Shoulder, right, min of 2 views ([id number]) Disp fx of greater tuberosity of right humerus, init 06/15/22 Don Lowe PA-C Last Documented On 2 11:01AM ; [facility] Assessments Includes: Assessments from this encounter No [...] Last Documented: On 06/13/2022 10:35A M ; [facility] Results Includes: Results discussed during this encounter [...] Time Diagnosis New Patient [facility] 2 10:00AM 10:56AM Insurance Includes: Active Insurance Policies Plan Name Member ID Group # Subscriber Relationship Effect patrick Dates 1 - [facility] [id number] SAHIL CAMPOS Self Clinical Notes Includes: Clinical Notes from this encounter No Clinical Notes Recorded
--- OUTSIDE RECORDS SUMMARY | 2025-03-17 17:31 | XMS_ITS ---
Author Organization [facility] Address [address] [place] [address] Care Team Providers Care Target Protection Specialist Name Role Phone Marycruz Zapata Primary Care Provider Unavailcaden e Sohan Beaversmie Unavailable [phone] Sherice Early Unavailable [phone] REASON FOR VISIT no show Encounters Encounter Location Date Provider Diagnosis [facility] [address] [place] [address] 01/28/2024 Sherice Early Plan Of Treatment No Information Progress Notes * Magy SANTIAGO MDOB: 3 (68 yo F)Acc No.[id number]:01/28/2024 Patient:?Magy Santiago :1955???Age:68 Y???Sex:Female Address:[address] [place] [address], [address], [place], [address] * true * Date:? Generated for Printi joshua/Rashaun/eTransmitting on:?03/17/2025 05:31 PM EDT
--- OUTSIDE RECORDS SUMMARY | 2025-03-17 17:31 | XMS_ITS | Patient Health Record ---
Author Organization [facility] Address [address] [facility] [place] [address] Care Team Providers Care Communications Writer Name Role Phone Marycruz Zapata Primary Care Provider UnavailShantelle Akbar Unavailable [phone] Allergies No Known Allergies Reason For Referral [...] Problem Acquired hammer toe of right foot (9283527808873671 ) Other hammer toe(s) (acquired), right foot (M20.41) Active confirmed Problem Acquired hammer toe of left foot (9701965343177673 ) Other hammer toe(s) (acquired), left foot (M20.42) Active confirmed Problem Polyneuropathy due to type 2 diabetes mellitus (082193167) Type 2 diabetes mellitus with diabetic polyneuropathy (E11.42) Active confirmed Plan Of Treatment Pending Test Test Name Order Date [id number] NAIL, 1-5 03/04/2022 [id number] SKIN LESIONS, OVER 4 03/04/20 22 [id number] DYSTROPHIC NAILS ANY # Insurance Providers Payer Name Payer Address Payer Phone Subscriber Number Group Number Insured Name Patient Relationship to Insured Coverage Start Date Coverage End Date AARP Medicare Complete [address] [address] [place] [address] [id number] Magy Santiago Self - patient is the insured Medical (General) History Medical History History ICD Code asthma Back,Hip,and Knee pain Cataracts Diabetes mellitus High blood pressure Numbness thyroid Mumps Joint implants/screws Surgical History Surgery Date(Month/Year) neck surgery 2016
--- OUTSIDE RECORDS SUMMARY | 2025-03-17 17:31 | XMS_ITS | Clinical Summary ---
Author Organization [facility] Address [address] [place] [address] Phone Care Team Providers Care Retail Selling Floor Leader Name Role Phone [facility] Unavailable Unavailable Reason for Visit and [...] Subscriber Relationship Effect patrick Dates 1 - [facility] [id number] SAHIL CAMPOS Self Clinical Notes Includes: Clinical Notes from this encounter No Clinical Notes Recorded
--- OUTSIDE RECORDS SUMMARY | 2025-03-17 17:31 | XMS_ITS ---
Author Organization [facility] Address [address] [place] [address] Phone Care Team Providers Care Industrial Specialist Name Role Phone [facility] Unavailable [phone] Plan of Treatment No Plan of Treatment Recorded Assessments Includes: Assessments for all patient encounters No Assessments Recorded Medical Equipment - Implanted Devices Includes: Current and historical Devices No Medical Equipment Recorded Medications Administered Includes: Administered Medications in patient's chart No Administered Medications Recorded Results Includes: Results from 03/17/2024 through 03/17/2025 No Results Recorded For Specified Dates History [...] Relationship Effect patrick Dates 1 - [facility] [id number] SAHIL CAMPOS Self Clinical Notes Includes: Signed Clinical Notes starting from 11/03/2022 No Clinical Notes Recorded
--- OUTSIDE RECORDS SUMMARY | 2025-03-17 17:31 | XMS_ITS ---
Care Plan - [facility] Created on: March 17, 2025 SAHIL CAMPOS : 1955 Sex: Female Author Organization [facility] Address [address] [place] [address] Phone Care Team Providers Care Emergency Doctor Name Role Phone [facility] Unavailable Unavailable
--- OUTSIDE RECORDS SUMMARY | 2025-03-17 17:31 | XMS_ITS ---
Author Organization [facility] Address [address] [place] [address] Care Team Providers Care Integration Assistant Name Role Phone Marycruz Zapata Primary Care Provider UnavailShantelle Akbar Unavailable [phone] Sherice Early [phone] Encounters Encounter Location Date Provider Diagnosis [facility] [address] [place] [address] 01/28/2024 Sherice Early Plan Of Treatment No Information Progress Notes * Magy SANTIAGO MDOB: 3 (69 yo F)Acc No.[id number]:01/28/2024 Progress Note Patient:?Magy SANTIAGO Provider:?Sherice Early DPM :1955???Age:68 Y???Sex:Female D ate:01/28/2024 Address:[address] [place] [address], [address], [id number] Pcp:Marycruz Zapata Subjective: * Chief Complaints: * ??? * Medical History:? Objective: * Vitals:? Assessment: Plan: * Treatment: * Images: * The named appointment provid er may or may not be the originator of this progress note, and it is not deemed complete until electronically signed by the appointment provider. Sign off status: Pending * Provider:?Sherice Early DPM Date:?04/2024 Generated for Dawni joshua/Rashaun/eTransmitting on:?03/17/2025 05:31 PM EDT
--- OUTSIDE RECORDS SUMMARY | 2025-03-17 17:31 | XMS_ITS | Clinical Summary ---
Author Organization [facility] Address [address] [place] [address] Phone Care Team Providers Care Tailercpa Name Role Phone Marycruz Zapata MD Primary Care Provider [phone] Allergies No known active allergies Medications albuterol [...] mouth 2 (two) times a day. Active oxyCODONE-aceta minophen (PERCOCET) 5-325 mg per tablet Take 1 [...] (one) time each day. 30 each 5 Active SITagliptin phosphate (JANUVIA) 25 mg tablet Take 1 tablet (25 mg total) by mouth 1 (one) time each day. 30 tablet 1 5 Active tiotropium (SPIRIVA) 18 mcg per inhalation capsule Place 1 capsule (18 mcg total) into inhaler and inhale 1 (one) time each day. 1 each 12 5 07/04/20 25 Active Active Problems Problem Noted Date Diagnosed Date Hyperglycemia due to diabete s mellitus ([facility] V24, [facility] V28) 01/05/2025 Resolved Problems Problem Noted Date Diagnosed Date Resolved Date COPD exacerbation ([facility] [place]24, [facility] V28) 5 01/05/2025 Acute hypoxic respiratory fa ilure ([facility] V24, [facility] V28) 01/03/2025 01/05/2025 Encounters Date Type Department Care Team Description 01/03/2025 3:18 PM EST - 01/05/2025 12:09 PM EST Hospital Encounter [facility] [address] [place] [id number] Garry Lee MD Buk[place], MD Georgi Dey Christopher, MD Bell, Alistair A, MD COPD exacerbation ([facility] V24, [facility] V28) (Primary Dx); Pneumonia due to infectious organism, unspecified laterality, unspecified part of lung Discharge Disposition: Home or Self Care from Last 3 Months Surgical History Surgery Date Site/Laterality Comments CARPAL TUNNEL RELEASE 03/28/2022 Right PROCEDURE: [place] NEUROPLASTY &/TRANSPOS MEDIAN NRV CARPAL TUNNE; COMMENT: Dr. Mccullough Medical History Medical History Date Comments Essential hypertension DX:Essent ial hypertension Diabetes mellitus type 2, co ntrolled, with complications (CMS/HCC V24, CMS/HCC V28) DX:Diabetes mellitus type 2, controlled, with complications (HCC) High cholesterol DX:High cholest surinder Thyroid activity [...] Vaccines (1 of 2) 2003 RSV Immunization Adult Patients (1 - Risk 60-74 years 1-dose series) 2013 Cholesterol Screening (Lipid Panel) 10/27/2022 Colorectal Cancer Screening: Colonoscopy 10/27/2022 Depression Screening 10/27/2022 Hepatitis C Screening 10/27/2022 Medicare Annual Wellness Visit 10/27/2022 Osteoporosis Screening (Bone Density Screening) 10/27/2022 Social Influencers of Health Screening 10/27/2022 COVID-19 Vaccine ( season) 2024 Diabetes: Annual Urine Albumin-Creatinine Ratio (uACR) 01/05/2025 Diabetes: Blood Sugar Control Test (HGBA1C) 07/04/2025 01/04/2025 Influenza Vaccine (Season Ended) 2025 10/03/2022 Diabetes: Annual GFR (Glomerular Filtration Rate) 01/05/2026 [...] age to complete this topic Meningococcal B Vaccine Aged Out No l onger eligible based on patient's age to complete [...] AND DIFFERENTIAL STAT 01/03/2025 3:38 PM EST [id number], RSV, FLU A AND B QUALITATIVE RT-PCR, INTERNAL LAB STAT 01/03/2025 2:58 PM EST from Last 3 Months Results * ECG-Annotated (01/06/2025) us Provider Onbase MD ECG ORDERABLES Final Result * (ABNORMAL) POCT Glucose, blood (01/05/2025 7:46 AM EST) Only the most recent of8 resultswithin the time period is included. Glucose POCT 290(H) 70 - 100 mg/dL 01/05/2025 7:47 AM EST [facility] Blood Capillary blood specimen / Unknown 01/05/2025 7:46 AM EST 01/05/2025 7:48 AM EST us Phoenix Riley MD LAB POINT OF CARE TE ST DOCKED DEVICE UNSOLICITED RESULTS Final Result Performing Organization Address [facility]/ZIP Co de Phone Number [facility] [address] [place] [address], * Lavender tube (01/05/2025 6:06 AM EST) [facility] Extra Tube Hold for add-ons. 01/05/2025 10:01 AM EST [facility] Comment:Auto resulted. Blood Venous blood specimen / Unknown Venipuncture / Unknown 01/05/2025 6:06 AM EST 01/05/2025 8:08 AM EST Phoenix Riley MD LAB BLOOD ORDERABLES Final Re sult Performing Organization Address [facility]/ZIP Co de Phone Number [facility] [address] [place] [address], [place] [phone] * (ABNORMAL) Basic metabolic panel (01/05/2025 6:06 AM EST) Only the most recent of3 resultswithin the time period is included. [facility] Sodium 130(L) 133 - 145 mmol/L LAB CHEMISTRY METHOD 01/05/2025 8:16 AM [facility] Potassium 4.0 3.5 - 5.5 mmol/L LAB CHEMISTRY METHOD 01/05/2025 8:16 AM [facility] Chloride 96 96 - 110 mmol/L LAB CHEMISTRY METHOD 01/05/2025 8:16 AM [facility] CO2 29 21 - 32 mmol/L LAB CHEMISTRY METHOD 01/05/2025 8:16 AM [facility] Anion Gap 5 3 - 11 LAB CHEMISTRY METHOD 01/05/2025 8:16 AM [facility] Glucose 312(H) 70 - 100 mg/dL LAB CHEMISTRY METHOD 01/05/2025 8:16 AM [facility] BUN 32(H) 5 - 25 mg/dL LAB CHEMISTRY METHOD 01/05/2025 8:16 AM [facility] Comment:Results verified by repeat testing Creatinine 2.00(H) 0.50 - 1.10 mg/dL LAB CHEMISTRY METHOD 01/05/2025 8:16 AM [facility] eGFR 26(L) >=60 mL/min/1. 73m2 LAB CHEMISTRY METHOD 01/05/2025 8:16 AM [facility] Comment:Calculation based on the??Chronic Kidney Disease Epidemiology Collaboration (CKD-EPI) equation refit??without adjustment for race. BUN/Creatinine Ratio 16.0 LAB CHEMISTRY METHOD 01/05/2025 8:16 AM [facility] Calcium 9.5 8.5 - 10.5 mg/dL LAB CHEMISTRY METHOD 01/05/2025 8:16 AM [facility] Blood Venous blood specimen / Unknown Venipuncture / Unknown 01/05/2025 6:06 AM EST 01/05/2025 7:24 AM EST us Phoenix Riley MD LAB BLOOD ORDERABLES Final Re sult [facility] [address] [place] [address], * (ABNORMAL) Complete blood count (01/04/2025 6:19 AM EST) WBC 6.5 4.8 - 10.8 K/mcL LAB HEMETOLOGY METHOD 01/04/2025 8:14 AM [facility] RBC 4.30 3.80 - 4.80 M/mcL LAB HEMETOLOGY METHOD 01/04/2025 8:14 AM [facility] Hemoglobin 10.4(L) 11.5 - 16.0 g/dL LAB HEMETOLOGY METHOD 01/04/2025 8:14 AM [facility] Hematocrit 34.0(L) 35.0 - 47.0 % LAB HEMETOLOGY METHOD 01/04/2025 8:14 AM EST [facility] MCV 80.0 79.0 - 98.0 FL LAB HEMETOLOGY METHOD 01/04/2025 8:14 AM EST [facility] MCH 24.5(L) 27.0 - 32.0 pcg LAB HEMETOLOGY METHOD 01/04/2025 8:14 AM EST [facility] MCHC 30.6(L) 32.0 - 37.0 g/dL LAB HEMETOLOGY METHOD 01/04/2025 8:14 AM EST [facility] RDW 16.9(H) 11.0 - 15.0 % LAB HEMETOLOGY METHOD 01/04/2025 8:14 AM EST [facility] Platelets 01/04/2025 8:14 AM EST [facility] Comment:Not measured. Platel ets appear adequate but clumped MPV 10.2 7.0 - 11.0 FL LAB HEMETOLOGY METHOD 01/04/2025 8:14 AM EST [facility] NRBC 0.0 <1.0 % LAB HEMETOLOGY METHOD 01/04/2025 8:14 AM EST [facility] NRBC Absolute 0.00 <0.10 K/mcL LAB HEMETOLOGY METHOD 01/04/2025 8:14 AM EST [facility] Blood Venous blood specimen / Unknown Venipuncture / Unknown 01/04/2025 6:19 AM EST 01/04/2025 7:22 AM EST us Yissel Frey MD LAB BLOOD ORDERABLES Final Res ult [facility] [address] [place] [address], * (ABNORMAL) Hemoglobin A1c (01/04/2025 6:19 AM EST) [facility] Hemoglobin A1C 8.2(H) <6.5 % LAB CHEMISTRY METHOD 01/04/2025 1:13 PM EST [facility] Mean Bld Glu Estim. 189 mg/dL LAB CHEMISTRY METHOD 01/04/2025 1:13 PM EST [facility] Blood Venous blood specimen / Unknown Venipuncture / Unknown 01/04/2025 6:19 AM EST 01/04/2025 7:22 AM EST us Phoenix Riley MD LAB BLOOD ORDERABLES Final Re sult Performing Organization Address [facility]/ZIP Co de Phone Number [facility] [address] [place] [address], * Troponin I high sensitivity (01/03/2025 8:12 PM EST) Only the most recent of2 resultswithin the time period is included. [facility] High Sensitivity Troponin I 19 <=54 ng/L LAB CHEMISTRY METHOD 01/03/2025 9:47 PM EST [facility] Blood Venous blood specimen / Unknown Venipuncture / Unknown 01/03/2025 8:12 PM EST 01/03/2025 9:19 PM EST Narrative [facility] - 01/03/2025 9:47 PM EST High levels of biotin in samples may falsely decrease hsTroponin values. ??Use caution when interpreting hsTroponin results in patients taking biotin who exhibit renal impairment (eGFR <60) or in patients taking more than 20 mg/day of biotin. us Yissel Frey MD LAB BLOOD ORDERABLES Final Res ult Performing Organization Address [facility]/ZIP Co de Phone Number [facility] [address] [place] [address], [place] [phone] * CT Chest wo Contrast (01/03/2025 7:13 [...] Signed Date: 01/03/2025 16:46 ET Workstation ID: [id number] Transcribed By: Self Edit Transcribed Date: 01/03/2025 [...] Signed Date: 01/03/2025 16:46 ET Workstation ID: [id number] Transcribed By: Self Edit Transcribed Date: 01/03/2025 16:45 ET Nayan Thornton MD IMG XR PROCEDURES Final R esult * ECG 12 lead (01/03/2025 3:44 PM EST) Ventricular Rate ECG 83 BPM GEMUSE Atrial Rate 83 BPM GEMUSE P-R Interval 248 ms GEMUSE QRS Duration 162 ms GEMUSE Q-T Interval 458 ms GEMUSE QTc 538 ms GEMUSE P Wave [place] 78 degrees GEMUSE R [place] -46 degrees GEMUSE T [place] 114 degrees GEMUSE ECG Interpretation Sinus rhythm with 1st degree A-V block Left bundle branch block Abnormal ECG When compared with ECG of 14-JUL-2023 08:33, Left bundle branch block is now Present Confirmed by Anshu LEAL JAMES ([id number]) on 01/03/2025 6:39:41 PM GEMUSE 01/03/2025 3:44 PM EST 01/03/2025 6:39 PM EST us Nayan Thornton MD ECG ORDERABLES Final Res ult Performing Organization Address City/[facility]/ZIP Co de Phone Number GEMUSE * Procalcitonin (01/03/2025 3:38 PM EST) Procalcitonin 0.14 <=0.16 ng/mL LAB CHEMISTRY METHOD 01/04/2025 9:07 AM EST [facility] Blood Venous blood specimen / Unknown Venipuncture / Unknown 01/03/2025 3:38 PM EST 01/03/2025 4:38 PM EST Narrative [facility] - 01/04/2025 9:07 [...] ORDERABLES Final Res ult Performing Organization Address City/[facility]/ZIP Co de Phone Number [facility] [address] [place] [address], [place] [phone] * (ABNORMAL) CBC auto differential (01/03/2025 3:38 PM EST) WBC 7.0 4.8 - 10.8 K/mcL LAB HEMETOLOGY METHOD 01/03/2025 5:11 PM [facility] RBC 4.40 3.80 - 4.80 M/mcL LAB HEMETOLOGY METHOD 01/03/2025 5:11 PM [facility] Hemoglobin 10.9(L) 11.5 - 16.0 g/dL LAB HEMETOLOGY METHOD 01/03/2025 5:11 PM [facility] Hematocrit 34.8(L) 35.0 - 47.0 % LAB HEMETOLOGY METHOD 01/03/2025 5:11 PM [facility] MCV 79.6 79.0 - 98.0 FL LAB HEMETOLOGY METHOD 01/03/2025 5:11 PM [facility] MCH 24.9(L) 27.0 - 32.0 pcg LAB HEMETOLOGY METHOD 01/03/2025 5:11 PM [facility] MCHC 31.3(L) 32.0 - 37.0 g/dL LAB HEMETOLOGY METHOD 01/03/2025 5:11 PM [facility] RDW 17.2(H) 11.0 - 15.0 % LAB HEMETOLOGY METHOD 01/03/2025 5:11 PM [facility] Platelets 01/03/2025 5:11 PM [facility] Comment:Not measured. Platel ets appear adequate but clumped MPV 10.3 7.0 - 11.0 FL LAB HEMETOLOGY METHOD 01/03/2025 5:11 PM [facility] NRBC 0.0 <1.0 % LAB HEMETOLOGY METHOD 01/03/2025 5:11 PM [facility] NRBC Absolute 0.00 <0.10 K/mcL LAB HEMETOLOGY METHOD 01/03/2025 5:11 PM [facility] Neutrophils Relative 68.0 % LAB HEMETOLOGY METHOD 01/03/2025 5:11 PM [facility] Lymphocytes Relative 21.7 % LAB HEMETOLOGY METHOD 01/03/2025 5:11 PM [facility] Monocytes Relative 7.1 % LAB HEMETOLOGY METHOD 01/03/2025 5:11 PM [facility] Eosinophils Relative 1.9 % LAB HEMETOLOGY METHOD 01/03/2025 5:11 PM [facility] Basophils Relative 0.6 % LAB HEMETOLOGY METHOD 01/03/2025 5:11 PM [facility] Immature Granulocytes Relative 0.7 % LAB HEMETOLOGY METHOD 01/03/2025 5:11 PM [facility] Neutrophils Absolute 4.76 1.50 - 7.00 K/mcL LAB HEMETOLOGY METHOD 01/03/2025 5:11 PM [facility] Lymphocytes Absolute 1.52 1.00 - 5.00 K/mcL LAB HEMETOLOGY METHOD 01/03/2025 5:11 PM [facility] Monocytes Absolute 0.50 0.20 - 1.00 K/mcL LAB HEMETOLOGY METHOD 01/03/2025 5:11 PM [facility] Eosinophils Absolute 0.13 0.00 - 0.50 K/mcL LAB HEMETOLOGY METHOD 01/03/2025 5:11 PM [facility] Basophils Absolute 0.04 0.00 - 0.20 K/mcL LAB HEMETOLOGY METHOD 01/03/2025 5:11 PM [facility] Immature Granulocytes Absolute 0.05(H) 0.00 - 0.03 K/mcL LAB HEMETOLOGY METHOD 01/03/2025 5:11 PM [facility] Blood Venous blood specimen / Unknown Venipuncture / Unknown 01/03/2025 3:38 PM EST 01/03/2025 4:38 PM EST us Nayan Thornton MD LAB BLOOD ORDERABLES Anabela l Result Performing Organization Address City/[facility]/ZIP Co de Phone Number [facility] [address] [place] [address], [place] [phone] * (ABNORMAL) C-reactive protein (01/03/2025 3:38 PM EST) [facility] C-Reactive Protein 2.42(H) <=0.50 mg/dL LAB CHEMISTRY METHOD 01/03/2025 9:05 PM EST [facility] Blood Venous blood specimen / Unknown Venipuncture / Unknown 01/03/2025 3:38 PM EST 01/03/2025 4:38 PM EST Radhames Laureano MD LAB BLOOD ORDERABLES Final Result Performing Organization Address [facility]/ZIP Co de Phone Number [facility] [address] [place] [address], [place] [phone] * (ABNORMAL) Magnesium (01/03/2025 3:38 PM EST) [facility] Magnesium 1.8(L) 1.9 - 2.6 mg/dL LAB CHEMISTRY METHOD 01/03/2025 5:23 PM EST [facility] Blood Venous blood specimen / Unknown Venipuncture / Unknown 01/03/2025 3:38 PM EST 01/03/2025 4:38 PM EST Nayan Thornton MD LAB BLOOD ORDERABLES Anabela l Result Performing Organization Address City/[facility]/ZIP Co de Phone Number [facility] [address] [place] [address], [place] [phone] * [id number], RSV, Influenza A and B qualitative RT-PCR (01/03/2025 2:58 PM EST) [facility] Influenza A PCR Not Detected Not Detected LAB MICROBIOLOGY METHOD 01/03/2025 4:13 PM EST [facility] Influenza B PCR Not Detected Not Detected LAB MICROBIOLOGY METHOD 01/03/2025 4:13 PM EST [facility] RSV PCR Not Detected Not Detected LAB MICROBIOLOGY METHOD 01/03/2025 4:13 PM EST [facility] SARS COV-2 Not Detected Not Detected LAB MICROBIOLOGY METHOD 01/03/2025 4:13 PM [facility] Swab Structure of left anterior naris / Unknown Non-blood Collection / Unknown 01/03/2025 2:58 PM EST 01/03/2025 3:09 PM EST [facility] - 01/03/2025 4:13 PM EST Disclaimer: ??Testing was performed using the [employer] GeneXpert Xpress SARS-CoV-2 _Flu_RSV PLUS PCR assay. [...] for Healthcare providers can be found at https://www.fda.gov/media/486240/download. ?? Fact sheet for Healthcare patients can be found at https://www.fda.gov/media/552594/download. us Nayan Thornton MD LAB MICROBIOLOGY - GENERA L ORDERABLES Final Result [facility] [address] [place] [address], from Last 3 Months Insurance [employer] [...] currently active code status orders. Care Teams Tailercpa Relationship Specialty Start Date End Date Marycruz Zapata MD [address] [place] [address] [address] [facility] [place] [address] PCP - General Internal Medicine 11/02/21
--- OUTSIDE RECORDS SUMMARY | 2025-03-17 17:32 | XMS_ITS ---
Author Organization [facility] Address [address] [facility] [place] [address] Care Team Providers Care Director Of Integrated Marketing Name Role Phone Marycruz Zapata Primary Care Provider UnavailShantelle Akbar Unavailable [phone] Sherice Early [phone] Encounters Encounter Location Date Provider Diagnosis [facility] [address] [place] [address] 01/28/2024 Sherice Early Plan Of Treatment No Information Progress Notes * Magy SANTIAGO MDOB: [birth year] (69 yo F)Acc No.[id number]:01/28/2024 Progress Note Patient:?Magy SANTIAGO Provider:?Sherice Early DPM :1955???Age:68 Y???Sex:Female D ate:01/28/2024 Address:[address] [place] [address], [address], [id number] Pcp:Marycruz Zapata Subjective: * Chief Complaints: * [...]
== END 2025-03-17 16:18 | disposition home or self-care (01) ==
LOC: HO.HMCH 14:48
PROVIDERS: PCP Internal Medicine; Visit Provider Internal Medicine
DX: Z00.00 Encounter for general adult medical examination without abnormal findings (principal); I48.0 Paroxysmal atrial fibrillation; I50.32 Chronic diastolic (congestive) heart failure; E11.65 Type 2 diabetes mellitus with hyperglycemia; J43.9 Emphysema, unspecified; Z95.2 Presence of prosthetic heart valve; D12.6 Benign neoplasm of colon, unspecified; E03.9 Hypothyroidism, unspecified; Z72.0 Tobacco use; K22.70 Barrett's esophagus without dysplasia; E78.00 Pure hypercholesterolemia, unspecified; I25.10 Atherosclerotic heart disease of native coronary artery without angina pectoris

== ENCOUNTER → 2025-03-17 14:47 | Outpatient (BNVA) | payer MEDICARE, SELFPAY | PROVIDERS: PCP Internal Medicine; Visit Provider Internal Medicine | DX: Z00.00 Encounter for general adult medical examination without abnormal findings (principal); D12.6 Benign neoplasm of colon, unspecified; I48.0 Paroxysmal atrial fibrillation; I11.0 Hypertensive heart disease with heart failure; I50.32 Chronic diastolic (congestive) heart failure; E03.9 Hypothyroidism, unspecified; E11.65 Type 2 diabetes mellitus with hyperglycemia; K22.70 Barrett's esophagus without dysplasia; J43.9 Emphysema, unspecified; E78.00 Pure hypercholesterolemia, unspecified; I25.10 Atherosclerotic heart disease of native coronary artery without angina pectoris; H91.90 Unspecified hearing loss, unspecified ear; Z95.2 Presence of prosthetic heart valve; Z72.0 Tobacco use | CPT/HCPCS: 83036; 96127; 99397 ==

== ENCOUNTER 2025-04-22 14:23 | Outpatient (AMB) | payer MEDICARE, SELFPAY ==
--- OUTSIDE RECORDS SUMMARY | 2025-04-22 14:26 | XMS_ITS | Patient Health Record ---
Author Organization [facility] Address [address] [facility] [place] [address] Care Team Providers Care Supervisor Assembly Name Role Phone Marycruz Zapata Primary Care Provider UnavailShantelle Akbar Unavailable [phone] Allergies No Known Allergies Reason For Referral [...] Problem Acquired hammer toe of right foot (7494454855211446 ) Other hammer toe(s) (acquired), right foot (M20.41) Active confirmed Problem Acquired hammer toe of left foot ([id number] ) Other hammer toe(s) (acquired), left foot (M20.42) Active confirmed Problem Polyneuropathy due to type 2 diabetes mellitus (957566685) Type 2 diabetes mellitus with diabetic polyneuropathy (E11.42) Active confirmed Plan Of Treatment Pending Test Test Name Order Date [id number] NAIL, 1-5 03/04/2022 [id number] SKIN LESIONS, OVER 4 03/04/20 22 [id number] DYSTROPHIC NAILS ANY # Insurance Providers Payer Name Payer Address Payer Phone Subscriber Number Group Number Insured Name Patient Relationship to Insured Coverage Start Date Coverage End Date [employer] Medicare Complete [address] [address] [place] [address] [id number] Magy Santiago Self - patient is the insured Medical (General) History Medical History History ICD Code asthma Back,Hip,and Knee pain Cataracts Diabetes mellitus High blood pressure Numbness thyroid Mumps Joint implants/screws Surgical History Surgery Date(Month/Year) neck surgery 2016
--- NOTE | 2025-04-22 14:28 | A.OFFPC_ITS ---
Vital Signs 04/22/25 14:29 Height 5 ft 3 in Weight 218 lb 6 oz BMI 38.7 BP 120/78 Blood Pressure Location Lt brachial Position Sitting Pulse 80 Pulse Source Pulse Oximeter Temp 97.1 F Temp Source Temporal Artery Scan Pulse Oximetry (%) 96 Oxygen Delivery Method Room Air Intake Visit Reasons: [facility] 04/12 Fell / Mass on liver Intake Note: Patient is here to follow-up after a visit the emergency department at [facility] on 04/12/25. Coat Operator Required: No Real Time Operator: Present Accompanied by: Son Allergies furosemide Allergy (Intermediate, Verified 04/22/25 14:29) Nausea and Vomiting hydralazine Allergy (Intermediate, Verified 04/22/25 14:29) Diarrhea levofloxacin [From LEVAQUIN] Allergy (Mild, Verified 04/22/25 14:29) NAUSEA, dizziness,Nausea cyclobenzaprine [From FLEXERIL] Allergy (Unknown, Verified 04/22/25 14:29) NAUSEA & VOMITING simvastatin Allergy (Unknown, Verified 04/22/25 14:29) Muscle Pain Sulfa (Sulfonamide Antibiotics) [SULFA (SULFONAMIDE ANTIBIOTICS)] Allergy (Unknown, Verified 04/22/25 14:29) VOMITING atorvastatin [ATORVASTATIN] Adverse Reaction (Severe, Verified 04/22/25 14:29) MUSCLE PAIN azithromycin Adverse Reaction (Intermediate, Verified 04/22/25 14:29) Palpitations pravastatin Adverse Reaction (Unknown, Verified 04/22/25 14:29) Muscle Pain apixaban [From Eliquis] Adverse Reaction (Verified 04/22/25 14:29) Nausea Bumex Adverse Reaction (Severe, Uncoded 01/20/25 15:39) Nausea, dizziness, near syncope Tobacco use date assessed: 04/22/25 Fall risk assessment: 2 + Falls in past year Last assessed Fall Risk: 04/22/25 Dental Screening Dental Screen Date: 01/20/25 HPI HPI Comments 2 History of Present Illness Details 70 y/o Female patient who presents to [facility] for EDF. Pt was admitted at [facility] on 04/12/25 for evaluation and treatment for Strain of Lumbar Paraspinous muscle after a Fall at home. She did have CT scan of abdomen that showed 5 cm segment 7 Liver Mass suspected. Radiology recommended MRI utilizing Liver Mass Protocol for Evaluation Possible Hepatocellular Cancer. [facility] Medical History (Updated 04/22/25 @ 15:08 by Candace Smith NP) Liver mass Strain of lumbar paraspinous muscle Non-rheumatic aortic stenosis Aortic stenosis Breast cancer screening by mammogram Atrial fibrillation Atrial fibrillation with controlled ventricular rate Oxygen dependent Essential hypertension Type 2 diabetes mellitus with hyperglycemia Lumbar degenerative disc disease Obesity Restless leg syndrome Vitamin D deficiency Tobacco abuse Thrombocytopenia Degenerative disc disease, cervical Anxiety and depression Osteopenia Barretts esophagus Tubular adenoma of colon COPD (chronic obstructive pulmonary disease) Hyperlipidemia, unspecified Atherosclerotic cardiovascular disease Surgical History History of carpal tunnel release History of discectomy History of cataract surgery History of hip replacement History of tonsillectomy History of appendectomy History of cholecystectomy History of cardiac catheterization Family History Father Bone cancer Mother Cardiovascular disease Brother Lung cancer Sister Lung cancer Social History Housing: Apartment Alcohol intake: never Patient Tobacco Use Status: Current everyday Tobacco user Tobacco use type: Cigarette Cigarette Packs Per Day: 0.5 Cigarettes Per Day: 10 Years Smoked: 4-5 a day (02/2025) e-Cigarette/Vaping Use: Never Used Second Hand Smoke Exposure: Yes service: No Current occupational status: retired Cognitive needs: No Hearing needs: No Vision needs: Yes (glasses) Questionnaire Thrive Questionnaire Date Thrive assessed: 03/17/25 I am a: Patient What is your living situation today?: I have a steady place to live Within the past 12 months, did the food you bought not last and you didn't have the money to get more?: Never true Within the past 12 months, did you worry whether your food would run out before you got money to buy more?: Often true Do you have trouble paying for medicines?: No Do you have trouble getting transportation to medical appointments?: No Do you have trouble paying your heating and electricity bill?: No Do you have trouble taking care of your child, family member or friend?: Yes Do you have trouble with day-to-day activities such as bathing, preparing meals, shopping, managing finances, etc.?: No Are you currently unemployed and looking for a job?: Yes Are you interested in more education?: No Please select the resources that you would like help with: None Currently or been in a relationship where the following occur: No concerns reported THRIVE Score: 1 SHAD-7 AMB Questionnaire SHAD-7 Date SHAD - 7 assessed: 01/20/25 Source: Developed by Drs. Dong Jackson, Yumi Curry, Andrew Ojeda and colleagues, with an educational noble from [employer] [facility]. Review of Systems Const All systems reviewed & are unremarkable except as noted in HPI and below Physical exam (Primary Care) Vital Signs: Last Vital Signs Temp 97.1 F 04/22/25 14:29 Pulse 80 04/22/25 14:29 BP 120/78 04/22/25 14:29 Pulse Ox 96 04/22/25 14:29 Oxygen Delivery Method Room Air 04/22/25 14:29 BMI result Body Mass Index 38.7 Tobacco/Smoking Status: Tobacco use Status Tobacco use date assessed 04/22/25 04/22/25 14:34 Patient Tobacco Use Status Current everyday Tobacco 04/22/25 14:34 Tobacco use type Cigarette 04/22/25 14:34 e-Cigarette/Vaping Use Never Used 04/22/25 14:34 Thrive Assessment: Date of Thrive Assessment Date Thrive assessed 03/17/25 04/22/25 14:34 Currently or been in a relationship where the following occur: No concerns reported Const General: no acute distress Nutritional Appearance: obese Orientation/consciousness: patient oriented x3 Resp Effort & Inspection: normal respiratory effort Auscultation: clear to auscultation bilaterally Cardio Heart sounds: S1 normal heart sound present and S2 normal heart sound present GI Inspection: Yes Abdominal panniculus present and Yes obesity Palpation (GI): Soft to palpation and No hepatosplenomegaly present Auscultation: normal bowel sounds Back/Spine/Pelvis Back: back tenderness Thoracic/Lumbar Spine: pain with thoraco-lumbar ROM, thoraco-lumbar spasm, thoracic spinal tenderness and lumbar spinal tenderness Neuro General: patient oriented x3 Coding Level of Care Code Est Pt Level 4 (17681) Diagnoses Strain of lumbar paraspinous muscle, initial encounter S39.012A Encounter type: initial encounter Liver mass R16.0 Time Spent (min) 20 Assessment & Plan Assessment & Plan (1) Strain of lumbar paraspinous muscle: Code(s): S39.012A - Strain of muscle, fascia and tendon of lower back, initial encounter Category: Medical Qualifiers: Encounter type: initial encounter Qualified Code(s): S39.012A - Strain of muscle, fascia and tendon of lower back, initial encounter Plan: NSAIDs and Acetaminophne for pain relief. Ice/hot Rest. (2) Liver mass: Code(s): R16.0 - Hepatomegaly, not elsewhere classified Category: Medical Plan: Will place an order for MRI per Red recommendation. Recent Labs done in 09/2024, will have patient obtain Labs Friday. Orders: Orders Comprehensive Met. Panel Today R16.0 - Hepatomegaly, not elsewhere classified MR abdomen wo/w con Today R16.0 - Hepatomegaly, not elsewhere classified
[2025-04-22 14:29] VITALS: BP 120/78; PULSE 80; TEMP 36.2; O2SAT 96; BMI 38.7
== END 2025-04-22 15:02 | disposition home or self-care (01) ==
LOC: HO.HMCH 14:24
PROVIDERS: PCP Internal Medicine; Visit Provider Nurse Practitioner Family
DX: S39.012A Strain of muscle, fascia and tendon of lower back, initial encounter (principal); R16.0 Hepatomegaly, not elsewhere classified

== ENCOUNTER → 2025-04-22 14:23 | Outpatient (BNVA) | payer MEDICARE, SELFPAY | PROVIDERS: PCP Internal Medicine; Visit Provider Nurse Practitioner Family | DX: S39.012A Strain of muscle, fascia and tendon of lower back, initial encounter (principal); R16.0 Hepatomegaly, not elsewhere classified | CPT/HCPCS: 99212 ==

== ENCOUNTER 2025-05-14 13:37 | Outpatient (REF) | payer MEDICARE, SELFPAY ==
--- NOTE | ~2025-05-14 | MR_ITS ---
EXAMINATION: MR ABDOMEN WITHOUT THEN WITH IV CONTRAST HISTORY: R16.0 - Hepatomegaly, not elsewhere classified COMPARISON: Correlation is made with an unenhanced CT of the abdomen and pelvis dated 10/10/2024. TECHNIQUE: Axial in and out of phase T1-weighted gradient echo, axial diffusion weighted, and axial and coronal HASTE T2 with fat saturation images were obtained through the abdomen. Subsequently, fat suppressed axial and coronal T1-weighted images were obtained after the intravenous administration of 10 mL Gadavist. FINDINGS: Liver: There is no loss of signal intensity in the liver on opposed phase imaging to suggest steatosis. The liver demonstrates a nodular contour with hypertrophy of the left and caudate lobes, consistent with cirrhosis. There is a recannulized paraumbilical vein. There are multiple observations within the liver is described below: Lesion #: 1 Location: segment VIII Size: 8.1 x 6.0 x 5.1 cm T2 signal intensity: Heterogeneously iso/hyperintense. Arterial Phase Hyperenhancement (APHE): yes Additional Major Features Enhancing Capsule: no Nonperipheral washout: no Threshold Growth: yes LI-RADS Category: LR-5 Definitely HCC Lesion #: 2 Location: segment IV Size: 0.8 cm T2 signal intensity: Hyperintense Arterial Phase Hyperenhancement (APHE): yes Additional Major Features Enhancing Capsule: no Nonperipheral washout: no Threshold Growth: yes, new lesion LI-RADS Category: LR-4 Probable HCC Lesion #: 3 Location: segment VII Size: 0.9 cm T2 signal intensity: Hyperintense Arterial Phase Hyperenhancement (APHE): yes Additional Major Features Enhancing Capsule: no Nonperipheral washout: no Threshold Growth: yes, new lesion LI-RADS Category: LR-4 Probable HCC The hepatic and portal veins are patent. There is no intra- or extrahepatic biliary dilatation. Gallbladder: The patient is status post cholecystectomy. Spleen: The spleen is enlarged, but otherwise unremarkable in appearance. Pancreas: The pancreas is unremarkable. The pancreatic duct is normal in caliber. Adrenals: The adrenal glands are unremarkable. Kidneys: There are subcentimeter bilateral renal cysts. There is no hydronephrosis. Lymph nodes: There are multiple keven hepatis/peripancreatic lymph nodes measuring up to 2.2 cm in size. Fluid: There is no ascites in the upper abdomen. Visualized bowel: The visualized bowels loops are unremarkable in appearance. Visualized bones: The visualized bones demonstrate normal marrow signal intensity. MR/MR abdomen wo/w con IMPRESSION: 1. Cirrhosis of the liver with splenomegaly. 2. Multiple masses are noted in the liver, the largest of which is an LR-5 lesion (please see above). Two additional subcentimeter LR-4 lesions are noted. Imaging guided biopsy is suggested. 3. Keven hepatis/peripancreatic adenopathy as described. Electronically signed by: Dong Chicas MD 05/16/2025 08:42 AM EDT
--- OUTSIDE RECORDS SUMMARY | 2025-05-14 13:40 | XMS_ITS | Patient Health Record ---
Author Organization [facility] Address [address] [place] [address] Care Team Providers Care Dev Technical Mgr Name Role Phone Marycruz Zapata Primary Care Provider UnavailShantelle Akbar Unavailable [phone] Allergies No Known Allergies Reason For Referral [...] Problem Acquired hammer toe of right foot ([id number] ) Other hammer toe(s) (acquired), right foot (M20.41) Active confirmed Problem Acquired hammer toe of left foot ([id number] ) Other hammer toe(s) (acquired), left foot (M20.42) Active confirmed Problem Polyneuropathy due to type 2 diabetes mellitus (879535289) Type 2 diabetes mellitus with diabetic polyneuropathy (E11.42) Active confirmed Plan Of Treatment Pending Test Test Name Order Date [id number] NAIL, 1-5 03/04/2022 [id number] SKIN LESIONS, OVER 4 03/04/20 22 [id number] DYSTROPHIC NAILS ANY # Insurance Providers Payer Name Payer Address Payer Phone Subscriber Number Group Number Insured Name Patient Relationship to Insured Coverage Start Date Coverage End Date [employer] Medicare Complete [address] [address] [place] [address] [id number] Magy Santiago Self - patient is the insured Medical (General) History Medical History History ICD Code asthma Back,Hip,and Knee pain Cataracts Diabetes mellitus High blood pressure Numbness thyroid Mumps Joint implants/screws Surgical History Surgery Date(Month/Year) neck surgery 2016
[2025-05-14] MEDS: gadobutroL 10 ML VIAL IVPUSH (14:33)
== END 2025-05-14 13:38 | disposition home or self-care (01) ==
LOC: HO.MRI 13:37
PROVIDERS: Visit Provider Nurse Practitioner Family
DX: R16.0 Hepatomegaly, not elsewhere classified (principal)
CPT/HCPCS: 74183; A9585

== ENCOUNTER → 2025-05-14 13:55 | Outpatient (BNV) | payer MEDICARE, SELFPAY | PROVIDERS: Visit Provider Radiology Diagnostic Radiology | DX: K74.60 Unspecified cirrhosis of liver (principal); R16.1 Splenomegaly, not elsewhere classified | CPT/HCPCS: 74183 ==

== ENCOUNTER 2025-05-19 13:47 | Outpatient (AMB) | payer MEDICARE, SELFPAY ==
--- NOTE | 2025-05-19 13:54 | A.OFFPC_ITS ---
Vital Signs 05/19/25 13:55 Height 5 ft 3 in Weight 224 lb 4 oz BMI 39.7 Blood Pressure Location Lt brachial Pulse 69 Pulse Source Pulse Oximeter Temp 97.1 F Temp Source Temporal Artery Scan Pulse Oximetry (%) 98 Oxygen Delivery Method Room Air Intake Visit Reasons: MRI Results Digital Tech Required: No Accompanied by: Self / Same As Patient Allergies furosemide Allergy (Intermediate, Verified 05/19/25 13:56) Nausea and Vomiting hydralazine Allergy (Intermediate, Verified 05/19/25 13:56) Diarrhea levofloxacin (From LEVAQUIN) Allergy (Mild, Verified 05/19/25 13:56) NAUSEA, dizziness,Nausea cyclobenzaprine (From FLEXERIL) Allergy (Unknown, Verified 05/19/25 13:56) NAUSEA & VOMITING simvastatin Allergy (Unknown, Verified 05/19/25 13:56) Muscle Pain Sulfa (Sulfonamide Antibiotics) (SULFA (SULFONAMIDE ANTIBIOTICS)) Allergy (Unknown, Verified 05/19/25 13:56) VOMITING atorvastatin (ATORVASTATIN) Adverse Reaction (Severe, Verified 05/19/25 13:56) MUSCLE PAIN azithromycin Adverse Reaction (Intermediate, Verified 05/19/25 13:56) Palpitations pravastatin Adverse Reaction (Unknown, Verified 05/19/25 13:56) Muscle Pain apixaban (From Eliquis) Adverse Reaction (Verified 05/19/25 13:56) Nausea Bumex Adverse Reaction (Severe, Uncoded 01/20/25 15:39) Nausea, dizziness, near syncope Tobacco use date assessed: 04/22/25 Dental Screening Dental Screen Date: 01/20/25 HPI MRI Results HPI Details 70-year-old female with past medical his tory uncontrolled diabetes, tobacco abuse, history of TAVR, cirrhosis, atrial fibrillation, hypothyroidism, COPD, hypercholesterolemia and coronary artery disease last seen 03/2025 coming in for follow up MRI. Her most recent MRI revealed 3 liver lesions concerning for HCC. She was referred to oncology by her PCP and has an appointment tomorrow. Presenting with concerns regarding liver lesions and pain management. The patient has been experiencing pain, for which she is currently on oxycodone, and has requested an increase in dosage due to inadequate pain control. Imaging studies have identified multiple liver lesions, with one lesion diagnosed as hepatocellular carcinoma and others marked as probable cancer. The patient is scheduled to see an oncologist for further evaluation and management, including a biopsy to confirm the diagnosis. The patient reports episodes of dizziness and lightheadedness, which have been ongoing for some time. [facility] Medical History Liver mass Strain of lumbar paraspinous muscle Non-rheumatic aortic stenosis Aortic stenosis Breast cancer screening by mammogram Atrial fibrillation Atrial fibrillation with controlled ventricular rate Oxygen dependent Essential hypertension Type 2 diabetes mellitus with hyperglycemia Lumbar degenerative disc disease Obesity Restless leg syndrome Vitamin D deficiency Tobacco abuse Thrombocytopenia Degenerative disc disease, cervical Anxiety and depression Osteopenia Barretts esophagus Tubular adenoma of colon COPD (chronic obstructive pulmonary disease) Hyperlipidemia, unspecified Atherosclerotic cardiovascular disease Surgical History History of carpal tunnel release History of discectomy History of cataract surgery History of hip replacement History of tonsillectomy History of appendectomy History of cholecystectomy History of cardiac catheterization Family History Father Bone cancer Mother Cardiovascular disease Brother Lung cancer Sister Lung cancer Social History Housing: Apartment Alcohol intake: never Patient Tobacco Use Status: Current everyday Tobacco user Tobacco use type: Cigarette Cigarette Packs Per Day: 0.5 Cigarettes Per Day: 10 Years Smoked: 4-5 a day (02/2025) Packs Per Year: 0 Packs per year/per ci.00 e-Cigarette/Vaping Use: Never Used Second Hand Smoke Exposure: Yes service: No Current occupational status: retired Cognitive needs: No Hearing needs: No Vision needs: Yes (glasses) Questionnaire Thrive Questionnaire Date Thrive assessed: 05/19/25 I am a: Patient What is your living situation today?: I have a steady place to live Within the past 12 months, did the food you bought not last and you didn't have the money to get more?: Never true Within the past 12 months, did you worry whether your food would run out before you got money to buy more?: Often true Do you have trouble paying for medicines?: No Do you have trouble getting transportation to medical appointments?: No Do you have trouble paying your heating and electricity bill?: No Do you have trouble taking care of your child, family member or friend?: Yes Do you have trouble with day-to-day activities such as bathing, preparing meals, shopping, managing finances, etc.?: No Are you currently unemployed and looking for a job?: Yes Are you interested in more education?: No Please select the resources that you would like help with: None Currently or been in a relationship where the following occur: No concerns reported THRIVE Score: 1 SHAD-7 AMB Questionnaire SHAD-7 Date SHAD - 7 assessed: 01/20/25 Source: Developed by Drs. Dong Jackson, Yumi Curry, Andrew Ojeda and colleagues, with an educational noble from [employer] Review of Systems Const Denies body aches, Denies chills, Denies fever(s), Denies headache(s) and Denies poor appetite Eyes Reports no additional complaints ENT Denies dizziness and Denies headache(s) Card Denies chest pain, Denies syncope and Denies dyspnea Resp Denies cough and Denies dyspnea GI Reports abdominal pain, Denies nausea and Denies vomiting Reports no additional complaints Musc Reports no additional complaints and Denies abnormal gait Skin/Breast Reports system reviewed and no additional complaints, except as documented Neuro Denies abnormal gait, Denies dizziness, Denies syncope and Denies headache(s) Psych Reports no additional complaints Physical exam (Primary Care) Vital Signs: Last Vital Signs Temp 97.1 F 05/19/25 13:55 Pulse 69 05/19/25 13:55 Pulse Ox 98 05/19/25 13:55 Oxygen Delivery Method Room Air 05/19/25 13:55 BMI result Body Mass Index 39.7 Tobacco/Smoking Status: Tobacco use Status Tobacco use date assessed 04/22/25 05/19/25 14:03 Patient Tobacco Use Status Current everyday Tobacco 05/19/25 14:03 Tobacco use type Cigarette 05/19/25 14:03 e-Cigarette/Vaping Use Never Used 05/19/25 14:03 Thrive Assessment: Date of Thrive Assessment Date Thrive assessed 05/19/25 05/19/25 14:03 Currently or been in a relationship where the following occur: No concerns reported Const General: cooperative, healthy appearing, comfortable and no acute distress Orientation/consciousness: patient oriented x3 HENMT Head: Yes normocephalic Ears: hearing grossly normal bilaterally General nose exam: Normal external nose present Eyes General: appearance normal, both eyes and all related structures Conjunctivae: conjunctivae normal Neck Neck: Yes full ROM and Yes no lymphadenopathy Resp Effort & Inspection: normal respiratory effort Auscultation: clear to auscultation bilaterally, no crackles, no rales, no rhonchi and no wheezes Cardio Rate: regular rate Rhythm: regular rhythm GI Palpation (GI): Soft to palpation and Tenderness to palpation present (GI) in the RUQ Skin General skin exam: no rashes or lesions noted Neuro General: patient oriented x3 Gait exam (Neuro): Normal gait present Extrem General: Yes normal to inspection, Yes full ROM and No edema Psych Affect: normal affect Attitude: cooperative Insight: Good insight present (Psych) Judgement: Good judgement present (Psych) Coding Level of Care Code Est Pt Level 3 (85677) Diagnoses Essential hypertension I10 Liver lesion K76.9 Assessment & Plan Assessment & Plan (1) Essential hypertension: Code(s): I10 - Essential (primary) hypertension Category: Medical Plan: Continue on current blood pressure medication. Avoid salt intake and encourage healthy diet and regular exercise. (2) Liver lesion: Code(s): K76.9 - Liver disease, unspecified Category: Medical Plan: Patient having multiple liver lesions seen on MRI plan for oncology evaluation which is scheduled for tomorrow. She is currently on pain management with oxycodone-acetaminophen and is looking for an increase his her pain has become worse. I did discuss with the patient worsening pain should be evaluated in the ED and she understands. Reviewed red flag symptoms and when to present for re- evaluation. Plan to see Oncology tomorrow. Discussion with Dr. Zapata was made and message was sent to him after the appointment. Plan The patient will follow up with an oncologist for further evaluation of the liver lesions, including a biopsy to confirm the diagnosis of hepatocellular carcinoma and assess the other probable cancerous lesions. Pain management will be adjusted with an increase in oxycodone dosage as discussed with Dr. Zapata, to better control the patient's pain symptoms. The patient is advised to monitor for any worsening symptoms, such as increased dizziness or confusion, and to seek immediate medical attention if these occur. This note was constructed using voice recognition software. While every effort has been made to ensure accuracy and ground service equipment mechanic, still areas may have been included sometimes these areas may affect the content or meeting of the given symptoms. Total time spent caring for the patient today was 20 minutes. This includes time spent before the visit reviewing the chart, time spent during the visit, and time spent after the visit and documentation. Patient was informed and verbally consented to the use of an ambient scribe for clinic note documentation during this visit.
[2025-05-19 13:55] VITALS: PULSE 69; TEMP 36.2; O2SAT 98; BMI 39.7
--- OUTSIDE RECORDS SUMMARY | 2025-05-19 16:39 | XMS_ITS | Patient Health Record ---
Author Organization [facility] Address [address] [place] [address] Care Team Providers Care Inspecting Engineer Name Role Phone Marycruz Zapata Primary Care Provider Shantelle Whaley Unavailable [phone] Allergies No Known Allergies Reason For Referral No Information Medications Medication SIG (Take, Route, Frequency, Duration) Notes Start Date End Date Status Metoprolol Tartrate 50 MG 1 tablet with food Orally Twice a day; Duration: 30 day(s) Active Sertraline HCl 50 MG 1 tablet Orally Onc e a day; Duration: 30 day(s) Active Rosuvastatin Calcium 5 MG 1 tablet Orall y Once a day; Duration: 30 day(s) Active Lisinopril 40 MG 1 tablet Orally Once a day; Duration: 30 day(s) Active Aspirin 81 MG 1 tablet Orally Once a day; Duration: 30 day(s) Active Omeprazole 40 MG 1 capsule 30 minutes before morning meal Orally Once a day; Duration: 30 day(s) Active dilTIAZem HCl ER 240 MG 1 capsule Orally Once a day; Duration: 30 day(s) Active Levothyroxine Sodium 88 MCG 1 tablet in the morning on an empty stomach Orally Once a day; Duration: 30 day(s) Active Glimepiride 4 MG 1 tablet with breakf ast or the first main meal of the day Orally Once a day; Duration: 30 day(s) Active Extra Depth Orthopedic Shoes (1 Pair) with Customized Heat Molded Multidensity Innersoles (3 Pair) as directed Dx: NIDDM/Polyneuropathy (E11.42), Hammertoe Foot Deformity (M20.41,M20.42), Preulcerative Skin Lesion(s) (L85.1 03/04/2022 Active metFORMIN HCl 1000 MG 1 tablet with a me al Orally Once a day; Duration: 30 day(s) Active Social History Tobacco Use: [...] Problem Acquired hammer toe of right foot ([id number] ) Other hammer toe(s) (acquired), right foot (M20.41) Active confirmed Problem Other hammer toe(s) (acquired), left foot (M20.42) Active confirmed Problem Polyneuropathy due to type 2 diabetes mellitus (170018807) Type 2 diabetes mellitus with diabetic polyneuropathy (E11.42) Active confirmed Plan Of Treatment Pending Test Test Name Order Date [id number] NAIL, 1-5 03/04/2022 [id number] SKIN LESIONS, OVER 4 03/04/20 22 [id number] DYSTROPHIC NAILS ANY # Insurance Providers Payer Name Payer Address Payer Phone Subscriber Number Group Number Insured Name Patient Relationship to Insured Coverage Start Date Coverage End Date [facility] Medicare Complete [address] [address] [place] [address] [id number] aMgy Santiago Self - patient is the insured Medical (General) History Medical History History ICD Code asthma Back,Hip,and Knee pain Cataracts Diabetes mellitus High blood pressure Numbness thyroid Mumps Joint implants/screws Surgical History Surgery Date(Month/Year) neck surgery 2016
== END 2025-05-19 14:55 | disposition home or self-care (01) ==
LOC: HO.HMCH 13:48
DX: I10 Essential (primary) hypertension (principal); K76.9 Liver disease, unspecified

== ENCOUNTER → 2025-05-19 13:47 | Outpatient (BNVA) | payer MEDICARE, SELFPAY | DX: I10 Essential (primary) hypertension (principal); K76.9 Liver disease, unspecified | CPT/HCPCS: 99212 ==

== ENCOUNTER → 2025-05-20 10:17 | Outpatient (BNV) | payer MEDICARE, SELFPAY | PROVIDERS: PCP Internal Medicine; Referring Provider Internal Medicine; Visit Provider Internal Medicine | DX: R16.0 Hepatomegaly, not elsewhere classified (principal) | CPT/HCPCS: 99205; G2211 ==

== ENCOUNTER 2025-05-25 13:26 | Outpatient (REF) | payer MEDICARE, SELFPAY ==
--- NOTE | ~2025-05-25 | US_ITS ---
EXAMINATION: US ABDOMEN LIMITED HISTORY: liver cancer TECHNIQUE: Real-time grayscale ultrasound imaging of the right upper quadrant was performed and images were reviewed. COMPARISON: Correlation is made with an MRI of the abdomen dated 05/14/2025. FINDINGS: Liver: The right lobe of the liver measures 14.8 cm in size. The left lobe of the liver measures 14.0 cm in size. The liver demonstrates coarsened, heterogeneous echotexture and a nodular contour, consistent with cirrhosis. There is a 7.3 x 4.5 x 7.2 cm mass in the right lobe corresponding to the lesion noted on MRI. There is normal hepatopedal flow in the portal vein. Gallbladder and biliary tree: The gallbladder is surgically absent. The common bile duct is normal in caliber measuring 4 mm. Right Kidney: The right kidney measures 9.2 cm in length. The right kidney is unremarkable, without evidence of masses, hydronephrosis, or calculi. Pancreas: The pancreatic head, neck, and body are unremarkable. The pancreatic tail is obscured by bowel gas. Abdominal aorta and inferior vena cava: The visualized portions of the abdominal aorta and inferior vena cava are normal in caliber. There is no free fluid in the right upper quadrant. US/US abdomen limited IMPRESSION: Cirrhosis of the liver. 7.3 x 4.5 x 7.2 cm mass in the right lobe corresponding to the lesion noted on MRI. The additional lesions seen on MRI are not visualized by ultrasound. The mass is likely amenable to ultrasound-guided biopsy if desired. Electronically signed by: Dong Chicas MD 05/25/2025 02:49 PM EDT
--- OUTSIDE RECORDS SUMMARY | 2025-05-25 14:04 | XMS_ITS | Patient Health Record ---
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 Name Role Phone Marycruz Zapata MD Primary Care Provider Dong Escobedo [phone] Reason For Referral No Information Medications Medication SIG (Take, Route, Frequency, Duration) Notes Start Date End Date Status metFORMIN HCl 11/24/2024 11/24/2024 Acti ve Zestril 11/24/2024 11/24/2024 Active Cardizem 11/24/2024 11/24/2024 Active Baby Aspirin 11/24/2024 11/24/2024 Activ e Colyte with Flavor Packs 240 GM 1 ml one time Orally Once a day for 1 day(s) 03/24/2013 Active Omeprazole 11/24/2024 11/24/2024 Active Problems Problem Type SNOMED Code ICD Code Onset Dates Problem Status W/U Status Risk Notes Problem Umaña's esophagus (230351099) 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 Problem Family History of Cancer of Colon (Situation) (129357519) Family history of colon cancer (V16.0) Active confirmed Problem Colon cancer screening (887985167) Colon cancer screening (V76.51) Active confirmed Problem History of adenomatous polyp of colon (974358533) History of adenomatous polyp of colon (V12.72) Active confirmed Plan Of Treatment Future Test Test Name Order Date UPPER GI ENDOSCOPY 03/24/2013 COLONOSCOPY 03/24/2013 Insurance Providers Payer Name Payer Address Payer Phone Subscriber Number Group Number Insured Name Patient Relationship to Insured Coverage Start Date Coverage End Date MEDICARE OF [place]YS [address] [id number] SAHIL CAMPOS Self - patient is the insured MEDICAID OF [facility] [address] [place] [address] [id number] SAHIL CAMPOS Self - patient is the insured Medical (General) History Medical History History ICD Code GERD-EGD in 04/2006 with a sm all HH and small area of Umaña's esophagus-no dysplasia Colonoscopy in 04/2006 with removal of sm all tubular adenomas hypertension asthma NIDDM Denies [place],CVA,renal disease Surgical History Surgery Date(Month/Year) cholecystectomy hysterectomy
--- OUTSIDE RECORDS SUMMARY | 2025-05-25 14:04 | XMS_ITS | Clinical Summary ---
Author Organization [facility] Address [address] [place] [address] Care Team Providers Care Driver Helper Name Role Phone Marycruz Zapata MD Primary Care Provider [phone] Social History Tobacco Use Types Packs/Day Years [...] of 1 - PCV) 2018 Influenza Vaccine (Season Ended) 2025 RSV Adult > 60+ Yrs or Pregn ant (1 - 1-dose 75+ series) 2028 Hepatitis B Vaccines Aged Out No long er eligible based on patient's age to complete this topic RSV Ped < 20 months Aged Out No longe r eligible based on patient's age to complete this topic Care Teams Driver Helper Relationship Specialty Start Date End Date Marycruz Zapata MD [address] [place] [address] [address] [facility] [place] [address] PCP - General Internal Medicine 02/17/18
--- OUTSIDE RECORDS SUMMARY | 2025-05-25 14:04 | XMS_ITS | Clinical Summary ---
Author Organization [facility] Address [address] [place] [address] Phone Care Team Providers Care Retail Advertising Executive Name Role Phone Marycruz Zapata MD Primary Care Provider [phone] Allergies Active Allergy Reactions Criticality Noted Date Comments Naproxen 04/06/2025 Tramadol Nausea And Vomiting High 12/31/2021 Medications albuterol HFA (PROAIR HFA ; PROVENTIL HFA ; VENTOLIN HFA) 90 mcg/actuation inhaler Inhale 2 puffs by mouth every 6 (six) hours if needed for shortness of breath or wheezing. 12/30/19 25 Active amiodarone (PACERONE) 200 mg tablet Take 1 tablet (200 mg total) by mouth 1 (one) time each day. 12/18/19 25 Active amLODIPine (NORVASC) 10 mg tablet Take 1 tablet (10 mg total) by mouth 1 (one) time each day. 10/23/20 24 Active glimepiride (AMARYL) 4 mg tablet Take 1 tablet (4 mg total) by mouth 1 (one) time each day. Active levothyroxine (SYNTHROID, LEVOTHROID) 100 mcg tablet Take 1 tablet (100 mcg total) by mouth 1 (one) time each day. 06/18/20 24 Active omeprazole (PriLOSEC) [address] capsule Take 1 capsule (40 mg total) by mouth 2 (two) times a day. Active oxyCODONE-acetamin ophen (PERCOCET) 5-325 mg per tablet Take 1 tablet by mouth every 8 (eight) hours if needed for moderate pain. Active Xarelto 15 mg tablet Take 1 [...] (three) times a day. 90 each 11 01/05/20 25 026 Active Additional Information Patient taking differently:25 mg oralDaily, Reported on 04/12/2025 nicotine (NICODERM CQ) 14 mg/[address] 1 patch on the skin 1 (one) time each day. 30 each 01/06/20 25 Active Additional Information Patient not taking.Reported on 04/12/2025 SITagliptin phosphate (JANUVIA) 25 mg tablet Take 1 tablet (25 mg total) by mouth 1 (one) time each day. 30 tablet 1 01/05/20 25 Active Additional Information Patient not taking.Reported on 04/12/2025 tiotropium (SPIRIVA) 18 mcg per inhalation capsule Place 1 capsule (18 mcg total) into inhaler and inhale 1 (one) time each day. 1 each 01/05/20 25 025 Active Additional Information Patient not taking.Reported on 04/12/2025 Jardiance 10 mg tablet Take 1 tablet (10 mg total) by mouth 1 (one) time each day. 03/17/20 25 Active metFORMIN (GLUCOPHAGE) 1,000 mg tablet Take 1 tablet (1,000 mg total) by mouth 2 (two) times a day. 02/23/20 25 Active metoprolol tartrate (LOPRESSOR) 50 mg tablet Take 1 tablet (50 mg total) by mouth 1 (one) time each day. Active ondansetron ODT (ZOFRAN-ODT) 4 mg disintegrating tablet Take 1 tablet (4 mg total) by mouth every 8 (eight) hours if needed. for nausea and vomiting Active Wixela Inhub 250-50 mcg/dose diskus inhaler Inhale 1 puff by mouth 1 (one) time each day. 03/17/20 25 Active oxyCODONE (ROXICODONE) 5 mg immediate release tablet Take 1 tablet (5 mg total) by mouth every 6 (six) hours if needed for severe pain. Max Daily Amount: 20 mg 15 tablet 04/12/20 25 Active aspirin 81 mg EC tablet Take 1 tablet (81 mg total) by mouth 1 (one) time each day. Active Active Problems Problem Noted Date Diagnosed Date Hyperglycemia due to diabete s mellitus ([facility] [place], [facility] [place] 01/05/2025 Resolved Problems Problem Noted Date Diagnosed Date Resolved Date COPD exacerbation [place] [place] [place] [facility] [place] [place] 01/05/2025 Acute hypoxic respiratory fa ilure [place] [place] [place] [facility] [place] 01/03/2025 01/05/2025 Encounters Date Type Department Care Team Description 04/12/2025 3:26 PM EDT - 04/12/2025 6:22 PM EDT Emergency [facility] Emergency [address] [place] [phone] Teja Nj MD Strain of muscle and tendon of back wall of thorax, initial encounter (Primary Dx); Strain of lumbar paraspinous muscle, initial encounter Discharge Disposition: Home or Self Care 04/06/2025 7:47 PM EDT - 04/06/2025 11:00 PM EDT [facility] Emergency [address] [place] [phone] Discharge Disposition: Home or Self Care from Last 3 Months Surgical History Surgery Date Site/Laterality Comments CARPAL TUNNEL RELEASE 03/28/2022 Right PROCEDURE: [place] NEUROPLASTY &/TRANSPOS MEDIAN NRV CARPAL TUNNE; COMMENT: Dr. Mccullough Medical History Medical History Date Comments Essential hypertension DX:Essent ial hypertension Diabetes mellitus type 2, co ntrolled, with complications ([facility] [place]2, [facility] [place] DX:Diabetes mellitus type 2, controlled, with complications (HCC) High cholesterol DX:High cholest surinder Thyroid activity decreased DX:Th yroid activity decreased Afib [place] [place] [place] [facility] [place] [place] Social History Tobacco Use Types Packs/Day Years Used Date Smoking Tobacco: Every Day Smokeless Tobacco: Never Alcohol Use Standard Drinks/Week Comments Never 0 (1 standard drink = 0.6 oz pur e alcohol) Interpersonal Safety Answer Date Record ed Physical Abuse 01/03/2025 Verbal Abuse 01/03/2025 Comments No Sex and Gender Information Value Date Recorded Sex Assigned at Female 11/08/2024 7:59 PM EST Legal Sex Female 5:15 AM EST Gender Identity Female 11/08/2024 7:59 PM EST Sexual Orientation Straight 11/08/2024 7: 59 PM EST Obstetrics History Last Filed Vital Signs Vital Sign Reading Time Taken Comments Blood Pressure 111/50 04/12/2025 4:09 PM EDT Pulse 69 04/12/2025 4:09 PM EDT Temperature 37.3 C (99.1 F) 04/12/2025 4:09 PM EDT Respiratory Rate 20 04/12/2025 4:09 PM EDT Oxygen Saturation 98% 04/12/2025 4:09 PM EDT Inhaled Oxygen Concentration - - Weight 98.9 kg (218 lb) 04/12/2025 12:33 PM EDT Height 160 cm (5' 3 ) 04/12/2025 12:33 PM EDT Body Mass Index 38.62 04/12/2025 12:33 PM EDT Plan of Treatment Health Maintenance Due Date [...] of Health Screening 10/27/2022 COVID-19 Vaccine ( - season) 2024 Diabetes: Annual Urine Albumin-Creatinine Ratio (uACR) 01/05/2025 Diabetes: Blood Sugar Control Test (HGBA1C) 07/04/2025 01/04/2025 Influenza Vaccine (Season Ended) 2025 10/03/2022 Falls Risk Assessment 01/05/2026 01/05/2025 Diabetes: Annual GFR (Glomerular Filtration Rate) 04/12/2026 04/12/2025, 04/06/2025, 01/05/2025, Additional history exists Hypertension/CHF/CAD Annual BMP Blood Test 04/12/2026 04/12/2025, 04/06/2025, 01/05/2025, Additional history exists Pneumococcal Vaccine: 50+ Years [...] Procedure Name Priority Date/Time Associated Diagnosis Comments CT CHEST/ABDOMEN/PELVIS WO CONTRAST STAT 04/12/2025 4:51 PM EDT DEL REAL URINE CULTURE TUBE STAT 04/12/20 4:09 PM EDT URINALYSIS WITH REFLEX MICROSCOPIC AND CULTURE STAT 04/12/2025 4:09 PM EDT URINALYSIS WITH REFLEX MICROSCOPIC AND CULTURE STAT 04/12/2025 4:09 PM EDT PROTHROMBIN TIME WITH INR STAT 04/12/2025 4:08 PM EDT ACTIVATED PARTIAL THROMBOPLASTIN TIME STAT 04/12/2025 4:08 PM EDT CBC WITH AUTO DIFFERENTIAL STAT 04/12/2025 12:37 PM EDT COMPREHENSIVE METABOLIC PANEL STAT 04/12/2025 12:37 PM EDT CBC AND DIFFERENTIAL STAT 04/12/2025 12:37 PM EDT ECG ANNOTATED 04/08/2025 CBC WITH AUTO DIFFERENTIAL STAT 04/06/2025 8:25 PM EDT MAGNESIUM STAT 04/06/2025 8:25 PM EDT BASIC METABOLIC PANEL STAT 04/06/2025 8:25 PM EDT CBC AND DIFFERENTIAL STAT 04/06/2025 8:25 PM EDT POCT GLUCOSE BLOOD Routine 04/06/2025 8: 21 PM EDT ECG 12-LEAD STAT 04/06/2025 8:15 PM EDT HEMOGLOBIN A1C Add-On 01/04/2025 6:19 AM EST from Last 3 Months or Most Recently Relevant to Health Maintenance Results * CT Chest/Abdomen/Pelvis wo Contrast (04/12/2025 4:51 PM EDT) Anatomical Region Laterality Modality Body Computed Tomogra phy 04/12/2025 4:59 PM EDT Impressions 04/12/2025 5:[address]: No infiltrates or effusions. Status post TAVR procedure Abdomen/pelvic CT: Cirrhotic liver morphology with over 5 cm segment 7 liver mass suspected. Recommend MRI utilizing with liver mass protocol for evaluation of possible hepatocellular carcinoma. -------- FINAL REPORT -------- Dictated By: Jaycee Venegas Dictated Date: 04/12/2025 16:59 ET Assigned Physician: Jaycee Venegas Reviewed and Electronically Signed By: Jaycee Venegas Signed Date: 04/12/2025 17:08 ET Workstation ID: [id number] Transcribed By: Self Edit Transcribed Date: 04/12/2025 16:59 ET Narrative 04/12/2025 5:08 PM EDT INDICATION: Chest trauma, right-sided flank pain Technique: CT scan of the chest, abdomen and pelvis obtained without contrast. No oral contrast administered. Scanner: [employer] LightSpeed 64 slice VCT Dose reduction technique: ASIR (Adaptive statistical iterative reconstruction) and/or AEC (automated exposure control) Dose: total exam DLP 2430 mGY per cm Comparison: Chest CT from January 03, 2025 CT scan of the abdomen and pelvis from July 13, 2023 FINDINGS: Chest CT: Lung arias: Well aerated without infiltrates or effusions. No suspicious nodules or masses. Mediastinum: No thoracic lymphadenopathy. Trachea and esophagus are within normal limits. Heart normal in size and shape. Stent noted along the aortic valve. Bony structures: Within normal limits for the patient's age. Abdomen/pelvic CT: Solid organs: Unopacified liver demonstrates cirrhotic morphology. Heterogeneous 5 cm masslike process within segment 7. Spleen borderline enlarged. Pancreas, adrenal glands and kidneys are within normal limits. Right renal hilar calcifications are most likely vascular in origin. Gallbladder surgically absent. Bowel: Stomach within normal limits. Small bowel are within normal limits. Terminal ileum is normal in the right lower quadrant. Normal appendix not visualized. Colon normal in course and caliber. No colonic wall thickening or pericolonic inflammatory changes. Urinary bladder: Is decompressed. Genitalia: Status post hysterectomy. No adnexal masses. Retroperitoneum: Abdominal aorta demonstrates mild atherosclerotic changes. No retroperitoneal lymphadenopathy. Musculoskeletal: Total right hip replacement, well-positioned. Degenerative changes noted along the thoracolumbar spine. Procedure Note Jaycee Venegas MD - 04/12/2025 INDICATION: Chest trauma, right-sided flank pain Technique: CT scan of the chest, abdomen and pelvis obtained withoutcontrast. No oral contrast administered. Scanner: GE LightSpeed 64 slice VCT Dose reduction technique: ASIR (Adaptive statistical iterativereconstruction) and/or AEC (automated exposure control) Dose: total exam DLP 2430 mGY per cm Comparison: Chest CT from January 03, 2025 CT scan of the abdomen andpelvis from July 13, 2023 FINDINGS: Chest CT: Lung arias: Well aerated without infiltrates or effusions. No suspiciousnodules or masses. Mediastinum: No thoracic lymphadenopathy. Trachea and esophagus are withinnormal limits. Heart normal in size and shape. Stent noted along theaortic valve. Bony structures: Within normal limits for the patient's age. Abdomen/pelvic CT: Solid organs: Unopacified liver demonstrates cirrhotic morphology.Heterogeneous 5 cm masslike process within segment 7. Spleen borderline enlarged. Pancreas, adrenal glands and kidneys arewithin normal limits. Right renal hilar calcifications are most likelyvascular in origin. Gallbladder surgically absent. Bowel: Stomach within normal limits. Small bowel are within normal limits.Terminal ileum is normal in the right lower quadrant. Normal appendix notvisualized. Colon normal in course and caliber. No colonic wall thickeningor pericolonic inflammatory changes. Urinary bladder: Is decompressed. Genitalia: Status post hysterectomy. No adnexal masses. Retroperitoneum: Abdominal aorta demonstrates mild atheroscleroticchanges. No retroperitoneal lymphadenopathy. Musculoskeletal: Total right hip replacement, well-positioned.Degenerative changes noted along the thoracolumbar spine. IMPRESSION: Chest CT: No infiltrates or effusions. Status post TAVR procedure Abdomen/pelvic CT: Cirrhotic liver morphology with over 5 cm segment 7liver mass suspected. Recommend MRI utilizing with liver mass protocol forevaluation of possible hepatocellular carcinoma. -------- FINAL REPORT -------- Dictated By: Jaycee Venegas Dictated Date: 04/12/2025 16:59 ET Assigned Physician: Jaycee Venegas Reviewed and Electronically Signed By: Jaycee Venegas Signed Date: 04/12/2025 17:08 ET Workstation ID: [id number] Transcribed By: Self Edit Transcribed Date: 04/12/2025 16:59 ET Roxanna VIDES [facility] [place] PROCEDURES Final Result * (ABNORMAL) Urinalysis with reflex microscopic and culture (04/12/2025 4:09 PM EDT) Specific [place] Urine 1.027 1.003 - 1.030 LAB URINALYSIS - AUTOMATED METHOD 04/12/2025 4:37 PM [facility] pH, Urine 6.0 5.0 - 8.0 pH LAB URINALYSIS - AUTOMATED METHOD 04/12/2025 4:37 PM [facility] Leukocytes, Urine Negative Negative LAB URINALYSIS - AUTOMATED METHOD 04/12/2025 4:37 PM [facility] Nitrite, Urine Negative Negative LAB URINALYSIS - AUTOMATED METHOD 04/12/2025 4:37 PM [facility] Protein, Urine 30(A) <=Trace mg/dL LAB URINALYSIS - AUTOMATED METHOD 04/12/2025 4:37 PM [facility] Glucose, Urine >=1000(A) Negative mg/dL LAB URINALYSIS - AUTOMATED METHOD 04/12/2025 4:37 PM [facility] Ketones, Urine Trace(A) Negative mg/dL LAB URINALYSIS - AUTOMATED METHOD 04/12/2025 4:37 PM [facility] Urobilinogen , Urine 1.0 0.2 - 1.0 mg/dL LAB URINALYSIS - AUTOMATED METHOD 04/12/2025 4:37 PM [facility] Bilirubin, Urine Negative Negative LAB URINALYSIS - AUTOMATED METHOD 04/12/2025 4:37 PM [facility] Blood, Urine Negative Negative LAB URINALYSIS - AUTOMATED METHOD 04/12/2025 4:37 PM [facility] RBC, Urine 1.7 0 - 4 /HPF LAB URINALYSIS - AUTOMATED METHOD 04/12/2025 4:37 PM [facility] WBC, Urine 4.4(H) 0 - 4 /HPF LAB URINALYSIS - AUTOMATED METHOD 04/12/2025 4:37 PM [facility] Squamous Epithelial, Urine >100(H) 0 - 60 /LPF LAB URINALYSIS - AUTOMATED METHOD 04/12/2025 4:37 PM EDT [facility] Bacteria, Urine Negative Negative /HPF LAB URINALYSIS - AUTOMATED METHOD 04/12/2025 4:37 PM EDT [facility] Hyaline Casts, Urine 3.2(H) 0 - 3 /LPF LAB URINALYSIS - AUTOMATED METHOD 04/12/2025 4:37 PM EDT [facility] Urine Urine specimen obtained by clean catch procedure / Unknown 04/12/2025 4:09 PM EDT 04/12/2025 4:25 PM EDT us Teja Nj MD LAB URINE ORDERABLES Final Resu lt Performing Organization Address City/[facility]/ZIP Co de Phone Number [facility] [address] [place] [address], [place] [phone] * [place] Real urine culture tube (04/12/2025 4:09 PM EDT) Extra Tube Hold for add-ons. 04/12/2025 6:01 PM EDT [facility] Comment:Auto resulted. Urine Urine specimen obtained by clean catch procedure / Unknown 04/12/2025 4:09 PM EDT 04/12/2025 4:25 PM EDT us Teja Nj MD LAB URINE ORDERABLES Final Resu lt [facility] [address] [place] [address], [place] [phone] * Activated partial thromboplastin time (04/12/2025 4:08 PM EDT) aPTT 37.5 24.1 - 39.3 sec LAB COAGULATION METHOD 04/12/2025 4:37 PM EDT [facility] Blood Venous blood specimen / Unknown Venipuncture / Unknown 04/12/2025 4:08 PM EDT 04/12/2025 4:24 PM EDT Roxanna VIDES LAB BLOOD ORDERABLES Fin al Result Performing Organization Address [facility]/ZIP Co de Phone Number [facility] [address] [place] [address], [place] [phone] * Prothrombin time with INR (04/12/2025 4:08 PM EDT) [facility] Protime 11.8 10.6 - 13.9 sec LAB COAGULATION METHOD 04/12/2025 4:37 PM EDT [facility] INR 0.9 LAB COAGULATION METHOD 04/12/2025 4:37 PM EDT [facility] Blood Venous blood specimen / Unknown Venipuncture / Unknown 04/12/2025 4:08 PM EDT 04/12/2025 4:24 PM EDT Roxanna VIDES LAB BLOOD ORDERABLES Fin al Result Performing Organization Address [facility] Co de Phone Number [facility] [address] [place] [address], [place] [phone] * (ABNORMAL) CBC auto differential (04/12/2025 12:37 PM EDT) Only the most recent of2 resultswithin the time period is included. [facility] WBC 8.0 4.8 - 10.8 K/[facility] LAB HEMETOLOGY METHOD 04/12/2025 12:49 PM EDT [facility] RBC 4.30 3.80 - 4.80 M/mcL LAB HEMETOLOGY METHOD 04/12/2025 12:49 PM EDT [facility] Hemoglobin 10.7(L) 11.5 - 16.0 g/dL LAB HEMETOLOGY METHOD 04/12/2025 12:49 PM EDT [facility] Hematocrit 34.9(L) 35.0 - 47.0 % LAB HEMETOLOGY METHOD 04/12/2025 12:49 PM EDT [facility] MCV 81.5 79.0 - 98.0 FL LAB HEMETOLOGY METHOD 04/12[facility]2025 12:[facility] MCH 25.0(L) 27.0 - 32.0 pcg LAB HEMETOLOGY METHOD 04/12/2025 12:[facility] MCHC 30.7(L) 32.0 - 37.0 g/dL LAB HEMETOLOGY METHOD 04/12/2025 12:49 PM [facility] RDW 17.8(H) 11.0 - 15.0 % LAB HEMETOLOGY METHOD 04/12/2025 12:49 PM [facility] Platelets 230 130 - 400 K/mcL LAB HEMETOLOGY METHOD 04/12/2025 12:49 PM [facility] MPV 9.1 7.0 - 11.0 FL LAB HEMETOLOGY METHOD 04/12/2025 12:49 PM [facility] NRBC 0.0 <1.0 % LAB HEMETOLOGY METHOD 04/12/2025 12:49 PM [facility] NRBC Absolute 0.00 <0.10 K/mcL LAB HEMETOLOGY METHOD 04/12/2025 12:49 PM [facility] Neutrophils Relative 73.9 % LAB HEMETOLOGY METHOD 04/12/2025 12:49 PM [facility] Lymphocytes Relative 16.1 % LAB HEMETOLOGY METHOD 04/12/2025 12:[facility] Monocytes Relative 7.0 % LAB HEMETOLOGY METHOD 04/12/2025 12:49 PM [facility] Eosinophils Relative 1.9 % LAB HEMETOLOGY METHOD 04/12/2025 12:49 PM EDT [facility] Basophils Relative 0.6 % LAB HEMETOLOGY METHOD 04/12/2025 12:49 PM EDT [facility] Immature Granulocytes Relative 0.5 % LAB HEMETOLOGY METHOD 04/12/2025 12:49 PM EDT [facility] Neutrophils Absolute 5.87 1.50 - 7.00 K/mcL LAB HEMETOLOGY METHOD 04/12/2025 12:49 PM EDT [facility] Lymphocytes Absolute 1.28 1.00 - 5.00 K/mcL LAB HEMETOLOGY METHOD 04/12/2025 12:49 PM EDT [facility] Monocytes Absolute 0.56 0.20 - 1.00 K/mcL LAB HEMETOLOGY METHOD 04/12/2025 12:49 PM EDT [facility] Eosinophils Absolute 0.15 0.00 - 0.50 K/mcL LAB HEMETOLOGY METHOD 04/12/2025 12:49 PM EDT [facility] Basophils Absolute 0.05 0.00 - 0.20 K/mcL LAB HEMETOLOGY METHOD 04/12/2025 12:49 PM EDT [facility] Immature Granulocytes Absolute 0.04(H) 0.00 - 0.03 K/mcL LAB HEMETOLOGY METHOD 04/12/2025 12:49 PM EDT [facility] Blood Venous blood specimen / Unknown Venipuncture / Unknown 04/12/2025 12:37 PM EDT 04/12/2025 12:44 PM EDT us Teja Nj MD LAB BLOOD ORDERABLES Final Resu lt [facility] [address] [place] [address], * (ABNORMAL) Comprehensive metabolic panel (04/12/2025 12:37 PM EDT) Sodium 133 133 - 145 mmol/L LAB CHEMISTRY METHOD 04/12/2025 1:29 PM [facility] Potassium 4.5 3.5 - 5.5 mmol/L LAB CHEMISTRY METHOD 04/12/2025 1:29 PM [facility] Chloride 105 96 - 110 mmol/L LAB CHEMISTRY METHOD 04/12/2025 1:29 PM [facility] CO2 25 21 - 32 mmol/L LAB CHEMISTRY METHOD 04/12/2025 1:29 PM [facility] Anion Gap 3 3 - 11 LAB CHEMISTRY METHOD 04/12/2025 1:29 PM [facility] Glucose 206(H) 70 - 100 mg/dL LAB CHEMISTRY METHOD 04/12/2025 1:29 PM [facility] BUN 15 5 - 25 mg/dL LAB CHEMISTRY METHOD 04/12/2025 1:29 PM [facility] Creatinine 1.40(H) 0.50 - 1.10 mg/dL LAB CHEMISTRY METHOD 04/12/2025 1:29 PM [facility] eGFR 40(L) >=60 mL/min/1. 73m2 LAB CHEMISTRY METHOD 04/12/2025 1:29 PM [facility] Comment:Calculation based on the Chronic Kidney Disease Epidemiology Collaboration (CKD-EPI) equation refit without adjustment for race. BUN/Creatinine Ratio 10.7 LAB CHEMISTRY METHOD 04/12/2025 1:29 PM [facility] Calcium 9.1 8.5 - 10.5 mg/dL LAB CHEMISTRY METHOD 04/12/2025 1:29 PM [facility] AST (SGOT) 29 10 - 42 unit/L LAB CHEMISTRY METHOD 04/12/2025 1:29 PM [facility] ALT (SGPT) 25 10 - 60 unit/L LAB CHEMISTRY METHOD 04/12/2025 1:29 PM [facility] Alkaline Phosphatase 169(H) 42 - 121 unit/L LAB CHEMISTRY METHOD 04/12/2025 1:29 PM EDT [facility] Total Protein 7.5 6.0 - 8.0 g/dL LAB CHEMISTRY METHOD 04/12/2025 1:29 PM EDT [facility] Albumin 3.4 3.2 - 5.0 g/dL LAB CHEMISTRY METHOD 04/12/2025 1:29 PM EDT [facility] Total Bilirubin 0.3 0.0 - 1.4 mg/dL LAB CHEMISTRY METHOD 04/12/2025 1:29 PM EDT [facility] Blood Venous blood specimen / Unknown Venipuncture / Unknown 04/12/2025 12:37 PM EDT 04/12/2025 12:44 PM EDT Teja Nj MD LAB BLOOD ORDERABLES Final Resu lt Performing Organization Address City/[facility]/ZIP Co de Phone Number [facility] [address] [place] [address], [place] [phone] * ECG-Annotated (04/08/2025) Provider Onbase ECG ORDERABLES Final Result * (ABNORMAL) Magnesium (04/06/2025 8:25 PM EDT) Magnesium 1.7(L) 1.9 - 2.6 mg/dL LAB CHEMISTRY METHOD 04/06/2025 9:41 PM EDT [facility] Blood Venous blood specimen / Unknown Venipuncture / Unknown 04/06/2025 8:25 PM EDT 04/06/2025 9:17 PM EDT Teja Nj MD LAB BLOOD ORDERABLES Final Resu lt Performing Organization Address City/[facility]/ZIP Co de Phone Number [facility] [address] [place] [address], [place] [phone] * (ABNORMAL) Basic metabolic panel (04/06/2025 8:25 PM EDT) Sodium 139 133 - 145 mmol/L LAB CHEMISTRY METHOD 04/06/2025 9:41 PM [facility] Potassium 4.6 3.5 - 5.5 mmol/L LAB CHEMISTRY METHOD 04/06/2025 9:41 PM [facility] Chloride 109 96 - 110 mmol/L LAB CHEMISTRY METHOD 04/06/2025 9:41 PM [facility] CO2 23 21 - 32 mmol/L LAB CHEMISTRY METHOD 04/06/2025 9:41 PM [facility] Anion Gap 7 3 - 11 LAB CHEMISTRY METHOD 04/06/2025 9:41 PM [facility] Glucose 163(H) 70 - 100 mg/dL LAB CHEMISTRY METHOD 04/06/2025 9:41 PM [facility] BUN 25 5 - 25 mg/dL LAB CHEMISTRY METHOD 04/06/2025 9:41 PM [facility] Creatinine 2.15(H) 0.50 - 1.10 mg/dL LAB CHEMISTRY METHOD 04/06/2025 9:41 PM [facility] eGFR 24(L) >=60 mL/min/1. 73m2 LAB CHEMISTRY METHOD 04/06/2025 9:41 PM [facility] Comment:Calculation based on the Chronic Kidney Disease Epidemiology Collaboration (CKD-EPI) equation refit without adjustment for race. BUN/Creatinine Ratio 11.6 LAB CHEMISTRY METHOD 04/06/2025 9:41 PM [facility] Calcium 9.0 8.5 - 10.5 mg/dL LAB CHEMISTRY METHOD 04/06/2025 9:41 PM [facility] Blood Venous blood specimen / Unknown Venipuncture / Unknown 04/06/2025 8:25 PM EDT 04/06/2025 9:17 PM EDT Teja Nj MD LAB BLOOD ORDERABLES Final Resu lt Performing Organization Address City/[facility] Co de Phone Number [facility] [address] [place] [address], [place] [phone] * (ABNORMAL) POCT Glucose, blood (04/06/2025 8:21 PM EDT) [facility] Glucose POCT 158(H) 70 - 100 mg/dL 04/06/2025 8:23 PM EDT [facility] Blood Capillary blood specimen / Unknown 04/06/2025 8:21 PM EDT 04/06/2025 8:24 PM EDT Generic Provider Poct LAB POINT OF CARE TEST DOCKED DEVICE UNSOLICITED RESULTS Final Result Performing Organization Address [facility] Co de Phone Number [facility] [address] [place] [address], [place] [phone] * ECG 12 lead (04/06/2025 8:15 PM EDT) [facility] Ventricular Rate ECG 65 BPM GEMUSE Atrial Rate 65 BPM GEMUSE P-R Interval 290 ms GEMUSE QRS Duration 152 ms GEMUSE Q-T Interval 500 ms GEMUSE QTc 520 ms GEMUSE P Wave [place] 76 degrees GEMUSE R [place] -47 degrees GEMUSE T [place] 114 degrees GEMUSE ECG Interpretation Sinus rhythm with 1st degree A-V block Left axis deviation Left bundle branch block Abnormal ECG When compared with ECG of 03-JAN-2025 15:44, No significant change was found Confirmed by LOUISE VAZQUEZ ([id number]) on 04/07/2025 11:18:06 AM GEMUSE 04/06/2025 8:15 PM EDT 04/07/2025 11:18 AM EDT Teja Nj MD ECG ORDERABLES Final Result GEMUSE * (ABNORMAL) Hemoglobin A1c (01/04/2025 6:19 AM EST) Hemoglobin A1C 8.2(H) <6.5 % LAB CHEMISTRY METHOD 01/04/2025 1:13 PM EST [facility] Mean Bld Glu Estim. 189 mg/dL LAB CHEMISTRY METHOD 01/04/2025 1:13 PM EST [facility] Blood Venous blood specimen / Unknown Venipuncture / Unknown 01/04/2025 6:19 AM EST 01/04/2025 7:22 AM EST Phoenix Riley MD LAB BLOOD ORDERABLES Final Re sult Performing Organization Address [facility] Co de Phone Number [facility] [address] [place] [address], from Last 3 Months or Most Recently Relevant to Health Maintenance Insurance [employer] MEDICARE Advance Directives * [...] currently active code status orders. Care Teams Retail Advertising Executive Relationship Specialty Start Date End Date Marycruz Zapata MD [address] [place] [address] Dr [address] [facility] [place] [address] PCP - General Internal Medicine 11/02/21
== END 2025-05-25 13:27 | disposition home or self-care (01) ==
LOC: HO.US 13:26
PROVIDERS: PCP Internal Medicine; Visit Provider Internal Medicine
DX: R16.0 Hepatomegaly, not elsewhere classified (principal)
CPT/HCPCS: 76705

== ENCOUNTER → 2025-05-25 13:29 | Outpatient (BNV) | payer MEDICARE, SELFPAY | PROVIDERS: PCP Internal Medicine; Visit Provider Radiology Diagnostic Radiology | DX: C22.0 Liver cell carcinoma (principal) | CPT/HCPCS: 76705 ==

== ENCOUNTER 2025-06-09 11:21 | Day surgery (SDC) | payer MEDICARE, SELFPAY ==
--- OUTSIDE RECORDS SUMMARY | 2025-05-30 12:01 | XMS_ITS | Encounter Summary ---
Author Organization [facility] [address] Address [address] [place] [address] Care Team Providers Care Cable Cutter And Swager Name Role Phone Marycruz Zapata MD Primary Care Provider [phone] Reason for Visit * Reason Comments Abdominal Pain States recent dx of liver ca Encounter Details Date Type Department Care Team (Late st Contact Info) Description 05/30/2025 12:01 PM EDT - Present Emergency [facility] Emergency [address] [place] [address] Ruy Galindo MD [address] [place] [address] Social History Tobacco Use Types Packs/Day Years [...] Sign Reading Time Taken Comments Blood Pressure 139/58 05/30/2025 11:27 AM EDT Pulse 62 05/30/2025 11:27 AM EDT Temperature 36.8 C (98.2 F) 05/30/2025 11:27 AM EDT Respiratory Rate 16 05/30/2025 11:27 AM EDT Oxygen Saturation 96% 05/30/2025 11:27 AM EDT Inhaled Oxygen Concentration - - Weight - - Height - - Body Mass Index - - documented in this encounter Progress Notes * Titus Clark RN - 05/30/2025 10:56 AM EDT Patient presents with abdominal pain on right side. Was recently dx with liver cancer. States she was prescribed oxycodone for pain but it is not helping documented in this encounter Plan of Treatment Scheduled Orders Name Type Priority Associated Diagnoses Orde r Schedule CT Abdomen Pelvis w Contrast Imaging STAT Once for 1 Occur rences starting 05/30/2025 until 05/30/2025 documented as of this encounter Procedures * The patient is currently admitted. The information in this section might not be complete until the patient is discharged. Procedure Name Priority Date/Time Associated Diagnosis Comments CBC WITH AUTO DIFFERENTIAL STAT 05/30/2025 11:21 AM EDT CBC AND DIFFERENTIAL STAT 05/30/2025 11:21 AM EDT COMPREHENSIVE METABOLIC PANEL STAT 05/30/2025 11:21 AM EDT documented in this encounter Results * (ABNORMAL) CBC auto differential (05/30/2025 11:21 AM EDT) [facility] WBC 6.4 4.8 - 10.8 K/mcL LAB HEMETOLOGY METHOD 05/30/2025 12:[address] [facility] RBC 4.00 3.80 - 4.80 M/mcL LAB HEMETOLOGY METHOD 05/30/2025 12:[address] [facility] Hemoglobin 9.9(L) 11.5 - 16.0 g/dL LAB HEMETOLOGY METHOD 05/30/2025 12:[address] [facility] Hematocrit 32.5(L) 35.0 - 47.0 % LAB HEMETOLOGY METHOD 05/30/2025 12:[address] [facility] MCV 81.0 79.0 - 98.0 FL LAB HEMETOLOGY METHOD 05/30/2025 12:41 PM [facility] MCH 24.7(L) 27.0 - 32.0 pcg LAB HEMETOLOGY METHOD 05/30/2025 12:41 PM [facility] MCHC 30.5(L) 32.0 - 37.0 g/dL LAB HEMETOLOGY METHOD 05/30/2025 12:41 PM [facility] RDW 18.1(H) 11.0 - 15.0 % LAB HEMETOLOGY METHOD 05/30/2025 12:41 PM [facility] Platelets 132 130 - 400 K/mcL LAB HEMETOLOGY METHOD 05/30/2025 12:41 PM [facility] MPV 11.4(H) 7.0 - 11.0 FL LAB HEMETOLOGY METHOD 05/30/2025 12:41 PM [facility] NRBC 0.0 <1.0 % LAB HEMETOLOGY METHOD 05/30/2025 12:41 PM [facility] NRBC Absolute 0.00 <0.10 K/mcL LAB HEMETOLOGY METHOD 05/30/2025 12:41 PM [facility] Neutrophils Relative 75.9 % LAB HEMETOLOGY METHOD 05/30/2025 12:41 PM [facility] Lymphocytes Relative 15.3 % LAB HEMETOLOGY METHOD 05/30/2025 12:41 PM [facility] Monocytes Relative 5.8 % LAB HEMETOLOGY METHOD 05/30/2025 12:41 PM [facility] Eosinophils Relative 1.7 % LAB HEMETOLOGY METHOD 05/30/2025 12:41 PM [facility] Basophils Relative 0.8 % LAB HEMETOLOGY METHOD 05/30/2025 12:[address] [facility] Immature Granulocytes Relative 0.5 % LAB HEMETOLOGY METHOD 05/30/2025 12:41 PM [facility] Neutrophils Absolute 4.85 1.50 - 7.00 K/mcL LAB HEMETOLOGY METHOD 05/30/2025 12:41 PM [facility] Lymphocytes Absolute 0.98(L) 1.00 - 5.00 K/mcL LAB HEMETOLOGY METHOD 05/30/2025 12:41 PM [facility] Monocytes Absolute 0.37 0.20 - 1.00 K/[facility] LAB HEMETOLOGY METHOD 05/30/2025 12:41 PM [facility] Eosinophils Absolute 0.11 0.00 - 0.50 K/mcL LAB HEMETOLOGY METHOD 05/30/2025 12:41 PM [facility] Basophils Absolute 0.05 0.00 - 0.20 K/mcL LAB HEMETOLOGY METHOD 05/30/2025 12:41 PM [facility] Immature Granulocytes Absolute 0.03 0.00 - 0.03 K/mcL LAB HEMETOLOGY METHOD 05/30/2025 12:41 PM [facility] Blood Venous blood specimen / Unknown Venipuncture / Unknown 05/30/2025 11:21 AM EDT 05/30/2025 12:24 PM EDT us Ruy Galindo MD LAB BLOOD ORDERABLES Final Resu lt [facility] [address] [place] [address], * (ABNORMAL) Comprehensive metabolic panel (05/30/2025 11:21 AM EDT) Sodium 135 133 - 145 mmol/L LAB CHEMISTRY METHOD 05/30/2025 12:[address] [facility] Potassium 4.5 3.5 - 5.5 mmol/L LAB CHEMISTRY METHOD 05/30/2025 12:56 PM [facility] Chloride 104 96 - 110 mmol/L LAB CHEMISTRY METHOD 05/30/2025 12:56 PM [facility] CO2 26 21 - 32 mmol/L LAB CHEMISTRY METHOD 05/30/2025 12:56 PM [facility] Anion Gap 5 3 - 11 LAB CHEMISTRY METHOD 05/30/2025 12:56 PM [facility] Glucose 222(H) 70 - 100 mg/dL LAB CHEMISTRY METHOD 05/30/2025 12:56 PM [facility] BUN 18 5 - 25 mg/dL LAB CHEMISTRY METHOD 05/30/2025 12:56 PM [facility] Creatinine 1.65(H) 0.50 - 1.10 mg/dL LAB CHEMISTRY METHOD 05/30/2025 12:56 PM [facility] eGFR 33(L) >=60 mL/min/1. 73m2 LAB CHEMISTRY METHOD 05/30/2025 12:56 PM [facility] Comment:Calculation based on the Chronic Kidney Disease Epidemiology Collaboration (CKD-EPI) equation refit without adjustment for race. BUN/Creatinine Ratio 10.9 LAB CHEMISTRY METHOD 05/30/2025 12:56 PM [facility] Calcium 9.1 8.5 - 10.5 mg/dL LAB CHEMISTRY METHOD 05/30/2025 12:56 PM [facility] AST (SGOT) 23 10 - 42 unit/L LAB CHEMISTRY METHOD 05/30/2025 12:56 PM [facility] ALT (SGPT) 16 10 - 60 unit/L LAB CHEMISTRY METHOD 05/30/2025 12:56 PM [facility] Alkaline Phosphatase 143(H) 42 - 121 unit/L LAB CHEMISTRY METHOD 05/30/2025 12:56 PM [facility] Total Protein 6.8 6.0 - 8.0 g/dL LAB CHEMISTRY METHOD 05/30/2025 12:[address] [facility] Albumin 3.1(L) 3.2 - 5.0 g/dL LAB CHEMISTRY METHOD 05/30/2025 12:[address] [facility] Total Bilirubin 0.2 0.0 - 1.4 mg/dL LAB CHEMISTRY METHOD 05/30/2025 12:[address] [facility] Blood Venous blood specimen / Unknown Venipuncture / Unknown 05/30/2025 11:21 AM EDT 05/30/2025 12:24 PM EDT us Ruy Galindo MD LAB BLOOD ORDERABLES Final Resu lt [facility] [address] [place] [address], documented in this encounter Visit Diagnoses Not on filedocumented in this encounter Administered Medications Inactive Administered Medications - up to 3 most recent administrations Medication Order MAR Action Action Date Dose Rate Site HYDROmorphone (PF) (DILAUDID) injection 1 mg 1 mg, intravenous, Once, On Fri05/30/25 at 1207, For 1 dose Given 05/30/2025 12:50 PM EDT 1 mg ondansetron (PF) (ZOFRAN) injection 4 mg 4 mg, intravenous, Once, On Fri05/30/25 at 1207, For 1 dose Given 05/30/2025 12:51 PM EDT 4 mg sodium chloride 0.9 % bolus 1,000 mL 1,000 mL, intravenous, at 2,000 mL/hr, Administer over 30 Minutes, Once, On Fri05/30/25 at 1207, For 1 dose New Bag 05/30/2025 12:51 PM EDT 1,000 mL 2000 mL/hr documented in this encounter Active and Recently Administered Medications Times are shown in EDT. Scheduled Medication Order 05/28/2025 05/29/2025 05/30/2025 HYDROmorphone (PF) (DILAUDID) injection 1 mg (COMPLETED) 1 mg, intravenous, Once, On Fri05/30/25 at 1207, For 1 dose 1250 (Given - Provid er: Gely Zheng RN) ondansetron (PF) (ZOFRAN) injection 4 mg (COMPLETED) 4 mg, intravenous, Once, On Fri05/30/25 at 1207, For 1 dose 1251 (Given - Provid er: Gely Zheng RN) sodium chloride 0.9 % bolus 1,000 mL (COMPLETED) 1,000 mL, intravenous, at 2,000 mL/hr, Administer over 30 Minutes, Once, On Fri05/30/25 at 1207, For 1 dose 1251 (New Bag - Prov ider: Gely Zheng RN)1321 (Due: Stopped - Provider: Gely Zheng RN) documented in this encounter Care Teams Cable Cutter And Swager Relationship Specialty Start Date End Date Benny, MD Marycruz [address] [place] [address] Dr [address] [facility] [place] [address] PCP - General Internal Medicine 11/02/21 documented as of this encounter
--- OUTSIDE RECORDS SUMMARY | 2025-05-30 14:25 | XMS_ITS | Patient Health Record ---
Author Organization [facility] Address [address] [facility] [place] [address] Care Team Providers Care Enterprise Application Developer Name Role Phone Marycruz Zapata Primary Care Provider Shantelle Whaley Unavailable [phone] Allergies No Known Allergies Reason For Referral [...] Problem Acquired hammer toe of right foot (2581319901917956 ) Other hammer toe(s) (acquired), right foot (M20.41) Active confirmed Problem Acquired hammer toe of left foot (7471644156024401 ) Other hammer toe(s) (acquired), left foot (M20.42) Active confirmed Problem Polyneuropathy due to type 2 diabetes mellitus (430867848) Type 2 diabetes mellitus with diabetic polyneuropathy (E11.42) Active confirmed Plan Of Treatment Pending Test Test Name Order Date [id number] NAIL, 1-5 03/04/2022 [id number] SKIN LESIONS, OVER 4 03/04/20 22 [id number] DYSTROPHIC NAILS ANY # Insurance Providers Payer Name Payer Address Payer Phone Subscriber Number Group Number Insured Name Patient Relationship to Insured Coverage Start Date Coverage End Date [facility] Medicare Complete [address] [address] [place] [address] [id number] Magy Santiago Self - patient is the insured Medical (General) History Medical History History ICD Code asthma Back,Hip,and Knee pain Cataracts Diabetes mellitus High blood pressure Numbness thyroid Mumps Joint implants/screws Surgical History Surgery Date(Month/Year) neck surgery 2016
--- OUTSIDE RECORDS SUMMARY | 2025-05-30 14:25 | XMS_ITS | Clinical Summary ---
Author Organization [facility] Address [address] [place] [address] Care Team Providers Care Can Operator Name Role Phone Marycruz Zapata MD Primary Care Provider Social History Tobacco Use Types Packs/Day Years [...] 1 - PCV) 2018 Influenza Vaccine (#1) 2025 RSV Adult > 60+ Yrs or Pregn ant (1 - 1-dose 75+ series) 2028 Hepatitis B Vaccines Aged Out No long er eligible based on patient's age to complete this topic RSV Ped < 20 months Aged Out No longe r eligible based on patient's age to complete this topic Care Teams Can Operator Relationship Specialty Start Date End Date Marycruz Zapata MD [address] [place] [address] [address] [facility] [place] [address] PCP - General Internal Medicine 02/17/18
--- OUTSIDE RECORDS SUMMARY | 2025-05-30 14:25 | XMS_ITS | Patient Health Record ---
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 Problem Family History of Cancer of Colon (Situation) (756425830) Family history of colon cancer (V16.0) Active confirmed Problem Colon cancer screening (922704348) Colon cancer screening (V76.51) Active confirmed Problem History of adenomatous polyp of colon (934093626) History of adenomatous polyp of colon (V12.72) Active confirmed Plan Of Treatment Future Test Test Name Order Date UPPER GI ENDOSCOPY 03/24/2013 COLONOSCOPY 03/24/2013 Insurance Providers Payer Name Payer Address Payer Phone Subscriber Number Group Number Insured Name Patient Relationship to Insured Coverage Start Date Coverage End Date MEDICARE OF [place] [address] [id number] SAHIL CAMPOS Self - patient is the insured MEDICAID OF [facility] [address] [place] [address] [id number] SAHIL CAMPOS Self - patient is the insured Medical (General) History Medical History History ICD Code GERD-EGD in 04/2006 with a sm all HH and small area of Umaña's esophagus-no dysplasia Colonoscopy in 04/2006 with removal of sm all tubular adenomas hypertension asthma NIDDM Denies [place],CVA,renal disease Surgical History Surgery Date(Month/Year) cholecystectomy hysterectomy
--- NOTE | ~2025-06-09 | US_ITS ---
EXAMINATION: US ABDOMEN LIMITED CLINICAL INFORMATION: Right hepatic mass for biopsy under ultrasound.. COMPARISON: 05/25/2025. MRI abdomen 06/13/2025. TECHNIQUE: Real-time imaging of the liver was performed. FINDINGS: Localization for right lobe hepatic mass for potential biopsy. The mass could not be well delineated on today's ultrasound, and the procedure was rescheduled for difference in modality. US/US abdomen limited IMPRESSION: Right hepatic lobe mass intended for biopsy could not be well delineated on today's examination. Biopsy was rescheduled. Electronically signed by: Andrew Jara MD 06/09/2025 03:13 PM EDT
[2025-06-09 12:42] VITALS: BMI 38.4
[2025-06-09 13:00] VITALS: BP 135/64; PULSE 72; RESP 16; TEMP 36.4; O2SAT 96
[2025-06-09 13:23] LABS: Glucose, Whole Blood 129 mg/dL (60-115)
[2025-06-09 14:00] VITALS: BP 149/81; PULSE 62; O2SAT 95
[2025-06-09 14:20] VITALS: BP 156/76; PULSE 62; O2SAT 97
--- NOTE | 2025-06-09 15:20 | PC.NURSE ---
Pt arrived to pacu at 1450 after procedure not performed due to unavailabilty of CT scan. Pt received no meds and was rescheduled next week with instructions from IR nurse. IV was removed, cathlon intact. Pt left the pacu at 1515 via w/c.
== END 2025-06-09 15:15 | disposition home or self-care (01) ==
PROVIDERS: PCP Internal Medicine; Visit Provider Internal Medicine
DX: R16.0 Hepatomegaly, not elsewhere classified (principal); Z53.8 Procedure and treatment not carried out for other reasons
CPT/HCPCS: 76705; 82947; 86850; 86900; 86901; J2003; J2250; J2312; J3010

== ENCOUNTER → 2025-06-09 13:15 | Outpatient (BNV) | payer MEDICARE, SELFPAY | PROVIDERS: PCP Internal Medicine; Visit Provider Radiology Diagnostic Radiology | DX: K76.89 Other specified diseases of liver (principal) | CPT/HCPCS: 76705 ==

== ENCOUNTER 2025-06-15 11:22 | Day surgery (SDC) | payer MEDICARE, SELFPAY ==
--- OUTSIDE RECORDS SUMMARY | 2025-06-13 11:48 | XMS_ITS | Patient Health Record ---
Author Organization [facility] Address [address] [facility] [place] [address] Care Team Providers Care Wood Pattern Maker Name Role Phone Marycruz Zapata Primary Care Provider Shantelle Whaley Unavailable [phone] Allergies No Known Allergies Reason For Referral [...] Problem Acquired hammer toe of right foot (5526482156200187 ) Other hammer toe(s) (acquired), right foot (M20.41) Active confirmed Problem Acquired hammer toe of left foot (5442149288916244 ) Other hammer toe(s) (acquired), left foot (M20.42) Active confirmed Problem Polyneuropathy due to type 2 diabetes mellitus (310307240) Type 2 diabetes mellitus with diabetic polyneuropathy (E11.42) Active confirmed Plan Of Treatment Pending Test Test Name Order Date [id number] NAIL, 1-5 03/04/2022 [id number] SKIN LESIONS, OVER 4 03/04/20 22 [id number] DYSTROPHIC NAILS ANY # Insurance Providers Payer Name Payer Address Payer Phone Subscriber Number Group Number Insured Name Patient Relationship to Insured Coverage Start Date Coverage End Date [facility] Medicare Complete [address] [address] [place] [address] [id number] Magy Santiago Self - patient is the insured Medical (General) History Medical History History ICD Code asthma Back,Hip,and Knee pain Cataracts Diabetes mellitus High blood pressure Numbness thyroid Mumps Joint implants/screws Surgical History Surgery Date(Month/Year) neck surgery 2016
--- OUTSIDE RECORDS SUMMARY | 2025-06-13 11:49 | XMS_ITS | Clinical Summary ---
Author Organization [facility] Address [address] [place] [address] Care Team Providers Care Restaurant Hourly Manager Name Role Phone Marycruz Zapata MD Primary Care Provider [phone] Social History Tobacco Use Types Packs/Day Years [...] age to complete this topic Care Teams Restaurant Hourly Manager Relationship Specialty Start Date End Date Marycruz Zapata MD [address] [place] [address] [address] [facility] [place] [address] PCP - General Internal Medicine 02/17/18
--- OUTSIDE RECORDS SUMMARY | 2025-06-13 11:49 | XMS_ITS | Patient Health Record ---
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 Problem Family History of Cancer of Colon (Situation) (167701003) Family history of colon cancer (V16.0) Active confirmed Problem Colon cancer screening (V76.51) Active confirmed Problem History of adenomatous polyp of colon (838407688) History of adenomatous polyp of colon (V12.72) Active confirmed Plan Of Treatment Future Test Test Name Order Date UPPER GI ENDOSCOPY 03/24/2013 COLONOSCOPY 03/24/2013 Insurance Providers Payer Name Payer Address Payer Phone Subscriber Number Group Number Insured Name Patient Relationship to Insured Coverage Start Date Coverage End Date MEDICARE OF [facility] [address] [id number] SAHIL CAMPOS Self - patient is the insured MEDICAID OF [facility] [address] [place] [address] [id number] SAHIL CAMPOS Self - patient is the insured Medical (General) History Medical History History ICD Code GERD-EGD in 04/2006 with a sm all HH and small area of Umaña's esophagus-no dysplasia Colonoscopy in 04/2006 with removal of sm all tubular adenomas hypertension asthma NIDDM Denies [place],CVA,renal disease Surgical History Surgery Date(Month/Year) cholecystectomy hysterectomy
--- OUTSIDE RECORDS SUMMARY | 2025-06-13 11:49 | XMS_ITS | Clinical Summary ---
Author Organization [facility] Address [address] [place] [address] Phone Care Team Providers Care Line Assigner Name Role Phone Marycruz Zapata MD Primary Care Provider [phone] Allergies Active Allergy Reactions Criticality Noted Date Comments Atorvastatin Muscular Issues Low 05/30/2025 Azithromycin Palpitations Medium 05/30/2025 Bumetanide GI intolerance Medium 05/30/2025 Apixaban Nausea Only Low 05/30/2025 Cyclobenzaprine Nausea And Vomiting Low 05/30/2025 Furosemide Nausea And Vomiting Low 05/30/2025 Hydralazine Diarrhea Low 05/30/2025 Levofloxacin GI intolerance Low 05/30/2025 Naproxen 04/06/2025 Pravastatin Muscular Issues Low 05/30/2025 Simvastatin Muscular Issues Low 05/30/2025 Sulfa (Sulfonamide Antibiotics) Nausea And Vomiting Medium 05/30/2025 Tramadol Nausea And Vomiting High 12/31/2021 Medications albuterol HFA (PROAIR HFA ; PROVENTIL HFA ; VENTOLIN HFA) 90 mcg/actuation inhaler Inhale 2 puffs by mouth every 6 (six) hours if needed for shortness of breath or wheezing. 025 Active amiodarone (PACERONE) 200 mg tablet Take 1 tablet (200 mg total) by mouth 1 (one) time each day. 025 Active amLODIPine (NORVASC) 10 mg tablet Take 1 tablet (10 mg total) by mouth 1 (one) time each day. 024 Active glimepiride (AMARYL) 4 mg tablet Take 1 tablet (4 mg total) by mouth 1 (one) time each day. Active levothyroxine (SYNTHROID, LEVOTHROID) 100 mcg tablet Take 1 tablet (100 mcg total) by mouth 1 (one) time each day. Active omeprazole (PriLOSEC) [address] capsule Take 1 capsule (40 mg total) by mouth 2 (two) times a day. Active oxyCODONE-acetami nophen (PERCOCET) 5-325 mg per tablet Take 1 [...] 3 (three) times a day. 90 each 025 2025 Active Additional Information Patient taking differently:25 mg oralDaily, Reported on 04/12/2025 nicotine (NICODERM CQ) 14 mg/[address] 1 patch on the skin 1 (one) time each day. 30 each 025 Active Additional Information Patient not taking.Reported on 04/12/2025 SITagliptin phosphate (JANUVIA) 25 mg tablet Take 1 tablet (25 mg total) by mouth 1 (one) time each day. 30 tablet 1 025 Active Additional Information Patient not taking.Reported on 04/12/2025 tiotropium (SPIRIVA) 18 mcg per inhalation capsule Place 1 capsule (18 mcg total) into inhaler and inhale 1 (one) time each day. 1 each 025 2024 Active Additional Information Patient not taking.Reported on 04/12/2025 Jardiance 10 mg tablet Take 1 tablet (10 mg total) by mouth 1 (one) time each day. Active metFORMIN (GLUCOPHAGE) 1,000 mg tablet Take 1 tablet (1,000 mg total) by mouth 2 (two) times a day. Active metoprolol tartrate (LOPRESSOR) 50 mg tablet [...] mouth 1 (one) time each day. Active aspirin 81 mg EC tablet Take 1 tablet (81 mg total) by mouth 1 (one) time each day. Active docusate sodium (COLACE) 100 mg capsule Take 1 capsule (100 mg total) by mouth every 12 (twelve) hours. 60 capsule 025 2024 Active oxyCODONE (ROXICODONE) 5 mg immediate release tablet Take 1 tablet (5 mg total) by mouth every 6 (six) hours if needed for severe pain. Max Daily Amount: 20 mg 15 tablet 025 2024 Discontinued oxyCODONE (OXY-IR) 5 mg immediate release capsule Take 1 or 2 tablets every 4 hours as needed for pain 20 capsule 025 2024 Discontinued oxyCODONE (OXY-IR) 5 mg immediate release capsule Take 1 capsule (5 mg total) by mouth every 4 (four) hours if needed for severe pain. Take 1 or 2 tablets every 4 hours as needed for pain Max Daily Amount: 30 mg 20 capsule 025 2024 Discontinued(E ntered in Error) Active Problems Problem Noted Date Diagnosed Date Hyperglycemia due to diabete s mellitus ([facility] V24, [facility] V28) 01/05/2025 Resolved Problems Problem Noted Date Diagnosed Date Resolved Date COPD exacerbation ([facility] V24, [facility] V28) 01/05/2025 Acute hypoxic respiratory fa ilure ([facility] V24, [facility] V28) 01/03/2025 01/05/2025 Encounters Date Type Department Care Team Description 06/02/2025 1:34 PM EDT - 06/02/2025 11:59 PM EDT Hospital Encounter [facility] PET Scan [address] [place] [id number] Hepatocellular carcinoma (CMS/HCC V24, CMS/HCC V28) Discharge Disposition: Home or Self Care 05/30/2025 12:01 PM EDT - 05/30/2025 5:[address] [facility] Emergency [address] [place] [phone] Ruy Galindo MD Landry, Jonathan P, MD Right upper quadrant abdominal pain (Primary Dx); Liver mass; Neoplasm of liver Discharge Disposition: Home or Self Care 04/12/2025 3:26 PM EDT - 04/12/2025 6:[address] [facility] Emergency [address] [place] [phone] Teja Nj MD Strain of muscle and tendon of back wall of thorax, initial encounter (Primary Dx); Strain of lumbar paraspinous muscle, initial encounter Discharge Disposition: Home or Self Care 04/06/2025 7:47 PM EDT - 04/06/2025 11:[address] [facility] Emergency [address] [place] [phone] Discharge Disposition: Home or Self Care from Last 3 Months Surgical History Surgery Date Site/Laterality Comments CARPAL TUNNEL RELEASE 03/28/2022 Right PROCEDURE: [place] NEUROPLASTY &/TRANSPOS MEDIAN NRV CARPAL TUNNE; COMMENT: Dr. Mccullough Medical History Medical History Date Comments Essential hypertension DX:Essent ial hypertension Diabetes mellitus type 2, co ntrolled, with complications (CMS/HCC V24, CMS/HCC V28) DX:Diabetes mellitus type 2, controlled, with complications (HCC) High cholesterol DX:High cholest surinder Thyroid activity decreased DX:Th yroid activity decreased Afib (CMS/HCC V24, CMS/HCC V28) Social History Tobacco Use Types Packs/Day [...] Sign Reading Time Taken Comments Blood Pressure 151/69 05/30/2025 5:52 PM EDT Pulse 60 05/30/2025 5:52 PM EDT Temperature 36.7 C (98.1 F) 05/30/2025 5:52 PM EDT Respiratory Rate 18 05/30/2025 5:52 PM EDT Oxygen Saturation 95% 05/30/2025 5:52 PM EDT Inhaled Oxygen Concentration - - Weight 98 kg (216 lb) 05/30/2025 2:56 PM EDT Height 160 cm (5' 3 ) 05/30/2025 2:56 PM EDT Body Mass Index 38.26 05/30/2025 2:56 PM EDT Plan of Treatment Health Maintenance Due Date Last Done Comments Breast Cancer Screening 1953 Diabetes: Annual Foot Exam 1963 Diabetes: Annual Retina Eye Exam 1963 DTaP,Tdap,and Td Vaccines (1 - Tdap) 1972 Zoster Vaccines (1 of 2) 2003 RSV Immunization Adult Patients (1 - Risk 60-74 years 1-dose series) 2013 Cholesterol Screening (Lipid Panel) 10/27/2022 Colorectal Cancer Screening: Colonoscopy 10/27/2022 Hepatitis C Screening 10/27/2022 Medicare Annual Wellness Visit 10/27/2022 Osteoporosis Screening (Bone Density Screening) 10/27/2022 Social Influencers of Health Screening 10/27/2022 COVID-19 Vaccine ( season) 2024 Depression Screening 11/24/2024 Diabetes: Annual Urine Albumin-Creatinine Ratio (uACR) 01/05/2025 Diabetes: Blood Sugar Control Test (HGBA1C) 07/04/2025 01/04/2025 Influenza Vaccine (#1) 2025 10/03/2022 Falls Risk Assessment 01/05/2026 01/05/2025 Diabetes: Annual GFR (Glomerular Filtration Rate) 05/30/2026 05/30/2025, 04/12/2025, 04/06/2025, Additional history exists Hypertension/CHF/CAD Annual BMP Blood Test 05/30/2026 05/30/2025, 04/12/2025, 04/06/2025, Additional history exists Pneumococcal Vaccine: 50+ Years [...] Procedure Name Priority Date/Time Associated Diagnosis Comments PET CT SKULL TO MID THIGH INITIAL Routine 06/02/2025 3:36 PM EDT Hepatocellular carcinoma (CMS/HCC V24, CMS/HCC V28) CT ABDOMEN PELVIS WO CONTRAST STAT 05/30/2025 2:38 PM EDT CBC WITH AUTO DIFFERENTIAL STAT 05/30/2025 11:21 AM EDT COMPREHENSIVE METABOLIC PANEL STAT 05/30/2025 11:21 AM EDT CBC AND DIFFERENTIAL STAT 05/30/2025 11:[address] CHEST/ABDOMEN/PELVIS WO CONTRAST STAT 04/12/2025 4:51 [...] Recently Relevant to Health Maintenance Results * PET CT Skull to Mid Thigh Initial (06/02/2025 3:36 PM EDT) Anatomical Region Laterality Modality Body Radiographic Anaid ging 06/06/2025 3:29 AM EDT Impressions 06/06/2025 4:14 AM EDT 1. FDG avid liver lesions in keeping with malignancy. Correlation with biopsy results is suggested. 2. Nonspecific FDG avid yumiko hepatis/portacaval/peripancreatic lymph nodes either representing metastatic disease or due to underlying liver disease 3. Nonspecific FDG avid bilateral parotid lesions. Consider tissue sampling. Please note: The CT was acquired at a low radiation dose settings. The images are of nondiagnostic quality and used solely for purposes of attenuation correction and slice localization for the PET scan. If a diagnostic CT study is desired it must be ordered separately. -------- FINAL REPORT -------- Dictated By: Herlinda Jacobson Dictated Date: 06/06/2025 03:29 ET Assigned Physician: Herlinda Jacobson Reviewed and Electronically Signed By: Herlinda Jacobson Signed Date: 06/06/2025 04:14 ET Workstation ID: [id number] Transcribed By: Self Edit Transcribed Date: 06/06/2025 03:29 ET Narrative 06/06/2025 4:14 AM EDT INDICATION: HEPATOCELLULAR CANCER. Staging. TECHNIQUE: FDG PET-CT imaging was performed from the skull bases through the thighs in a single acquisition with data set reconstructed in axial, coronal, and sagittal planes at the computer workstation with fused data from both the PET imaging study and attenuation correction CT. The CT portion of the examination was done strictly for attenuation correction and is not a true diagnostic CT examination. Enteric contrast was administered. DLP: 1073 mGy-cm Radiopharmaceutical: 11.6 mCi of F-18 FDG IV. Blood glucose: 108 mg/dl. COMPARISON: Prior CT of the abdomen and pelvis dated May [address] dated December 2024. Outside MRI of the abdomen dated 04/2025. FINDINGS: HEAD AND NECK: Nonspecific bilateral nodules in the parotid gland SUV max 6.5 on the left and 7.7 on the right. Nonspecific asymmetric activity near the right thyroid gland SUV max 4.1. No significant FDG avid cervical or supraclavicular lymphadenopathy. THORAX: No abnormal FDG activity. Thoracic aortic and coronary artery calcifications. Aortic valve stent. ABDOMEN/PELVIS: FDG avid liver lesions, the most significant in segment VIII SUV max 13.5 and segment V SUV Max 12.9. Background cirrhotic liver morphology. Yumiko hepatis/portacaval/peripancreatic lymph nodes measuring up to SUV Max 3.6. No significant FDG avid pelvic lymphadenopathy. Right common iliac lymph node SUV max 2.8. Right external iliac lymph nodes SUV max 1.9, right pelvic lymph node SUV max 1.4, left pelvic lymph node SUV max 1.0. No significant FDG avid inguinal lymph nodes. Nonspecific bowel activity. Diverticulosis. Cholecystectomy. Splenomegaly without significant focal FDG activity. Mild nodularity of the left adrenal gland without significant FDG activity. MUSCULOSKELETAL: No abnormal FDG activity. Right hip arthroplasty. ACDF hardware fixation. Procedure Note Herlinda Jacobson MD - 06/06/2025 INDICATION: HEPATOCELLULAR CANCER. Staging. TECHNIQUE: FDG PET-CT imaging was performed from the skull bases throughthe thighs in a single acquisition with data set reconstructed in axial,coronal, and sagittal planes at the computer workstation with fused datafrom both the PET imaging study and attenuation correction CT. The CTportion of the examination was done strictly for attenuation correctionand is not a true diagnostic CT examination. Enteric contrast wasadministered. DLP: 1073 mGy-cm Radiopharmaceutical: 11.6 mCi of F-18 FDG IV. Blood glucose: 108 mg/dl. COMPARISON: Prior CT of the abdomen and pelvis dated May [address] dated December 2024. Outside MRI of the abdomen dated 04/2025. FINDINGS: HEAD AND NECK: Nonspecific bilateral nodules in the parotid gland SUV max6.5 on the left and 7.7 on the right. Nonspecific asymmetric activity near the right thyroid gland SUV max 4.1.No significant FDG avid cervical or supraclavicular lymphadenopathy. THORAX: No abnormal FDG activity. Thoracic aortic and coronary artery calcifications. Aortic valve stent. ABDOMEN/PELVIS: FDG avid liver lesions, the most significant in segmentVIII SUV max 13.5 and segment V SUV Max 12.9. Background cirrhotic livermorphology. Yumiko hepatis/portacaval/peripancreatic lymph nodes measuring up to SUVMax 3.6. No significant FDG avid pelvic lymphadenopathy. Right common iliac lymphnode SUV max 2.8. Right external iliac lymph nodes SUV max 1.9, rightpelvic lymph node SUV max 1.4, left pelvic lymph node SUV max 1.0. Nosignificant FDG avid inguinal lymph nodes. Nonspecific bowel activity. Diverticulosis. Cholecystectomy. Splenomegaly without significant focal FDG activity. Mild nodularity ofthe left adrenal gland without significant FDG activity. MUSCULOSKELETAL: No abnormal FDG activity. Right hip arthroplasty. ACDF hardware fixation. IMPRESSION: 1. FDG avid liver lesions in keeping with malignancy. Correlation withbiopsy results is suggested. 2. Nonspecific FDG avid yumiko hepatis/portacaval/peripancreatic lymphnodes either representing metastatic disease or due to underlying liverdisease 3. Nonspecific FDG avid bilateral parotid lesions. Consider tissuesampling. Please note: The CT was acquired at a low radiation dose settings. The images are ofnondiagnostic quality and used solely for purposes of attenuationcorrection and slice localization for the PET scan. If a diagnostic CTstudy is desired it must be ordered separately. -------- FINAL REPORT -------- Dictated By: Herlinda Jacobson Dictated Date: 06/06/2025 03:29 ET Assigned Physician: Herlinda Jacobson Reviewed and Electronically Signed By: Herlinda Jacobson Signed Date: 06/06/2025 04:14 ET Workstation ID: [id number] Transcribed By: Self Edit Transcribed Date: 06/06/2025 03:29 ET Abilio Ellington [facility] Final Result * CT Abdomen Pelvis wo Contrast (05/30/2025 2:38 PM EDT) Anatomical Region Laterality Modality Body Computed Tomogra phy 05/30/2025 3:31 PM EDT Impressions 05/30/2025 3:40 PM EDT Interval enlargement of mass within the right lobe of the liver suspicious for hepatocellular carcinoma. Consider MRI utilizing liver mass protocol if not already performed. -------- FINAL REPORT -------- Dictated By: Jaycee Venegas Dictated Date: 05/30/2025 15:31 ET Assigned Physician: Jaycee Venegas Reviewed and Electronically Signed By: Jaycee Venegas Signed Date: 05/30/2025 15:40 ET Workstation ID: [id number] Transcribed By: Self Edit Transcribed Date: 05/30/2025 15:31 ET Narrative 05/30/2025 3:40 PM EDT INDICATION: Abdominal pain TECHNIQUE: CT scan of the abdomen and pelvis obtained without intravenous contrast. Scanner: [employer] LightSpeed 64 slice VCT Dose reduction technique: ASIR (Adaptive statistical iterative reconstruction) and/or AEC (automated exposure control) Dose: total exam DLP 1348 mGY per cm COMPARISON: Compared to multiple prior studies most recent from April 12, 2025. FINDINGS: Lung bases are clear. Osteopenia, degenerative and scoliotic changes with well-positioned right hip replacement. Cirrhotic liver morphology with interval enlargement of low attenuation lesion within the right lobe liver near the dome (segment 8) measuring up to 6 cm. Spleen, pancreas, adrenal glands and kidneys are within normal limits. Gallbladder not visualized. Stomach unremarkable. Small bowel loops within normal limits. Colon normal in course and caliber. Wall thickening along the transverse colon most likely secondary to underdistention. No free air or free fluid. Urinary bladder normal. Status post hysterectomy. No adnexal masses. Abdominal aorta normal in course and caliber. No lymphadenopathy. Procedure Note Jaycee Venegas MD - 05/30/2025 INDICATION: Abdominal pain TECHNIQUE: CT scan of the abdomen and pelvis obtained without intravenouscontrast. Scanner: [employer] LightSpeed 64 slice VCT Dose reduction technique: ASIR (Adaptive statistical iterativereconstruction) and/or AEC (automated exposure control) Dose: total exam DLP 1348 mGY per cm COMPARISON: Compared to multiple prior studies most recent from March. FINDINGS: Lung bases are clear. Osteopenia, degenerative and scoliotic changes with well-positioned righthip replacement. Cirrhotic liver morphology with interval enlargement of low attenuationlesion within the right lobe liver near the dome (segment 8) measuring upto 6 cm. Spleen, pancreas, adrenal glands and kidneys are within normal limits.Gallbladder not visualized. Stomach unremarkable. Small bowel loops within normal limits. Colon normalin course and caliber. Wall thickening along the transverse colon mostlikely secondary to underdistention. No free air or free fluid. Urinary bladder normal. Status post hysterectomy. No adnexal masses. Abdominal aorta normal in course and caliber. No lymphadenopathy. IMPRESSION: Interval enlargement of mass within the right lobe of the liver suspiciousfor hepatocellular carcinoma. Consider MRI utilizing liver mass protocolif not already performed. -------- FINAL REPORT -------- Dictated By: Jaycee Venegas Dictated Date: 05/30/2025 15:31 ET Assigned Physician: Jaycee Venegas Reviewed and Electronically Signed By: Jaycee Venegas Signed Date: 05/30/2025 15:40 ET Workstation ID: [id number] Transcribed By: Self Edit Transcribed Date: 05/30/2025 15:31 ET us Ruy Galindo MD IMG CT PROCEDURES Final Result * (ABNORMAL) CBC auto differential (05/30/2025 11:21 AM EDT) Only the most recent of3 resultswithin the time period is included. WBC 6.4 4.8 - 10.8 K/mcL LAB HEMETOLOGY METHOD [facility]2025 [facility] RBC 4.00 3.80 - 4.80 M/mcL LAB HEMETOLOGY METHOD 05/30/2025 12:41 PM [facility] Hemoglobin 9.9(L) 11.5 - 16.0 g/dL LAB HEMETOLOGY METHOD 05/30/2025 12:41 PM [facility] Hematocrit 32.5(L) 35.0 - 47.0 % LAB HEMETOLOGY METHOD 05/30/2025 12:41 PM [facility] MCV 81.0 79.0 - 98.0 FL LAB HEMETOLOGY METHOD 05/30/2025 12:41 PM [facility] MCH 24.7(L) 27.0 - 32.0 pcg LAB HEMETOLOGY METHOD 05/30/2025 12:41 PM [facility] MCHC 30.5(L) 32.0 - 37.0 g/dL LAB HEMETOLOGY METHOD 05/30/2025 12:41 PM [facility] RDW 18.1(H) 11.0 - 15.0 % LAB HEMETOLOGY METHOD 05/30/2025 12:41 PM [facility] Platelets 132 130 - 400 K/mcL LAB HEMETOLOGY METHOD 05/30/2025 12:41 PM [facility] MPV 11.4(H) 7.0 - 11.0 FL LAB HEMETOLOGY METHOD 05/30/2025 12:41 PM [facility] NRBC 0.0 <1.0 % LAB HEMETOLOGY METHOD 05/30/2025 12:41 PM [facility] NRBC Absolute 0.00 <0.10 K/mcL LAB HEMETOLOGY METHOD 05/30/2025 12:41 PM [facility] Neutrophils Relative 75.9 % LAB HEMETOLOGY METHOD 05/30/2025 12:41 PM [facility] Lymphocytes Relative 15.3 % LAB HEMETOLOGY METHOD 05/30/2025 12:41 PM [facility] Monocytes Relative 5.8 % LAB HEMETOLOGY METHOD 05/30/2025 12:41 PM [facility] Eosinophils Relative 1.7 % LAB HEMETOLOGY METHOD 05/30/2025 12:41 PM [facility] Basophils Relative 0.8 % LAB HEMETOLOGY METHOD 05/30/2025 12:41 PM [facility] Immature Granulocytes Relative 0.5 % LAB HEMETOLOGY METHOD 05/30/2025 12:41 PM [facility] Neutrophils Absolute 4.85 1.50 - 7.00 K/mcL LAB HEMETOLOGY METHOD 05/30/2025 12:41 PM [facility] Lymphocytes Absolute 0.98(L) 1.00 - 5.00 K/mcL LAB HEMETOLOGY METHOD 05/30/2025 12:41 PM EDT [facility] Monocytes Absolute 0.37 0.20 - 1.00 K/[facility] LAB HEMETOLOGY METHOD 05/30/2025 12:41 PM EDT [facility] Eosinophils Absolute 0.11 0.00 - 0.50 K/[facility] LAB HEMETOLOGY METHOD 05/30/2025 12:41 PM EDT [facility] Basophils Absolute 0.05 0.00 - 0.20 K/[facility] LAB HEMETOLOGY METHOD 05/30/2025 12:41 PM EDT [facility] Immature Granulocytes Absolute 0.03 0.00 - 0.03 K/[facility] LAB HEMETOLOGY METHOD 05/30/2025 12:41 PM EDT [facility] Blood Venous blood specimen / Unknown Venipuncture / Unknown 05/30/2025 11:21 AM EDT 05/30/2025 12:24 PM EDT us Ruy Galindo MD LAB BLOOD ORDERABLES Final Resu lt [facility] [address] [place] [address], [place] [phone] * (ABNORMAL) Comprehensive metabolic panel (05/30/2025 11:21 AM EDT) Only the most recent of2 resultswithin the time period is included. Sodium 135 133 - 145 mmol/L LAB CHEMISTRY METHOD 05/30/2025 12:56 PM EDT [facility] Potassium 4.5 3.5 - 5.5 mmol/L LAB CHEMISTRY METHOD 05/30/2025 12:56 PM EDT [facility] Chloride 104 96 - 110 mmol/L LAB CHEMISTRY METHOD 05/30/2025 12:56 PM EDT [facility] CO2 26 21 - 32 mmol/L LAB CHEMISTRY METHOD 05/30/2025 12:56 PM [facility] Anion Gap 5 3 - 11 LAB CHEMISTRY METHOD 05/30/2025 12:56 PM [facility] Glucose 222(H) 70 - 100 mg/dL LAB CHEMISTRY METHOD 05/30/2025 12:56 PM [facility] BUN 18 5 - 25 mg/dL LAB CHEMISTRY METHOD 05/30/2025 12:56 PM [facility] Creatinine 1.65(H) 0.50 - 1.10 mg/dL LAB CHEMISTRY METHOD 05/30/2025 12:56 PM [facility] eGFR 33(L) >=60 mL/min/1. 73m2 LAB CHEMISTRY METHOD 05/30/2025 12:56 PM [facility] Comment:Calculation based on the Chronic Kidney Disease Epidemiology Collaboration (CKD-EPI) equation refit without adjustment for race. BUN/Creatinine Ratio 10.9 LAB CHEMISTRY METHOD 05/30/2025 12:56 PM [facility] Calcium 9.1 8.5 - 10.5 mg/dL LAB CHEMISTRY METHOD 05/30/2025 12:56 PM [facility] AST (SGOT) 23 10 - 42 unit/L LAB CHEMISTRY METHOD 05/30/2025 12:56 PM [facility] ALT (SGPT) 16 10 - 60 unit/L LAB CHEMISTRY METHOD 05/30/2025 12:56 PM [facility] Alkaline Phosphatase 143(H) 42 - 121 unit/L LAB CHEMISTRY METHOD 05/30/2025 12:56 PM [facility] Total Protein 6.8 6.0 - 8.0 g/dL LAB CHEMISTRY METHOD 05/30/2025 12:56 PM [facility] Albumin 3.1(L) 3.2 - 5.0 g/dL LAB CHEMISTRY METHOD 05/30/2025 12:56 PM [facility] Total Bilirubin 0.2 0.0 - 1.4 mg/dL LAB CHEMISTRY METHOD 05/30/2025 12:56 PM EDT [facility] Blood Venous blood specimen / Unknown Venipuncture / Unknown 05/30/2025 11:21 AM EDT 05/30/2025 12:24 PM EDT us Ruy Galindo MD LAB BLOOD ORDERABLES Final Resu lt [facility] [address] [place] [address], [place] [phone] * CT Chest/Abdomen/Pelvis wo Contrast (04/12/2025 4:51 [...] Signed Date: 04/12/2025 17:08 ET Workstation ID: [id number] Transcribed By: Self Edit Transcribed Date: 04/12/2025 16:59 ET Narrative 04/12/2025 5:08 PM EDT INDICATION: Chest trauma, right-sided flank pain Technique: CT scan of the chest, abdomen and pelvis obtained without contrast. No oral contrast administered. Scanner: [employer] 64 slice VCT Dose reduction technique: ASIR [...] obtained withoutcontrast. No oral contrast administered. Scanner: [employer] 64 slice VCT Dose reduction technique: ASIR [...] Signed Date: 04/12/2025 17:08 ET Workstation ID: [id number] Transcribed By: Self Edit Transcribed Date: 04/12/2025 16:59 ET Roxanna VIDES IMG CT PROCEDURES Final Result * (ABNORMAL) Urinalysis with reflex microscopic and culture (04/12/2025 4:09 PM EDT) Specific [place] Urine 1.027 1.003 - 1.030 LAB URINALYSIS - AUTOMATED METHOD 04/12/2025 4:37 PM [facility] pH, Urine 6.0 5.0 - 8.0 pH LAB URINALYSIS - AUTOMATED METHOD 04/12/2025 4:37 PM [facility] Leukocytes, Urine Negative Negative LAB URINALYSIS - AUTOMATED METHOD 04/12/2025 4:37 PM [facility] Nitrite, Urine Negative Negative LAB URINALYSIS - AUTOMATED METHOD 04/12/2025 4:37 PM [facility] Protein, Urine 30(A) <=Trace mg/dL LAB URINALYSIS - AUTOMATED METHOD 04/12/2025 4:37 PM [facility] Glucose, Urine >=1000(A) Negative mg/dL LAB URINALYSIS - AUTOMATED METHOD 04/12/2025 4:37 PM [facility] Ketones, Urine Trace(A) Negative mg/dL LAB URINALYSIS - AUTOMATED METHOD 04/12/2025 4:37 PM [facility] Urobilinogen , Urine 1.0 0.2 - 1.0 mg/dL LAB URINALYSIS - AUTOMATED METHOD 04/12/2025 4:37 PM [facility] Bilirubin, Urine Negative Negative LAB URINALYSIS - AUTOMATED METHOD 04/12/2025 4:37 PM [facility] Blood, Urine Negative Negative LAB URINALYSIS - AUTOMATED METHOD 04/12/2025 4:37 PM [facility] RBC, Urine 1.7 0 - 4 /HPF LAB URINALYSIS - AUTOMATED METHOD 04/12/2025 4:37 PM [facility] WBC, Urine 4.4(H) 0 - 4 /HPF LAB URINALYSIS - AUTOMATED METHOD 04/12/2025 4:37 PM [facility] Squamous Epithelial, Urine >100(H) 0 - 60 /LPF LAB URINALYSIS - AUTOMATED METHOD 04/12/2025 4:37 PM [facility] Bacteria, Urine Negative Negative /HPF LAB URINALYSIS - AUTOMATED METHOD 04/12/2025 4:37 PM [facility] Hyaline Casts, Urine 3.2(H) 0 - 3 /LPF LAB URINALYSIS - AUTOMATED METHOD 04/12/2025 4:37 PM [facility] Urine Urine specimen obtained by clean catch procedure / Unknown 04/12/2025 4:09 PM EDT 04/12/2025 4:25 PM EDT us Teja Nj MD LAB URINE ORDERABLES Final Resu lt [facility] [address] [place] [address], [place] [phone] * [place] Real urine culture tube (04/12/2025 4:09 PM EDT) Pathologist [facility] Extra Tube Hold for add-ons. 04/12/2025 6:01 PM EDT [facility] Comment:Auto resulted. Urine Urine specimen obtained by clean catch procedure / Unknown 04/12/2025 4:09 PM EDT 04/12/2025 4:25 PM EDT Teja Nj MD LAB URINE ORDERABLES Final Resu lt Performing Organization Address [facility]/ZIP Co de Phone Number [facility] [address] [place] [address], [place] [phone] * Activated partial thromboplastin time (04/12/2025 4:08 PM EDT) [facility] aPTT 37.5 24.1 - 39.3 sec LAB COAGULATION METHOD 04/12/2025 4:37 PM EDT [facility] Blood Venous blood specimen / Unknown Venipuncture / Unknown 04/12/2025 4:08 PM EDT 04/12/2025 4:24 PM EDT Roxanna VIDES LAB BLOOD ORDERABLES Fin al Result Performing Organization Address City/[facility]/ZIP Co de Phone Number [facility] [address] [place] [address], [place] [phone] * Prothrombin time with INR (04/12/2025 4:08 PM EDT) Pathologist [facility] Protime 11.8 10.6 - 13.9 sec LAB COAGULATION METHOD 04/12/2025 4:37 PM EDT [facility] INR 0.9 LAB COAGULATION METHOD 04/12/2025 4:37 PM EDT [facility] Blood Venous blood specimen / Unknown Venipuncture / Unknown 04/12/2025 4:08 PM EDT 04/12/2025 4:24 PM EDT Roxanna VIDES LAB BLOOD ORDERABLES Fin al Result Performing Organization Address [facility]/ZIP Co de Phone Number [facility] [address] [place] [address], * ECG-Annotated (04/08/2025) us Provider Onbase ECG ORDERABLES Final Result * (ABNORMAL) Magnesium (04/06/2025 8:25 PM EDT) Magnesium 1.7(L) 1.9 - 2.6 mg/dL LAB CHEMISTRY METHOD 04/06/2025 9:41 PM EDT [facility] Blood Venous blood specimen / Unknown Venipuncture / Unknown 04/06/2025 8:25 PM EDT 04/06/2025 9:17 PM EDT Teja Nj MD LAB BLOOD ORDERABLES Final Resu lt Performing Organization Address [facility] Co de Phone Number [facility] [address] [place] [address], * (ABNORMAL) Basic metabolic panel (04/06/2025 8:25 PM EDT) Sodium 139 133 - 145 mmol/L LAB CHEMISTRY METHOD 04/06/2025 9:41 PM EDT [facility] Potassium 4.6 3.5 - 5.5 mmol/L LAB CHEMISTRY METHOD 04/06/2025 9:41 PM EDT [facility] Chloride 109 96 - 110 mmol/L LAB CHEMISTRY METHOD 04/06/2025 9:41 PM EDT [facility] CO2 23 21 - 32 mmol/L LAB CHEMISTRY METHOD 04/06/2025 9:41 PM T [facility] Anion Gap 7 3 - 11 LAB CHEMISTRY METHOD 04/06/2025 9:41 PM [facility] Glucose 163(H) 70 - 100 mg/dL LAB CHEMISTRY METHOD 04/06/2025 9:41 PM [facility] BUN 25 5 - 25 mg/dL LAB CHEMISTRY METHOD 04/06/2025 9:41 PM [facility] Creatinine 2.15(H) 0.50 - 1.10 mg/dL LAB CHEMISTRY METHOD 04/06/2025 9:41 PM [facility] eGFR 24(L) >=60 mL/min/1. 73m2 LAB CHEMISTRY METHOD 04/06/2025 9:41 PM [facility] Comment:Calculation based on the Chronic Kidney Disease Epidemiology Collaboration (CKD-EPI) equation refit without adjustment for race. BUN/Creatinine Ratio 11.6 LAB CHEMISTRY METHOD 04/06/2025 9:41 PM [facility] Calcium 9.0 8.5 - 10.5 mg/dL LAB CHEMISTRY METHOD 04/06/2025 9:41 PM [facility] Blood Venous blood specimen / Unknown Venipuncture / Unknown 04/06/2025 8:25 PM EDT 04/06/2025 9:17 PM EDT us Teja Nj MD LAB BLOOD ORDERABLES Final Resu lt [facility] [address] [place] [address], * (ABNORMAL) POCT Glucose, blood (04/06/2025 8:21 PM EDT) Glucose POCT 158(H) 70 - 100 mg/dL 04/06/2025 8:23 PM T [facility] Blood Capillary blood specimen / Unknown 04/06/2025 8:21 PM EDT 04/06/2025 8:24 PM EDT Generic Provider Poct LAB POINT OF CARE TEST DOCKED DEVICE UNSOLICITED RESULTS Final Result Performing Organization Address [facility]/ZIP Co de Phone Number [facility] [address] [place] [address], [place] [phone] * ECG 12 lead (04/06/2025 8:15 PM EDT) Ventricular Rate ECG 65 BPM GEMUSE Atrial Rate 65 BPM GEMUSE P-R Interval 290 ms GEMUSE QRS Duration 152 ms GEMUSE Q-T Interval 500 ms GEMUSE QTc 520 ms GEMUSE P Wave Flynn 76 degrees GEMUSE R Flynn -47 degrees GEMUSE T Flynn 114 degrees GEMUSE ECG Interpretation Sinus rhythm with 1st degree A-V block Left axis deviation Left bundle branch block Abnormal ECG When compared with ECG of 03-JAN-2025 15:44, No significant change was found Confirmed by LOUISE VAZQUEZ ([id number]) on 04/07/2025 11:18:06 AM GEMUSE 04/06/2025 8:15 PM EDT 04/07/2025 11:18 AM EDT Teja Nj MD ECG ORDERABLES Final Result Performing Organization Address [facility] Co de Phone Number GEMUSE * (ABNORMAL) Hemoglobin A1c (01/04/2025 6:19 AM EST) Hemoglobin A1C 8.2(H) <6.5 % LAB CHEMISTRY METHOD 01/04/2025 1:13 PM EST [facility] Mean Bld Glu Estim. 189 mg/dL LAB CHEMISTRY METHOD 01/04/2025 1:13 PM EST [facility] Blood Venous blood specimen / Unknown Venipuncture / Unknown 01/04/2025 6:19 AM EST 01/04/2025 7:22 AM EST us Phoenix Riley MD LAB BLOOD ORDERABLES Final Re sult MIREYA PETERS [place] ([facility] [address] [place] [address], [place] [phone] from Last 3 Months or Most Recently [...] currently active code status orders. Care Teams Line Assigner Relationship Specialty Start Date End Date Marycruz Zapata MD [address] [place] [address] [address] [facility] [place] [address] PCP - General Internal Medicine 11/02/21
[2025-06-15] VITALS (17 sets, daily range): BP systolic 125–167; BP diastolic 51–76; PULSE 65–79; RESP 12–22; TEMP 36.6; O2SAT 90–98; BMI 38.7
--- NOTE | ~2025-06-15 | CT_ITS ---
Liver mass PROCEDURES: 1. Limited preprocedure CT of the abdomen. Permanent images saved in PACS. 2. CT-guided targeted biopsy of a liver mass. 3. Limited preprocedure CT of the abdomen. Permanent images saved in PACS. CLINICIANS: Leno Martins NP MEDICATIONS: -Versed, Fentanyl , and lidocaine 1% 10 mL SQ -Antibiotics: None -For additional details, please see nursing flowsheet. COMPLICATIONS: None ESTIMATED BLOOD LOSS: < 5 ml CONTRAST: None SPECIMENS: 5 x 18 g cores were placed in saline MODERATE SEDATION TIME: 23 min PROCEDURE NOTE: The procedure, risks, benefits, and alternatives were carefully explained to the patient and written informed consent was obtained. The patient was placed prone on the CT table. A timeout was performed. A limited CT of the abdomen was performed to localize the liver mass and choose appropriate needle entry and trajectory. The patient was prepped and draped in usual sterile fashion. The skin and deeper soft tissues were anesthetized with lidocaine. Under CT guidance, a 17 gague trocar needle was advanced to the liver mass. An 18 gauge biopsy device was inserted through the trocar needle advanced into the liver mass. A total of 5 18 gauge samples were obtained. The specimen was placed in formalin. A Gelfoam slurry was then administered through the trocar needle and into the liver. The needle was removed. A dry dressing was applied and secured with Tegaderm. There were no immediate complications. The patient was stable after the procedure and was transferred to the post anesthesia care unit. The procedure was done under moderate sedation with a dedicated nurse for monitoring of vital signs. CT/CT biopsy liver Impression: CT-guided targeted biopsy of liver mass. This procedure was performed by Leon Martins NP and supervised by Howard Don M.D.. Electronically signed by: Howard Don MD 06/20/2025 09:09 AM EDT Workstation: [id number]
[2025-06-15 12:32] LABS: Glucose, Whole Blood 131 mg/dL (60-115)
[2025-06-15] MEDS: Lidocaine HCl 1 % MPF 30 ML VIAL 10 ML SUBCUT (14:25)
== END 2025-06-15 16:05 | disposition home or self-care (01) ==
LOC: HO.SSS 11:23
PROVIDERS: PCP Internal Medicine; Visit Provider Student in an Organized Health Care Education/Training Program
DX: C22.9 Malignant neoplasm of liver, not specified as primary or secondary (principal); R16.0 Hepatomegaly, not elsewhere classified; R10.11 Right upper quadrant pain; K74.60 Unspecified cirrhosis of liver; G89.29 Other chronic pain; M54.9 Dorsalgia, unspecified; E11.65 Type 2 diabetes mellitus with hyperglycemia; I48.91 Unspecified atrial fibrillation; I25.10 Atherosclerotic heart disease of native coronary artery without angina pectoris; I10 Essential (primary) hypertension; E78.5 Hyperlipidemia, unspecified; K22.70 Barrett's esophagus without dysplasia; J44.9 Chronic obstructive pulmonary disease, unspecified; Z99.81 Dependence on supplemental oxygen; E55.9 Vitamin D deficiency, unspecified; R42 Dizziness and giddiness; Z91.81 History of falling; Z79.01 Long term (current) use of anticoagulants; Z79.82 Long term (current) use of aspirin; Z79.51 Long term (current) use of inhaled steroids; Z79.899 Other long term (current) drug therapy; Z88.1 Allergy status to other antibiotic agents; Z88.8 Allergy status to other drugs, medicaments and biological substances; Z98.890 Other specified postprocedural states; F17.210 Nicotine dependence, cigarettes, uncomplicated
CPT/HCPCS: 47000; 77012; 82947; 86850; 86900; 86901; 88307; 88313; 88341; 88342; 99153; J2003; J2250; J3010

== ENCOUNTER → 2025-06-15 13:00 | Outpatient (BNV) | payer MEDICARE, SELFPAY | PROVIDERS: PCP Internal Medicine | DX: C22.0 Liver cell carcinoma (principal) | CPT/HCPCS: 47000; 77012 ==

== ENCOUNTER 2025-07-01 11:16 | Day surgery (SDC) | payer MEDICARE, SELFPAY ==
--- OUTSIDE RECORDS SUMMARY | 2025-06-28 13:03 | XMS_ITS | Patient Health Record ---
Author Organization [facility] Address [address] [facility] [place] [address] Care Team Providers Care Uniform Force Captain Name Role Phone Marycruz Zapata Primary Care Provider Shantelle Whaley Unavailable [phone] Allergies No Known Allergies Reason For Referral [...] Problem Acquired hammer toe of right foot (1514945873259144 ) Other hammer toe(s) (acquired), right foot (M20.41) Active confirmed Problem Acquired hammer toe of left foot (5439601148050932 ) Other hammer toe(s) (acquired), left foot (M20.42) Active confirmed Problem Polyneuropathy due to type 2 diabetes mellitus (306611415) Type 2 diabetes mellitus with diabetic polyneuropathy (E11.42) Active confirmed Plan Of Treatment Pending Test Test Name Order Date [id number] NAIL, 1-5 03/04/2022 [id number] SKIN LESIONS, OVER 4 03/04/20 22 [id number] DYSTROPHIC NAILS ANY # Insurance Providers Payer Name Payer Address Payer Phone Subscriber Number Group Number Insured Name Patient Relationship to Insured Coverage Start Date Coverage End Date [facility] Medicare Complete [address] [address] [place] [address] [id number] Magy Santiago Self - patient is the insured Medical (General) History Medical History History ICD Code asthma Back,Hip,and Knee pain Cataracts Diabetes mellitus High blood pressure Numbness thyroid Mumps Joint implants/screws Surgical History Surgery Date(Month/Year) neck surgery 2016
--- OUTSIDE RECORDS SUMMARY | 2025-06-28 13:03 | XMS_ITS | Clinical Summary ---
Author Organization [facility] Address [address] [place] [address] Phone Care Team Providers Care Straightedge Man Name Role Phone Marycruz Zapata MD Primary Care Provider Allergies Active Allergy Reactions Criticality Noted Date [...] Date Hyperglycemia due to diabete s mellitus ([facility] V24, [facility] V28) 01/05/2025 Resolved Problems Problem Noted Date Diagnosed Date Resolved Date COPD exacerbation ([facility] V24, [facility] V28) 01/05/2025 Acute hypoxic respiratory fa ilure ([facility] V24, [facility] V28) 01/03/2025 01/05/2025 Encounters Date Type Department Care Team Description 06/02/2025 1:34 PM EDT - 06/02/2025 11:59 PM EDT Hospital Encounter [facility] PET Scan [address] [place] [phone] Hepatocellular carcinoma (CMS/HCC V24, CMS/HCC V28) Discharge Disposition: Home or Self Care 05/30/2025 12:01 PM EDT - 05/30/2025 5:[address] [facility] Emergency [address] [place] [phone] Ruy Galindo MD Landry, Jonathan P, MD Right upper quadrant abdominal pain (Primary Dx); Liver mass; Neoplasm of liver Discharge Disposition: Home or Self Care 04/12/2025 3:26 PM EDT - 04/12/2025 6:[address] [facility] Emergency [address] [place] [phone] Teja Nj MD Strain of muscle and tendon of back wall of thorax, initial encounter (Primary Dx); Strain of lumbar paraspinous muscle, initial encounter Discharge Disposition: Home or Self Care 04/06/2025 7:47 PM EDT - 04/06/2025 11:[address] [facility] Emergency [address] [place] [phone] Discharge Disposition: Home or Self Care from Last 3 Months Surgical History Surgery Date Site/Laterality Comments CARPAL TUNNEL RELEASE 03/28/2022 Right PROCEDURE: WI NEUROPLASTY &/TRANSPOS MEDIAN NRV CARPAL TUNNE; COMMENT: [...] Signed Date: 06/06/2025 04:14 ET Workstation ID: [id number] Transcribed By: Self Edit Transcribed Date: 06/06/2025 [...] Signed Date: 06/06/2025 04:14 ET Workstation ID: [id number] Transcribed By: Self Edit Transcribed Date: 06/06/2025 03:29 ET Abilio Ellington MD [facility] PROCED[facility] Final Result * CT Abdomen Pelvis [...] Signed Date: 05/30/2025 15:40 ET Workstation ID: [id number] Transcribed By: Self Edit Transcribed Date: 05/30/2025 15:31 ET Narrative 05/30/2025 3:40 PM EDT INDICATION: Abdominal pain TECHNIQUE: CT scan of the abdomen and pelvis obtained without intravenous contrast. Scanner: [employer] LightSpeed 64 slice VCT Dose reduction technique: [...] abdomen and pelvis obtained without intravenouscontrast. Scanner: [employer] LightSpeed 64 slice VCT Dose reduction technique: [...] Signed Date: 05/30/2025 15:40 ET Workstation ID: [id number] Transcribed By: Self Edit Transcribed Date: 05/30/2025 15:31 ET us Ruy Galindo MD IMG CT PROCEDURES Final Result * (ABNORMAL) CBC auto differential (05/30/2025 11:21 AM EDT) Only the most recent of3 resultswithin the time period is included. WBC 6.4 4.8 - 10.8 K/mcL LAB HEMETOLOGY METHOD [facility] RBC 4.00 3.80 - 4.80 M/mcL LAB HEMETOLOGY METHOD 05/30/2025 12:41 PM [facility] Hemoglobin 9.9(L) 11.5 - 16.0 g/dL LAB HEMETOLOGY METHOD 05/30/2025 12:41 PM [facility] Hematocrit 32.5(L) 35.0 - 47.0 % LAB HEMETOLOGY METHOD 05/30/2025 12:41 PM [facility] MCV 81.0 79.0 - 98.0 FL LAB HEMETOLOGY METHOD 05/30/2025 12:41 PM [facility] MCH 24.7(L) 27.0 - 32.0 pcg LAB HEMETOLOGY METHOD 05/30/2025 12:41 PM [facility] MCHC 30.5(L) 32.0 - 37.0 g/dL LAB HEMETOLOGY METHOD 05/30/2025 12:41 PM [facility] RDW 18.1(H) 11.0 - 15.0 % LAB HEMETOLOGY METHOD 05/30/2025 12:41 PM [facility] Platelets 132 130 - 400 K/mcL LAB HEMETOLOGY METHOD 05/30/2025 12:41 PM [facility] MPV 11.4(H) 7.0 - 11.0 FL LAB HEMETOLOGY METHOD 05/30/2025 12:41 PM [facility] NRBC 0.0 <1.0 % LAB HEMETOLOGY METHOD 05/30/2025 12:41 PM [facility] NRBC Absolute 0.00 <0.10 K/mcL LAB HEMETOLOGY METHOD 05/30/2025 12:41 PM [facility] Neutrophils Relative 75.9 % LAB HEMETOLOGY METHOD 05/30/2025 12:41 PM [facility] Lymphocytes Relative 15.3 % LAB HEMETOLOGY METHOD 05/30/2025 12:41 PM [facility] Monocytes Relative 5.8 % LAB HEMETOLOGY METHOD 05/30/2025 12:41 PM [facility] Eosinophils Relative 1.7 % LAB HEMETOLOGY METHOD 05/30/2025 12:41 PM [facility] Basophils Relative 0.8 % LAB HEMETOLOGY METHOD 05/30/2025 12:41 PM [facility] Immature Granulocytes Relative 0.5 % LAB HEMETOLOGY METHOD 05/30/2025 12:41 PM [facility] Neutrophils Absolute 4.85 1.50 - 7.00 K/mcL LAB HEMETOLOGY METHOD 05/30/2025 12:41 PM [facility] Lymphocytes Absolute 0.98(L) 1.00 - 5.00 K/mcL LAB HEMETOLOGY METHOD 05/30/2025 12:41 PM EDT [facility] Monocytes Absolute 0.37 0.20 - 1.00 K/[facility] LAB HEMETOLOGY METHOD 05/30/2025 12:41 PM EDT [facility] Eosinophils Absolute 0.11 0.00 - 0.50 K/[facility] LAB HEMETOLOGY METHOD 05/30/2025 12:41 PM EDT [facility] Basophils Absolute 0.05 0.00 - 0.20 K/[facility] LAB HEMETOLOGY METHOD 05/30/2025 12:41 PM EDT [facility] Immature Granulocytes Absolute 0.03 0.00 - 0.03 K/[facility] LAB HEMETOLOGY METHOD 05/30/2025 12:41 PM EDT [facility] Blood Venous blood specimen / Unknown Venipuncture / Unknown 05/30/2025 11:21 AM EDT 05/30/2025 12:24 PM EDT us Ruy Galindo MD LAB BLOOD ORDERABLES Final Resu lt [facility] [address] [place] [address], [place] [phone] * (ABNORMAL) Comprehensive metabolic panel (05/30/2025 11:21 AM EDT) Only the most recent of2 resultswithin the time period is included. Sodium 135 133 - 145 mmol/L LAB CHEMISTRY METHOD 05/30/2025 12:56 PM EDT [facility] Potassium 4.5 3.5 - 5.5 mmol/L LAB CHEMISTRY METHOD 05/30/2025 12:56 PM EDT [facility] Chloride 104 96 - 110 mmol/L LAB CHEMISTRY METHOD 05/30/2025 12:56 PM EDT [facility] CO2 26 21 - 32 mmol/L LAB CHEMISTRY METHOD 05/30/2025 12:56 PM [facility] Anion Gap 5 3 - 11 LAB CHEMISTRY METHOD 05/30/2025 12:56 PM [facility] Glucose 222(H) 70 - 100 mg/dL LAB CHEMISTRY METHOD 05/30/2025 12:56 PM [facility] BUN 18 5 - 25 mg/dL LAB CHEMISTRY METHOD 05/30/2025 12:56 PM [facility] Creatinine 1.65(H) 0.50 - 1.10 mg/dL LAB CHEMISTRY METHOD 05/30/2025 12:56 PM [facility] eGFR 33(L) >=60 mL/min/1. 73m2 LAB CHEMISTRY METHOD 05/30/2025 12:56 PM [facility] Comment:Calculation based on the Chronic Kidney Disease Epidemiology Collaboration (CKD-EPI) equation refit without adjustment for race. BUN/Creatinine Ratio 10.9 LAB CHEMISTRY METHOD 05/30/2025 12:56 PM [facility] Calcium 9.1 8.5 - 10.5 mg/dL LAB CHEMISTRY METHOD 05/30/2025 12:56 PM [facility] AST (SGOT) 23 10 - 42 unit/L LAB CHEMISTRY METHOD 05/30/2025 12:56 PM [facility] ALT (SGPT) 16 10 - 60 unit/L LAB CHEMISTRY METHOD 05/30/2025 12:56 PM [facility] Alkaline Phosphatase 143(H) 42 - 121 unit/L LAB CHEMISTRY METHOD 05/30/2025 12:56 PM [facility] Total Protein 6.8 6.0 - 8.0 g/dL LAB CHEMISTRY METHOD 05/30/2025 12:56 PM [facility] Albumin 3.1(L) 3.2 - 5.0 g/dL LAB CHEMISTRY METHOD 05/30/2025 12:56 PM [facility] Total Bilirubin 0.2 0.0 - 1.4 mg/dL LAB CHEMISTRY METHOD 05/30/2025 12:56 PM EDT [facility] Blood Venous blood specimen / Unknown Venipuncture / Unknown 05/30/2025 11:21 AM EDT 05/30/2025 12:24 PM EDT us Ruy Galindo MD LAB BLOOD ORDERABLES Final Resu lt [facility] [address] [place] [address], [place] [phone] * CT Chest/Abdomen/Pelvis wo Contrast (04/12/2025 4:51 [...] Signed Date: 04/12/2025 17:08 ET Workstation ID: [id number] Transcribed By: Self Edit Transcribed Date: 04/12/2025 16:59 ET Narrative 04/12/2025 5:08 PM EDT INDICATION: Chest trauma, right-sided flank pain Technique: CT scan of the chest, abdomen and pelvis obtained without contrast. No oral contrast administered. Scanner: [employer] 64 slice VCT Dose reduction technique: ASIR [...] obtained withoutcontrast. No oral contrast administered. Scanner: [employer] 64 slice VCT Dose reduction technique: ASIR [...] Signed Date: 04/12/2025 17:08 ET Workstation ID: [id number] Transcribed By: Self Edit Transcribed Date: 04/12/2025 16:59 ET Roxanna VIDES IMG CT PROCEDURES Final Result * (ABNORMAL) Urinalysis with reflex microscopic and culture (04/12/2025 4:09 PM EDT) Specific [place] Urine 1.027 1.003 - 1.030 LAB URINALYSIS [...] 04/12/2025 4:37 PM [facility] Bacteria, Urine Negative Negative /HPF LAB URINALYSIS - AUTOMATED METHOD 04/12/2025 4:37 PM [facility] Hyaline Casts, Urine 3.2(H) 0 - 3 /LPF LAB URINALYSIS - AUTOMATED METHOD 04/12/2025 4:37 PM [facility] Urine Urine specimen obtained by clean catch procedure / Unknown 04/12/2025 4:09 PM EDT 04/12/2025 4:25 PM EDT us Teja Nj MD LAB URINE ORDERABLES Final Resu lt [facility] [address] [place] [address], [place] [phone] * [place] urine culture tube (04/12/2025 4:09 PM EDT) Pathologist [facility] Extra Tube Hold for add-ons. 04/12/2025 6:01 PM EDT [facility] Comment:Auto resulted. Urine Urine specimen obtained by clean catch procedure / Unknown 04/12/2025 4:09 PM EDT 04/12/2025 4:25 PM EDT Teja Nj MD LAB URINE ORDERABLES Final Resu lt Performing Organization Address [facility]/ZIP Co de Phone Number [facility] [address] [place] [address], [place] [phone] * Activated partial thromboplastin time (04/12/2025 4:08 PM EDT) [facility] aPTT 37.5 24.1 - 39.3 sec LAB COAGULATION METHOD 04/12/2025 4:37 PM EDT [facility] Blood Venous blood specimen / Unknown Venipuncture / Unknown 04/12/2025 4:08 PM EDT 04/12/2025 4:24 PM EDT Roxanna VIDES LAB BLOOD ORDERABLES Fin al Result Performing Organization Address City/[facility]/ZIP Co de Phone Number [facility] [address] [place] [address], [place] [phone] * Prothrombin time with INR (04/12/2025 4:08 PM EDT) Pathologist [facility] Protime 11.8 10.6 - 13.9 sec LAB COAGULATION METHOD 04/12/2025 4:37 PM EDT [facility] INR 0.9 LAB COAGULATION METHOD 04/12/2025 4:37 PM EDT [facility] Blood Venous blood specimen / Unknown Venipuncture / Unknown 04/12/2025 4:08 PM EDT 04/12/2025 4:24 PM EDT Roxanna VIDES LAB BLOOD ORDERABLES Fin al Result Performing Organization Address [facility]/ZIP Co de Phone Number [facility] [address] [place] [address], * ECG-Annotated (04/08/2025) us Provider Onbase ECG ORDERABLES Final Result * (ABNORMAL) Magnesium (04/06/2025 8:25 PM EDT) Magnesium 1.7(L) 1.9 - 2.6 mg/dL LAB CHEMISTRY METHOD 04/06/2025 9:41 PM EDT [facility] Blood Venous blood specimen / Unknown Venipuncture / Unknown 04/06/2025 8:25 PM EDT 04/06/2025 9:17 PM EDT Teja Nj MD LAB BLOOD ORDERABLES Final Resu lt Performing Organization Address [facility] Co de Phone Number [facility] [address] [place] [address], * (ABNORMAL) Basic metabolic panel (04/06/2025 8:25 PM EDT) Sodium 139 133 - 145 mmol/L LAB CHEMISTRY METHOD 04/06/2025 9:41 PM EDT [facility] Potassium 4.6 3.5 - 5.5 mmol/L LAB CHEMISTRY METHOD 04/06/2025 9:41 PM EDT [facility] Chloride 109 96 - 110 mmol/L LAB CHEMISTRY METHOD 04/06/2025 9:41 PM EDT [facility] CO2 23 21 - 32 mmol/L LAB CHEMISTRY METHOD 04/06/2025 9:41 PM T [facility] Anion Gap 7 3 - [...] MD LAB BLOOD ORDERABLES Final Resu lt [facility] [address] [place] [address], * (ABNORMAL) POCT Glucose, blood (04/06/2025 8:21 PM EDT) Glucose POCT 158(H) 70 - 100 mg/dL 04/06/2025 8:23 PM T [facility] Blood Capillary blood specimen / Unknown 04/06/2025 8:21 PM EDT 04/06/2025 8:24 PM EDT Generic Provider Poct LAB POINT OF CARE TEST DOCKED DEVICE UNSOLICITED RESULTS Final Result Performing Organization Address [facility]/ZIP Co de Phone Number [facility] [address] [place] [address], [place] [phone] * ECG 12 lead (04/06/2025 8:15 PM EDT) Ventricular Rate ECG 65 BPM GEMUSE Atrial Rate 65 BPM GEMUSE P-R Interval 290 ms GEMUSE QRS Duration 152 ms GEMUSE Q-T Interval 500 ms GEMUSE QTc 520 ms GEMUSE P Wave [place] 76 degrees GEMUSE R [place] -47 degrees GEMUSE T [place] 114 degrees GEMUSE ECG Interpretation Sinus rhythm with 1st degree A-V block Left axis deviation Left bundle branch block Abnormal ECG When compared with ECG of 03-JAN-2025 15:44, No significant change was found Confirmed by LOUISE VAZQUEZ ([id number]) on 04/07/2025 11:18:06 AM GEMUSE 04/06/2025 8:15 PM EDT 04/07/2025 11:18 AM EDT Teja Nj MD ECG ORDERABLES Final Result Performing Organization Address [facility] Co de Phone Number GEMUSE * (ABNORMAL) Hemoglobin A1c (01/04/2025 6:19 AM EST) Hemoglobin A1C 8.2(H) <6.5 % LAB CHEMISTRY METHOD 01/04/2025 1:13 PM EST [facility] Mean Bld Glu Estim. 189 mg/dL LAB CHEMISTRY METHOD 01/04/2025 1:13 PM EST [facility] Blood Venous blood specimen / Unknown Venipuncture / Unknown 01/04/2025 6:19 AM EST 01/04/2025 7:22 AM EST us Phoenix Riley MD LAB BLOOD ORDERABLES Final Re sult MIREYA PETERS [place] ([facility] [address] [place] [address], [place] [phone] from Last 3 Months or Most Recently [...] currently active code status orders. Care Teams Straightedge Man Relationship Specialty Start Date End Date Marycruz Zapata MD [address] [place] [address] [address] [facility] [place] [address] PCP - General Internal Medicine 11/02/21
--- OUTSIDE RECORDS SUMMARY | 2025-06-28 13:03 | XMS_ITS | Clinical Summary ---
Author Organization [facility] Address [address] [place] [address] Care Team Providers Care Vegetable Specker Name Role Phone Marycruz Zapata MD Primary Care Provider [phone] Social History Tobacco Use Types Packs/Day Years [...] age to complete this topic Care Teams Vegetable Specker Relationship Specialty Start Date End Date Marycruz Zapata MD [address] [place] [address] [address] [facility] [place] [address] PCP - General Internal Medicine 02/17/18
--- OUTSIDE RECORDS SUMMARY | 2025-06-28 13:03 | XMS_ITS | Patient Health Record ---
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 Problem Family History of Cancer of Colon (Situation) (156620204) Family history of colon cancer (V16.0) Active confirmed Problem Colon cancer screening (V76.51) Active confirmed Problem History of adenomatous polyp of colon (564991737) History of adenomatous polyp of colon (V12.72) Active confirmed Plan Of Treatment Future Test Test Name Order Date UPPER GI ENDOSCOPY 03/24/2013 COLONOSCOPY 03/24/2013 Insurance Providers Payer Name Payer Address Payer Phone Subscriber Number Group Number Insured Name Patient Relationship to Insured Coverage Start Date Coverage End Date MEDICARE OF [facility] [address] [id number] SAHIL CAMPOS Self - patient is the insured MEDICAID OF [facility] [address] [place] [id number] SAHIL CAMPOS Self - patient is the insured Medical (General) History Medical History History ICD Code GERD-EGD in 04/2006 with a sm all HH and small area of Umaña's esophagus-no dysplasia Colonoscopy in 04/2006 with removal of sm all tubular adenomas hypertension asthma NIDDM Denies [place],CVA,renal disease Surgical History Surgery Date(Month/Year) cholecystectomy hysterectomy
--- NOTE | 2025-06-29 11:17 | PC.NURSE ---
Pre-procedure instructions--Spoke with pt arrival time-1130, Npo after midnight 07/01, LD of Jardiance/ASA/Xarelto was Wednesday 06/27. Pt verbalized understanding instructions.
[2025-07-01] VITALS (16 sets, daily range): BP systolic 123–153; BP diastolic 46–72; PULSE 66–94; RESP 12–19; TEMP 36.1–36.6; O2SAT 93–98; BMI 38.4
--- NOTE | ~2025-07-01 | IR_ITS ---
CLINICAL HISTORY: Cholangiocarcinoma. The patient presents to interventional radiology for placement of a port for chemotherapy. PROCEDURES: 1. Real-time ultrasound-guided access into the right internal jugular vein after documentation of selected vessel patency, and permanent image storing in the patient records. 2. Placement of a 6.6 [place] single-lumen port. CLINICIAN: Leno Martnis NP MEDICATIONS: - Versed, Fentanyl, Lidocaine 1% SQ -Antibiotics: Ancef 2g -For additional details, please see nursing flowsheet. Complications: None. Estimated blood loss: <5 ml Specimens: None. Contrast: None. Fluoroscopy time: 2.0 min MODERATE SEDATION TIME: 49 min PROCEDURE NOTE: The procedure, risks, benefits, and alternatives were carefully explained to the patient and written informed consent was obtained. The patient was placed supine on the fluoroscopy table. A timeout was performed. The right neck and chest was prepped and draped in usual sterile fashion. Maximum barrier technique was utilized. Local anesthesia was administered to the access site with 1% lidocaine. Under ultrasound guidance, the right internal jugular vein was accessed with a 5 fr micropuncture set. A 0.035 in wire was advanced into the IVC. A peel-away sheath was advanced over the wire and into the SVC, and the wire was removed. Next, subcutaneous lidocaine was administered to the chest. The port pocket was created after the skin incision, utilizing blunt dissection. Using blunt dissection, a subcutaneous tunnel was created that connects from the port pocket to the venotomy site. Through the peel-away sheath, the 6.6 Ukrainian port catheter was placed. The catheter position was verified with fluoroscopy to be at the superior vena cava/right atrial junction. The port was connected to the catheter and was placed in the pocket. The port incision site was closed with interrupted 3-0 Vicryl subcutaneous sutures and surgical glue. Prior to closing the skin, 1 g of Ancef solution was placed in the pocket. The port was tested, flushed, and packed with heparin per routine protocol. The patient tolerated the procedure well. The patient was stable after the procedure and was transferred to the PACU. The procedure was performed under moderate sedation and with a dedicated nurse with continuous monitoring of vital signs. A permanent image of the ultrasound the neck and fluoroscopic image of the chest was saved and sent to PACS. FINDINGS: 1. Patent right internal jugular vein 2. Placement of a 6.6 Ukrainian single lumen port. 3. Port flushes and aspirates very well with a 10 mL syringe. No pneumothorax. IR/IR cvc insert tunnel w prt/dishcloth folder IMPRESSION: Placement of a 6.6 Ukrainian single-lumen port. PLAN: - The patient will be discharged home when stable by sedation protocol. - Port may be used immediately. This procedure was performed by Leno Martins NP and directly supervised by Howard Don MD. Electronically signed by: Howard Don MD 07/05/2025 10:05 AM EDT Workstation: [id number]
[2025-07-01 12:42] LABS: Glucose, Whole Blood 103 mg/dL (60-115)
[2025-07-01 12:55] LABS: INTERNATIONAL NORM RATIO 1.1 (0.9-1.1); Prothrombin Time 12.1 SEC (10.9-12.4)
== END 2025-07-01 16:01 | disposition home or self-care (01) ==
PROVIDERS: Radiology Diagnostic Radiology; PCP Internal Medicine; Visit Provider Internal Medicine
DX: Z45.2 Encounter for adjustment and management of vascular access device (principal); C22.1 Intrahepatic bile duct carcinoma; I35.0 Nonrheumatic aortic (valve) stenosis; I10 Essential (primary) hypertension; I48.91 Unspecified atrial fibrillation; I25.10 Atherosclerotic heart disease of native coronary artery without angina pectoris; E11.65 Type 2 diabetes mellitus with hyperglycemia; J44.9 Chronic obstructive pulmonary disease, unspecified; F41.9 Anxiety disorder, unspecified; Z79.82 Long term (current) use of aspirin; Z99.81 Dependence on supplemental oxygen; Z79.899 Other long term (current) drug therapy; Z88.1 Allergy status to other antibiotic agents; Z88.2 Allergy status to sulfonamides; Z88.8 Allergy status to other drugs, medicaments and biological substances; Z98.890 Other specified postprocedural states; F17.210 Nicotine dependence, cigarettes, uncomplicated
CPT/HCPCS: 36415; 36561; 82947; 85610; 99152; 99153; C1769; C1788; J0690; J1642; J1644; J2003; J2250; J3010

== ENCOUNTER → 2025-07-01 13:38 | Outpatient (BNV) | payer MEDICARE, SELFPAY | PROVIDERS: PCP Internal Medicine | DX: C22.1 Intrahepatic bile duct carcinoma (principal) | CPT/HCPCS: 76937; 77001 ==

== ENCOUNTER 2025-07-11 13:02 | Outpatient (AMB) | payer MEDICARE, SELFPAY ==
--- NOTE | 2025-07-11 13:04 | A.OFFPC_ITS ---
Intake Visit Reasons: DM Allergies furosemide Allergy (Intermediate, Verified 07/11/25 13:04) Nausea and Vomiting levofloxacin (From LEVAQUIN) Allergy (Mild, Verified 07/11/25 13:04) NAUSEA, dizziness,Nausea cyclobenzaprine (From FLEXERIL) Allergy (Unknown, Verified 07/11/25 13:04) NAUSEA & VOMITING simvastatin Allergy (Unknown, Verified 07/11/25 13:04) Muscle Pain Sulfa (Sulfonamide Antibiotics) (SULFA (SULFONAMIDE ANTIBIOTICS)) Allergy (Unknown, Verified 07/11/25 13:04) VOMITING atorvastatin (ATORVASTATIN) Adverse Reaction (Severe, Verified 07/11/25 13:04) MUSCLE PAIN azithromycin Adverse Reaction (Intermediate, Verified 07/11/25 13:04) Palpitations pravastatin Adverse Reaction (Unknown, Verified 07/11/25 13:04) Muscle Pain apixaban (From Eliquis) Adverse Reaction (Verified 07/11/25 13:04) Nausea Bumex Adverse Reaction (Severe, Uncoded 07/11/25 13:04) Nausea, dizziness, near syncope Tobacco use date assessed: 04/22/25 Fall risk assessment: No Falls in past year Last assessed Fall Risk: 07/11/25 Dental Screening Dental Screen Date: 01/20/25 HPI DM HPI Details nausea and vomiting and pain in the abdomen [facility] Medical History Liver mass Strain of lumbar paraspinous muscle Non-rheumatic aortic stenosis Aortic stenosis Breast cancer screening by mammogram Atrial fibrillation Atrial fibrillation with controlled ventricular rate Oxygen dependent Essential hypertension Type 2 diabetes mellitus with hyperglycemia Lumbar degenerative disc disease Obesity Restless leg syndrome Vitamin D deficiency Tobacco abuse Thrombocytopenia Degenerative disc disease, cervical Anxiety and depression Osteopenia Barretts esophagus Tubular adenoma of colon COPD (chronic obstructive pulmonary disease) Hyperlipidemia, unspecified Atherosclerotic cardiovascular disease Surgical History History of carpal tunnel release History of discectomy History of cataract surgery History of hip replacement History of tonsillectomy History of appendectomy History of cholecystectomy History of cardiac catheterization Family History Father Bone cancer Diabetes Mother Cardiovascular disease Brother No problems noted. Sister Thyroid cancer Brother Lung cancer Paternal Uncle Throat cancer Maternal Aunt Colon cancer Social History Household Members: Spouse and Family Housing: Apartment Are you a primary intensive care anaesthetist to a significant other at home: No Do you presently have visiting nurse or other home services: No Alcohol intake: never Patient Tobacco Use Status: Current everyday Tobacco user Tobacco use type: Cigarette Cigarette Packs Per Day: 10 Cigarettes Per Day: 200.0 Years Smoked: 50 e-Cigarette/Vaping Use: Never Used Second Hand Smoke Exposure: Yes service: No Current occupational status: retired Cognitive needs: No Hearing needs: No Vision needs: Yes (glasses) Questionnaire Thrive Questionnaire Date Thrive assessed: 05/19/25 SHAD-7 AMB Questionnaire SHAD-7 Date SHAD - 7 assessed: 01/20/25 Source: Developed by Drs. Dong Jackson, Yumi Curry, Andrew Ojeda and colleagues, with an educational noble from [employer]. Physical exam (Primary Care) Tobacco/Smoking Status: Tobacco use Status Tobacco use date assessed 04/22/25 07/11/25 13:05 Patient Tobacco Use Status Current everyday Tobacco 07/11/25 13:05 Tobacco use type Cigarette 07/11/25 13:05 e-Cigarette/Vaping Use Never Used 07/11/25 13:05 Thrive Assessment: Date of Thrive Assessment Date Thrive assessed 05/19/25 07/11/25 13:05 Telehealth Telehealth Telehealth Platform: Telephone (House Phone) Location of provider rendering services: practice address Location of patient: address on file Patient Identification confirmed using: Name, : Yes Telehealth method: voice only Patient verbally consented to treatment: Yes Patient verbally consented to billing insurance company: Yes Patient informed of any privacy concerns related to visit: Yes Minutes spent on Phone/Video with Pt.: 25 Coding Level of Care Code Tele Est Pt Level 4 (03167) Diagnoses Type 2 diabetes mellitus with hyperglycemia, without long-term current use of insulin E11.65 Diabetes mellitus shelter insulin use: without terminal operations manager use Pure hypercholesterolemia E78.00 Hyperlipidemia type: pure hypercholesterolemia PAF (paroxysmal atrial fibrillation) I48.0 S/P TAVR (transcatheter aortic valve replacement) Z95.2 Chronic diastolic (congestive) heart failure I50.32 Essential hypertension I10 Anxiety and depression F41.9; F32.9 Hypothyroid E03.9 Pulmonary emphysema, unspecified emphysema type J43.9 COPD type: emphysema Emphysema type: unspecified Cholangiocarcinoma C22.1 Assessment & Plan Assessment & Plan (1) Type 2 diabetes mellitus with hyperglycemia: Comment: Eye and lasik Code(s): E11.65 - Type 2 diabetes mellitus with hyperglycemia Category: Medical Qualifiers: Diabetes mellitus terminal operations manager insulin use: without shelter use Qualified Code(s): E11.65 - Type 2 diabetes mellitus with hyperglycemia Plan: Decrease the amount of carbohydrate intake, pasta, bread, rice and potatoes are all sugar and that is aside from all the sweet stuff, remember that fruits are good but they are Sweet also. Hemoglobin A1c goal of less than 7.0 continuing with Jardiance glimepiride metformin (2) Hyperlipidemia, unspecified: Code(s): E78.5 - Hyperlipidemia, unspecified Category: Medical Qualifiers: Hyperlipidemia type: pure hypercholesterolemia Qualified Code(s): E78.00 - Pure hypercholesterolemia, unspecified Plan: Avoid fried foods, chicken skin, eggs, butter margarine, pastries and meat. Be it pork or beef they have a lot of cholesterol rosuvastatin (3) PAF (paroxysmal atrial fibrillation): Code(s): I48.0 - Paroxysmal atrial fibrillation Category: Medical Plan: Continue with anticoagulation with Xarelto and on amiodarone (4) S/P TAVR (transcatheter aortic valve replacement): Comment: November 2023 Dr. Purcell Code(s): Z95.2 - Presence of prosthetic heart valve Category: Surgical Plan: Continue follow-up with cardiology (5) Chronic diastolic (congestive) heart failure: Code(s): I50.32 - Chronic diastolic (congestive) heart failure Category: Medical Plan: Continue with hydralazine metoprolol and torsemide (6) Essential hypertension: Code(s): I10 - Essential (primary) hypertension Category: Medical Plan: Continue with metoprolol 50 mg twice a day hydralazine 25 mg 3 times a day amlodipine 10 mg once a day (7) Anxiety and depression: Code(s): F41.9 - Anxiety disorder, unspecified; F32.9 - Major depressive disorder, single episode, unspecified Category: Medical Plan: Continue with present medication (8) Hypothyroid: Code(s): E03.9 - Hypothyroidism, unspecified Category: Medical Plan: Continue with thyroid medication (9) COPD (chronic obstructive pulmonary disease): Code(s): J44.9 - Chronic obstructive pulmonary disease, unspecified Category: Medical Qualifiers: COPD type: emphysema Emphysema type: unspecified Qualified Code(s): J43.9 - Emphysema, unspecified Plan: Continue with the inhalers albuterol as needed (10) Cholangiocarcinoma: Code(s): C22.1 - Intrahepatic bile duct carcinoma Category: Medical Plan: Patient is being followed up by hematology oncology on chemotherapy Plan History of Present Illness The patient is a 70-year-old female presenting with a follow-up visit. She has a history of atherosclerotic cardiovascular disease, hypercholesterolemia, and chronic obstructive pulmonary disease (COPD). Additionally, she has Umaña's esophagus and generalized anxiety disorder. Her medical history is further complicated by lumbar degenerative disc disease, diabetes mellitus, and hypertension. She also has a history of congestive heart failure, hypothyroidism, and atrial fibrillation. The patient has hepatic cirrhosis and underwent a transcatheter aortic valve replacement (TAVR) for aortic stenosis. 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 Her last blood work on July 05 revealed anemia with a hemoglobin level of 9.7 and a hematocrit of 31.1, indicating microcytic anemia. Her electrolytes were normal, and her renal function was stable. However, her blood glucose was elevated at 461 mg/dL, and her thyroid-stimulating hormone (TSH) level was elevated at 6.9. Review of Systems - Gastrointestinal: Reports nausea, vomiting, diarrhea, and abdominal pain localized to the right side where the liver is located. - Psychological: Reports depression and crying. Plan The patient will continue with her current diabetes management plan, which includes maintaining a hemoglobin A1c goal of less than 7.0% and continuing medications such as Jardiance, glimepiride, and metformin. For hypercholesterolemia, she will continue on rosuvastatin therapy. Her anticoagulation therapy with Xarelto and amiodarone will be maintained, and she will continue follow-up with cardiology. Her antihypertensive regimen includes hydralazine, metoprolol, and amlodipine, with specific dosages outlined for each medication. The patient will continue her thyroid medication and use albuterol inhalers as needed for COPD management. She is currently undergoing chemotherapy for cholangiohorcinoma and will continue to be followed by hematology oncology. Patient was informed and verbally consented to the use of an ambient scribe for clinic note documentation during this visit. Discussion Notes Patient Instructions - Continue taking your diabetes medications as prescribed and aim for an A1c goal of less than 7.0%. - Keep taking rosuvastatin for cholesterol management. - Maintain your anticoagulation therapy with Xarelto and amiodarone, and follow up with your ict quality assurance engineer. - Continue your blood pressure medications as directed. - Use your albuterol inhaler as needed for breathing difficulties. - Follow up with hematology oncology for your chemotherapy treatment. Medications: Refilled ondansetron 8 mg PO Q8H PRN 60 tabs 1RF Nausea And Vomiting
--- OUTSIDE RECORDS SUMMARY | 2025-07-11 13:56 | XMS_ITS | Patient Health Record ---
Author Organization [facility] Address [address] [place] [address] Care Team Providers Care Oracle Brm Developer Name Role Phone Marycruz Zapata MD Primary Care Provider Dong Escobedo [phone] Reason For Referral No Information Medications Medication [...] W/U Status Risk Notes Problem Umaña's esophagus (304081875) 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 Problem Family History of Cancer of Colon (Situation) (395997742) Family history of colon cancer (V16.0) Active confirmed Problem Colon cancer screening (V76.51) Active confirmed Problem History of adenomatous polyp of colon (623241831) History of adenomatous polyp of colon (V12.72) Active confirmed Plan Of Treatment Future Test Test Name Order Date UPPER GI ENDOSCOPY 03/24/2013 COLONOSCOPY 03/24/2013 Insurance Providers Payer Name Payer Address Payer Phone Subscriber Number Group Number Insured Name Patient Relationship to Insured Coverage Start Date Coverage End Date MEDICARE OF [facility] [id number] [id number] SAHIL CAMPOS Self - patient is the insured MEDICAID OF [facility] [address] [place] [phone] [id number] SAHIL CAMPOS Self - patient is the insured Medical (General) History Medical History History ICD Code GERD-EGD in 04/2006 with a sm all HH and small area of Umaña's esophagus-no dysplasia Colonoscopy in 04/2006 with removal of sm all tubular adenomas hypertension asthma NIDDM Denies AL,CVA,renal disease Surgical History Surgery Date(Month/Year) cholecystectomy hysterectomy
--- OUTSIDE RECORDS SUMMARY | 2025-07-11 13:56 | XMS_ITS | Patient Health Record ---
Author Organization [facility] Address [address] [place] [address] Care Team Providers Care Mica Layer Name Role Phone Marycruz Zapata Primary Care Provider Shantelle Whaley Unavailable [phone] Allergies No Known Allergies Reason For Referral [...] Problem Acquired hammer toe of right foot (0992486225064703 ) Other hammer toe(s) (acquired), right foot (M20.41) Active confirmed Problem Acquired hammer toe of left foot (2262323310372360 ) Other hammer toe(s) (acquired), left foot (M20.42) Active confirmed Problem Polyneuropathy due to type 2 diabetes mellitus (460596788) Type 2 diabetes mellitus with diabetic polyneuropathy (E11.42) Active confirmed Plan Of Treatment Pending Test Test Name Order Date [id number] NAIL, 1-5 03/04/2022 [id number] SKIN LESIONS, OVER 4 03/04/20 22 [id number] DYSTROPHIC NAILS ANY # Insurance Providers Payer Name Payer Address Payer Phone Subscriber Number Group Number Insured Name Patient Relationship to Insured Coverage Start Date Coverage End Date [facility] Medicare Complete [address] [address] [place] [address] [id number] Magy Santiago Self - patient is the insured Medical (General) History Medical History History ICD Code asthma Back,Hip,and Knee pain Cataracts Diabetes mellitus High blood pressure Numbness thyroid Mumps Joint implants/screws Surgical History Surgery Date(Month/Year) neck surgery 2016
--- OUTSIDE RECORDS SUMMARY | 2025-07-11 13:56 | XMS_ITS | Clinical Summary ---
Author Organization [facility] Address [address] [place] [address] Phone Care Team Providers Care School Supervisor Name Role Phone Marycruz Zapata MD Primary Care Provider [phone] Allergies Active Allergy Reactions Criticality Noted Date [...] 3 (three) times a day. 90 each 01/05/20 25 026 Active Additional Information Patient [...] time each day. 1 each 01/05/20 25 Active Additional Information Patient not [...] (one) time each day. 03/17/20 25 Active aspirin 81 mg EC tablet Take 1 tablet (81 mg total) by mouth 1 (one) time each day. Active docusate sodium (COLACE) 100 mg capsule Take 1 capsule (100 mg total) by mouth every 12 (twelve) hours. 60 capsule 05/30/20 25 025 Active Problems Problem Noted Date Diagnosed Date Hyperglycemia due to diabete s mellitus ([facility] V24, [facility] V28) 01/05/2025 Resolved Problems Problem Noted Date Diagnosed Date Resolved Date COPD exacerbation ([facility] V24, [facility] V28) 01/05/2025 Acute hypoxic respiratory fa ilure ([facility] V24, [facility] V28) 01/03/2025 01/05/2025 Encounters Date Type Department Care Team Description 06/02/2025 1:34 PM EDT - 06/02/2025 11:59 PM EDT Hospital Encounter [facility] PET Scan [address] [place] [address] Hepatocellular carcinoma ([facility] V24, [facility] V28) Discharge Disposition: Home or Self Care 05/30/2025 12:01 PM EDT - 05/30/2025 5:56 PM EDT Emergency [facility] Emergency [address] [place] [address] Ruy Galindo MD Landry, Jonathan P, MD Right upper quadrant abdominal pain (Primary Dx); Liver mass; Neoplasm of liver Discharge Disposition: Home or Self Care 04/12/2025 3:26 PM EDT - 04/12/2025 6:22 PM EDT Emergency [facility] Emergency [address] [place] [address] Teja Nj MD Strain of muscle and tendon of back wall of thorax, initial encounter (Primary Dx); Strain of lumbar paraspinous muscle, initial encounter Discharge Disposition: Home or Self Care from Last 3 Months Surgical History Surgery Date Site/Laterality Comments CARPAL TUNNEL RELEASE 03/28/2022 Right PROCEDURE: DC NEUROPLASTY &/TRANSPOS MEDIAN NRV CARPAL TUNNE; COMMENT: Dr. Mccullough Medical History Medical History Date Comments Essential hypertension DX:Essent ial hypertension Diabetes mellitus type 2, co ntrolled, with complications ([facility] V24, [facility] V28) DX:Diabetes mellitus type 2, controlled, with complications ([facility]) High cholesterol DX:High cholest surinder Thyroid activity decreased DX:Th yroid activity decreased Afib ([facility]/HCC V24, [facility] V28) Social History Tobacco Use Types Packs/Day [...] AND DIFFERENTIAL STAT 04/12/2025 12:37 PM EDT HEMOGLOBIN A1C Add-On 01/04/2025 6:19 [...] results is suggested. 2. Nonspecific FDG avid keven hepatis/portacaval/peripancreatic lymph nodes either representing metastatic disease [...] Signed Date: 06/06/2025 04:14 ET Workstation ID: [id number] Transcribed By: Self Edit Transcribed Date: 06/06/2025 [...] SUV Max 12.9. Background cirrhotic liver morphology. Keven hepatis/portacaval/peripancreatic lymph nodes measuring up to SUV [...] V SUV Max 12.9. Background cirrhotic livermorphology. Keven hepatis/portacaval/peripancreatic lymph nodes measuring up to SUVMax [...] results is suggested. 2. Nonspecific FDG avid keven hepatis/portacaval/peripancreatic lymphnodes either representing metastatic disease or [...] Signed Date: 06/06/2025 04:14 ET Workstation ID: [id number] Transcribed By: Self Edit Transcribed Date: 06/06/2025 03:29 ET us Abilio Ellington MD [facility] PROCEDURES Final Result * CT Abdomen [...] Signed Date: 05/30/2025 15:40 ET Workstation ID: [id number] Transcribed By: Self Edit Transcribed Date: 05/30/2025 15:31 ET Narrative 05/30/2025 3:40 PM EDT INDICATION: Abdominal pain TECHNIQUE: CT scan of the abdomen and pelvis obtained without intravenous contrast. Scanner: [employer] LightSpeed 64 slice VCT Dose reduction technique: [...] abdomen and pelvis obtained without intravenouscontrast. Scanner: GE Aviga Systemspeed 64 slice VCT Dose reduction technique: ASIR [...] Signed Date: 05/30/2025 15:40 ET Workstation ID: [id number] Transcribed By: Self Edit Transcribed Date: 05/30/2025 15:31 ET Ruy Galindo MD IMG CT PROCEDURES Final Result * (ABNORMAL) CBC auto differential (05/30/2025 11:21 AM EDT) Only the most recent of2 resultswithin the time period is included. WBC 6.4 4.8 - 10.8 K/mcL LAB HEMETOLOGY METHOD 05/30/2025 12:41 PM EDT [facility] RBC 4.00 3.80 - 4.80 M/mcL LAB HEMETOLOGY METHOD 05/30/2025 12:41 PM EDT [facility] Hemoglobin 9.9(L) 11.5 - 16.0 g/dL LAB HEMETOLOGY METHOD 05/30/2025 12:41 PM EDT [facility] Hematocrit 32.5(L) 35.0 - 47.0 % LAB HEMETOLOGY METHOD 05/30/2025 12:41 PM EDT [facility] MCV 81.0 79.0 - 98.0 FL LAB HEMETOLOGY METHOD 05/30/2025 12:41 PM [facility] MCH 24.7(L) 27.0 - 32.0 pcg LAB HEMETOLOGY METHOD 05/30/2025 12:41 PM [facility] MCHC 30.5(L) 32.0 - 37.0 g/dL LAB HEMETOLOGY METHOD 05/30/2025 12:41 PM [facility] RDW 18.1(H) 11.0 - 15.0 % LAB HEMETOLOGY METHOD 05/30/2025 12:41 PM [facility] Platelets 132 130 - 400 K/mcL LAB HEMETOLOGY METHOD 05/30/2025 12:41 PM [facility] MPV 11.4(H) 7.0 - 11.0 FL LAB HEMETOLOGY METHOD 05/30/2025 12:41 PM [facility] NRBC 0.0 <1.0 % LAB HEMETOLOGY METHOD 05/30/2025 12:41 PM [facility] NRBC Absolute 0.00 <0.10 K/mcL LAB HEMETOLOGY METHOD 05/30/2025 12:41 PM [facility] Neutrophils Relative 75.9 % LAB HEMETOLOGY METHOD 05/30/2025 12:41 PM [facility] Lymphocytes Relative 15.3 % LAB HEMETOLOGY METHOD 05/30/2025 12:41 PM [facility] Monocytes Relative 5.8 % LAB HEMETOLOGY METHOD 05/30/2025 12:41 PM [facility] Eosinophils Relative 1.7 % LAB HEMETOLOGY METHOD 05/30/2025 12:41 PM [facility] Basophils Relative 0.8 % LAB HEMETOLOGY METHOD 05/30/2025 12:41 PM [facility] Immature Granulocytes Relative 0.5 % LAB HEMETOLOGY METHOD 05/30/2025 12:41 PM EDT [facility] Neutrophils Absolute 4.85 1.50 - 7.00 K/mcL LAB HEMETOLOGY METHOD 05/30/2025 12:41 PM EDT [facility] Lymphocytes Absolute 0.98(L) 1.00 - 5.00 K/mcL LAB HEMETOLOGY METHOD 05/30/2025 12:41 PM EDT [facility] Monocytes Absolute 0.37 0.20 - 1.00 K/mcL LAB HEMETOLOGY METHOD 05/30/2025 12:41 PM EDT [facility] Eosinophils Absolute 0.11 0.00 - 0.50 K/mcL LAB HEMETOLOGY METHOD [facility] Basophils Absolute 0.05 0.00 - 0.20 K/mcL LAB HEMETOLOGY METHOD 05/30/2025 12:41 PM EDT [facility] Immature Granulocytes Absolute 0.03 0.00 - 0.03 K/mcL LAB HEMETOLOGY METHOD 05/30/2025 12:41 PM [facility] Blood Venous blood specimen / Unknown Venipuncture / Unknown 05/30/2025 11:21 AM EDT 05/30/2025 12:24 PM EDT us Ruy Galindo MD LAB BLOOD ORDERABLES Final Resu lt [facility] [address] [place] [address], * (ABNORMAL) Comprehensive metabolic panel (05/30/2025 11:21 AM EDT) Only the most recent of2 resultswithin the time period is included. Sodium 135 133 - 145 mmol/L LAB CHEMISTRY METHOD 05/30/2025 12:56 PM EDT [facility] Potassium 4.5 3.5 - 5.5 mmol/L LAB CHEMISTRY METHOD 05/30/2025 12:56 PM [facility] Chloride 104 96 - 110 mmol/L LAB CHEMISTRY METHOD 05/30/2025 12:56 PM [facility] CO2 26 21 - 32 mmol/L LAB CHEMISTRY METHOD 05/30/2025 12:56 PM [facility] Anion Gap 5 3 - 11 LAB CHEMISTRY METHOD 05/30/2025 12:56 PM [facility] Glucose 222(H) 70 - 100 mg/dL LAB CHEMISTRY METHOD 05/30/2025 12:56 PM [facility] BUN 18 5 - 25 mg/dL LAB CHEMISTRY METHOD 05/30/2025 12:56 PM [facility] Creatinine 1.65(H) 0.50 - 1.10 mg/dL LAB CHEMISTRY METHOD 05/30/2025 12:56 PM [facility] eGFR 33(L) >=60 mL/min/1. 73m2 LAB CHEMISTRY METHOD 05/30/2025 12:56 PM [facility] Comment:Calculation based on the Chronic Kidney Disease Epidemiology Collaboration (CKD-EPI) equation refit without adjustment for race. BUN/Creatinine Ratio 10.9 LAB CHEMISTRY METHOD 05/30/2025 12:56 PM [facility] Calcium 9.1 8.5 - 10.5 mg/dL LAB CHEMISTRY METHOD 05/30/2025 12:56 PM [facility] AST (SGOT) 23 10 - 42 unit/L LAB CHEMISTRY METHOD 05/30/2025 12:56 PM [facility] ALT (SGPT) 16 10 - 60 unit/L LAB CHEMISTRY METHOD 05/30/2025 12:56 PM [facility] Alkaline Phosphatase 143(H) 42 - 121 unit/L LAB CHEMISTRY METHOD 05/30/2025 12:56 PM [facility] Total Protein 6.8 6.0 - 8.0 g/dL LAB CHEMISTRY METHOD 05/30/2025 12:56 PM EDT [facility] Albumin 3.1(L) 3.2 - 5.0 g/dL LAB CHEMISTRY METHOD 05/30/2025 12:56 PM EDT [facility] Total Bilirubin 0.2 0.0 - 1.4 mg/dL LAB CHEMISTRY METHOD 05/30/2025 12:56 PM EDT [facility] Blood Venous blood specimen / Unknown Venipuncture / Unknown 05/30/2025 11:21 AM EDT 05/30/2025 12:24 PM EDT us Ruy Galindo MD LAB BLOOD ORDERABLES Final Resu lt [facility] [address] [place] [address], [place] [phone] * CT Chest/Abdomen/Pelvis wo Contrast (04/12/2025 4:51 [...] Signed Date: 04/12/2025 17:08 ET Workstation ID: [id number] Transcribed By: Self Edit Transcribed Date: 04/12/2025 16:59 ET Narrative 04/12/2025 5:08 PM EDT INDICATION: Chest trauma, right-sided flank pain Technique: CT scan of the chest, abdomen and pelvis obtained without contrast. No oral contrast administered. Scanner: GE LightSpeed [...] obtained withoutcontrast. No oral contrast administered. Scanner: [email or web address] 64 slice VCT Dose reduction technique: ASIR [...] Signed Date: 04/12/2025 17:08 ET Workstation ID: [id number] Transcribed By: Self Edit Transcribed Date: 04/12/2025 16:59 ET Roxanna VIDES IM CT PROCEDURES Final Result * (ABNORMAL) Urinalysis with reflex microscopic and culture (04/12/2025 4:09 PM EDT) Specific [place] Urine 1.027 1.003 - 1.030 LAB URINALYSIS - AUTOMATED METHOD 04/12/2025 4:37 PM EDT [facility] pH, Urine 6.0 5.0 - 8.0 pH LAB URINALYSIS - AUTOMATED METHOD 04/12/2025 4:37 PM EDT [facility] Leukocytes, Urine Negative Negative LAB URINALYSIS - AUTOMATED METHOD 04/12/2025 4:37 PM [facility] Nitrite, Urine Negative Negative LAB URINALYSIS - AUTOMATED METHOD 04/12/2025 4:37 PM [facility] Protein, Urine 30(A) <=Trace mg/dL LAB URINALYSIS - AUTOMATED METHOD 04/12/2025 4:37 PM [facility] Glucose, Urine >=1000(A) Negative mg/dL LAB URINALYSIS - AUTOMATED METHOD 04/12/2025 4:37 PM [facility] Ketones, Urine Trace(A) Negative mg/dL LAB URINALYSIS - AUTOMATED METHOD 04/12/2025 4:37 PM [facility] Urobilinogen , Urine 1.0 0.2 - 1.0 mg/dL LAB URINALYSIS - AUTOMATED METHOD 04/12/2025 4:37 PM [facility] Bilirubin, Urine Negative Negative LAB URINALYSIS - AUTOMATED METHOD 04/12/2025 4:37 PM [facility] Blood, Urine Negative Negative LAB URINALYSIS - AUTOMATED METHOD 04/12/2025 4:37 PM [facility] RBC, Urine 1.7 0 - 4 /HPF LAB URINALYSIS - AUTOMATED METHOD 04/12/2025 4:37 PM [facility] WBC, Urine 4.4(H) 0 - 4 /HPF LAB URINALYSIS - AUTOMATED METHOD 04/12/2025 4:37 PM [facility] Squamous Epithelial, Urine >100(H) 0 - 60 /LPF LAB URINALYSIS - AUTOMATED METHOD 04/12/2025 4:37 PM [facility] Bacteria, Urine Negative Negative /HPF LAB URINALYSIS - AUTOMATED METHOD 04/12/2025 4:37 PM [facility] Hyaline Casts, Urine 3.2(H) 0 - 3 /LPF LAB URINALYSIS - AUTOMATED METHOD 04/12/2025 4:37 PM [facility] Urine Urine specimen obtained by clean catch procedure / Unknown 04/12/2025 4:09 PM EDT 04/12/2025 4:25 PM EDT Teja Nj MD LAB URINE ORDERABLES Final Resu lt Performing Organization Address [facility]/ZIP Co de Phone Number [facility] [address] [place] [address], [place] [phone] * [place] urine culture tube (04/12/2025 4:09 PM EDT) Pathologist [facility] Extra Tube Hold for add-ons. 04/12/2025 6:01 PM EDT [facility] Comment:Auto resulted. Urine Urine specimen obtained by clean catch procedure / Unknown 04/12/2025 4:09 PM EDT 04/12/2025 4:25 PM EDT Teja Nj MD LAB URINE ORDERABLES Final Resu lt Performing Organization Address [facility] Co de Phone Number [facility] [address] [place] [address], [place] [phone] * Activated partial thromboplastin time (04/12/2025 4:08 PM EDT) aPTT 37.5 24.1 - 39.3 sec LAB COAGULATION METHOD 04/12/2025 4:37 PM EDT [facility] Blood Venous blood specimen / Unknown Venipuncture / Unknown 04/12/2025 4:08 PM EDT 04/12/2025 4:24 PM EDT Roxanna VIDES LAB BLOOD ORDERABLES Fin al Result Performing Organization Address City/[facility]/ZIP Co de Phone Number [facility] [address] [place] [address], [place] [phone] * Prothrombin time with INR (04/12/2025 4:08 PM EDT) [facility] Protime 11.8 10.6 - 13.9 sec LAB COAGULATION METHOD 04/12/2025 4:37 PM EDT [facility] INR 0.9 LAB COAGULATION METHOD 04/12/2025 4:37 PM EDT [facility] Blood Venous blood specimen / Unknown Venipuncture / Unknown 04/12/2025 4:08 PM EDT 04/12/2025 4:24 PM EDT Roxanna VIDES LAB BLOOD ORDERABLES Fin al Result Performing Organization Address [facility]/ZIP Co de Phone Number [facility] [address] [place] [address], [place] [phone] * (ABNORMAL) Hemoglobin A1c (01/04/2025 6:19 AM EST) [facility] Hemoglobin A1C 8.2(H) <6.5 % LAB CHEMISTRY METHOD 01/04/2025 1:13 PM EST [facility] Mean Bld Glu Estim. 189 mg/dL LAB CHEMISTRY METHOD 01/04/2025 1:13 PM EST [facility] Blood Venous blood specimen / Unknown Venipuncture / Unknown 01/04/2025 6:19 AM EST 01/04/2025 7:22 AM EST Phoenix Riley MD LAB BLOOD ORDERABLES Final Re sult [facility] [address] [place] [address], [place] [phone] from Last 3 Months or Most Recently Relevant to Health Maintenance Insurance [place] [id number] Advance Directives * Full Code - Confirmed [...] currently active code status orders. Care Teams School Supervisor Relationship Specialty Start Date End Date Marycruz Zapata MD [address] [place] [address] [address] [facility] [place] [address] PCP - General Internal Medicine 11/02/21
--- OUTSIDE RECORDS SUMMARY | 2025-07-11 13:56 | XMS_ITS | Clinical Summary ---
Author Organization [facility] Address [address] [place] [address] Care Team Providers Care Clarity Specialists Name Role Phone Marycruz Zapata MD Primary Care Provider [phone] Social History Tobacco Use Types Packs/Day Years [...] age to complete this topic Care Teams Clarity Specialists Relationship Specialty Start Date End Date Marycruz Zapata MD [address] [place] [address] [address] [facility] [place] [address] PCP - General Internal Medicine 02/17/18
== END 2025-07-11 17:25 | disposition home or self-care (01) ==
LOC: HO.HMCH 13:02
PROVIDERS: PCP Internal Medicine; Visit Provider Internal Medicine
DX: E11.65 Type 2 diabetes mellitus with hyperglycemia (principal); I11.0 Hypertensive heart disease with heart failure; I48.0 Paroxysmal atrial fibrillation; I50.32 Chronic diastolic (congestive) heart failure; J43.9 Emphysema, unspecified; C22.1 Intrahepatic bile duct carcinoma; E78.00 Pure hypercholesterolemia, unspecified; Z95.2 Presence of prosthetic heart valve; F41.9 Anxiety disorder, unspecified; F32.9 Major depressive disorder, single episode, unspecified; E03.9 Hypothyroidism, unspecified

== ENCOUNTER 2025-08-02 13:18 | Outpatient (REF) | payer MEDICARE, SELFPAY ==
--- NOTE | ~2025-08-02 | FL_ITS ---
EXAMINATION: XR FLUOROSCOPY CLINICAL INFORMATION: PORT CHECK COMPARISON: None available. TECHNIQUE: Following cleaning the area of right anterior chest wall for axis report, a park needle was inserted into the port and flushed with saline. Subsequently nonionic 10 mL of contrast was injected and video scoping images over the right anterior chest wall was obtained. Following the procedure the needle was withdrawn and sterile dressing applied. Patient tolerated procedure extremely well. FINDINGS: On the fluoroscopy images there is widely patent right Port-A-Cath. No obstruction seen. No contrast extravasation noted. FLUOROSCOPY TIME: 50 seconds DOSE AREA PRODUCT: 561.1 uGy-m2 (microgray-meter squared) FL/FL fluoroscopy <1hr IMPRESSION: Widely patent PORT catheter. Electronically signed by: Darrion Spann MD 08/03/2025 09:40 AM EDT
--- OUTSIDE RECORDS SUMMARY | 2025-08-02 15:42 | XMS_ITS | Patient Health Record ---
Author Organization [facility] Address [address] [facility] [place] [address] Care Team Providers Care Home Health Manager Name Role Phone Marycruz Zapata Primary Care Provider Shantelle Whaley Unavailable [phone] Allergies No Known Allergies Reason For Referral [...] Problem Acquired hammer toe of right foot (8815516042435089 ) Other hammer toe(s) (acquired), right foot (M20.41) Active confirmed Problem Acquired hammer toe of left foot (8872133298143816 ) Other hammer toe(s) (acquired), left foot (M20.42) Active confirmed Problem Polyneuropathy due to type 2 diabetes mellitus (540061772) Type 2 diabetes mellitus with diabetic polyneuropathy (E11.42) Active confirmed Plan Of Treatment Pending Test Test Name Order Date [id number] NAIL, 1-5 03/04/2022 [id number] SKIN LESIONS, OVER 4 03/04/20 22 [id number] DYSTROPHIC NAILS ANY # Insurance Providers Payer Name Payer Address Payer Phone Subscriber Number Group Number Insured Name Patient Relationship to Insured Coverage Start Date Coverage End Date [facility] Medicare Complete [address] [address] [place] [address] [id number] Magy Santiago Self - patient is the insured Medical (General) History Medical History History ICD Code asthma Back,Hip,and Knee pain Cataracts Diabetes mellitus High blood pressure Numbness thyroid Mumps Joint implants/screws Surgical History Surgery Date(Month/Year) neck surgery 2016
--- OUTSIDE RECORDS SUMMARY | 2025-08-02 15:42 | XMS_ITS | Clinical Summary ---
Author Organization [facility] Address [address] [place] [address] Phone Care Team Providers Care Pediatric Cns Name Role Phone Marycruz Zapata MD Primary Care Provider [phone] Allergies Active Allergy Reactions Criticality Noted Date [...] Date Hyperglycemia due to diabete s mellitus ([facility] V24, [facility] V28) 01/05/2025 Resolved Problems Problem Noted Date Diagnosed Date Resolved Date COPD exacerbation ([facility] V24, [facility] V28) 01/05/2025 Acute hypoxic respiratory fa ilure ([facility] V24, [facility] V28) 01/03/2025 01/05/2025 Encounters Date Type Department Care Team Description 06/02/2025 1:34 PM EDT - 06/02/2025 11:59 PM EDT Hospital Encounter [facility] PET Scan [address] [place] [id number] Hepatocellular carcinoma ([facility] V24, [facility] V28) Discharge Disposition: Home or Self Care 05/30/2025 12:01 PM EDT - 05/30/2025 5:56 PM EDT Emergency [facility] Emergency [address] [place] [phone] Ruy Galindo MD Landry, Jonathan P, MD Right upper quadrant abdominal pain (Primary Dx); Liver mass; Neoplasm of liver Discharge Disposition: Home or Self Care from Last 3 Months Surgical History Surgery Date Site/Laterality Comments CARPAL TUNNEL RELEASE 03/28/2022 Right PROCEDURE: [place] NEUROPLASTY &/TRANSPOS MEDIAN NRV CARPAL TUNNE; COMMENT: Dr. Mccullough Medical History Medical History Date Comments Essential hypertension DX:Essent ial hypertension Diabetes mellitus type 2, co ntrolled, with complications (CMS/HCC V24, CMS/HCC V28) DX:Diabetes mellitus type 2, controlled, with complications (HCC) High cholesterol DX:High cholest surinder Thyroid activity decreased DX:Th yroid activity decreased Afib (CMS/HCC V24, CMS/[facility] V28) Social History Tobacco Use Types Packs/Day [...] 10/27/2022 Social Influencers of Health Screening 10/27/2022 Depression Screening 11/24/2024 Diabetes: Annual Urine Albumin-Creatinine Ratio (uACR) 01/05/2025 Diabetes: Blood Sugar Control Test (HGBA1C) 07/04/2025 01/04/2025 COVID-19 Vaccine ( season) 2025 Influenza Vaccine (#1) 2025 10/03/2022 Falls Risk [...] AND DIFFERENTIAL STAT 05/30/2025 11:21 AM EDT HEMOGLOBIN A1C Add-On 01/04/2025 6:19 AM [...] Signed Date: 06/06/2025 04:14 ET Workstation ID: [id number] Transcribed By: Self Edit Transcribed Date: 06/06/2025 [...] Signed Date: 06/06/2025 04:14 ET Workstation ID: [id number] Transcribed By: Self Edit Transcribed Date: 06/06/2025 03:29 ET us Abilio Ellington MD IMG NM PROCEDURES Final Result * CT Abdomen Pelvis [...] Signed Date: 05/30/2025 15:40 ET Workstation ID: [id number] Transcribed By: Self Edit Transcribed Date: 05/30/2025 15:31 ET Narrative 05/30/2025 3:40 PM EDT INDICATION: Abdominal pain TECHNIQUE: CT scan of the abdomen and pelvis obtained without intravenous contrast. Scanner: [employer] 64 slice VCT Dose reduction technique: ASIR [...] abdomen and pelvis obtained without intravenouscontrast. Scanner: [employer] 64 slice VCT Dose reduction technique: ASIR [...] Signed Date: 05/30/2025 15:40 ET Workstation ID: [id number] Transcribed By: Self Edit Transcribed Date: 05/30/2025 15:31 ET Ruy Galindo MD IM CT PROCEDURES Final Result * (ABNORMAL) CBC auto differential (05/30/2025 11:21 AM EDT) WBC 6.4 4.8 - 10.8 K/mcL LAB HEMETOLOGY METHOD 05/30/2025 12:41 PM EDT [facility] RBC 4.00 3.80 - 4.80 M/mcL LAB HEMETOLOGY METHOD 05/30/2025 12:41 PM EDT [facility] Hemoglobin 9.9(L) 11.5 - 16.0 g/dL LAB HEMETOLOGY METHOD 05/30/2025 12:41 PM EDT [facility] Hematocrit 32.5(L) 35.0 - 47.0 % LAB HEMETOLOGY METHOD 05/30/2025 12:41 PM [facility] MCV 81.0 79.0 - 98.0 FL LAB HEMETOLOGY METHOD 05/30/2025 12:41 PM [facility] MCH 24.7(L) 27.0 - 32.0 pcg LAB HEMETOLOGY METHOD 05/30/2025 12:41 PM [facility] MCHC 30.5(L) 32.0 - 37.0 g/dL LAB HEMETOLOGY METHOD 05/30/2025 12:41 PM [facility] RDW 18.1(H) 11.0 - 15.0 % LAB HEMETOLOGY METHOD 05/30/2025 12:41 PM [facility] Platelets 132 130 - 400 K/mcL LAB HEMETOLOGY METHOD 05/30/2025 12:41 PM [facility] MPV 11.4(H) 7.0 - 11.0 FL LAB HEMETOLOGY METHOD 05/30/2025 12:41 PM [facility] NRBC 0.0 <1.0 % LAB HEMETOLOGY METHOD 05/30/2025 12:41 PM [facility] NRBC Absolute 0.00 <0.10 K/mcL LAB HEMETOLOGY METHOD 05/30/2025 12:41 PM [facility] Neutrophils Relative 75.9 % LAB HEMETOLOGY METHOD 05/30/2025 12:41 PM [facility] Lymphocytes Relative 15.3 % LAB HEMETOLOGY METHOD 05/30/2025 12:41 PM [facility] Monocytes Relative 5.8 % LAB HEMETOLOGY METHOD 05/30/2025 12:41 PM [facility] Eosinophils Relative 1.7 % LAB HEMETOLOGY METHOD 05/30/2025 12:41 PM EDT [facility] Basophils Relative 0.8 % LAB HEMETOLOGY METHOD 05/30/2025 12:41 PM EDT [facility] Immature Granulocytes Relative 0.5 % LAB HEMETOLOGY METHOD 05/30/2025 12:41 PM EDT [facility] Neutrophils Absolute 4.85 1.50 - 7.00 K/mcL LAB HEMETOLOGY METHOD 05/30/2025 12:41 PM EDT [facility] Lymphocytes Absolute 0.98(L) 1.00 - 5.00 K/mcL LAB HEMETOLOGY METHOD [facility]/30[facility]2025 12[facility] Monocytes Absolute 0.37 [...] Resu lt [facility] [address] [place] [address], * (ABNORMAL) Comprehensive metabolic panel (05/30/2025 11:21 AM EDT) Sodium 135 133 - 145 mmol/L LAB CHEMISTRY METHOD 05/30/2025 12:56 PM [facility] Potassium 4.5 3.5 - 5.5 mmol/L LAB CHEMISTRY METHOD 05/30/2025 12:56 PM [facility] Chloride 104 96 - 110 mmol/L LAB CHEMISTRY METHOD 05/30/2025 12:56 PM [facility] CO2 26 21 - 32 mmol/L LAB CHEMISTRY METHOD 05/30/2025 12:56 PM [facility] Anion Gap 5 3 - 11 LAB CHEMISTRY METHOD 05/30/2025 12:56 PM [facility] Glucose 222(H) 70 - 100 mg/dL LAB CHEMISTRY METHOD 05/30/2025 12:56 PM [facility] BUN 18 5 - 25 mg/dL LAB CHEMISTRY METHOD 05/30/2025 12:56 PM [facility] Creatinine 1.65(H) 0.50 - 1.10 mg/dL LAB CHEMISTRY METHOD 05/30/2025 12:56 PM [facility] eGFR 33(L) >=60 mL/min/1. 73m2 LAB CHEMISTRY METHOD 05/30/2025 12:56 PM [facility] Comment:Calculation based on the Chronic Kidney Disease Epidemiology Collaboration (CKD-EPI) equation refit without adjustment for race. BUN/Creatinine Ratio 10.9 LAB CHEMISTRY METHOD 05/30/2025 12:56 PM [facility] Calcium 9.1 8.5 - 10.5 mg/dL LAB CHEMISTRY METHOD 05/30/2025 12:56 PM [facility] AST (SGOT) 23 10 - 42 unit/L LAB CHEMISTRY METHOD 05/30/2025 12:56 PM [facility] ALT (SGPT) 16 10 - 60 unit/L LAB CHEMISTRY METHOD 05/30/2025 12:56 PM EDT [facility] Alkaline Phosphatase 143(H) 42 - 121 unit/L LAB CHEMISTRY METHOD 05/30/2025 12:56 PM EDT [facility] Total Protein 6.8 6.0 - 8.0 g/dL LAB CHEMISTRY METHOD 05/30/2025 12:56 PM EDT [facility] Albumin 3.1(L) 3.2 - 5.0 g/dL LAB CHEMISTRY METHOD 05/30/2025 12:56 PM EDT [facility] Total Bilirubin 0.2 0.0 - 1.4 mg/dL LAB CHEMISTRY METHOD 05/30/2025 12:56 PM EDT [facility] Blood Venous blood specimen / Unknown Venipuncture / Unknown 05/30/2025 11:21 AM EDT 05/30/2025 12:24 PM EDT us Ruy Galindo MD LAB BLOOD ORDERABLES Final Resu lt Performing Organization Address [facility]/ZIP Co de Phone Number [facility] [address] [place] [address], * (ABNORMAL) Hemoglobin A1c (01/04/2025 6:19 AM [...] ORDERABLES Final Re sult Performing Organization Address City/[facility]/ZIP Co de Phone Number [facility] [address] [place] [address], [place] [phone] from Last 3 Months or Most Recently [...] currently active code status orders. Care Teams Pediatric Cns Relationship Specialty Start Date End Date Marycruz Zapata MD [address] [place] [address] Dr [address] [facility] [place], [place] [id number] PCP - General Internal Medicine 11/02/21
--- OUTSIDE RECORDS SUMMARY | 2025-08-02 15:42 | XMS_ITS | Clinical Summary ---
Author Organization [facility] Address [address] [place] [address] Care Team Providers Care Manager Code Name Role Phone Marycruz Zapata MD Primary Care Provider [phone] Social History Tobacco Use Types Packs/Day Years [...] age to complete this topic Care Teams Manager Code Relationship Specialty Start Date End Date Marycruz Zapata MD [address] [place] [address] [address] [facility] [facility] [place] [address] PCP - General Internal Medicine 02/17/18
--- OUTSIDE RECORDS SUMMARY | 2025-08-02 15:42 | XMS_ITS | Patient Health Record ---
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 Problem Family History of Cancer of Colon (Situation) (815101756) Family history of colon cancer (V16.0) Active confirmed Problem Colon cancer screening (551920989) Colon cancer screening (V76.51) Active confirmed Problem History of adenomatous polyp of colon (390173951) History of adenomatous polyp of colon (V12.72) Active confirmed Plan Of Treatment Future Test Test Name Order Date UPPER GI ENDOSCOPY 03/24/2013 COLONOSCOPY 03/24/2013 Insurance Providers Payer Name Payer Address Payer Phone Subscriber Number Group Number Insured Name Patient Relationship to Insured Coverage Start Date Coverage End Date [place] OF [place] [address] [id number] SAHIL CAMPOS Self - patient is the insured MEDICAID OF [facility] [address] [place] [address] [id number] SAHIL CAMPOS Self - patient is the insured Medical (General) History Medical History History ICD Code GERD-EGD in 04/2006 with a sm all HH and small area of Umaña's esophagus-no dysplasia Colonoscopy in 04/2006 with removal of sm all tubular adenomas hypertension asthma NIDDM Denies [place],CVA,renal disease Surgical History Surgery Date(Month/Year) cholecystectomy hysterectomy
== END 2025-08-02 13:19 | disposition home or self-care (01) ==
LOC: HO.XRAY 13:18
PROVIDERS: PCP Internal Medicine; Visit Provider Internal Medicine
DX: Z45.2 Encounter for adjustment and management of vascular access device (principal); R16.0 Hepatomegaly, not elsewhere classified
CPT/HCPCS: 76000

== ENCOUNTER → 2025-08-02 14:02 | Outpatient (BNV) | payer MEDICARE, SELFPAY | PROVIDERS: PCP Internal Medicine; Visit Provider Radiology Diagnostic Radiology | DX: Z45.2 Encounter for adjustment and management of vascular access device (principal) | CPT/HCPCS: 76000 ==

== ENCOUNTER 2025-09-07 15:04 | Outpatient (REF) | payer MEDICARE, SELFPAY ==
--- NOTE | ~2025-09-07 | US_ITS ---
EXAMINATION: US TRIPLEX LOWER EXTREMITY, LEFT CLINICAL INFORMATION: Pain, left lower extremity. COMPARISON: None available. TECHNIQUE: Color-flow triplex imaging with spectral analysis and compression Doppler were performed on the left lower extremity. FINDINGS: Respiratory variation, normal compression and augmented flow are demonstrated in the interrogated left common femoral vein, superficial femoral vein, profunda femoral vein, popliteal vein and midcalf peroneal and posterior tibial venous segments. There is no Joy's cyst. US/US venous duplex LE LT IMPRESSION: No acute deep venous thrombosis in the interrogated left lower extremity. Negative for DVT.. Electronically signed by: Asad Harris MD 09/07/2025 03:39 PM EDT
--- OUTSIDE RECORDS SUMMARY | 2025-09-07 18:44 | XMS_ITS | Clinical Summary ---
Author Organization [facility] Address [address] [place] [address] Care Team Providers Care Consumer Marketing Manager Name Role Phone Marycruz Zapata MD Primary Care Provider [phone] Social History Tobacco Use Types Packs/Day Years [...] age to complete this topic Care Teams Consumer Marketing Manager Relationship Specialty Start Date End Date Marycruz Zapata MD [address] [place] [address] [address] [facility] [place] [address] PCP - General Internal Medicine 02/17/18
--- OUTSIDE RECORDS SUMMARY | 2025-09-07 18:44 | XMS_ITS | Patient Health Record ---
Author Organization [facility] Address [address] [facility] [place] [address] Care Team Providers Care Script Reader Name Role Phone Marycruz Zapata Primary Care Provider Shantelle Whaley Unavailable [phone] Allergies No Known Allergies Reason For Referral [...] Problem Acquired hammer toe of right foot (2924803986271786 ) Other hammer toe(s) (acquired), right foot (M20.41) Active confirmed Problem Acquired hammer toe of left foot (7380906076553249 ) Other hammer toe(s) (acquired), left foot (M20.42) Active confirmed Problem Polyneuropathy due to type 2 diabetes mellitus (853026768) Type 2 diabetes mellitus with diabetic polyneuropathy (E11.42) Active confirmed Plan Of Treatment Pending Test Test Name Order Date [id number] NAIL, 1-5 03/04/2022 [id number] SKIN LESIONS, OVER 4 03/04/20 22 [id number] DYSTROPHIC NAILS ANY # Insurance Providers Payer Name Payer Address Payer Phone Subscriber Number Group Number Insured Name Patient Relationship to Insured Coverage Start Date Coverage End Date [facility] Medicare Complete [address] [address] [place] [address] [id number] Magy Santiago Self - patient is the insured Medical (General) History Medical History History ICD Code asthma Back,Hip,and Knee pain Cataracts Diabetes mellitus High blood pressure Numbness thyroid Mumps Joint implants/screws Surgical History Surgery Date(Month/Year) neck surgery 2016
--- OUTSIDE RECORDS SUMMARY | 2025-09-07 18:44 | XMS_ITS | Patient Health Record ---
Author Organization [facility] Address [address] [place] [address] Care Team Providers Care Sport Shoe Spike Assembler Name Role Phone Marycruz Zapata MD Primary Care Provider Dong Escobedo [phone] Reason For Referral No Information Medications Medication SIG (Take, Route, Frequency, Duration) Notes Start Date End Date Status metFORMIN HCl 11/24/2024 11/24/2024 Acti ve Zestril 11/24/2024 11/24/2024 Active Cardizem 11/24/2024 11/24/2024 Active Baby Aspirin 11/24/2024 11/24/2024 Activ e Colyte with Flavor Packs 240 GM 1 ml one time Orally Once a day; Duration: 1 day(s) 03/24/2013 Active Omeprazole 11/24/2024 11/24/2024 Active Problems Problem Type SNOMED Code ICD Code Onset Dates Problem Status W/U Status Risk Notes Problem Umaña's esophagus (636570506) 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 Problem Family History of Cancer of Colon (Situation) (738277739) Family history of colon cancer (V16.0) Active confirmed Problem Colon cancer screening (642817986) Colon cancer screening (V76.51) Active confirmed Problem History of adenomatous polyp of colon (722925672) History of adenomatous polyp of colon (V12.72) Active confirmed Plan Of Treatment Future Test Test Name Order Date UPPER GI ENDOSCOPY 03/24/2013 COLONOSCOPY 03/24/2013 Insurance Providers Payer Name Payer Address Payer Phone Subscriber Number Group Number Insured Name Patient Relationship to Insured Coverage Start Date Coverage End Date [place] [address] [id number] SAHIL CAMPOS Self - patient is the insured MEDICAID OF [facility] [address] [place] [address] [id number] SAHIL CAMPOS Self - patient is the insured Medical (General) History Medical History History ICD Code GERD-EGD in 04/2006 with a sm all HH and small area of Umaña's esophagus-no dysplasia Colonoscopy in 04/2006 with removal of sm all tubular adenomas hypertension asthma NIDDM Denies [place],CVA,renal disease Surgical History Surgery Date(Month/Year) cholecystectomy hysterectomy
== END 2025-09-07 15:05 | disposition home or self-care (01) ==
LOC: HO.US 15:04
PROVIDERS: Visit Provider Internal Medicine
DX: C22.1 Intrahepatic bile duct carcinoma (principal); M79.605 Pain in left leg
CPT/HCPCS: 93971

== ENCOUNTER → 2025-09-07 15:08 | Outpatient (BNV) | payer MEDICARE, SELFPAY | PROVIDERS: Visit Provider Radiology Diagnostic Radiology | DX: M79.605 Pain in left leg (principal) | CPT/HCPCS: 93971 ==

== ENCOUNTER 2025-09-15 07:31 | Outpatient (REF) | payer MEDICARE, SELFPAY ==
--- NOTE | ~2025-09-15 | CT_ITS ---
EXAMINATION: CT ABDOMEN PELVIS WITH IV CONTRAST HISTORY: restaging COMPARISON: Comparison is made with the prior examination dated 06/15/2025. Correlation is also made with an MRI of the abdomen dated 05/14/2025. TECHNIQUE: CT scan of the abdomen and pelvis was performed following administration of 85 mL Omnipaque 350 using standard departmental protocol. Coronal and sagittal reformatted images were generated and reviewed. The patient received oral contrast material. This CT exam was performed with one or more of the following dose reduction techniques: automated exposure control, adjustment of the mA and/or kV according to patient size, use of iterative reconstruction technique. DLP: 1772 mGy-cm FINDINGS: LOWER CHEST: There is a new 10 mm nodule in the right lower lobe. The visualized left lung base is clear. There is no pleural or pericardial effusion. CARDIOVASCULATURE: The heart is normal in size. An aortic valve prosthesis is noted. There is no pericardial effusion. LIVER: The liver again demonstrates a nodular contour, consistent with cirrhosis. There is a heterogeneously enhancing mass at the dome of the liver measuring 6.4 x 4.7 cm. Comparison with the prior CT scan is limited as the prior study was performed without intravenous contrast. The lesion may be smaller than on the prior MRI. The hepatic and portal veins are patent. GALLBLADDER / BILE DUCTS: The gallbladder is surgically absent. There is no intra or extrahepatic biliary ductal dilatation. SPLEEN: The spleen is normal in size. No focal splenic lesion is identified. PANCREAS: The pancreas is unremarkable in appearance. ADRENAL GLANDS: Within normal limits. KIDNEYS/RETROPERITONEUM: No renal calculi are identified. There is no hydronephrosis. There are subcentimeter hypodensities in the left kidney which are too small to accurately characterize. LYMPH NODES: There are prominent periportal lymph nodes measuring up to 1.7 cm in size. There are soft tissue nodules anterior to and posterior to the liver measuring up to 10 mm in size (series 2, image 13) which are suspicious for metastatic disease. VASCULATURE: The abdominal aorta demonstrates atherosclerotic calcification, but is normal in caliber. MESENTERY/PERITONEUM: No free fluid. No masses. There is no free intraperitoneal gas. STOMACH: Normal SMALL BOWEL: The small bowel is normal in caliber. COLON: The patient is status post ascending colectomy. There is diverticulosis of the sigmoid colon, without evidence of diverticulitis. APPENDIX: The appendix is surgically absent. URINARY BLADDER/PELVIC ORGANS: The urinary bladder is collapsed, limiting evaluation. The patient is status post hysterectomy. BONES / SOFT TISSUES: There is degenerative disc disease of the spine. A right hip prosthesis is noted. CT/CT abdomen pelvis w IV con IMPRESSION: 1. Cirrhosis of the liver. Again seen is a heterogeneously enhancing mass at the dome compatible with hepatocellular carcinoma. Size comparison is difficult, as the prior CT was performed without intravenous contrast material. The lesion may be smaller than on the prior MRI. 2. New 10 mm nodule in the right lower lobe suspicious for metastatic disease. 3. Soft tissue nodules anterior and posterior to the liver, also suspicious for metastatic disease. Electronically signed by: Dong Chicas MD 09/15/2025 10:07 AM EDT
--- OUTSIDE RECORDS SUMMARY | 2025-09-15 07:33 | XMS_ITS | Clinical Summary ---
Author Organization [facility] Address [address] [place] [address] Care Team Providers Care Crackling Press Operator Name Role Phone Marycruz Zapata MD [...] age to complete this topic Care Teams Crackling Press Operator Relationship Specialty Start Date End Date Marycruz Zapata MD [address] [place] [address] [address] [facility] [place] [address] PCP - General Internal Medicine 02/17/18
--- OUTSIDE RECORDS SUMMARY | 2025-09-15 07:33 | XMS_ITS | Clinical Summary ---
Author Organization [facility] Address [address] [place] [address] Phone Care Team Providers Care Naval Architect Name Role Phone Marycruz Zapata MD Primary Care Provider [phone] Allergies Active Allergy Reactions Criticality Noted Date [...] Date Hyperglycemia due to diabete s mellitus ([facility] V24, [facility] V28) 01/05/2025 Resolved Problems Problem Noted Date Diagnosed Date Resolved Date COPD exacerbation ([facility] V24, [facility] V28) 01/05/2025 Acute hypoxic respiratory fa ilure ([facility] V24, [facility] V28) 01/03/2025 01/05/2025 Surgical History Surgery Date Site/Laterality Comments CARPAL TUNNEL RELEASE 03/28/2022 Right PROCEDURE: [place] NEUROPLASTY &/TRANSPOS MEDIAN NRV CARPAL TUNNE; COMMENT: Dr. Mccullough Medical History Medical History Date Comments Essential hypertension DX:Essent ial hypertension Diabetes mellitus type 2, co ntrolled, with complications ([facility] V24, [facility] V28) DX:Diabetes mellitus type 2, controlled, with complications (HCC) High cholesterol DX:High cholest surinder Thyroid activity decreased DX:Th yroid activity decreased Afib ([facility] V24, [facility] V28) Social History Tobacco Use Types Packs/Day Years Used Date Smoking Tobacco: Every Day Smokeless Tobacco: Never Alcohol Use Standard Drinks/Week Comments Never 0 (1 standard drink = 0.6 oz pur e alcohol) Interpersonal Safety Answer Date Record ed Physical Abuse Unrecognized value 01/03/2025 Verbal Abuse Unrecognized value 01/03/2025 Comments No Sex and Gender Information [...] Last Done Comments Breast Cancer Screening 1955 Colorectal Cancer Screening: Colonoscopy 1955 Diabetes: Annual Foot Exam 1963 Diabetes: Annual Retina Eye Exam 1963 DTaP,Tdap,and Td Vaccines (1 - Tdap) 1972 RSV Immunization Adult Patients (1 - Risk 50-74 years 1-dose series) 2003 Zoster Vaccines (1 of 2) 2003 Cholesterol Screening (Lipid Panel) 10/27/2022 Hepatitis C Screening 10/27/2022 Medicare Annual [...] Procedure Name Priority Date/Time Associated Diagnosis Comments COMPREHENSIVE METABOLIC PANEL STAT 05/30/2025 11:21 AM EDT HEMOGLOBIN A1C Add-On 01/04/2025 6:19 AM EST from Last 3 Months or Most Recently Relevant to Health Maintenance Results * (ABNORMAL) Comprehensive metabolic panel (05/30/2025 11:21 AM EDT) Sodium 135 133 - 145 mmol/L LAB CHEMISTRY METHOD 05/30/2025 12:56 PM EDT [facility] Potassium 4.5 3.5 - 5.5 mmol/L LAB CHEMISTRY METHOD 05/30/2025 12:56 PM EDT [facility] Chloride 104 96 - 110 mmol/L LAB CHEMISTRY METHOD 05/30/2025 12:56 PM EDT [facility] CO2 26 21 - 32 mmol/L LAB CHEMISTRY METHOD 05/30/2025 12:56 PM EDT [facility] Anion Gap 5 3 - 11 LAB CHEMISTRY METHOD 05/30/2025 12:56 PM [facility] Glucose 222(H) 70 - 100 mg/dL LAB CHEMISTRY METHOD 05/30/2025 12:56 PM [facility] BUN 18 5 - 25 mg/dL LAB CHEMISTRY METHOD 05/30/2025 12:56 PM [facility] Creatinine 1.65(H) 0.50 - 1.10 mg/dL LAB CHEMISTRY METHOD 05/30/2025 12:56 PM [facility] eGFR 33(L) >=60 mL/min/1. 73m2 LAB CHEMISTRY METHOD 05/30/2025 12:56 PM [facility] Comment:Calculation based on the Chronic Kidney Disease Epidemiology Collaboration (CKD-EPI) equation refit without adjustment for race. BUN/Creatinine Ratio 10.9 LAB CHEMISTRY METHOD 05/30/2025 12:56 PM [facility] Calcium 9.1 8.5 - 10.5 mg/dL LAB CHEMISTRY METHOD 05/30/2025 12:56 PM [facility] AST (SGOT) 23 10 - 42 unit/L LAB CHEMISTRY METHOD 05/30/2025 12:56 PM [facility] ALT (SGPT) 16 10 - 60 unit/L LAB CHEMISTRY METHOD 05/30/2025 12:56 PM [facility] Alkaline Phosphatase 143(H) 42 - 121 unit/L LAB CHEMISTRY METHOD 05/30/2025 12:56 PM [facility] Total Protein 6.8 6.0 - 8.0 g/dL LAB CHEMISTRY METHOD 05/30/2025 12:56 PM [facility] Albumin 3.1(L) 3.2 - 5.0 g/dL LAB CHEMISTRY METHOD 05/30/2025 12:56 PM [facility] Total Bilirubin 0.2 0.0 - 1.4 mg/dL LAB CHEMISTRY METHOD 05/30/2025 12:56 PM EDT [facility] Blood Venous blood specimen / Unknown Venipuncture / Unknown 05/30/2025 11:21 AM EDT 05/30/2025 12:24 PM EDT Ruy Galindo MD LAB BLOOD ORDERABLES Final Resu lt Performing Organization Address [facility] Co de Phone Number [facility] [address] [place] [address], [place] [phone] * (ABNORMAL) Hemoglobin A1c (01/04/2025 6:19 AM EST) Hemoglobin A1C 8.2(H) <6.5 % LAB CHEMISTRY METHOD 01/04/2025 1:13 PM EST [facility] Mean Bld Glu Estim. 189 mg/dL LAB CHEMISTRY METHOD 01/04/2025 1:13 PM EST [facility] Blood Venous blood specimen / Unknown Venipuncture / Unknown 01/04/2025 6:19 AM EST 01/04/2025 7:22 AM EST Phoenix Riley MD LAB BLOOD ORDERABLES Final Re sult Performing Organization Address [facility] de Phone Number [facility] [address] [place] [address], [place] [phone] from Last 3 Months or Most Recently [...] currently active code status orders. Care Teams Naval Architect Relationship Specialty Start Date End Date Marycruz Zapata MD [address] [place] [address] [address] [facility] [place] [address] PCP - General Internal Medicine 11/02/21
[2025-09-15] MEDS: Barium Sulfate Oral (Berry) 450 ML ORAL.SUSP 900 ML PO (09:52)
[2025-09-15] MEDS: iohexoL 350 MG/ML 100 ML INFUS..BTL IV (09:53)
== END 2025-09-15 07:32 | disposition home or self-care (01) ==
LOC: HO.CT 07:31
PROVIDERS: PCP Internal Medicine; Visit Provider Nurse Practitioner Family
DX: C22.1 Intrahepatic bile duct carcinoma (principal)
CPT/HCPCS: 74177; Q9967

== ENCOUNTER → 2025-09-15 07:33 | Outpatient (BNV) | payer MEDICARE, SELFPAY | PROVIDERS: PCP Internal Medicine; Visit Provider Radiology Diagnostic Radiology | DX: K74.60 Unspecified cirrhosis of liver (principal); K76.89 Other specified diseases of liver | CPT/HCPCS: 74177 ==

== ENCOUNTER 2025-11-03 14:40 | Outpatient (REF) | payer MEDICARE, SELFPAY ==
--- NOTE | ~2025-11-03 | CT_ITS ---
EXAMINATION: CT CHEST WITH IV CONTRAST INDICATION: eval for lung mets COMPARISON: Correlation is made with a CT of the abdomen and pelvis dated 09/15/2025. TECHNIQUE: Helical CT scan of the chest was performed following administration of intravenous contrast. Coronal and sagittal reformatted images were generated and reviewed. This CT exam was performed with one or more of the following dose reduction techniques: automated exposure control, adjustment of the mA and/or kV according to patient size, use of iterative reconstruction technique. DLP: 170 mGy-cm CHEST: THYROID: The thyroid is unremarkable. LUNGS: There is a dominant nodule in the right lower lobe as noted on the prior abdominal CT. The mass now measures 2.4 cm in size (previously 10 mm in size). In addition, multiple bilateral lung nodules are identified including a 6 mm nodule in the right upper lobe (series 5, image 30), and 2-3 mm nodules in the left lower lobe (series 5, images 55 and 56). MEDIASTINUM: There is no mediastinal lymphadenopathy. MARY: There is no hilar lymphadenopathy. CARDIOVASCULATURE: The heart is normal in size. There is no pericardial effusion. An aortic valve prosthesis is noted. DEGREE OF CORONARY CALCIFICATION: moderate PLEURA: There is no pleural effusion. No pneumothorax. MAIN AIRWAYS: The mainstem bronchi and proximal branches are patent. AXILLA: There is no axillary lymphadenopathy. BONES AND SOFT TISSUES: There is degenerative disc disease of the spine. UPPER ABDOMEN: Again seen is cirrhosis of the liver and a heterogeneous mass at the hepatic dome measuring at least 7 cm. Again seen are nodules anterior to the liver and posterior to the liver. These are larger than on the prior abdominal CT. The anterior nodule now measures 2.0 cm (previously 1.1 cm) and the posterior nodule measures 1.8 cm (previously 1.0 cm). There is a small amount of upper abdominal ascites. The spleen is enlarged. The adrenals are unremarkable. CT/CT chest w IV con IMPRESSION: 1. Interval enlargement of the previously seen right lower lobe nodule, consistent with progression of metastatic disease. Additional smaller nodules are noted in the right upper and left lower lobes. 2. Cirrhosis of the liver and a dominant mass at the hepatic dome as seen previously. 3. Enlargement of soft tissue nodules anterior and posterior to the liver as described, consistent with progression of metastatic disease. Electronically signed by: Dong Chicas MD 11/03/2025 03:16 PM EST
[2025-11-03] MEDS: iohexoL 350 MG/ML 100 ML INFUS..BTL 65 ML IV (14:55)
--- OUTSIDE RECORDS SUMMARY | 2025-11-03 22:15 | XMS_ITS | Patient Health Record ---
Author Organization [facility] Address [address] [facility] [place] [address] Care Team Providers Care Hookman Name Role Phone Marycruz Zapata Primary Care Provider Shantelle Whaley Unavailable [phone] Allergies No Known Allergies Reason For Referral [...] Problem Acquired hammer toe of right foot (9439968979318060 ) Other hammer toe(s) (acquired), right foot (M20.41) Active confirmed Problem Acquired hammer toe of left foot (0284957329311790 ) Other hammer toe(s) (acquired), left foot (M20.42) Active confirmed Problem Polyneuropathy due to type 2 diabetes mellitus (559108716) Type 2 diabetes mellitus with diabetic polyneuropathy (E11.42) Active confirmed Plan Of Treatment Pending Test Test Name Order Date [id number] NAIL, 1-5 03/04/2022 [id number] SKIN LESIONS, OVER 4 03/04/20 22 [id number] DYSTROPHIC NAILS ANY # Insurance Providers Payer Name Payer Address Payer Phone Subscriber Number Group Number Insured Name Patient Relationship to Insured Coverage Start Date Coverage End Date [facility] Medicare Complete [address] [address] [place] [address] [id number] Magy Santiago Self - patient is the insured Medical (General) History Medical History History ICD Code asthma Back,Hip,and Knee pain Cataracts Diabetes mellitus High blood pressure Numbness thyroid Mumps Joint implants/screws Surgical History Surgery Date(Month/Year) neck surgery 2016
--- OUTSIDE RECORDS SUMMARY | 2025-11-03 22:15 | XMS_ITS | Clinical Summary ---
Author Organization [facility] Address [address] [place] [address] Phone Care Team Providers Care Foundry Worker Name Role Phone Marycruz Zapata MD Primary Care Provider [phone] Allergies Active Allergy Reactions Criticality Noted Date [...] 01/05/2025 Acute hypoxic respiratory failure 01/03/2025 01/05/2025 Surgical History Surgery Date Site/Laterality Comments CARPAL TUNNEL RELEASE 03/28/2022 Right PROCEDURE: MD NEUROPLASTY &/TRANSPOS MEDIAN NRV CARPAL TUNNE; COMMENT: [...] Orientation Straight 11/08/2024 7: 59 PM EST Last Filed Vital Signs Vital Sign Reading [...] METHOD 05/30/2025 12:56 PM [facility] Potassium 4.5 3.5 - 5.5 mmol/L LAB CHEMISTRY METHOD 05/30/2025 12:56 PM T [facility] Chloride 104 96 - 110 mmol/L LAB CHEMISTRY METHOD 05/30/2025 12:56 PM [facility] CO2 26 21 - 32 [...] METHOD 05/30/2025 12:56 PM [facility] Blood Venous blood specimen / Unknown Venipuncture / Unknown 05/30/2025 11:21 AM EDT 05/30/2025 12:24 PM EDT Ruy Galindo MD LAB BLOOD ORDERABLES Final Resu lt Performing Organization Address [facility]/ZIP Co de Phone Number [facility] [address] [place] [address], [place] [phone] * (ABNORMAL) Hemoglobin A1c (01/04/2025 6:19 AM [...] ORDERABLES Final Re sult Performing Organization Address [facility] Co de Phone Number [facility] [address] [place] [address], [place] [phone] from Last 3 Months or Most Recently [...] currently active code status orders. Care Teams Foundry Worker Relationship Specialty Start Date End Date Marycruz Zapata MD [address] [place] [address] [address] [facility] [place] [address] PCP - General Internal Medicine 11/02/21
--- OUTSIDE RECORDS SUMMARY | 2025-11-03 22:15 | XMS_ITS | Clinical Summary ---
Author Organization [facility] Prior to 04/23/[address] [place] [address] Care Team Providers Care Package Dyer Name Role Phone Marycruz Zapata MD Primary Care Provider [phone] Social History Tobacco Use Types Packs/Day Years [...] age to complete this topic Care Teams Package Dyer Relationship Specialty Start Date End Date Marycruz Zapata MD [address] [facility] [address] [facility] [place] [address] PCP - General Internal Medicine 02/17/18
--- OUTSIDE RECORDS SUMMARY | 2025-11-03 22:15 | XMS_ITS | Patient Health Record ---
Author Organization [facility] Address [address] [place] [address] Care Team Providers Care Learning Facilitator Name Role Phone Marycruz Zapata MD Primary Care Provider Dong Escobedo [phone] Reason For Referral No Information Medications Medication SIG (Take, Route, Frequency, Duration) Notes Start Date End Date Status metFORMIN HCl Acti ve Zestril Active Cardizem Active Baby Aspirin Activ e Colyte with Flavor Packs 240 GM Solution Reconstituted 1 ml one time Orally Once a day; Duration: 1 day(s) 03/24/2013 Active Omeprazole Active Social History Social History Additional Details Category Social Info Options Details Miscellaneous: Marital status: Occupation: Retired Section Notes: Smoker; no alcohol Problems Problem Type SNOMED Code ICD Code Onset Dates Problem Status W/U Status Risk Notes Problem Umaña's esophagus (080312125) 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 Problem Family History of Cancer of Colon (Situation) (247605657) Family history of colon cancer (V16.0) Active confirmed Problem Colon cancer screening (300873778) Colon cancer screening (V76.51) Active confirmed Problem History of adenomatous polyp of colon (333410452) History of adenomatous polyp of colon (V12.72) Active confirmed Plan Of Treatment Future Test Test Name Order Date UPPER GI ENDOSCOPY 03/24/2013 COLONOSCOPY 03/24/2013 Insurance Providers Payer Name Payer Address Payer Phone Subscriber Number Group Number Insured Name Patient Relationship to Insured Coverage Start Date Coverage End Date [place] OF [place] [address] [place] [id number] SAHIL CAMPOS Self - patient is the insured MEDICAID OF [facility] [address] [place] [address] [id number] SAHIL CAMPOS Self - patient is the insured Medical (General) History Medical History History ICD Code GERD-EGD in 04/2006 with a sm all HH and small area of Umaña's esophagus-no dysplasia Colonoscopy in 04/2006 with removal of sm all tubular adenomas hypertension asthma NIDDM Denies PR,CVA,renal disease Surgical History Surgery Date(Month/Year) cholecystectomy hysterectomy
== END 2025-11-03 14:41 | disposition home or self-care (01) ==
LOC: HO.CT 14:40
PROVIDERS: PCP Internal Medicine; Visit Provider Nurse Practitioner Family
DX: R91.1 Solitary pulmonary nodule (principal); C22.1 Intrahepatic bile duct carcinoma
CPT/HCPCS: 71260; Q9967

== ENCOUNTER → 2025-11-03 14:41 | Outpatient (BNV) | payer MEDICARE, SELFPAY | PROVIDERS: PCP Internal Medicine; Visit Provider Radiology Diagnostic Radiology | DX: K74.60 Unspecified cirrhosis of liver (principal); R91.8 Other nonspecific abnormal finding of lung field | CPT/HCPCS: 71260 ==

== ENCOUNTER → 2025-11-10 14:09 | Outpatient (BNV) | payer MEDICARE, SELFPAY | PROVIDERS: PCP Internal Medicine; Referring Provider Internal Medicine; Visit Provider Internal Medicine Cardiovascular Disease | DX: I44.0 Atrioventricular block, first degree (principal); I49.1 Atrial premature depolarization; I44.7 Left bundle-branch block, unspecified | CPT/HCPCS: 93010 ==